=== PATIENT | male | born 1975 | race Two or more races ===

== ENCOUNTER 2023-05-07 11:31 | Emergency (ER) | payer MEDICAID, SELFPAY ==
--- NOTE | 2023-05-07 | ECG_ITS ---
Test Reason : ABN EKG Blood Pressure : / mmHG Vent. Rate : 077 BPM Atrial Rate : 077 BPM P-R Int : 182 ms QRS Dur : 108 ms QT Int : 412 ms P-R-T Axes : 064 -23 182 degrees QTc Int : 466 ms Normal sinus rhythm Minimal voltage criteria for LVH, may be normal variant ( [place] product ) ST & T wave abnormality, consider inferolateral ischemia Prolonged QT Abnormal ECG No previous ECGs available Referred By: Generic ED Physician Electronically Signed By:NOAH FLOWERS MD
--- NOTE | ~2023-05-07 | XR_ITS ---
EXAMINATION: XR CHEST CLINICAL INFORMATION: Increased blood pressure. COMPARISON: None available. TECHNIQUE: 2 views of the chest were obtained. FINDINGS: No significant abnormality is noted involving the heart, lungs, mediastinum, bony thorax or soft tissues. XR/XR chest 2V IMPRESSION: No acute cardiopulmonary process.
[2023-05-07 11:42] VITALS: BP 203/116; PULSE 77; RESP 18; TEMP 36.6; O2SAT 99; BMI 41.1
[2023-05-07 11:58] LABS: Glucose, Whole Blood 406 mg/dL (60-115)
--- NOTE | 2023-05-07 12:00 | PC.NURSE ---
[place], pt unable to establish primary care and obtain home medications. sent from urgent care for abnormal ekg. pt denies any chest pain or discomfort.
[2023-05-07 12:11] VITALS: BP 201/120; PULSE 75; RESP 14; O2SAT 97
--- NOTE | 2023-05-07 12:11 | ED_ITS ---
HPI - General Adult General Chief complaint: General Medical Stated complaint: ABN EKG FROM [facility] PER EMS Time Seen by Provider: 05/07/23 11:45 Source: patient, EMS and other (Urgent care staff) Mode of arrival: EMS Limitations: no limitations History of Present Illness HPI narrative: 47 yo male with history of NIDDM, HTN, seizure disorder, gerd here with complaints of medication refill. Patient was seen at after running out of all his medications 3 weeks ago seeking refill. He was noted to be hypertensive, hy perglycemic and had EKG t wave inversions although asymptomatic and was sent in to the ER for further evaluation. Patient reports he moved here from [facility] and has no PCP. He ran out his medications 3 weeks ago. He has no complaints of chest pain, shortness of breath, vision changes, dizziness, headache, vomiting. Related Data Previous Rx's Medication Instructions Recorded albuterol sulfate 90 mcg/actuation 2 puff inhalation Q4-6H PRN 05/07/23 aerosol inhaler shortness of breath or wheezing #8.5 grams alogliptin 25 mg tablet (Nesina) 25 mg PO DAILY #30 tabs 05/07/23 aspirin 81 mg tablet,delayed 81 mg PO DAILY #30 tabs 05/07/23 release fluticasone furoate 200 1 inh inhalation DAILY #60 ea 05/07/23 mcg-vilanterol 25 mcg/dose inhalation powder (Breo Ellipta) hydroxyzine HCl 25 mg tablet 25 mg PO TID PRN anxiety #30 tabs 05/07/23 isosorbide mononitrate 60 mg 60 mg PO DAILY #30 tabs 05/07/23 tablet,extended release 24 hr lisinopril 40 mg tablet 40 mg PO DAILY #30 tabs 05/07/23 melatonin 5 mg tablet 5 mg PO BEDTIME PRN sleep #30 tabs 05/07/23 metformin 1,000 mg tablet 1,000 mg PO BID #60 tabs 05/07/23 omeprazole 40 mg capsule,delayed 40 mg PO DAILY #30 caps 05/07/23 release phenytoin sodium extended 100 mg 100 mg PO BID #60 caps 05/07/23 capsule quetiapine 50 mg tablet 50 mg PO TID #90 tabs 05/07/23 Allergies Allergy/AdvReac Type Severity Reaction Status Date / Time No Known Allergies Allergy Verified 05/07/23 11:47 Review of Systems Review of Systems: Yes all other systems are reviewed and are negative Constitutional: Constitutional: Reports no additional constitutional complaints, Denies body ache(s), Denies chills, Denies fever(s), Denies headache(s) and Denies weakness Eyes: Eyes: Reports no additional eye complaints and Denies change in vision ENT: Reports system reviewed and no additional complaints, except as documented, Denies dizziness, Denies headache(s), Denies nasal congestion, Denies nasal discharge and Denies neck pain Cardiovascular: Cardiovascular: Reports no additional cardiovascular complaints, Denies chest pain, Denies leg edema and Denies dyspnea Respiratory: Respiratory: Reports no additional respiratory complaints, Denies cough and Denies dyspnea Gastrointestinal: Gastrointestinal: Reports no additional gastrointestinal complaints, Denies abdominal pain, Denies diarrhea, Denies nausea and Denies vomiting Genitourinary: Genitourinary: Denies urinary incontinence Musculoskeletal: Musculoskeletal: Reports no additional musculoskeletal complaints, Denies back pain, Denies arthralgias, Denies joint swelling, Denies neck pain, Denies numbness and Denies tingling Integumentary/Breasts: Skin/Breast: Reports system reviewed and no additional complaints, except as docu and Denies rash Neurologic: Reports system reviewed and no additional complaints, except as documented, Denies dizziness, Denies headache(s), Denies numbness, Denies tingling and Denies weakness PMFSH Past Medical History Attestation statement: The following information was validated with the patient. Source: old records reviewed and nursing notes reviewed Social History Social History Advance Directives: No Physical Exam ED Vital Signs: Vital Signs - 24 hr 05/07/23 11:42 05/07/23 12:11 05/07/23 13:06 Temperature 97.9 F 98.0 F Pulse Rate 77 75 89 Respiratory Rate 18 14 12 Blood Pressure 203/116 H 201/120 H 160/94 H Pulse Oximetry 99 97 98 Oxygen Delivery Method Room Air Room Air Room Air 05/07/23 14:28 05/07/23 16:20 Temperature Pulse Rate 82 75 Respiratory Rate 16 Blood Pressure 143/84 H 167/104 H Pulse Oximetry 100 Oxygen Delivery Method Room Air BMI result Body Mass Index 41.1 Const General: cooperative, healthy appearing, comfortable and no acute distress Orientation/consciousness: patient oriented x3 Limitations: no limitations HENMT Head: Yes normal to inspection Ears: hearing grossly normal bilaterally Eyes General: appearance normal, both eyes and all related structures Pupils: Equal, round and reactive pupils present Neck Neck: Yes normal visual inspection and Yes full ROM Chest Chest palpation & inspection: normal inspection of the chest Resp Effort & Inspection: normal respiratory effort Auscultation: clear to auscultation bilaterally Cardio Rate: regular rate Rhythm: regular rhythm Peripheral pulses: Peripheral pulses 2+ throughout GI Inspection: Yes normal to inspection Palpation (GI): Soft to palpation and nontender Back/Spine/Pelvis Thoracic/Lumbar Spine: thoracic and lumbar spine normal to inspection Skin General skin exam: no rashes or lesions noted Neuro General: patient oriented x3 and moves all extremities Cranial nerves: Yes Equal, round and reactive pupils present Cognition (Neuro): normal cognition Gait exam (Neuro): Normal gait present Extrem General: Yes normal to inspection, Yes no pedal edema and Yes no calf tenderness Course Course Course Narrative: Labs show hyperglycemia with no evidence of DKA. Patient received IV fluids and of insulin IV. Patient's blood pressure improved with his home oral medications. Patient's labs show a mild DENNYS. Mildly elevated troponin which is likely secondary to demand. Patient denies any chest pain or shortness of breath. Will plan for repeat BMP and troponin post fluids. Reevaluation(s) Reevaluation #1: 1630-Sign out to [facility] INDUSTRIAL HYGENIST pending repeat labs and dispo home Medications Administered Discontinued Medications Generic Name Dose Route Start Last Admin Trade Name Freq PRN Reason Stop Dose Admin Sodium Chloride 1,000 mls @ 999 mls/hr 05/07/23 13:34 05/07/23 16:14 Ns IV 05/07/23 14:34 Infused .Q1H1M STA Infusion Insulin Human Regular 10 unit 05/07/23 13:17 05/07/23 13:21 Insulin Regular, Human 100 Unit/Ml 3 Ml Vial IVPUSH 05/07/23 13:18 10 unit ONCE ONE Administration Isosorbide Mononitrate 60 mg 05/07/23 12:05 05/07/23 12:12 Isosorbide Mononitrate 60 Mg Tab.Er.24h PO 05/07/23 12:06 60 mg ONCE ONE Administration Protocol Lisinopril 40 mg 05/07/23 12:05 05/07/23 12:12 Lisinopril 40 Mg Tablet PO 05/07/23 12:06 40 mg ONCE ONE Administration Protocol Medical Decision Making Medical Decision Making MDM Narrative: 47 yo male with history of GERD, NIDDM, HTN, DM, seizure disorder here from urgent care with concern for abnormal EKG. Patient went there seeking medication refill after running out of all his medications 3 weeks ago. This is due to patient moving from a different state and not having a PCP in [place]. On arrival patient asymptomatic. BP elevated Will need labs, EKG, CXR, POC Will give patients home lisinopril, isosorbide Differential Diagnosis Differential Diagnoses: The differential diagnosis associated with the presentation includes asymptomatic HTN low concern for hypertensive crisis consider acs Lab Data MDM Lab Attestation statement: I reviewed the patient's lab results. 05/07/23 12:05 05/07/23 12:05 Labs: Lab Results 05/07/23 05/07/23 05/07/23 Range/Units 11:53 12:05 12:05 WBC 9.8 (4.8-10.8) X10*3/uL RBC 4.14 L (4.60-5.80) X10*6/uL Hgb 12.7 L (14.0-18.0) g/dl Hct 37.6 L (42.0-52.0) % MCV 90.8 (80.0-98.0) fL MCH 30.7 (27.0-33.0) pg MCHC 33.8 (31.0-36.0) g/dl RDW 13.2 (11.0-16.0) % Plt Count 245 (160-400) X10*3/uL MPV 10.1 (9.4-12.4) fL Immature Gran % (Auto) 0.9 H (0.0-0.4) % Neut % (Auto) 70.8 (45-73) % Lymph % (Auto) 18.4 L (20-40) % [place] % (Auto) 7.4 (2-11) % Eos % (Auto) 2.0 (0-4) % Baso % (Auto) 0.5 (0-2) % Lymph # (Auto) 1.8 (1.2-4.9) X10*3/uL [place]cher # (Auto) 0.7 (0.1-1.2) X10*3/uL Eos # (Auto) 0.2 (0.0-0.4) X10*3/uL Baso # (Auto) 0.1 (0.0-0.2) X10*3/uL Abs Immat Gran (auto) 0.09 H (0.00-0.03) X10*3/uL Absolute Neuts (auto) 6.9 (2.0-8.3) x10*3/uL Absolute Nucleated RBC 0.000 (0.0-0.012) X10*3/uL Nucleated RBC % (auto) 0.0 (0.0-0.2) /100WBC VBG pH (7.32-7.43) VBG pCO2 mmHg VBG pO2 mmHg VBG HCO3 (22-26) mmol/L VBG O2 Saturation % VBG Base Excess mmol/L Sodium 135 (135-145) mmol/L Potassium 4.6 (3.3-5.1) mmol/L Chloride 101 (96-108) mmol/L Carbon Dioxide 23 (22-29) mmol/L Anion Gap 16 (12-20) BUN 29 H (9-16) mg/dL Creatinine 1.80 H (0.5-1.4) mg/dL Estim Creat Clear Calc 71.5 Estimated GFR 41 POC Glucose 406 H* (60-115) mg/dL Random Glucose 412 H* (60-115) mg/dL Calcium 9.9 (8.4-10.2) mg/dL Magnesium 2.2 (1.6-2.6) mg/dL Total Bilirubin 0.3 (0.0-1.0) mg/dL Direct Bilirubin 0.1 (0.0-0.5) mg/dL AST 13 (5-37) U/L ALT 15 (0-40) U/L Alkaline Phosphatase 80 (39-117) U/L Troponin I High Sens (<3.5-35.0) ng/L Total Protein 7.8 (6.5-8.0) g/dL Albumin 3.8 (3.5-5.0) g/dL Beta-Hydroxybutyrate 0.09 (0.02-0.27) mmol/L 05/07/23 05/07/23 05/07/23 Range/Units 12:05 12:11 14:18 WBC (4.8-10.8) X10*3/uL RBC (4.60-5.80) X10*6/uL Hgb (14.0-18.0) g/dl Hct (42.0-52.0) % MCV (80.0-98.0) fL MCH (27.0-33.0) pg MCHC (31.0-36.0) g/dl RDW (11.0-16.0) % Plt Count (160-400) X10*3/uL MPV (9.4-12.4) fL Immature Gran % (Auto) (0.0-0.4) % Neut % (Auto) (45-73) % Lymph % (Auto) (20-40) % [place]cher % (Auto) (2-11) % Eos % (Auto) (0-4) % Baso % (Auto) (0-2) % Lymph # (Auto) (1.2-4.9) X10*3/uL [place]cher # (Auto) (0.1-1.2) X10*3/uL Eos # (Auto) (0.0-0.4) X10*3/uL Baso # (Auto) (0.0-0.2) X10*3/uL Abs Immat Gran (auto) (0.00-0.03) X10*3/uL Absolute Neuts (auto) (2.0-8.3) x10*3/uL Absolute Nucleated RBC (0.0-0.012) X10*3/uL Nucleated RBC % (auto) (0.0-0.2) /100WBC VBG pH 7.44 H (7.32-7.43) VBG pCO2 47 mmHg VBG pO2 38 mmHg VBG HCO3 32 H (22-26) mmol/L VBG O2 Saturation 65.0 % VBG Base Excess 7.3 mmol/L Sodium (135-145) mmol/L Potassium (3.3-5.1) mmol/L Chloride (96-108) mmol/L Carbon Dioxide (22-29) mmol/L Anion Gap (12-20) BUN (9-16) mg/dL Creatinine (0.5-1.4) mg/dL Estim Creat Clear Calc Estimated GFR POC Glucose 243 H (60-115) mg/dL Random Glucose (60-115) mg/dL Calcium (8.4-10.2) mg/dL Magnesium (1.6-2.6) mg/dL Total Bilirubin (0.0-1.0) mg/dL Direct Bilirubin (0.0-0.5) mg/dL AST (5-37) U/L ALT (0-40) U/L Alkaline Phosphatase (39-117) U/L Troponin I High Sens 56.1 H (<3.5-35.0) ng/L Total Protein (6.5-8.0) g/dL Albumin (3.5-5.0) g/dL Beta-Hydroxybutyrate (0.02-0.27) mmol/L Independent Interpretation I performed an independent interpretation of an: EKG and Plain X-Ray Interpretation: And pending reviewed the EKG which shows normal sinus rhythm with rate of 77, normal [place], normal QRS, T-wave inversions leads 1, 2, aVL, AVF, V4, V5, V6 Radiology Impression Discussion of test interpretation with radiology: I have reviewed the radiologist's reading. Independent Historian Clinical information obtained from an independent historian. History obtained from or confirmed by: EMS Clinical information was obtained from EMS and confirms the patient Discharge Plan Discharge Clinical Impression: Medication refill, Hypertension, Acute hyperglycemia Patient Disposition: Home, Self-Care Instructions: Medicine Refill (ED), Hypertension and Diabetes (ED) Additional Instructions: We have given you a 30 day supply her medications. You need to establish a primary care to continue your daily medication Prescriptions: New metformin 1,000 mg tablet 1,000 mg PO BID Qty: 60 0RF alogliptin [Nesina] 25 mg tablet 25 mg PO DAILY Qty: 30 0RF fluticasone furoate-vilanterol [Breo Ellipta] 200-25 mcg/dose blister with device 1 inh inhalation DAILY Qty: 60 0RF albuterol sulfate 90 mcg/actuation HFA aerosol inhaler 2 puff inhalation Q4-6H PRN (Reason: shortness of breath or wheezing) Qty: 8.5 0RF hydroxyzine HCl 25 mg tablet 25 mg PO TID PRN (Reason: anxiety) Qty: 30 0RF isosorbide mononitrate 60 mg tablet extended release 24 hr 60 mg PO DAILY Qty: 30 0RF lisinopril 40 mg tablet 40 mg PO DAILY Qty: 30 0RF melatonin 5 mg tablet 5 mg PO BEDTIME PRN (Reason: sleep) Qty: 30 0RF omeprazole 40 mg capsule,delayed release(DR/EC) 40 mg PO DAILY Qty: 30 0RF phenytoin sodium extended 100 mg capsule 100 mg PO BID Qty: 60 0RF aspirin 81 mg tablet,delayed release (DR/EC) 81 mg PO DAILY Qty: 30 0RF quetiapine 50 mg tablet 50 mg PO TID Qty: 90 0RF Interventions: Admission Worksheet (ED) Last Done: 05/07/23 15:00
[2023-05-07] MEDS: Isosorbide Mononitrate 60 MG TAB.ER.24H PO (12:12)
[2023-05-07] MEDS: lisinopriL 40 MG TABLET PO (12:12)
[2023-05-07 12:14] LABS: MANUAL DIFF FLAG NO
[2023-05-07 12:18] LABS: Venous Blood Gas Refer to POC result
[2023-05-07 12:19] LABS: Basophils Absolute Auto 0.1 X10*3/uL (0.0-0.2); Basophils Percent Auto 0.5 % (0-2); Eosinophils Absolute Auto 0.2 X10*3/uL (0.0-0.4); Hematocrit 37.6 % (42.0-52.0); Hemoglobin 12.7 g/dl (14.0-18.0); Imm Gran Abs Auto 0.09 X10*3/uL (0.00-0.03); Imm Gran Pct Auto 0.9 % (0.0-0.4); Lymphocytes Absolute Auto 1.8 X10*3/uL (1.2-4.9); Lymphocytes Percent Auto 18.4 % (20-40); Mean Corpuscular HGB Conc 33.8 g/dl (31.0-36.0); Mean Corpuscular Hemoglobin 30.7 pg (27.0-33.0); Mean Corpuscular Volume 90.8 fL (80.0-98.0); Mean Platelet Volume 10.1 fL (9.4-12.4); Monocytes Absolute Auto 0.7 X10*3/uL (0.1-1.2); Monocytes Percent Auto 7.4 % (2-11); Neutrophils Absolute Auto 6.9 x10*3/uL (2.0-8.3); Neutrophils Percent Auto 70.8 % (45-73); Platelet Count 245 X10*3/uL (160-400); Red Blood Count 4.14 X10*6/uL (4.60-5.80); Red Cell Distribution Width 13.2 % (11.0-16.0); White Blood Count 9.8 X10*3/uL (4.8-10.8)
[2023-05-07 12:19] LABS: VBG Base Excess 7.3 mmol/L; VBG HCO3 32 mmol/L (22-26); VBG pCO2 47 mmHg; VBG pH 7.44 (7.32-7.43); VBG pO2 38 mmHg
[2023-05-07 12:59] LABS: Troponin-I High Sensitivity 56.1 ng/L (<3.5-35.0)
[2023-05-07 13:06] VITALS: BP 160/94; PULSE 89; RESP 12; TEMP 36.7; O2SAT 98
[2023-05-07 13:13] LABS: Beta-Hydroxybutyrate 0.09 mmol/L (0.02-0.27)
--- NOTE | 2023-05-07 13:15 | PC.NURSE ---
continues to deny any pain, offering no complaints. awaiting lab results at this time
[2023-05-07 13:18] LABS: Alanine Aminotransferase 15 U/L (0-40); Albumin Level 3.8 g/dL (3.5-5.0); Alkaline Phosphatase 80 U/L (39-117); Anion Gap 16 (12-20); Aspartate Amino Transferase 13 U/L (5-37); Bilirubin Direct 0.1 mg/dL (0.0-0.5); Bilirubin Total 0.3 mg/dL (0.0-1.0); Blood Urea Nitrogen 29 mg/dL (9-16); Calcium 9.9 mg/dL (8.4-10.2); Carbon Dioxide 23 mmol/L (22-29); Chloride 101 mmol/L (96-108); Creatinine Clr Calc Pharmacy 71.5; Estimated Glomerular Filt Rate 41; Glucose Random 412 mg/dL (60-115); Magnesium 2.2 mg/dL (1.6-2.6); Potassium 4.6 mmol/L (3.3-5.1); Sodium 135 mmol/L (135-145); Total Protein 7.8 g/dL (6.5-8.0)
[2023-05-07] MEDS: Insulin Regular, Human 100 UNIT/ML 3 ML VIAL 10 UNIT IVPUSH (13:21)
[2023-05-07] MEDS: 0.9 % Sodium Chloride 1,000 ML 999 ML IV (13:42)
[2023-05-07 14:22] LABS: Glucose, Whole Blood 243 mg/dL (60-115)
[2023-05-07 14:28] VITALS: BP 143/84; PULSE 82; RESP 16; O2SAT 100
--- NOTE | 2023-05-07 15:29 | PC.NURSE ---
repeat lab work obtained, pt continues to offer no complaints
[2023-05-07 16:20] VITALS: BP 167/104; PULSE 75
[2023-05-07 16:38] LABS: Anion Gap 13 (12-20); Calcium 9.1 mg/dL (8.4-10.2); Carbon Dioxide 22 mmol/L (22-29); Chloride 104 mmol/L (96-108); Creatinine Clr Calc Pharmacy 80.5; Estimated Glomerular Filt Rate 47; Glucose Random 277 mg/dL (60-115); Sodium 135 mmol/L (135-145)
[2023-05-07 16:40] LABS: Troponin-I High Sensitivity 49.2 ng/L (<3.5-35.0)
[2023-05-07 17:16] LABS: Blood Urea Nitrogen 26 mg/dL (9-16)
--- NOTE | 2023-05-07 17:53 | MHC.CM.ED ---
CM met with patient at request of Yany CORRALES in regards to obtaining a PCP. Pt moved back to the area 3 weeks ago. 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 Pt given [facility] physician referral listing. Pt tells CM that he has already met with people at [facility] and is waiting for an appointment. Stated they told him to come to ED today, and then follow up with a telephone call to the Center. Pt needs medication refill. Will use [facility] pharmacy. Lives with friend. No DME/services. Un-vaccinated. Declines HCP. D/C plan: Home without services. Will call friend for transport home.
== END 2023-05-07 17:13 | disposition home or self-care (01) ==
PROVIDERS: Nurse Practitioner Family; Emergency Provider Emergency Medicine Emergency Medical Services
DX: E11.65 Type 2 diabetes mellitus with hyperglycemia (principal); R20.0 Anesthesia of skin; I10 Essential (primary) hypertension; R94.31 Abnormal electrocardiogram [ECG] [EKG]; R11.2 Nausea with vomiting, unspecified; Z76.0 Encounter for issue of repeat prescription; Z79.899 Other long term (current) drug therapy; Z79.84 Long term (current) use of oral hypoglycemic drugs
CPT/HCPCS: 36415; 71046; 80048; 80076; 82010; 82803; 82947; 83735; 84484; 85025; 93005; 96361; 96374; 99284; 99285

== ENCOUNTER → 2023-05-07 11:38 | Outpatient (BNV) | payer MEDICAID, SELFPAY | PROVIDERS: Emergency Provider Emergency Medicine Emergency Medical Services; Visit Provider Internal Medicine Cardiovascular Disease | DX: R94.31 Abnormal electrocardiogram [ECG] [EKG] (principal) | CPT/HCPCS: 93010 ==

== ENCOUNTER 2023-05-26 11:15 | Outpatient (REF) | payer MEDICAID, SELFPAY ==
[2023-05-26 13:35] LABS: MANUAL DIFF FLAG NO
[2023-05-26 13:54] LABS: Basophils Absolute Auto 0.1 X10*3/uL (0.0-0.2); Basophils Percent Auto 0.6 % (0-2); Eosinophils Absolute Auto 0.2 X10*3/uL (0.0-0.4); Eosinophils Percent Auto 2.2 % (0-4); Hematocrit 42.2 % (42.0-52.0); Imm Gran Abs Auto 0.07 X10*3/uL (0.00-0.03); Imm Gran Pct Auto 0.8 % (0.0-0.4); Lymphocytes Absolute Auto 1.6 X10*3/uL (1.2-4.9); Lymphocytes Percent Auto 18.5 % (20-40); Mean Corpuscular HGB Conc 33.2 g/dl (31.0-36.0); Mean Corpuscular Volume 90.4 fL (80.0-98.0); Mean Platelet Volume 10.1 fL (9.4-12.4); Monocytes Absolute Auto 0.6 X10*3/uL (0.1-1.2); Monocytes Percent Auto 6.2 % (2-11); Neutrophils Absolute Auto 6.3 x10*3/uL (2.0-8.3); Neutrophils Percent Auto 71.7 % (45-73); Platelet Count 280 X10*3/uL (160-400); Red Blood Count 4.67 X10*6/uL (4.60-5.80); Red Cell Distribution Width 13.1 % (11.0-16.0); White Blood Count 8.8 X10*3/uL (4.8-10.8)
[2023-05-26 14:34] LABS: Syphilis Screen Nonreactive (Nonreactive)
[2023-05-26 14:39] LABS: Creatinine Urine 102.98 mg/dL; Microalbum/Creatinine Ratio Ur 124.2 ug/mg cr
[2023-05-26 14:41] LABS: Alanine Aminotransferase 15 U/L (0-40); Alkaline Phosphatase 83 U/L (39-117); Anion Gap 13 (12-20); Aspartate Amino Transferase 12 U/L (5-37); Bilirubin Total 0.4 mg/dL (0.0-1.0); Blood Urea Nitrogen 18 mg/dL (9-16); Calcium 9.9 mg/dL (8.4-10.2); Carbon Dioxide 26 mmol/L (22-29); Chloride 100 mmol/L (96-108); Cholesterol 185 mg/dL; Estimated Glomerular Filt Rate 44; HDL Cholesterol 34 mg/dL; LDL Cholesterol Calculated 97 mg/dl; Potassium 3.9 mmol/L (3.3-5.1); Sodium 135 mmol/L (135-145); TSH reflex Free T4 0.96 uIU/mL (0.32-4.0); Total Protein 8.2 g/dL (6.5-8.0); Triglycerides 271 mg/dL
[2023-05-26 14:56] LABS: Glucose Random 404 mg/dL (60-115)
[2023-05-27 04:16] LABS: HBS Num1 0.33 mIU/mL (0-7.99); HBc Num1 0.08 S/CO (0.00-0.79); HBsAGNum1 0.37 S/CO (0.00-0.99); HIV AB/AG Nonreactive (Nonreactive); HIV Num 1 0.06 S/CO (0.00-0.99); Hepatitis B Core Antibody Nonreactive (Nonreactive); Hepatitis B Surface Antigen Negative (Negative); ~HepC Num1 0.11 S/CO (0.00-0.79); ~Hepatitis A Antibody IgM Nonreactive (Nonreactive); ~Hepatitis B Surface Antibody NONREACTIVE (Nonreactive); ~Hepatitis C Antibody Nonreactive (Nonreactive)
== END 2023-05-26 11:16 | disposition home or self-care (01) ==
LOC: HO.HHCL 11:15
PROVIDERS: Visit Provider Registered Nurse
DX: Z00.00 Encounter for general adult medical examination without abnormal findings (principal); Z11.4 Encounter for screening for human immunodeficiency virus [HIV]; E11.65 Type 2 diabetes mellitus with hyperglycemia
CPT/HCPCS: 36415; 80053; 80061; 82043; 84443; 85025; 86704; 86706; 86709; 86780; 86803; 87340; 87389

== ENCOUNTER 2023-10-21 08:54 | Outpatient (AMB) | payer MEDICAID, SELFPAY ==
--- NOTE | 2023-10-21 09:08 | A.OFFVIS_ITS ---
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 Name: Marvin [id number] Accompanied by: Self / Same As Patient Allergies No Known Allergies Allergy (Verified 10/21/23 09:10) Medication List - Last Reconciled 10/21/23 by Steve Chavarria MD albuterol sulfate 90 mcg/actuation 2 puffs inhalation Q4-6H PRN alogliptin (Nesina) 25 mg PO DAILY aspirin 81 mg PO DAILY atorvastatin 80 mg PO QAM carvedilol 25 mg PO fluticasone furoate-vilanterol 200-25 mcg/dose (Breo Ellipta) 1 inh inhalation DAILY hydroxyzine HCl 25 mg PO TID PRN isosorbide mononitrate ER 60 mg PO DAILY lisinopril 40 mg PO DAILY melatonin 5 mg PO BEDTIME PRN metformin 1,000 mg PO BID omeprazole 40 mg PO DAILY phenytoin sodium extended 100 mg PO BID quetiapine 50 mg PO TID HPI HPI Comments History of Present Illness Details Tre is here for consultation regarding assessment of cardiac status. Multiple cardiovascular risk factors including type 2 diabetes, hypertension, dyslipidemia, morbid obesity, COPD among others. There is also mention of stroke in his history. Apparently he has had cardiac catheterization in the [facility] few years ago but unknown findings. Patient thinks he did not get any stents but again we do not have any information. He does not really get any clear-cut chest pains. No anginal equivalents. With activities he may get short of breath but he is clearly overweight. [facility] Medical History (Updated 10/21/23 @ 09:53 by Steve Chavarria MD) Moderate episode of recurrent major depressive disorder Cannabis use disorder Generalized anxiety disorder GERD (gastroesophageal reflux disease) Stroke COPD (chronic obstructive pulmonary disease) Hyperlipidemia, unspecified Essential hypertension Type 2 diabetes mellitus with unspecified complications Morbid obesity Surgical History (Updated 10/21/23 @ 09:24 by Steve Chavarria MD) No pertinent past surgical history Family History (Updated 10/21/23 @ 09:12 by Sonam Matthew) Mother No problems noted. Paternal Grandfather Heart problem Father No problems noted. Social History (Updated 10/21/23 @ 09:13 by Sonam Matthew) Patient Tobacco Use Status: Former Tobacco user Review of Systems Const Denies chills, Denies daytime sleepiness, Denies fatigue, Denies fever(s), Denies frequent falls, Denies night sweats, Denies snoring, Denies weakness, Denies weight gain and Denies weight loss Eyes Denies loss of vision ENT Denies dizziness and Denies hearing loss Card Denies chest pain, Denies chest pain with activity, Denies syncope, Denies rapid heart rate, Denies edema, Denies claudication, Denies lightheadedness, Denies dyspnea on exertion and Denies orthopnea Resp Denies cough, Denies excessive phlegm production, Denies dyspnea on exertion, Denies snoring and Denies wheezing GI Denies abdominal pain, Denies hematochezia, Denies change in bowel habits, Denies change in stool character, Denies heartburn, Denies nausea and Denies vomiting Denies hematuria, Denies dysuria and Denies urinary frequency Musc Denies arthralgias, Denies muscle weakness, Denies numbness and Denies tingling Skin/Breast Denies nail changes and Denies rash Neuro Denies Abnormal speech present, Denies dizziness, Denies syncope, Denies frequent falls, Denies loss of vision, Denies memory loss, Denies numbness, Denies tingling and Denies weakness Psych Denies depression and Denies memory loss Endo Denies fatigue Aller/Immun Denies wheezing Physical Exam Vital Signs: Last Vital Signs Pulse 70 10/21/23 09:09 BP 140/94 H 10/21/23 09:09 BMI result Body Mass Index 39.9 Const General: comfortable and no acute distress Orientation/consciousness: patient oriented x3 HEENT Other: Unremarkable Head: Yes normal to inspection Neck Neck: Yes normal visual inspection Chest Chest palpation & inspection: normal inspection of the chest Resp Auscultation: clear to auscultation bilaterally Cardio Palpation: normal PMI Heart sounds: S1 normal heart sound present, S2 normal heart sound present, no gallops, no murmurs and no rubs GI Palpation (GI): Soft to palpation Back/Spine/Pelvis Other: unremarkable Skin General skin exam: no rashes or lesions noted Neuro General: patient oriented x3 Speech: No Abnormal speech present Extrem General: Yes normal to inspection Psych Mental Status: mental status grossly normal Assessment & Plan Assessment & Plan (1) Abnormal EKG: Code(s): R94.31 - Abnormal electrocardiogram [ECG] [EKG] (2) Status post cardiac catheterization: Code(s): Z98.890 - Other specified postprocedural states (3) SOB (shortness of breath): Code(s): R06.02 - Shortness of breath Plan Numerous cardiovascular risk factors; prior cardiac catheterizations with unknown findings; shortness of breath; abnormal EKG. EKG shows sinus rhythm at 77/Min; left ventricular hypertrophy with strain pattern but can not exclude ischemia. No previous EKGs available. We will request records from reported catheterization is in ER. Echocardiogram/stress perfusion imaging can be completed. Follow-up after the above. Orders: Orders CA stress test Today R06.02 - Shortness of breath, R07.2 - Precordial pain CA echo transthoracic complete Today I25.10 - Atherosclerotic heart disease of [place] coronary artery without angina pectoris, R06.02 - Shortness of breath NM cardiolite stress test Today R06.02 - Shortness of breath, R07.2 - Precordial pain Medications: Changed From alogliptin (Nesina) 25 mg PO DAILY 30 tabs 0RF To alogliptin (Nesina) 25 mg PO DAILY Coding Level of Care Code New Pt Level 4 (86384) Diagnoses Abnormal EKG R94.31 Status post cardiac catheterization Z98.890 SOB (shortness of breath) R06.02
[2023-10-21 09:09] VITALS: BP 140/94; PULSE 70; BMI 39.9
== END 2023-10-21 09:36 | disposition home or self-care (01) ==
PROVIDERS: PCP Nurse Practitioner Primary Care; Referring Provider Nurse Practitioner Primary Care; Visit Provider Internal Medicine
DX: R94.31 Abnormal electrocardiogram [ECG] [EKG] (principal); Z98.890 Other specified postprocedural states; R06.02 Shortness of breath
CPT/HCPCS: 99204

== ENCOUNTER → 2023-10-21 08:54 | Outpatient (BNVA) | payer MEDICAID, SELFPAY | PROVIDERS: Visit Provider Internal Medicine | DX: R94.31 Abnormal electrocardiogram [ECG] [EKG] (principal); R06.02 Shortness of breath; Z98.890 Other specified postprocedural states | CPT/HCPCS: 99202 ==

== ENCOUNTER 2023-11-04 08:53 | Outpatient (REF) | payer MEDICAID, SELFPAY ==
[2023-11-04 11:57] LABS: Alanine Aminotransferase 16 U/L (0-40); Albumin Level 3.9 g/dL (3.5-5.0); Alkaline Phosphatase 81 U/L (39-117); Anion Gap 13 (12-20); Aspartate Amino Transferase 15 U/L (5-37); Bilirubin Direct 0.2 mg/dL (0.0-0.5); Bilirubin Total 0.4 mg/dL (0.0-1.0); Blood Urea Nitrogen 34 mg/dL (9-16); Calcium 8.9 mg/dL (8.4-10.2); Carbon Dioxide 27 mmol/L (22-29); Chloride 102 mmol/L (96-108); Estimated Glomerular Filt Rate 31; Glucose Random 308 mg/dL (60-115); Potassium 4.3 mmol/L (3.3-5.1); Sodium 138 mmol/L (135-145); Total Protein 7.4 g/dL (6.5-8.0)
[2023-11-04 12:16] LABS: Phenytoin Dilantin < 1.8 ug/mL (10.0-20.0)
[2023-11-04 12:20] LABS: Creatinine Urine 86.84 mg/dL; Microalbum/Creatinine Ratio Ur 25.3 ug/mg cr (<30)
[2023-11-04 12:21] LABS: Vitamin B12 394 pg/mL (200-900)
== END 2023-11-04 08:54 | disposition home or self-care (01) ==
LOC: HO.HHCL 08:53
PROVIDERS: Visit Provider Nurse Practitioner Primary Care
DX: E11.65 Type 2 diabetes mellitus with hyperglycemia (principal); E78.5 Hyperlipidemia, unspecified; G40.909 Epilepsy, unspecified, not intractable, without status epilepticus
CPT/HCPCS: 36415; 80048; 80076; 80185; 82043; 82570; 82607

== ENCOUNTER 2023-11-04 15:36 | Emergency (ER) | payer MEDICAID, SELFPAY ==
[2023-11-04 15:48] VITALS: BP 111/78; PULSE 77; RESP 16; TEMP 36.8; O2SAT 97; BMI 40.5
--- NOTE | 2023-11-04 15:48 | ED.RECABL ---
HPI - Recheck/Abnormal Lab/Rx General Chief Complaint: Recheck/Abnormal Lab/Rx Stated Complaint: doctor told patient to come in abn labs Related Data Home Medications Medication Instructions Recorded Confirmed alogliptin 25 mg tablet (Nesina) 25 mg PO DAILY 10/21/23 10/21/23 atorvastatin 80 mg tablet 80 mg PO QAM 10/21/23 10/21/23 carvedilol 25 mg tablet 25 mg PO 10/21/23 10/21/23 Previous Rx's Medication Instructions Recorded albuterol sulfate 90 mcg/actuation 2 puff inhalation Q4-6H PRN 05/07/23 aerosol inhaler shortness of breath or wheezing #8.5 grams aspirin 81 mg tablet,delayed 81 mg PO DAILY #30 tabs 05/07/23 release fluticasone furoate 200 1 inh inhalation DAILY #60 ea 05/07/23 mcg-vilanterol 25 mcg/dose inhalation powder (Breo Ellipta) hydroxyzine HCl 25 mg tablet 25 mg PO TID PRN anxiety #30 tabs 05/07/23 isosorbide mononitrate 60 mg 60 mg PO DAILY #30 tabs 05/07/23 tablet,extended release 24 hr lisinopril 40 mg tablet 40 mg PO DAILY #30 tabs 05/07/23 melatonin 5 mg tablet 5 mg PO BEDTIME PRN sleep #30 tabs 05/07/23 metformin 1,000 mg tablet 1,000 mg PO BID #60 tabs 05/07/23 omeprazole 40 mg capsule,delayed 40 mg PO DAILY #30 caps 05/07/23 release phenytoin sodium extended 100 mg 100 mg PO BID #60 caps 05/07/23 capsule quetiapine 50 mg tablet 50 mg PO TID #90 tabs 05/07/23 Allergies Allergy/AdvReac Type Severity Reaction Status Date / Time No Known Allergies Allergy Verified 11/05/23 11:01 [facility] Past Medical History Medical History (Updated 11/12/23 @ 18:36 by ELSI Han) Moderate episode of recurrent major depressive disorder Cannabis use disorder Generalized anxiety disorder GERD (gastroesophageal reflux disease) Stroke COPD (chronic obstructive pulmonary disease) Hyperlipidemia, unspecified Essential hypertension Type 2 diabetes mellitus with unspecified complications Morbid obesity Surgical History (Updated 10/21/23 @ 09:24 by Steve Chavarria MD) No pertinent past surgical history Family History Family History (Updated 10/21/23 @ 09:12 by Sonam Matthew) Mother No problems noted. Paternal Grandfather Heart problem Father No problems noted. Social History Social History (Updated 10/21/23 @ 09:13 by Sonam Matthew) Patient Tobacco Use Status: Former Tobacco user Advance Directives: No Advance Directives Information Provided: No Physical Exam Vital Signs: Vital Signs: Last Vital Signs Temp 98.3 F 11/04/23 15:48 Pulse 77 11/04/23 15:48 Resp 16 11/04/23 15:48 BP 111/78 11/04/23 15:48 Pulse Ox 97 11/04/23 15:48 O2 Del Method Room Air 11/04/23 15:48 BMI result Body Mass Index 40.5 Course Course Course Narrative: RME: 48 year-old M w/ PMHx CAD s/p cath, DM, presenting to the ED c/o sent in from [facility] due to abnormal renal function on outpatient labs today. Admits had routine labs done at PCP this AM and was told to come to ED. Also reports b/l kidney /back pain Labs, UA Full HPI, ROS and PE to be performed by primary ED provider. Medical Decision Making Lab Data 11/04/23 16:42 11/04/23 16:42 Labs: Lab Results 11/04/23 Range/Units 16:42 WBC 8.7 (4.8-10.8) X10*3/uL RBC 4.19 L (4.60-5.80) X10*6/uL Hgb 12.7 L (14.0-18.0) g/dl Hct 37.8 L (42.0-52.0) % MCV 90.2 (80.0-98.0) fL MCH 30.3 (27.0-33.0) pg MCHC 33.6 (31.0-36.0) g/dl RDW 13.6 (11.0-16.0) % Plt Count 232 (160-400) X10*3/uL MPV 9.8 (9.4-12.4) fL Immature Gran % (Auto) 0.6 H (0.0-0.4) % Neut % (Auto) 66.2 (45-73) % Lymph % (Auto) 23.7 (20-40) % Monroe % (Auto) 6.0 (2-11) % Eos % (Auto) 2.9 (0-4) % Baso % (Auto) 0.6 (0-2) % Lymph # (Auto) 2.1 (1.2-4.9) X10*3/uL Monroe # (Auto) 0.5 (0.1-1.2) X10*3/uL Eos # (Auto) 0.3 (0.0-0.4) X10*3/uL Baso # (Auto) 0.1 (0.0-0.2) X10*3/uL Abs Immat Gran (auto) 0.05 H (0.00-0.03) X10*3/uL Absolute Neuts (auto) 5.8 (2.0-8.3) x10*3/uL Absolute Nucleated RBC 0.000 (0.0-0.012) X10*3/uL Nucleated RBC % (auto) 0.0 (0.0-0.2) /100WBC Sodium 136 (135-145) mmol/L Potassium 4.4 (3.3-5.1) mmol/L Chloride 105 (96-108) mmol/L Carbon Dioxide 25 (22-29) mmol/L Anion Gap 10 L (12-20) BUN 31 H (9-16) mg/dL Creatinine 2.04 H (0.5-1.4) mg/dL Estim Creat Clear Calc 61.9 Estimated GFR 35 Random Glucose 314 H (60-115) mg/dL Calcium 8.9 (8.4-10.2) mg/dL Magnesium 2.0 (1.6-2.6) mg/dL Total Bilirubin 0.3 (0.0-1.0) mg/dL Direct Bilirubin 0.1 (0.0-0.5) mg/dL AST 12 (5-37) U/L ALT 15 (0-40) U/L Alkaline Phosphatase 75 (39-117) U/L Total Protein 7.0 (6.5-8.0) g/dL Albumin 3.7 (3.5-5.0) g/dL Lipase 33 (8-78) U/L Discharge Plan Discharge Clinical Impression: Abnormal laboratory test Patient Disposition: Left W/O Completing Treatment Prescriptions: No Action metformin 1,000 mg tablet 1,000 mg PO BID Qty: 60 0RF fluticasone furoate-vilanterol [Breo Ellipta] 200-25 mcg/dose blister with device 1 inh inhalation DAILY Qty: 60 0RF albuterol sulfate 90 mcg/actuation HFA aerosol inhaler 2 puff inhalation Q4-6H PRN (Reason: shortness of breath or wheezing) Qty: 8.5 0RF hydroxyzine HCl 25 mg tablet 25 mg PO TID PRN (Reason: anxiety) Qty: 30 0RF isosorbide mononitrate 60 mg tablet extended release 24 hr 60 mg PO DAILY Qty: 30 0RF lisinopril 40 mg tablet 40 mg PO DAILY Qty: 30 0RF melatonin 5 mg tablet 5 mg PO BEDTIME PRN (Reason: sleep) Qty: 30 0RF omeprazole 40 mg capsule,delayed release(DR/EC) 40 mg PO DAILY Qty: 30 0RF phenytoin sodium extended 100 mg capsule 100 mg PO BID Qty: 60 0RF aspirin 81 mg tablet,delayed release (DR/EC) 81 mg PO DAILY Qty: 30 0RF quetiapine 50 mg tablet 50 mg PO TID Qty: 90 0RF alogliptin [Nesina] 25 mg tablet 25 mg PO DAILY carvedilol 25 mg tablet 25 mg PO atorvastatin 80 mg tablet 80 mg PO [facility] Discharge Date/Time: 11/04/23 20:52
[2023-11-04 16:47] LABS: MANUAL DIFF FLAG NO
[2023-11-04 16:48] LABS: Basophils Absolute Auto 0.1 X10*3/uL (0.0-0.2); Basophils Percent Auto 0.6 % (0-2); Eosinophils Absolute Auto 0.3 X10*3/uL (0.0-0.4); Eosinophils Percent Auto 2.9 % (0-4); Hematocrit 37.8 % (42.0-52.0); Hemoglobin 12.7 g/dl (14.0-18.0); Imm Gran Abs Auto 0.05 X10*3/uL (0.00-0.03); Imm Gran Pct Auto 0.6 % (0.0-0.4); Lymphocytes Absolute Auto 2.1 X10*3/uL (1.2-4.9); Lymphocytes Percent Auto 23.7 % (20-40); Mean Corpuscular HGB Conc 33.6 g/dl (31.0-36.0); Mean Corpuscular Hemoglobin 30.3 pg (27.0-33.0); Mean Corpuscular Volume 90.2 fL (80.0-98.0); Mean Platelet Volume 9.8 fL (9.4-12.4); Monocytes Absolute Auto 0.5 X10*3/uL (0.1-1.2); Neutrophils Absolute Auto 5.8 x10*3/uL (2.0-8.3); Neutrophils Percent Auto 66.2 % (45-73); Platelet Count 232 X10*3/uL (160-400); Red Blood Count 4.19 X10*6/uL (4.60-5.80); Red Cell Distribution Width 13.6 % (11.0-16.0); White Blood Count 8.7 X10*3/uL (4.8-10.8)
[2023-11-04 17:02] LABS: Alanine Aminotransferase 15 U/L (0-40); Albumin Level 3.7 g/dL (3.5-5.0); Alkaline Phosphatase 75 U/L (39-117); Anion Gap 10 (12-20); Aspartate Amino Transferase 12 U/L (5-37); Bilirubin Direct 0.1 mg/dL (0.0-0.5); Bilirubin Total 0.3 mg/dL (0.0-1.0); Blood Urea Nitrogen 31 mg/dL (9-16); Calcium 8.9 mg/dL (8.4-10.2); Carbon Dioxide 25 mmol/L (22-29); Chloride 105 mmol/L (96-108); Creatinine Clr Calc Pharmacy 61.9; Estimated Glomerular Filt Rate 35; Glucose Random 314 mg/dL (60-115); Lipase 33 U/L (8-78); Potassium 4.4 mmol/L (3.3-5.1); Sodium 136 mmol/L (135-145)
--- OUTSIDE RECORDS SUMMARY | 2023-11-04 20:47 | XMS_ITS | Continuity of Care Document ---
Author Name Unknown Organization [facility] jonathan Address [address] [place] [address] [address] [place] [address]- Care Team Providers Care Statistician Theoretical Name Role Phone Not on Staff, PCP Primary Care Physician Unavail able Encounter [facility] Date(s): 07/31/23 - 09/04/23 [facility] [address] [place] [address]- Attending Physician: Tye Lazcano MD Referring Physician: Not on Staff, Referring MD Allergies, Adverse Reactions, Alerts No Known Medication Allergies Immunizations Given and Recorded Vaccine Date Status Refusal Reason tetanus/diphtheria/pertussis, acel(Tdap) 07/30/23 Given Medications oxyCODONE 5 mg oral tablet See Instructions, PRN, 1/2 tablet By Mouth Every 6 hours, # 5 tablet, Refills 0, Tot. Refills 0, Maintenance, Pain, 07/30/23 18:39:00 EDT, Instructions Replace Required Details, Route to Pharmacy Electronically, [facility]/pharmacy #[id number], Partial fill upon... Start Date: 07/30/23 Status: Ordered Patient Care team information Care Team Personnel Name: Not on Staff, PCP Position: S Physician (General Medicine) Member Role: PCP
--- OUTSIDE RECORDS SUMMARY | 2023-11-04 20:47 | XMS_ITS | Continuity of Care Document ---
Author Name Unknown Organization [facility] Address [address] [place] [address]- Care Team Providers Care Bench Assembler Operator Name Role Phone Not on Staff, PCP Primary Care Physician Unavail able Encounter [facility] Date(s): 07/30/23 - 07/30/[address] [address]- Discharge Disposition: A-D/C Home Attending Physician: Billy Clay MD Admitting Physician: Billy Clay MD Referring Physician: Not on Staff, Referring MD Allergies, Adverse Reactions, Alerts No Known Medication Allergies Immunizations Given and Recorded Vaccine Date Status Refusal Reason tetanus/diphtheria/pertussis, acel(Tdap) 07/30/23 Given Medications Dilaudid Inj 1 mg, Injection, IV Push Slowly, Once, STAT, 07/30/23 15:12:00 EDT, Stop date 07/30/23 15:12:00 EDT Start Date: 07/30/23 Stop Date: 07/30/23 Status: Completed oxyCODONE 5 mg oral tablet See Instructions, PRN, 1/2 tablet By Mouth Every 6 hours, # 5 tablet, Refills 0, Tot. Refills 0, Maintenance, Pain, 07/30/23 18:39:00 EDT, Instructions Replace Required Details, Route to Pharmacy Electronically, [facility]/pharmacy #[id number], Partial fill upon... Start Date: 07/30/23 Status: Ordered Results Radiology Reports * Exam Date Time Procedure Performing Provider Status 07/30/23 2:57 PM Shoulder Min 2 Views Right Johnathon Esteban; Nj (Verified) Notes: (Shoulder Min 2 Views Right) Reason For Exam: with Pain;Trauma RESULT: Shoulder Min 2 Views Right Shoulder Min 2 Views Right, views Hx of Present Illness: Pt reports a large metal object fell on his R hand 1 day prior. obvious swelling severe pain. No other injuries reporting; Reason: Trauma; with Pain; Clinical Question(s): Fracture COMPARISON: None. FINDINGS: No fracture or dislocation. No arthritic change of the glenohumeral joint. Normal AC joint and portions of the clavicle included on the exam. No calcification of the rotator cuff. IMPRESSION: No acute abnormality. WSN: [id number] Ordering Physician: Rufino Mathis Dictated By: Remberto Delacruz MD Dictated Date/Time: 07/30/23 2:59 pm Reviewed By: Remberto Delacruz MD Signed By: Remberto Delacruz MD Signed Date/Time: 07/30/23 2:59 pm Transcribed By: CSB Transcribed Date/Time: 07/30/23 2:58 pm * Exam Date Time Procedure Performing Provider Status 07/30/23 1:26 PM Wrist Comp Min 3 Views Right Tawana Bazzi; Auth (Verified) Notes: (Wrist Comp Min 3 Views Right) Reason For Exam: with Pain;Trauma RESULT: Wrist Comp Min 3 Views Right Forearm 2 Views Right, Hand Min 3 Views Right, Wrist Comp Min 3 Views Right Hx of Present Illness: Pt reports a large metal object fell on his R hand 1 day prior. obvious swelling severe pain. No other injuries reporting; Reason: Trauma; with Pain; Clinical Question(s): Fracture COMPARISON: None. FINDINGS: No fractures or bone lesions. Minimal triceps enthesopathy. The visualized joint spaces are normal. Normal carpal bone configuration. Soft tissue swelling of the dorsum of the right hand. IMPRESSION: Soft tissue swelling at the hand. No bony abnormality. I have personally reviewed the images and I agree with this report. WSN: [id number] Ordering Physician: Rufino Mathis Dictated By: Jules Mcelroy MD Dictated Date/Time: 07/30/23 2:08 pm Reviewed By: Mac Teixeira MD, V Signed By: Mac Teixeira MD, V Signed Date/Time: 07/30/23 2:13 pm Transcribed By: CSB Transcribed Date/Time: 07/30/23 2:04 pm * Exam Date Time Procedure Performing Provider Status 07/30/23 1:26 PM Hand Min 3 Views Right Adriano Bazzi; Auth (Verified) Notes: (Hand Min 3 Views Right) Reason For Exam: with Pain;Trauma RESULT: Hand Min 3 Views Right Forearm 2 Views Right, Hand Min 3 Views Right, Wrist Comp Min 3 Views Right Hx of Present Illness: Pt reports a large metal object fell on his R hand 1 day prior. obvious swelling severe pain. No other injuries reporting; Reason: Trauma; with Pain; Clinical Question(s): Fracture COMPARISON: None. FINDINGS: No fractures or bone lesions. Minimal triceps enthesopathy. The visualized joint spaces are normal. Normal carpal bone configuration. Soft tissue swelling of the dorsum of the right hand. IMPRESSION: Soft tissue swelling at the hand. No bony abnormality. I have personally reviewed the images and I agree with this report. WSN: [id number] Ordering Physician: Rufino Mathis Dictated By: Jules Mcelroy MD Dictated Date/Time: 07/30/23 2:08 pm Reviewed By: Mac Teixeira MD, V Signed By: Mac Teixeira MD, V Signed Date/Time: 07/30/23 2:13 pm Transcribed By: ZO Transcribed Date/Time: 07/30/23 2:04 pm * Exam Date Time Procedure Performing Provider Status 07/30/23 1:26 PM Forearm 2 Views Right Albina Bazzi; Nj (Verified) Notes: (Forearm 2 Views Right) Reason For Exam: with Pain;Trauma RESULT: Forearm 2 Views Right Forearm 2 Views Right, Hand Min 3 Views Right, Wrist Comp Min 3 Views Right Hx of Present Illness: Pt reports a large metal object fell on his R hand 1 day prior. obvious swelling severe pain. No other injuries reporting; Reason: Trauma; with Pain; Clinical Question(s): Fracture COMPARISON: None. FINDINGS: No fractures or bone lesions. Minimal triceps enthesopathy. The visualized joint spaces are normal. Normal carpal bone configuration. Soft tissue swelling of the dorsum of the right hand. IMPRESSION: Soft tissue swelling at the hand. No bony abnormality. I have personally reviewed the images and I agree with this report. WSN: [id number] Ordering Physician: Rufino Mathis Dictated By: Jules Mcelroy MD Dictated Date/Time: 07/30/23 2:08 pm Reviewed By: Mac Teixeira MD, V Signed By: Mac Teixeira MD V Signed Date/Time: 07/30/23 2:13 pm Transcribed By: ZO Transcribed Date/Time: 07/30/23 2:04 pm Vital Signs Most recent to oldest [Reference Range]: 1 2 3 Height 180 cm (07/30/23 2:19 PM) 180 cm (07/30/23 1:14 PM) 180 cm (07/30/23 11:59 AM) Oxygen Saturation [94-100 %] 97 % (07/30/23 6:56 PM) 95 % (07/30/23 2:19 PM) 97 % (07/30/23 1:14 PM) Pulse Rate [55-90 bpm] 71 bpm (07/30/23 6:56 PM) 72 bpm (07/30/23 2:19 PM) 77 bpm (07/30/23 1:14 PM) Blood Pressure [90-138/55-84 mm Hg] 151/86mm Hg *H* (07/30/23 6:56 PM) 158/84mm Hg *H* (07/30/23 2:19 PM) 167/77mm Hg *H* (07/30/23 1:14 PM) Respiratory Rate [16-30 br/min] 18 br/min (07/30/23 6:56 PM) 16 br/min (07/30/23 3:15 PM) 20 br/min (07/30/23 2:19 PM) Temperature [96.8-100.4 DegF] 98.9 DegF (07/30/23 2:19 PM) 97.7 DegF (07/30/23 1:14 PM) 98.4 DegF (07/30/23 11:59 AM) Mode of Delivery (Oxygen) Room air (07/30/23 6:56 PM) Room air (07/30/23 2:19 PM) Room air (07/30/23 1:14 PM) Blood pressure sites Arm, left (07/30/23 6:56 PM) Arm, right (07/30/23 2:19 PM) Arm, left (07/30/23 1:14 PM) Temperature Route Oral (07/30/23 2:19 PM) Oral (07/30/23 1:14 PM) Oral (07/30/23 11:59 AM) Dry Weight 132 kg (07/30/23 2:19 PM) 132 kg (07/30/23 1:14 PM) 132 kg (07/30/23 11:59 AM) Note * Lela Richardson NP: PERFORM Event Display: Patient Education Leaflets Authored Date: [id number] Crush Injury, Hand ?? [id number] Lesi??n por aplastamiento de la mano sin fractura Tiene princess lesi??n por aplastamiento de la mano. [place] provoca dolor local, hinchaz??n y, en ocasiones, moretones. No tiene roxana??n hueso roto. Esta lesi??n puede brody entre unos pocos d??as y algunassemanas en sanar. Si la u??a se lastim?? mucho, puede ca??rsele en 1 o 2??semanas. En alrededor de un mes, probablemente comenzar?? a crecer la u??a nueva. La complicaci??n de princess lesi??n por aplastamiento es princess afecci??n que se denomina s??ndrome compartimental. Se produce cuando se acumula presi??n en princess eliud del cuerpo en la que un m??sculo est?? rodeado de tejido conectivo y la presi??n no puede liberarse. [place] ejerce presi??n sobre los m??sculos, vasos sangu??neos y nervios. Puede causar la muerte del m??sculo, par??lisis y amputaci??n. El s??ndrome compartimental se puede desarrollar r??pidamente. Es princess emergencia m??dica y debe tratarse de inmediato. Cuidados en el hogar Siga estas recomendaciones para cuidarse en mckeon casa: ??? Es posible que le pongan princess f??alejandro para evitar que mueva la mano lastimada. ??? Mantenga la mano en alto para reducir el dolor y la hinchaz??n. Cuando est?? sentado o acostado, mantenga el brazo elevado por encima del nivel del coraz??n, enlo posible. Para eso, puede apoyar el brazo sobre princess almohada apoyada sobre mckeon pecho; o ivon, puede apoyarlo sobre princess almohada a mckeon lado. Es muy importante que molina esto michelle los primeros 2??d??as (48??horas) despu??s del momento de la lesi??n. ??? Coloque princess compresa fr??a sobre la eliud lesionada. H??amanda michelle??20??minutos cada 1??o??2??horas mientras est?? despierto el primer d??a paraaliviar el dolor. Puede preparar princess compresa fr??a poniendo cubos de hielo en princess bolsa de pl??stico o usar un paquete de verduras congeladas y envolver la compresa en princess toalla delgada. Tenga cuidado de que no se moje la f??alejandro a medida que se derrita el hielo. Siga usando la compresa fr??a de 3 a 4??veces al d??a hasta que el dolor y la hinchaz??n hayan desaparecido. Cubra siempre la compresa con princess toalla o un pa??o para que no est?? en contacto directo con la piel. ??? Use medicamentos de venta gagandeep, guerrero paracetamol o ibuprofeno, para controlar el dolor, a menos que le hayan recetado otro medicamento. Si tiene princess enfermedad cr??tabatha del h??gado o de los ri??ones, consulte al proveedor de atenci??n m??dica antes de usar estos medicamentos. Tambi??n hable con mckeon proveedor si montgomery tenido princess ??lcera en el est??george o un sangrado gastrointestinal. ??? Si tiene princess f??alejandro, mant??ngala seca en todo momento. Cuando se duche o se ba??e, proteja la f??alejandro para que no se moje. C??brala con princess bolsa pl??stica raj, cerrada con princess goma el??stica en la parte superior. Si la f??alejandro se humedece, puede secarla con un secador para el sindhu a temperatura fr??a. ??? No pinche la herida con princess aguja para drenarla. ??? La piel amoratada puede ir cambiando de color con el transcurso del tiempo. Puede ir pasando de rojiza a azulada y, luego, a amarillenta antes de volver a mckeon color normal. ?? Atenci??n de seguimiento Programe princess angelica de seguimiento con el proveedor de atenci??n m??dica, o seg??n le hayan indicado,si no comienza a sentirse mejor en los siguientes 3??d??as. Si le tomaron radiograf??as, le informar??n de los nuevos hallazgos que puedan afectar mckeon atenci??nm??dica. ?? Cu??ndo debe buscar atenci??n m??dica Llame al proveedor de atenci??n m??dica de inmediato ante cualquiera de las siguientes situaciones:??? La f??alejandro de yeso se humedece o se ablanda ??? La f??alejandro de yeso permanece h??richardson por m??s de 24??horas ??? Siente m??s dolor debajo de la f??alejandro o siente que la f??alejandro le queda m??s ajustada ??? Tiene enrojecimiento, calor, hinchaz??n o supuraci??n de la herida; o la f??alejandro despide un olor desagradable ??? Tiene fiebre de 100,4?F (38?C) o superior, o seg??n lo que le haya indicado el proveedor de atenci??n m??dica? Cu??ndo llamar al?? 911 Llame al?? 911 de inmediato si ocurre algo de lo siguiente: ??? El dolor es mucho peor de lo que esperaba para mckeon lesi??n ??? No puede flotation tender los dedos ??? Se le hinchan los dedos, los siente fr??os oentumecidos, se hernan azulados o siente cosquilleo en mendoza eliud ?? Last Reviewed Date: 2022 ?? [id number] [employer]. Todos los derechos reservados. Esta informaci??n no pretende sustituir la atenci??n m??dica profesional. S??lo mckeon m??dico puede diagnosticar y tratar un problema de aurelia. ?? Patient Care team information Care Team Personnel Name: Not on Staff, PCP Position: [facility] Physician (General Medicine) Member Role: PCP Name: Billy Clay MD Position: [facility] ED Medicine MD Member Role: Admitting Physician Address: Address: [address] [place] [address] [place] [address]- Name: Mic Nunez RN Position: [facility] ED RN W/OE and Tasks Member Role: Patient Care Provider Name: Lela Richardson NP Position: [facility] Associate Professional Member Role: ED Physician Assistant Teaching Professor Address: Address: [address] [facility] [place] [address]- [place] Name: Alexa Bacon Position: S ED TA [facility] Member Role: Patient Care Provider
--- OUTSIDE RECORDS SUMMARY | 2023-11-04 20:47 | XMS_ITS | Continuity of Care Document ---
Author Name Unknown Organization [facility] jonathan Address [address] [place] [address] [address] [place] [address]- Care Team Providers Care Treasury Analyst Name Role Phone Not on Staff, PCP Primary Care Physician Unavail able Encounter [facility] Date(s): 08/05/23 - 09/04/23 [facility] [address] [place], [place] [address] Attending Physician: Rufino Fonseca Admitting Physician: Admtr, ArBeverly Referring Physician: Admtr, Ar8 Allergies, Adverse Reactions, Alerts No Known Medication Allergies Immunizations Given and Recorded Vaccine Date Status Refusal Reason tetanus/diphtheria/pertussis, acel(Tdap) 07/30/23 Given Medications oxyCODONE 5 mg oral tablet See Instructions, PRN, 1/2 tablet By Mouth Every 6 hours, # 5 tablet, Refills 0, Tot. Refills 0, Maintenance, Pain, 07/30/23 18:39:00 EDT, Instructions Replace Required Details, Route to Pharmacy Electronically, [facility]/pharmacy #[id number], Partial fill upon... Start Date: 07/30/23 Status: Ordered Patient Care team information Care Team Personnel Name: Not on Staff, PCP Position: S Physician (General Medicine) Member Role: PCP
== END 2023-11-04 20:52 | disposition left against medical advice (07) ==
PROVIDERS: Physician Assistant; Emergency Provider Emergency Medicine
DX: R79.89 Other specified abnormal findings of blood chemistry (principal); Z79.899 Other long term (current) drug therapy
CPT/HCPCS: 36415; 80048; 80076; 83690; 83735; 85025; 99281; 99283

== ENCOUNTER 2023-11-05 10:26 | Emergency (ER) | payer MEDICAID, SELFPAY ==
[2023-11-05 10:51] VITALS: BP 169/73; PULSE 64; RESP 20; TEMP 36.6; O2SAT 97; BMI 43.3
--- NOTE | 2023-11-05 15:54 | ED_ITS ---
HPI - General Adult General Chief complaint: General Medical Stated complaint: needs iv for kidney Related Data Home Medications Medication Instructions Recorded Confirmed alogliptin 25 mg tablet (Nesina) 25 mg PO DAILY 10/21/23 10/21/23 atorvastatin 80 mg tablet 80 mg PO QAM 10/21/23 10/21/23 carvedilol 25 mg tablet 25 mg PO 10/21/23 10/21/23 Previous Rx's Medication Instructions Recorded albuterol sulfate 90 mcg/actuation 2 puff inhalation Q4-6H PRN 05/07/23 aerosol inhaler shortness of breath or wheezing #8.5 grams aspirin 81 mg tablet,delayed 81 mg PO DAILY #30 tabs 05/07/23 release fluticasone furoate 200 1 inh inhalation DAILY #60 ea 05/07/23 mcg-vilanterol 25 mcg/dose inhalation powder (Breo Ellipta) hydroxyzine HCl 25 mg tablet 25 mg PO TID PRN anxiety #30 tabs 05/07/23 isosorbide mononitrate 60 mg 60 mg PO DAILY #30 tabs 05/07/23 tablet,extended release 24 hr lisinopril 40 mg tablet 40 mg PO DAILY #30 tabs 05/07/23 melatonin 5 mg tablet 5 mg PO BEDTIME PRN sleep #30 tabs 05/07/23 metformin 1,000 mg tablet 1,000 mg PO BID #60 tabs 05/07/23 omeprazole 40 mg capsule,delayed 40 mg PO DAILY #30 caps 05/07/23 release phenytoin sodium extended 100 mg 100 mg PO BID #60 caps 05/07/23 capsule quetiapine 50 mg tablet 50 mg PO TID #90 tabs 05/07/23 Allergies Allergy/AdvReac Type Severity Reaction Status Date / Time No Known Allergies Allergy Verified 11/05/23 11:01 [facility] Past Medical History Medical History (Updated 11/11/23 @ 11:16 by ELSI Barnes) Moderate episode of recurrent major depressive disorder Cannabis use disorder Generalized anxiety disorder GERD (gastroesophageal reflux disease) Stroke COPD (chronic obstructive pulmonary disease) Hyperlipidemia, unspecified Essential hypertension Type 2 diabetes mellitus with unspecified complications Morbid obesity Surgical History (Updated 10/21/23 @ 09:24 by Steve Chavarria MD) No pertinent past surgical history Family History Family History (Updated 10/21/23 @ 09:12 by Sonam Matthew) Mother No problems noted. Paternal Grandfather Heart problem Father No problems noted. Social History Social History (Updated 10/21/23 @ 09:13 by Sonam Matthew) Patient Tobacco Use Status: Former Tobacco user Advance Directives: No Advance Directives Information Provided: No Physical Exam ED Vital Signs: Vital Signs - 24 hr 11/05/23 10:51 Temperature 97.8 F Pulse Rate 64 Respiratory Rate 20 Blood Pressure 169/73 H Pulse Oximetry 97 Oxygen Delivery Method Room Air BMI result Body Mass Index 43.3 Course Course Course Narrative: This is an RME: Additional HPI, ROS, PE not included below will be deferred to primary provider. This is a 48-year-old male presenting to the emergency department after being sent by his primary care physician given concerns of polyuria, question DENNYS, increased BUN and creatinine. He was seen yesterday by left without treatment given long wait times. He was told by his primary to return back to the emergency room today for treatment. He is upset given the wait time. Plan: repeat labs Patient eloped prior to receiving repeat labs. Discharge Plan Discharge Clinical Impression: Polyuria Patient Disposition: Left W/O Completing Treatment Prescriptions: No Action metformin 1,000 mg tablet 1,000 mg PO BID Qty: 60 0RF fluticasone furoate-vilanterol [Breo Ellipta] 200-25 mcg/dose blister with device 1 inh inhalation DAILY Qty: 60 0RF albuterol sulfate 90 mcg/actuation HFA aerosol inhaler 2 puff inhalation Q4-6H PRN (Reason: shortness of breath or wheezing) Qty: 8.5 0RF hydroxyzine HCl 25 mg tablet 25 mg PO TID PRN (Reason: anxiety) Qty: 30 0RF isosorbide mononitrate 60 mg tablet extended release 24 hr 60 mg PO DAILY Qty: 30 0RF lisinopril 40 mg tablet 40 mg PO DAILY Qty: 30 0RF melatonin 5 mg tablet 5 mg PO BEDTIME PRN (Reason: sleep) Qty: 30 0RF omeprazole 40 mg capsule,delayed release(DR/EC) 40 mg PO DAILY Qty: 30 0RF phenytoin sodium extended 100 mg capsule 100 mg PO BID Qty: 60 0RF aspirin 81 mg tablet,delayed release (DR/EC) 81 mg PO DAILY Qty: 30 0RF quetiapine 50 mg tablet 50 mg PO TID Qty: 90 0RF alogliptin [Nesina] 25 mg tablet 25 mg PO DAILY carvedilol 25 mg tablet 25 mg PO atorvastatin 80 mg tablet 80 mg PO QAM Interventions: SABINE Worksheet Last Done: 11/05/23 16:02 Discharge Date/Time: 11/05/23 16:02
== END 2023-11-05 16:02 | disposition left against medical advice (07) ==
PROVIDERS: Emergency Provider Emergency Medicine
DX: R35.89 Other polyuria (principal)
CPT/HCPCS: 99281

== ENCOUNTER → 2023-11-27 08:29 | Outpatient (REF) | payer MEDICAID, SELFPAY ==
--- NOTE | ~2023-11-27 | XR_ITS ---
EXAMINATION: XR LUMBOSACRAL SPINE WITH OBLIQUES CLINICAL INFORMATION: Intervertebral disc degeneration lumbar region. COMPARISON: Chest of 05/07/2023. TECHNIQUE: AP, both oblique, and lateral views of the lumbar spine. Lateral view of the lumbosacral junction. 5 views total. FINDINGS: Degenerative changes on limited images of the lower thoracic spine. Multilevel lumbar spondylosis with [id number] loss of disc space height and subchondral sclerosis at L4-L5. There are facet arthritis lower lumbar spine. Moderate degenerative changes with hypertrophic change and narrowing in the bilateral sacroiliac joints. XR/XR lumbar spine 4V min IMPRESSION: 1. Multilevel lumbar spondylosis with [id number] loss of disc space height and subchondral sclerosis at L4-L5. 2. Facet arthritis lower lumbar spine. 3. Moderate degenerative changes in the bilateral sacroiliac joints.
--- NOTE | ~2023-11-27 | NM_ITS ---
EXERCISE MYOCARDIAL PERFUSION STUDY INDICATION: Coronary artery disease, assess for ischemia TECHNIQUE: The patient was brought in for an exercise perfusion study on 11/27/2023. Patient performed exercise as per Tutu protocol and was injected 40 mCi of sestamibi once target heart rate was achieved. Images were obtained using the SPECT gamma camera interlaced with the gating device. Images were obtained in supine position. Resting perfusion study was performed on 12/01/2023. Patient was administered 40 mCi of sestamibi intravenously at rest. Images were then obtained in supine position. Images were processed with the software and compared side to side in short axis, horizontal long axis and vertical long axis views. Total DLP 146mGy-cm. FINDINGS: Raw images were reviewed. The stress perfusion study showed diminished tracer uptake along the inferior wall. There is improvement with CT attenuation correction suggestive of diaphragmatic attenuation artifact. The gated study shows diminished LV systolic function with calculated LVEF of 36%. LV cavity is dilated in size. The gated study shows normal wall thickening and contraction of segments. Resting study shows diminished tracer uptake along the inferior wall. There is improvement with CT attenuation correction that could indicate components of diaphragmatic attenuation artifact. Gating at rest reveals normal wall motion with ejection fraction at 40%. The findings are consistent with fixed inferior perfusion defect, probably from diaphragmatic attenuation artifact. NM/NM cardiolite stress test IMPRESSION: 1. Myocardial perfusion imaging study shows no clear evidence of any ischemia or infarction. 2. Gated LVEF is 36% during stress and 40% during rest. Correlate with echocardiogram. 3. Transient ischemic dilatation not present, but LV cavity is dilated. EKG component of the test reported separately.
--- NOTE | 2023-11-27 08:32 | CA_ITS ---
Transthoracic Echocardiogram Patient (Last, First, Middle): Tre Hoover, Gender: Male Date of : 1975 Age: 48 Procedure Date: 11/27/2023 Procedure Type: Transthoracic Echocardiogram Location: OP Height: 180. cm Weight: 127.01 kg BSA: 2.43 m2 Heart Rate: bpm BP: 150 / 90 mmHg Peer Financial Counselor: RYAN Referring MD: Steve Chavarria MD Symptoms: I25.10 - Atherosclerotic heart disease of [place] coronary artery without... Study Quality: Adequate Conclusions: - Normal left ventricular size and systolic function. There is severely increased left ventricular wall thickness. The visually estimated ejection fraction is between 55-60%. - Elevated filling pressures. GLS reduced -13.9%. - Mildly increased right ventricular cavity size. There is normal right ventricular systolic function. - There is mild dilatation of the sinuses of Valsalva measuring 4.00 cm and mild dilatation of the ascending aorta measuring 3.80 cm. Findings Left Ventricle Normal left ventricular size and systolic function. There is severely increased left ventricular wall thickness. The visually estimated ejection fraction is between 55-60%. There is no evidence of regional wall motion abnormalities. Abnormal diastolic function is noted. Spectral Doppler is indicative of a pseudonormal filling pattern. Elevated filling pressures. GLS reduced -13.9%. Right Ventricle Mildly increased right ventricular cavity size. There is normal right ventricular systolic function. Atria The left atrium is mildly dilated. The right atrium is likely dilated. Aortic Valve There is a normal trileaflet aortic valve. There is mild calcification of the aortic valve. There is no aortic valve stenosis. There is no aortic valve regurgitation. Mitral Valve There is mild mitral annular calcification. There is no mitral valve regurgitation. There is no mitral valve stenosis. Pulmonic Valve Normal pulmonic valve structure and function. There is no pulmonic valve regurgitation. Tricuspid Valve Normal tricuspid valve structure. There is no tricuspid valve regurgitation. Normal right atrial pressure. There is no evidence of pulmonary hypertension. Great Vessels There is mild dilatation of the sinuses of Valsalva measuring 4.00 cm and mild dilatation of the ascending aorta measuring 3.80 cm. The visualized portions of the pulmonary artery and branches are normal. Venous The inferior vena cava is normal in size and collapses greater than 50% with inspiration. Pericardium/Pleural There is no evidence of pericardial effusion. Prior Study Comparison No prior study available for comparison. Measurements 2D Linear Measurements IVSd: 1.80 0.6-0.9/0.6-1.0 cm LVIDd: 5.28 3.9-5.3/4.2-5.9 cm LVIDd Index: 2.17 2.4-3.2/2.2-3.1 cm/m2 LVIDs: 3.77 2.0-3.6 cm LVPWd: 1.78 0.7-1.1 cm LA Diam: 4.60 2.7-3.8/3.0-4.0 cm LAIDs Index: 1.89 1.5-2.3 cm/m2 LV Mass: 570.24 67-162/88-224 g LV Mass Index: 234.67 43-95/49-115 g/m2 LVOT Diam: 2.40 3.0+(-)1.3 cm 2D Systolic Function EF 4C: 51.80 >55% EF 2C: 57.00 >55% EF BiP: 54.50 >55% Mitral Valve MV Pk E: 0.97 MV PK A: 0.93 MV Decel Time: 281.00 E/A: 1.10 E'Lateral: 7.72 E'Medial: 5.33 E/E' Med: 18.30 E/E' Lat: 12.60 PHT: 82.00 MVA PHT: 2.68 Decel Cottle: 3.46 Aortic Valve AoV Pk Vinod: 1.58 AoV Mn Vinod: 1.11 AoV VTI: 0.33 AoV Pk Grad: 10.00 Aov Mn Grad: 6.00 LISA Cont.VTI: 3.85 LVOT LVOT Pk Vinod: 1.38 LVOT Mn Vinod: 0.95 LVOT VTI: 0.28 LVOT Pk Grad: 8.00 LVOT Mn Grad: 4.00 LVOT Diam: 2.40 LVOT Area: 4.52 Diastolic Function MV Pk E: 0.97 MV Pk A: 0.93 E/A: 1.10 E'Medial: 5.33 E/E' Med: 18.30 E' Laterial: 7.72 E/E' Lat: 12.60 Right Ventricle TAPSE (mm): 23.90 TVS' Vinod: 16.90 Tricuspid Valve TR Pk Vinod: 1.98 TR Pk Grad: 16.00 RA Press: 8.00 RVSP: 24.00 Great Vessels Aorta Sinus of Valsalva: 4.00 2.0-3.5 cm Ao Asc: 3.80 2.1-3.4 cm Pulmonary Valve PV Pk Vinod: 1.10 Peak PV Grad: 5.00 Updated in Other Vendor System with Status of Final Los Siegel MD electronically signed on 11/29/2023 12:44:40 PM with status of Final
--- NOTE | 2023-11-27 08:32 | CA_ITS ---
Acquisition Time: 2023-11-27 10:15:44 Total Exercise Time: 00:06:45 Test Indications: Dyspnea Medications: SEE H Protocol: MARJAN Max HR: 136 BPM 78% of Pred: 173 BPM Max BP: 214/092 mmHG Max Work Load: 8.0 METS Exercise stress test with exercise 6 min 45 sec of Marjan protocol, achieving 77% MPHR, 8 METs, without anginal symptoms, with leg fatigue and request to stop, without arrythmia, with hypertensive response to exercise with max BP 214/92, with baseline EKG showing ST/T was abnormality inferiolateral leads, with peak exercise EKG showing same EKG changes - overall nondiagnostic for ischemia. In recovery BP improved to 138/88. He had not taken his am medications today. Nuclear images pending. Test reviewed with Dr Vines Referred By: Steve Chavarria Overread By: PRESTON SALES
[2023-11-27 16:33] LABS: Estimated Average Glucose 223 mg/dL; Hemoglobin A1c % 9.4 % (<6.0)
[2023-11-27 17:03] LABS: Anion Gap 10 (12-20); Blood Urea Nitrogen 27 mg/dL (9-16); Calcium 9.5 mg/dL (8.4-10.2); Carbon Dioxide 30 mmol/L (22-29); Chloride 103 mmol/L (96-108); Estimated Glomerular Filt Rate 41; Glucose Random 188 mg/dL (60-115); Potassium 4.3 mmol/L (3.3-5.1); Sodium 139 mmol/L (135-145)
[2023-11-27 21:14] LABS: Phenytoin Dilantin < 1.8 ug/mL (10.0-20.0)
== END ==
LOC: HO.CARD 08:29
PROVIDERS: Nurse Practitioner Primary Care; Visit Provider Internal Medicine
DX: R07.2 Precordial pain (principal); R06.02 Shortness of breath; E11.69 Type 2 diabetes mellitus with other specified complication; E78.5 Hyperlipidemia, unspecified; N17.9 Acute kidney failure, unspecified; G40.909 Epilepsy, unspecified, not intractable, without status epilepticus; M51.36 Other intervertebral disc degeneration, lumbar region; M47.816 Spondylosis without myelopathy or radiculopathy, lumbar region; M54.16 Radiculopathy, lumbar region; I25.10 Atherosclerotic heart disease of native coronary artery without angina pectoris
CPT/HCPCS: 36415; 72110; 78452; 80048; 80185; 83036; 93017; 93306; 93356; 99212; A9500

== ENCOUNTER → 2023-11-27 08:32 | Outpatient (BNV) | payer MEDICAID, SELFPAY | PROVIDERS: Visit Provider Nurse Practitioner Family | DX: I25.10 Atherosclerotic heart disease of native coronary artery without angina pectoris (principal) | CPT/HCPCS: 78452; 93016; 93018; 93306 ==

== ENCOUNTER 2023-11-27 13:03 | Outpatient (AMB) | payer MEDICAID, SELFPAY ==
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
[2023-11-27 14:01] VITALS: BP 140/80; PULSE 72; O2SAT 96; BMI 38.6
== END 2023-11-27 14:39 | disposition home or self-care (01) ==
PROVIDERS: PCP Nurse Practitioner Primary Care; Referring Provider Nurse Practitioner Primary Care; Visit Provider Nurse Practitioner Family
DX: M54.16 Radiculopathy, lumbar region (principal); M47.816 Spondylosis without myelopathy or radiculopathy, lumbar region; M51.36 Other intervertebral disc degeneration, lumbar region; E11.40 Type 2 diabetes mellitus with diabetic neuropathy, unspecified; M54.50 Low back pain, unspecified
CPT/HCPCS: 99204

== ENCOUNTER 2024-01-19 09:04 | Outpatient (AMB) | payer MEDICAID, SELFPAY ==
[2024-01-19 09:18] VITALS: BP 100/72; PULSE 72; BMI 39.0
--- NOTE | 2024-01-19 09:18 | A.OFFVIS_ITS ---
Intake Vital Signs 01/19/24 09:18 Height 5 ft 11 in Weight 279 lb 8.738 oz BMI 39.0 BP 100/72 Blood Pressure Location Lt brachial Position Sitting Pulse 72 Pulse Source Pulse Oximeter Intake Visit Reasons: f/up mibi/ echo/ HS Digital Research Analyst Required: Yes Digital Research Analyst Language: Cotton Opener Name: [email or web address] [id number] Allergies No Known Allergies Allergy (Verified 01/19/24 09:21) Medication List - Last Reconciled 01/19/24 by Yris Walters COMPUTER SYSTEM TECHNICIAN-C albuterol sulfate 90 mcg/actuation 2 puffs inhalation Q4-6H PRN alogliptin (Nesina) 25 mg PO DAILY aspirin 81 mg PO DAILY atorvastatin 80 mg PO QAM carvedilol 25 mg PO chlorthalidone 25 mg PO QAM dulaglutide (Trulicity) mg subcut QWEEK fluticasone furoate-vilanterol 200-25 mcg/dose (Breo Ellipta) 1 inh inhalation DAILY gabapentin 300 mg PO BID 30 days hydroxyzine HCl 25 mg PO TID PRN insulin lispro subcut isosorbide mononitrate ER 60 mg PO DAILY lisinopril 40 mg PO DAILY melatonin 5 mg PO BEDTIME PRN metformin 1,000 mg PO BID omeprazole 40 mg PO DAILY phenytoin sodium extended 100 mg PO BID quetiapine 50 mg PO TID HPI f/up mibi/ echo/ HS HPI Details Tre is a 48-year-old male past medical history of hypertension, hyperlipidemia, diabetes, obesity, COPD, abnormal EKG who underwent cardiac evaluation with echocardiogram and stress test. He now presents for follow-up. Today he reports that he has not had any chest discomfort at rest or with activity. He denies shortness of breath, lightheadedness, syncope, falls, PND, orthopnea or edema. He does report feeling his heartbeat fast and hard at times. This does cause him some concern. Once he felt like he was going to pass out. Taking meds as directed. [facility] Medical History (Updated 01/19/24 @ 10:43 by Yris Walters COMPUTER SYSTEM TECHNICIAN-C) Seizure disorder Moderate episode of recurrent major depressive disorder Cannabis use disorder Generalized anxiety disorder GERD (gastroesophageal reflux disease) Stroke COPD (chronic obstructive pulmonary disease) Hyperlipidemia, unspecified Essential hypertension Type 2 diabetes mellitus with unspecified complications Morbid obesity Surgical History (Updated 01/19/24 @ 11:17 by FORREST Mesa) No pertinent past surgical history Family History Mother No problems noted. Paternal Grandfather Heart problem Father No problems noted. Social History Alcohol intake: former Patient Tobacco Use Status: Former Tobacco user Quit Date: 09/2023 Substance Use Type: Marijuana Review of Systems Const All systems reviewed & are unremarkable except as noted in HPI and below ENT Denies dizziness Card Denies chest pain, Denies chest pain at rest, Denies chest pain with activity, Reports rapid heart rate, Denies pedal edema, Denies edema, Denies leg edema, Denies lightheadedness, Denies palpitations, Denies dyspnea, Denies dyspnea on exertion and Denies orthopnea Resp Denies cough, Denies dyspnea and Denies dyspnea on exertion GI Denies hematochezia and Denies change in stool character Musc Denies abnormal gait, Denies limited range of motion, Denies muscle cramps, Denies muscle weakness, Denies numbness, Denies radiating pain into limb, Denies stiffness and Denies tingling Neuro Denies abnormal gait, Denies dizziness, Denies numbness and Denies tingling Endo Denies palpitations Physical Exam Vital Signs: Last Vital Signs Pulse 72 01/19/24 09:18 BP 100/72 01/19/24 09:18 BMI result Body Mass Index 39.0 Const General: cooperative, healthy appearing, comfortable and no acute distress Orientation/consciousness: patient oriented x3 Neck Neck: Yes normal visual inspection and Yes no JVD Resp Effort & Inspection: normal respiratory effort Auscultation: clear to auscultation bilaterally, no crackles, no rales, no rhonchi and no wheezes Cardio Jugular venous distension: no JVD Rate: regular rate Rhythm: regular rhythm Heart sounds: S1 normal heart sound present, S2 normal heart sound present, no murmurs and no rubs Neuro General: patient oriented x3 Extrem General: Yes normal to inspection, No no pedal edema and No calf tenderness Psych Appearance: grossly normal Mental Status: mental status grossly normal Speech and movement: Normal speech and movement present Assessment & Plan Assessment & Plan (1) Abnormal EKG: Code(s): R94.31 - Abnormal electrocardiogram [ECG] [EKG] Plan: Last visit he came for cardiac evaluation. EKG shows sinus rhythm with ST abnormalities in the inferior and lateral leads. He had a reported history of cardiac catheterization with unknown findings. Records were requested from [facility]. A discharge summary from 11/29/2019 for a syncopal event and hypertensive urgency was reviewed. That note indicates that patient had undergone a cardiac catheterization in 2019 which was unremarkable. Echocardiogram at that time showed EF 50-55%. Carotid ultrasound showed no hemodynamically significant ICA stenosis. He was treated for blood pressure control. On his last visit here echocardiogram was ordered and done on 11/27/2023 showing EF 55-60%, severe LVH, mild increase in the RV size, sinus of Valsalva 4 cm, ascending aorta 3.8 cm. A nuclear stress test was done on 12/01/2023 showing no clear ischemia, EF 40%. Today he reports no anginal sounding symptoms. His abnormal EKG findings are most likely consistent with LVH. Presently his blood pressure is well controlled. He will continue on carvedilol, chlorthalidone, isosorbide, lisinopril. Labs done on 11/27/2023 had shown potassium 4.3, creatinine 1.78. Will continue to follow for good bloo d pressure control. (2) Status post cardiac catheterization: Comment: 2019 - reported as unremarkable Code(s): Z98.890 - Other specified postprocedural states Plan: Presume normal catheterization based on notation on discharge summary as stated above. No report of anginal sounding symptoms. He has diabetes which is uncontrolled. Most recent hemoglobin A1c 9.4 on 11/27/2023. Bessie hemoglobin A1c goal less than 7, followed by his PCP. LDL goal less than 70. Continue high-dose atorvastatin. Lipids done on 05/26/2023 showed LDL 97. Recommend recheck of fasting lipids.. Continue carvedilol. Presume that isosorbide is being used for blood pressure control. (3) SOB (shortness of breath): Code(s): R06.02 - Shortness of breath Plan: Mild shortness of breath with exertional activities. Recent cardiac testing as above. Patient is obese with BMI 39. This likely contributes. Benefits of weight loss reviewed. (4) Palpitations: Code(s): R00.2 - Palpitations Plan: Reported heart palpitations where he feels his heart beating strong and fast. He was admitted to the [facility] as above in 2020 with syncope and hypertensive urgency. He tells me he did have palpitations recently where he felt like he was going to pass out. He has had no recurrent syncope since his 2019 admission. Will check a Holter monitor to evaluate for any arrhythmia. Plan to call him with results. (5) Essential hypertension: Code(s): I10 - Essential (primary) hypertension Plan: History of hypertension. Bessie blood pressure goal less than 130/85. Blood pressure currently well controlled. No med changes made. He has hypertensive heart disease and good blood pressure control is essential. Cardiology follow- up in office 6 months sooner if needed Plan Time spent on chart review, documentation, interview and assessment Orders: Orders ECG 3 day holter monitor Today R00.2 - Palpitations Coding Level of Care Code Est Pt Level 4 (26861) Diagnoses Abnormal EKG R94.31 Status post cardiac catheterization Z98.890 SOB (shortness of breath) R06.02 Palpitations R00.2 Essential hypertension I10 Time Spent (min) 28
== END 2024-01-19 09:51 | disposition home or self-care (01) ==
PROVIDERS: Visit Provider Nurse Practitioner Family
DX: R94.31 Abnormal electrocardiogram [ECG] [EKG] (principal); Z98.890 Other specified postprocedural states; R06.02 Shortness of breath; R00.2 Palpitations; I10 Essential (primary) hypertension
CPT/HCPCS: 99214

== ENCOUNTER → 2024-01-19 09:04 | Outpatient (BNVA) | payer MEDICAID, SELFPAY | PROVIDERS: Visit Provider Nurse Practitioner Family | DX: R94.31 Abnormal electrocardiogram [ECG] [EKG] (principal); R06.02 Shortness of breath; R00.2 Palpitations; I10 Essential (primary) hypertension; Z98.890 Other specified postprocedural states | CPT/HCPCS: 99212 ==

== ENCOUNTER → 2024-03-11 09:44 | Outpatient (REF) | payer MEDICAID, SELFPAY ==
--- NOTE | 2024-03-11 09:46 | HM_ITS ---
Conclusion: 1. Patient was monitored for total period of 2 days and 5 hours 2. Baseline was normal sinus rhythm with average heart of 79 beats per minute 3. No significant pauses noted 4. Frequent PACs noted with total burden of about 1 point 1% with no significant tachyarrhythmias 5. No patient reported events MTDD
== END ==
LOC: HO.CARD 09:44
PROVIDERS: Visit Provider Nurse Practitioner Family
DX: R00.2 Palpitations (principal)
CPT/HCPCS: 93242

== ENCOUNTER → 2024-03-11 09:46 | Outpatient (BNV) | payer MEDICAID, SELFPAY | PROVIDERS: Visit Provider Internal Medicine Cardiovascular Disease | DX: I49.1 Atrial premature depolarization (principal) | CPT/HCPCS: 93244 ==

== ENCOUNTER 2024-03-18 10:41 | Outpatient (REF) | payer MEDICAID, SELFPAY ==
[2024-03-18 11:25] LABS: MANUAL DIFF FLAG NO
[2024-03-18 11:31] LABS: Basophils Absolute Auto 0.1 X10*3/uL (0.0-0.2); Basophils Percent Auto 0.6 % (0-2); Eosinophils Absolute Auto 0.2 X10*3/uL (0.0-0.4); Hematocrit 41.4 % (42.0-52.0); Hemoglobin 14.2 g/dl (14.0-18.0); Imm Gran Abs Auto 0.04 X10*3/uL (0.00-0.03); Imm Gran Pct Auto 0.5 % (0.0-0.4); Lymphocytes Absolute Auto 1.4 X10*3/uL (1.2-4.9); Lymphocytes Percent Auto 16.1 % (20-40); Mean Corpuscular HGB Conc 34.3 g/dl (31.0-36.0); Mean Corpuscular Volume 87.5 fL (80.0-98.0); Mean Platelet Volume 10.3 fL (9.4-12.4); Monocytes Absolute Auto 0.5 X10*3/uL (0.1-1.2); Monocytes Percent Auto 6.3 % (2-11); Neutrophils Absolute Auto 6.5 x10*3/uL (2.0-8.3); Neutrophils Percent Auto 74.5 % (45-73); Platelet Count 232 X10*3/uL (160-400); Red Blood Count 4.73 X10*6/uL (4.60-5.80); White Blood Count 8.6 X10*3/uL (4.8-10.8)
[2024-03-18 12:04] LABS: Estimated Average Glucose 214 mg/dL; Hemoglobin A1c % 9.1 % (<6.0)
[2024-03-18 12:12] LABS: Cholesterol 96 mg/dL (<200); HDL Cholesterol 31 mg/dL (>40); Iron 61 mcg/dL (45-160); LDL Cholesterol Calculated 49 mg/dL (<100); Percent Iron Saturation 24 % (15-50); Total Iron Binding Capacity 252 mcg/dL (228-428); Triglycerides 81 mg/dL (<150); Unsaturated Iron Binding 191 ug/dL
[2024-03-18 12:29] LABS: Ferritin 295 ng/mL (20-250); HIV AB/AG Nonreactive (Nonreactive); HIV Num 1 0.04 S/CO (0.00-0.99); Vitamin B12 491 pg/mL (200-900); ~Hepatitis C Antibody Nonreactive (Nonreactive)
[2024-03-18 13:59] LABS: Phenytoin Dilantin < 1.8 ug/mL (10.0-20.0)
[2024-03-18 14:09] LABS: CT PCR NOT DETECTED (Not Detect.); NG PCR NOT DETECTED (Not Detect.)
[2024-03-21 10:08] LABS: Transferrin 228 mg/dL (188-341)
[2024-03-21 10:34] LABS: RPR Rapid Plasma Reagin NON-REACTIVE (NON-REACTIVE)
== END 2024-03-18 10:42 | disposition home or self-care (01) ==
LOC: HO.HHCL 10:41
PROVIDERS: Visit Provider Nurse Practitioner Primary Care
DX: E11.69 Type 2 diabetes mellitus with other specified complication (principal); E78.5 Hyperlipidemia, unspecified; D64.9 Anemia, unspecified; Z11.3 Encounter for screening for infections with a predominantly sexual mode of transmission; R35.1 Nocturia; G40.909 Epilepsy, unspecified, not intractable, without status epilepticus
CPT/HCPCS: 0353U; 36415; 80061; 80185; 82607; 82728; 83036; 83540; 84153; 84466; 85025; 86592; 86803; 87389

== ENCOUNTER 2024-04-20 07:33 | Outpatient (AMB) | payer MEDICAID, SELFPAY ==
--- NOTE | 2024-04-20 07:53 | A.OFFVIS_ITS ---
Vital Signs 04/20/24 08:00 Height 5 ft 11 in Weight 279 lb BMI 38.9 Handedness Right Intake Visit Reasons: N/P B/L hand CTS no EMG Intake Note: Tre is 48 year old right hand dominant male who presents today as a new patient for a evaluation of his bilateral hand numbness. Patient has been having off and on numbness for about 3 - 4 years. Numbness is worse in his right hand than the left as per patient. Hx of injury to the index finger about 5 years ago. He states his numbness is worse during the day. Allergies No Known Allergies Allergy (Verified 04/20/24 07:58) HPI HPI N/P B/L hand CTS no EMG : Details: Patient is a 48-year-old male who presents for evaluation of bilateral numbness and tingling in hands. Patient reports that symptoms have been occurring on and off for approximately 4 years. Patient reports that numbness and tingling is intermittent, but daily, and worse at night. Patient reports that numbness and tingling is present throughout his hand, including his small finger, but reports that he is never tested the sensation of the small finger when he feels his hands are going numb. The patient also reports pain in his left index finger, but he has a history of an old injury in that area and states that pain has been ongoing since that time. [facility] Medical History (Updated 04/20/24 @ 08:18 by ELSI Etienne) Seizure disorder Moderate episode of recurrent major depressive disorder Cannabis use disorder Generalized anxiety disorder GERD (gastroesophageal reflux disease) Stroke COPD (chronic obstructive pulmonary disease) Hyperlipidemia, unspecified Essential hypertension Type 2 diabetes mellitus with unspecified complications Morbid obesity Surgical History (Updated 01/19/24 @ 11:17 by FORREST Mesa) No pertinent past surgical history Family History Mother No problems noted. Paternal Grandfather Heart problem Father No problems noted. Social History (Updated 04/20/24 @ 07:59 by Harsh Sylvester) Alcohol intake: former Patient Tobacco Use Status: Former Tobacco user Substance Use Type: Marijuana Current occupational status: unemployed Current occupation: right hand dominant Review of Systems Const All systems reviewed & are unremarkable except as noted in HPI and below Physical Exam Vital Signs: BMI result Body Mass Index 38.9 Const Other: Patient is alert, oriented, cooperative, and in no acute distress HEENT Head: Yes normocephalic and Yes atraumatic Resp Effort & Inspection: normal respiratory effort and able to speak in complete sentences Cardio Jugular venous distension: no JVD Neuro General: gait normal Cognition (Neuro): normal cognition Extrem Other: Patient is alert, oriented, and in no acute distress. Neuro: Median, ulnar, radial nerves motor and sensory intact and sensation is normal to the tips of all digits of bilateral hands Vascular: Cap refill brisk Pain: Patient reports pain in the left index finger, but states that this is secondary to an old injury ROM: Patient demonstrates inability to oppose his left thumb his left index finger due to limited range of motion of the left index finger, but states secondary to an old injury Patient able to make a closed fist, good finger cross Skin: No lacerations or abrasions. General: No ecchymosis, erythema, or evidence of infection. Positive bilateral Tinel's at the wrist Psych: Appears grossly normal Affect normal Attitude cooperative Psych Appearance: grossly normal Mental Status: mental status grossly normal Assessment & Plan Assessment & Plan (1) Numbness and tingling in both hands: Code(s): R20.0 - Anesthesia of skin; R20.2 - Paresthesia of skin Category: Medical Plan 1. Bilateral hand numbness and tingling Symptoms intermittent, but daily, worse at night No previous nerve conduction study on file Carpal tunnel syndrome course discussed with patient Nerve conduction study ordered today Patient is instructed to test his small finger during his next episodes of numbness and tingling to see if this digit is actually going numb Patient is amenable to this plan Patient will follow-up in office after nerve conduction study to discuss treatment options Coding Level of Care Code New Pt Level 3 (46248) Diagnoses Numbness and tingling in both hands R20.0; R20.2
[2024-04-20 08:00] VITALS: BMI 38.9
== END 2024-04-20 08:14 | disposition home or self-care (01) ==
DX: R20.0 Anesthesia of skin (principal); R20.2 Paresthesia of skin
CPT/HCPCS: 99203

== ENCOUNTER → 2024-04-20 07:33 | Outpatient (BNVA) | payer MEDICAID, SELFPAY | DX: R20.0 Anesthesia of skin (principal); R20.2 Paresthesia of skin | CPT/HCPCS: 99212 ==

== ENCOUNTER 2024-05-04 18:18 | Emergency (ER) | payer MEDICAID, SELFPAY ==
--- NOTE | ~2024-05-04 | XR_ITS ---
EXAMINATION: XR HUMERUS, RIGHT CLINICAL INFORMATION: Lyman a crack while lifting a heavy item COMPARISON: None available. TECHNIQUE: AP and lateral views of the right humerus. FINDINGS: The bones and soft tissues are normal. No fracture. Imaged portions of the shoulder and elbow are unremarkable. XR/XR humerus RT IMPRESSION: Normal right humerus.
[2024-05-04 18:42] VITALS: BP 164/87; PULSE 84; RESP 18; TEMP 37; O2SAT 96; BMI 39.4
--- NOTE | 2024-05-04 18:44 | ED.GENADULT ---
HPI - General Adult General Chief complaint: Extremity Injury, Upper Stated complaint: Right arm pain/swelling/bruising Time Seen by Provider: 05/04/24 22:07 Source: patient Mode of arrival: ambulatory Limitations: no limitations History of Present Illness ED Provider: Dr. Vashti Patino HPI narrative: Patient comes to the emergency room complaining of bicipital pain on the right arm, and ecchymosis. Over 24 hours ago, the patient states that he was leaning forward, trying to lift something waiting approximately 50 lbs. As he was lifting up, pt had a sudden onset of sharp pain in the R biceps, initially patient thought that this was a muscle cramp because of the pain, and also noticed a ball of muscle cramping up the biceps. Patient did not think much of it. Today in the morning, patient woke up with ecchymosis over the right biceps area. Patient states his injury is not work related Related Data Home Medications ?Medication ?Instructions ?Recorded ?Confirmed alogliptin 25 mg tablet (Nesina) 25 mg PO DAILY 10/21/23 01/19/24 atorvastatin 80 mg tablet 80 mg PO QAM 10/21/23 01/19/24 carvedilol 25 mg tablet 25 mg PO 10/21/23 01/19/24 chlorthalidone 25 mg tablet 25 mg PO QAM 11/27/23 01/19/24 dulaglutide 0.75 mg/0.5 mL mg subcut QWEEK 11/27/23 01/19/24 subcutaneous pen injector (Trulicity) insulin lispro 100 unit/mL subcut 11/27/23 01/19/24 subcutaneous pen Previous Rx's ?Medication ?Instructions ?Recorded albuterol sulfate 90 mcg/actuation 2 puff inhalation Q4-6H PRN 05/07/23 aerosol inhaler shortness of breath or wheezing #8.5 grams aspirin 81 mg tablet,delayed 81 mg PO DAILY #30 tabs 05/07/23 release fluticasone furoate 200 1 inh inhalation DAILY #60 ea 05/07/23 mcg-vilanterol 25 mcg/dose inhalation powder (Breo Ellipta) hydroxyzine HCl 25 mg tablet 25 mg PO TID PRN anxiety #30 tabs 05/07/23 isosorbide mononitrate 60 mg 60 mg PO DAILY #30 tabs 05/07/23 tablet,extended release 24 hr lisinopril 40 mg tablet 40 mg PO DAILY #30 tabs 05/07/23 melatonin 5 mg tablet 5 mg PO BEDTIME PRN sleep #30 tabs 05/07/23 metformin 1,000 mg tablet 1,000 mg PO BID #60 tabs 05/07/23 omeprazole 40 mg capsule,delayed 40 mg PO DAILY #30 caps 05/07/23 release phenytoin sodium extended 100 mg 100 mg PO BID #60 caps 05/07/23 capsule quetiapine 50 mg tablet 50 mg PO TID #90 tabs 05/07/23 gabapentin 300 mg capsule 300 mg PO BID for pain 30 days #60 03/15/24 caps acetaminophen 500 mg tablet 500 mg PO QID PRN fever or pain 05/04/24 #20 tabs ketorolac 10 mg tablet 10 mg PO Q8H PRN pain #10 tabs 05/04/24 Allergies Allergy/AdvReac Type Severity Reaction Status Date / Time No Known Allergies Allergy Verified 05/04/24 18:45 Review of Systems Review of Systems: Constitutional : No Weight loss, No Fever, No Chills, No Night Sweats, No Fatigue, No Malaise ENT/Mouth : No Hearing loss, No Ear Pain, No Nasal Congestion, No Sinus Pain, No Hoarseness, No sore throat, No Rhinorrhea, No Swallowing Difficulty Eyes: No Eye Pain, No Swelling, No Redness, No Foreign Body, No Discharge, No Vision Changes Cardiovascular : No Chest Pain, No SOB, No Dyspnea on Exertion, No Orthopnea, No Edema, No Palpitations Respiratory : No Cough, No Sputum, No Wheezing, No Smoke Exposure, No Dyspnea Gastrointestinal : No Nausea, No Vomiting, No Diarrhea, No Constipation, No abdominal Pain, No Hematochezia, No Melena Genitourinary : no irregular bleeding, No Dysuria, No Urinary Frequency, No Hematuria, No Urinary Incontinence, No Urgency, No Flank Pain, No Urinary Flow Changes, No Hesitancy Musculoskeletal : Complaining of muscle pain over the right biceps and ecchymosis,, No Myalgias, No Joint Swelling Skin : No Skin Lesions, No rash Neuro : No Weakness, No Numbness, No Paresthesias, No Loss of Consciousness, No Dizziness, No Headache Psych : No Anxiety/Panic, No Depression, No SI/HI/AH/VH, No Social Issues, Heme/Lymph: No Bruising, No Bleeding,No Lymphadenopathy Endocrine : No Polyuria, No Polydipsia, No Temperature Intolerance [facility] Past Medical History Medical History Seizure disorder Moderate episode of recurrent major depressive disorder Cannabis use disorder Generalized anxiety disorder GERD (gastroesophageal reflux disease) Stroke COPD (chronic obstructive pulmonary disease) Hyperlipidemia, unspecified Essential hypertension Type 2 diabetes mellitus with unspecified complications Morbid obesity Surgical History No pertinent past surgical history Family History Family History Mother No problems noted. Paternal Grandfather Heart problem Father No problems noted. Social History Social History (Updated 04/20/24 @ 07:59 by Harsh Sylvester) Alcohol intake: former Patient Tobacco Use Status: Former Tobacco user Smoked in Last 30 Days: No Use of substances other than those prescribed or required for medical reasons: Yes Substance Use Type: Marijuana Advance Directives: No Advance Directives Information Provided: No Do you have a plan to hurt others: No Plan Current occupational status: unemployed Current occupation: right hand dominant Physical Exam ED Vital Signs: Vital Signs - 24 hr 05/04/24 18:42 05/04/24 21:39 Temperature 98.6 F 98.1 F Pulse Rate 84 71 Respiratory Rate 18 18 Blood Pressure 164/87 H 176/85 H Pulse Oximetry 96 99 Oxygen Delivery Method Room Air Room Air BMI result Body Mass Index 39.4 Const Other: Appearance: Alert. Oriented X3. No acute distress. Eyes: Pupils equal, round and reactive to light. ENT: Pharynx normal. Neck: Normal inspection. Neck supple. No lymph nodes noted. No crepitus CVS: Normal heart rate and rhythm. Pulses normal. Normal S1 and S2 Respiratory: No respiratory distress. Breath sounds normal. No Wheezing. No rales Abdomen: Soft and nontender. No rigidity. No distention. Skin: Skin warm and dry. Normal skin color. Normal skin turgor. Extremities: No lower extremity edema. Patient is unable to lift his right arm against force, unable to fully contract the right biceps. Also, patient has extensive ecchymosis on the anterior aspect of the upper arm on the right covering the biceps muscles. Neuro: Oriented X 3. No motor deficit. No sensory deficit. Moving all extremities. No slurred speech. CN 2 through 12 grossly intact Psych: calm, cooperative, normal affect Course Course Course Narrative: This is a rapid medical exam performed by Eddie Rosas NP: Additional HPI, ROS, PE not included below will be deferred to primary provider. Patient is a 48-year-old male presenting to the ED with complaint of right upper arm pain and bruising. States he was lifting a bed yesterday when he felt a cracking sensation. Ecchymosis to right upper arm. Plan: xray Medical Decision Making Medical Decision Making [facility] Narrative: -my interpretation of x-rays: Within normal limits. -I discussed with the patient his physical exam, patient likely has a biceps tendon rupture on the right. -patient was given IM Toradol and a sling. Patient instructed to follow-up with orthopedics. Patient agrees with plan Differential Diagnosis Differential Diagnoses: The differential diagnosis associated with the presentation includes (Muscle contusion, tendon rupture) Radiology Impression Discussion of test interpretation with radiology: I have reviewed the radiologist's reading. Radiologist Impression: The bones and soft tissues are normal. No fracture. Imaged portions of the shoulder and elbow are unremarkable. XR/XR humerus RT IMPRESSION: Normal right humerus. Discharge Plan Discharge Clinical Impression: Rupture of right biceps tendon Patient Disposition: Home, Self-Care Instructions: Tendon Rupture (ED) Additional Instructions: Please follow-up with your primary care physician tomorrow. If you have any worsening or new symptoms, please return to the emergency room or call 911 Prescriptions: New ketorolac 10 mg tablet 10 mg PO Q8H PRN (Reason: pain) Qty: 10 0RF Rx Instructions: maximum total duration of 5 days from all oral, intranasal, or parenteral formulations acetaminophen 500 mg tablet 500 mg PO QID PRN (Reason: fever or pain) Qty: 20 0RF No Action gabapentin 300 mg capsule 300 mg PO BID 30 Days Qty: 60 1RF metformin 1,000 mg tablet 1,000 mg PO BID Qty: 60 0RF fluticasone furoate-vilanterol [Breo Ellipta] 200-25 mcg/dose blister with device 1 inh inhalation DAILY Qty: 60 0RF albuterol sulfate 90 mcg/actuation HFA aerosol inhaler 2 puff inhalation Q4-6H PRN (Reason: shortness of breath or wheezing) Qty: 8.5 0RF hydroxyzine HCl 25 mg tablet 25 mg PO TID PRN (Reason: anxiety) Qty: 30 0RF isosorbide mononitrate 60 mg tablet extended release 24 hr 60 mg PO DAILY Qty: 30 0RF lisinopril 40 mg tablet 40 mg PO DAILY Qty: 30 0RF melatonin 5 mg tablet 5 mg PO BEDTIME PRN (Reason: sleep) Qty: 30 0RF omeprazole 40 mg capsule,delayed release(DR/EC) 40 mg PO DAILY Qty: 30 0RF phenytoin sodium extended 100 mg capsule 100 mg PO BID Qty: 60 0RF aspirin 81 mg tablet,delayed release (DR/EC) 81 mg PO DAILY Qty: 30 0RF quetiapine 50 mg tablet 50 mg PO TID Qty: 90 0RF Trulicity 0.75 mg/0.5 mL pen injector subcut QWEEK insulin lispro 100 unit/mL insulin pen subcut chlorthalidone 25 mg tablet 25 mg PO QAM alogliptin [Nesina] 25 mg tablet 25 mg PO DAILY carvedilol 25 mg tablet 25 mg PO atorvastatin 80 mg tablet 80 mg PO QAM Referrals: Sacha Hester PA [Physician Landscaping Supervisor] - 05/05/24 Print Language: Mongolian
[2024-05-04 21:39] VITALS: BP 176/85; PULSE 71; RESP 18; TEMP 36.7; O2SAT 99
--- NOTE | 2024-05-04 22:15 | PC.NURSE ---
Provider to bedside for primary eval.
[2024-05-04] MEDS: Ketorolac Tromethamine 60 MG/2 ML VIAL IM (22:37)
[2024-05-04 22:51] VITALS: BP 176/85; PULSE 71; RESP 18; TEMP 36.7; O2SAT 99
== END 2024-05-04 22:53 | disposition home or self-care (01) ==
PROVIDERS: Emergency Provider Emergency Medicine
DX: S46.211A Strain of muscle, fascia and tendon of other parts of biceps, right arm, initial encounter (principal); X50.0XXA Overexertion from strenuous movement or load, initial encounter; Y93.89 Activity, other specified; Y92.9 Unspecified place or not applicable; Y99.9 Unspecified external cause status
CPT/HCPCS: 73060; 96372; 99284; J1885

== ENCOUNTER 2024-05-10 21:50 | Emergency (ER) | payer MEDICAID, SELFPAY ==
--- NOTE | ~2024-05-10 | XR_ITS ---
EXAMINATION: XR CHEST CLINICAL INFORMATION: Chest pain. COMPARISON: Chest radiograph dated 05/07/2023. TECHNIQUE: 2 views of the chest were obtained. FINDINGS: The cardiac silhouette is normal in size. The lungs are clear. The pleural spaces are clear. No pneumothorax. No acute osseous abnormality. XR/XR chest 2V IMPRESSION: No acute cardiopulmonary disease.
[2024-05-10 21:57] VITALS: BP 174/84; PULSE 84; RESP 18; TEMP 36.7; O2SAT 98; BMI 39.7
--- NOTE | 2024-05-10 22:00 | ECG_ITS ---
Test Reason : CP Blood Pressure : / mmHG Vent. Rate : 076 BPM Atrial Rate : 076 BPM P-R Int : 190 ms QRS Dur : 112 ms QT Int : 392 ms P-R-T Axes : 044 -40 171 degrees QTc Int : 441 ms Normal sinus rhythm Left axis deviation Left ventricular hypertrophy with repolarization abnormality ( R in aVL , Jayson product ) Cannot rule out Septal infarct , age undetermined Abnormal ECG When compared with ECG of 07-MAY-2023 11:38, No significant change was found Referred By: Generic ED Physician Electronically Signed By:Los Siegel
--- NOTE | 2024-05-10 22:07 | MHC.EDTECH ---
Patient brought into triage area,EKG taken per order and signed by ,patient brought to X-ray at this time.
[2024-05-10 22:40] VITALS: BP 155/90; PULSE 77; RESP 17; TEMP 36.9; O2SAT 97
--- NOTE | 2024-05-11 00:13 | ED_ITS ---
HPI - General Adult General Chief complaint: Headache Stated complaint: Headache Time Seen by Provider: 05/10/24 22:12 History of Present Illness HPI narrative: Patient is a 48-year-old male presented today with multitude of complaints. Including chest pain on the left side going to the shoulder going to the arm leg cramping headache nausea vomited x2 symptoms started at around noon. Patient denies any abdominal pain. There is no fever no chills. No travel history no history of blood clots. Positive history of diabetes, hypertension, high cholesterol. Patient claims he might have had a mini stroke in the past. He got a cardiac catheterization in [place] in the past. Unknown results. He does not think he got a stent in place. Patient denies any travel history. No leg swelling. Both legs are cramping. Although he had some vomiting earlier now patient is extremely hungry. Patient is unsure about the medication he is on. He has a history of COPD Related Data Home Medications ?Medication ?Instructions ?Recorded ?Confirmed alogliptin 25 mg tablet (Nesina) 25 mg PO DAILY 10/21/23 01/19/24 atorvastatin 80 mg tablet 80 mg PO QAM 10/21/23 01/19/24 carvedilol 25 mg tablet 25 mg PO 10/21/23 01/19/24 chlorthalidone 25 mg tablet 25 mg PO QAM 11/27/23 01/19/24 dulaglutide 0.75 mg/0.5 mL mg subcut QWEEK 11/27/23 01/19/24 subcutaneous pen injector (Trulicity) insulin lispro 100 unit/mL subcut 11/27/23 01/19/24 subcutaneous pen Previous Rx's ?Medication ?Instructions ?Recorded albuterol sulfate 90 mcg/actuation 2 puff inhalation Q4-6H PRN 05/07/23 aerosol inhaler shortness of breath or wheezing #8.5 grams aspirin 81 mg tablet,delayed 81 mg PO DAILY #30 tabs 05/07/23 release fluticasone furoate 200 1 inh inhalation DAILY #60 ea 05/07/23 mcg-vilanterol 25 mcg/dose inhalation powder (Breo Ellipta) hydroxyzine HCl 25 mg tablet 25 mg PO TID PRN anxiety #30 tabs 05/07/23 isosorbide mononitrate 60 mg 60 mg PO DAILY #30 tabs 05/07/23 tablet,extended release 24 hr lisinopril 40 mg tablet 40 mg PO DAILY #30 tabs 05/07/23 melatonin 5 mg tablet 5 mg PO BEDTIME PRN sleep #30 tabs 05/07/23 metformin 1,000 mg tablet 1,000 mg PO BID #60 tabs 05/07/23 omeprazole 40 mg capsule,delayed 40 mg PO DAILY #30 caps 05/07/23 release phenytoin sodium extended 100 mg 100 mg PO BID #60 caps 05/07/23 capsule quetiapine 50 mg tablet 50 mg PO TID #90 tabs 05/07/23 gabapentin 300 mg capsule 300 mg PO BID for pain 30 days #60 03/15/24 caps acetaminophen 500 mg tablet 500 mg PO QID PRN fever or pain 05/04/24 #20 tabs ketorolac 10 mg tablet 10 mg PO Q8H PRN pain #10 tabs 05/04/24 Allergies Allergy/AdvReac Type Severity Reaction Status Date / Time No Known Allergies Allergy Verified 05/10/24 21:59 Review of Systems 2 Review of Systems: Positive headache positive chest pain positive nausea/vomiting, leg cramping PMFSH Past Medical History Attestation statement: The following information was validated with the patient. Medical History Seizure disorder Moderate episode of recurrent major depressive disorder Cannabis use disorder Generalized anxiety disorder GERD (gastroesophageal reflux disease) Stroke COPD (chronic obstructive pulmonary disease) Hyperlipidemia, unspecified Essential hypertension Type 2 diabetes mellitus with unspecified complications Morbid obesity Surgical History No pertinent past surgical history Family History Family History Mother No problems noted. Paternal Grandfather Heart problem Father No problems noted. Social History Social History Alcohol intake: former Patient Tobacco Use Status: Former Tobacco user Smoked in Last 30 Days: No Substance Use Type: Marijuana Advance Directives: No Advance Directives Information Provided: No Current occupational status: unemployed Current occupation: right hand dominant Physical Exam ED Vital Signs: Vital Signs - 24 hr 05/10/24 21:57 05/10/24 22:40 05/11/24 00:40 Temperature 98.0 F 98.5 F 98.5 F Pulse Rate 84 77 66 Respiratory Rate 18 17 13 Blood Pressure 174/84 H 155/90 H 164/92 H Pulse Oximetry 98 97 99 Oxygen Delivery Method Room Air Room Air Room Air 05/11/24 01:57 Temperature 97.0 F Pulse Rate 68 Respiratory Rate 14 Blood Pressure 161/79 H Pulse Oximetry 97 Oxygen Delivery Method Room Air BMI result Body Mass Index 39.7 Appearance: Alert. Oriented X3. No acute distress. Eyes: Pupils equal, round and reactive to light. ENT: Pharynx normal. Neck: Normal inspection. Neck supple. No lymph nodes noted. No crepitus CVS: Normal heart rate and rhythm. Pulses normal. Normal S1 and S2 Respiratory: No respiratory distress. Breath sounds normal. No Wheezing. No rales Abdomen: Soft and nontender. No rigidity. No distention. good BS x4 Skin: Skin warm and dry. Normal skin color. Normal skin turgor. Extremities: No lower extremity edema. Neurovascular intact to all extremities. No Lacerations. No Rash Neuro: Oriented X 3. No motor deficit. No sensory deficit. Moving all extermities. No slurred speech Medical Decision Making Medical Decision Making [facility] Narrative: Patient has nonspecific headache, chest pain, axillary pain, leg pain. Also has nausea that has gone away now is hungry. Has multitude of risk factor including history of diabetes history of hypercholesterolemia history of hypertension. Patient's chest pain is atypical. His EKG is not changed. Patient's troponin x2 sets were negative. His creatinine is 1.6 this is chronic. Patient is LFTs are normal. Lipase is normal no evidence for pancreatitis. My interpretation patient's chest x-ray showed no evidence of pneumonia no pneumothorax. Patient's D-dimer is negative. Making risk of PE low. Risk of DVT low. Patient's history not consistent. Differential Diagnosis Differential Diagnoses: The differential diagnosis associated with the presentation includes Pulmonary emboli, DVT, headache, ACS, pneumonia, pneumothorax Admission/Observation Consideration of admission/observation: Escalation of care including admission/observation considered Lab Data [facility] Lab Attestation statement: I reviewed the patient's lab results. 05/11/24 00:50 05/11/24 00:50 Labs: Lab Results 05/11/24 05/11/24 05/11/24 Range/Units 00:44 00:50 01:33 WBC 9.4 (4.8-10.8) X10*3/uL RBC 3.83 L (4.60-5.80) X10*6/uL Hgb 11.7 L (14.0-18.0) g/dl Hct 34.4 L (42.0-52.0) % MCV 89.8 (80.0-98.0) fL MCH 30.5 (27.0-33.0) pg MCHC 34.0 (31.0-36.0) g/dl RDW 13.2 (11.0-16.0) % Plt Count 205 (160-400) X10*3/uL MPV 9.2 L (9.4-12.4) fL Immature Gran % (Auto) 0.3 (0.0-0.4) % Neut % (Auto) 66.4 (45-73) % Lymph % (Auto) 24.0 (20-40) % [place] % (Auto) 5.7 (2-11) % Eos % (Auto) 3.2 (0-4) % Baso % (Auto) 0.4 (0-2) % Lymph # (Auto) 2.3 (1.2-4.9) X10*3/uL [place] # (Auto) 0.5 (0.1-1.2) X10*3/uL Eos # (Auto) 0.3 (0.0-0.4) X10*3/uL Baso # (Auto) 0.0 (0.0-0.2) X10*3/uL Abs Immat Gran (auto) 0.03 (0.00-0.03) X10*3/uL Absolute Neuts (auto) 6.2 (2.0-8.3) x10*3/uL Absolute Nucleated RBC 0.000 (0.0-0.012) X10*3/uL Nucleated RBC % (auto) 0.0 (0.0-0.2) /100WBC PT 12.5 (11.1-13.3) SEC INR 1.0 (0.9-1.1) D-Dimer High Sensitivty < 150 NG/ML Sodium 141 (135-145) mmol/L Potassium 4.3 (3.3-5.1) mmol/L Chloride 106 (96-108) mmol/L Carbon Dioxide 27 (22-29) mmol/L Anion Gap 12 (12-20) BUN 25 H (9-16) mg/dL Creatinine 1.61 H (0.5-1.4) mg/dL Estim Creat Clear Calc 77.6 Estimated GFR 46 POC Glucose 115 (60-115) mg/dL Random Glucose 120 H (60-115) mg/dL Calcium 9.5 (8.4-10.2) mg/dL Total Bilirubin 0.2 (0.0-1.0) mg/dL Direct Bilirubin < 0.2 (0.0-0.5) mg/dL AST 13 (5-37) U/L ALT 14 (0-40) U/L Alkaline Phosphatase 61 (39-117) U/L Troponin I High Sens 26.9 26.1 (<3.5-35.0) ng/L Total Protein 7.1 (6.5-8.0) g/dL Albumin 3.9 (3.5-5.0) g/dL Lipase 32 (8-78) U/L Independent Interpretation I performed an independent interpretation of an: EKG (Sinus heart rate is 80 SC QRS QTC within normal limits there is no change to patient's EKG when compared to previous.) and Plain X-Ray (Chest x-ray was negative for any acute infiltrate) Radiology Impression Discussion of test interpretation with radiology: I have reviewed the radiologist's reading. External Record Review External record reviewed: Inpatient record and Office record Cardiology records reviewed Discharge Plan Discharge Clinical Impression: Chest pain Patient Disposition: Home, Self-Care Instructions: Chest Pain (DC) Prescriptions: No Action gabapentin 300 mg capsule 300 mg PO BID 30 Days Qty: 60 1RF metformin 1,000 mg tablet 1,000 mg PO BID Qty: 60 0RF fluticasone furoate-vilanterol [Breo Ellipta] 200-25 mcg/dose blister with device 1 inh inhalation DAILY Qty: 60 0RF albuterol sulfate 90 mcg/actuation HFA aerosol inhaler 2 puff inhalation Q4-6H PRN (Reason: shortness of breath or wheezing) Qty: 8.5 0RF hydroxyzine HCl 25 mg tablet 25 mg PO TID PRN (Reason: anxiety) Qty: 30 0RF isosorbide mononitrate 60 mg tablet extended release 24 hr 60 mg PO DAILY Qty: 30 0RF lisinopril 40 mg tablet 40 mg PO DAILY Qty: 30 0RF melatonin 5 mg tablet 5 mg PO BEDTIME PRN (Reason: sleep) Qty: 30 0RF omeprazole 40 mg capsule,delayed release(DR/EC) 40 mg PO DAILY Qty: 30 0RF phenytoin sodium extended 100 mg capsule 100 mg PO BID Qty: 60 0RF aspirin 81 mg tablet,delayed release (DR/EC) 81 mg PO DAILY Qty: 30 0RF quetiapine 50 mg tablet 50 mg PO TID Qty: 90 0RF ketorolac 10 mg tablet 10 mg PO Q8H PRN (Reason: pain) Qty: 10 0RF Rx Instructions: maximum total duration of 5 days from all oral, intranasal, or parenteral formulations acetaminophen 500 mg tablet 500 mg PO QID PRN (Reason: fever or pain) Qty: 20 0RF Trulicity 0.75 mg/0.5 mL pen injector subcut QWEEK insulin lispro 100 unit/mL insulin pen subcut chlorthalidone 25 mg tablet 25 mg PO QAM alogliptin [Nesina] 25 mg tablet 25 mg PO DAILY carvedilol 25 mg tablet 25 mg PO atorvastatin 80 mg tablet 80 mg PO QAM Referrals: Steve Chavarria MD [Physician] - 05/13/24 Print Language: Cymro
[2024-05-11 00:40] VITALS: BP 164/92; PULSE 66; RESP 13; TEMP 36.9; O2SAT 99
[2024-05-11 00:55] LABS: Glucose, Whole Blood 115 mg/dL (60-115)
[2024-05-11 00:57] LABS: Basophils Percent Auto 0.4 % (0-2); Eosinophils Absolute Auto 0.3 X10*3/uL (0.0-0.4); Eosinophils Percent Auto 3.2 % (0-4); Hematocrit 34.4 % (42.0-52.0); Hemoglobin 11.7 g/dl (14.0-18.0); Imm Gran Abs Auto 0.03 X10*3/uL (0.00-0.03); Imm Gran Pct Auto 0.3 % (0.0-0.4); Lymphocytes Absolute Auto 2.3 X10*3/uL (1.2-4.9); MANUAL DIFF FLAG NO; Mean Corpuscular Hemoglobin 30.5 pg (27.0-33.0); Mean Corpuscular Volume 89.8 fL (80.0-98.0); Mean Platelet Volume 9.2 fL (9.4-12.4); Monocytes Absolute Auto 0.5 X10*3/uL (0.1-1.2); Monocytes Percent Auto 5.7 % (2-11); Neutrophils Absolute Auto 6.2 x10*3/uL (2.0-8.3); Neutrophils Percent Auto 66.4 % (45-73); Platelet Count 205 X10*3/uL (160-400); Red Blood Count 3.83 X10*6/uL (4.60-5.80); Red Cell Distribution Width 13.2 % (11.0-16.0); White Blood Count 9.4 X10*3/uL (4.8-10.8)
[2024-05-11 01:03] LABS: Prothrombin Time 12.5 SEC (11.1-13.3)
[2024-05-11 01:05] LABS: D Dimer High Sensitivity < 150 NG/ML
[2024-05-11 01:16] LABS: Alanine Aminotransferase 14 U/L (0-40); Albumin Level 3.9 g/dL (3.5-5.0); Alkaline Phosphatase 61 U/L (39-117); Anion Gap 12 (12-20); Aspartate Amino Transferase 13 U/L (5-37); Bilirubin Direct < 0.2 mg/dL (0.0-0.5); Bilirubin Total 0.2 mg/dL (0.0-1.0); Blood Urea Nitrogen 25 mg/dL (9-16); Calcium 9.5 mg/dL (8.4-10.2); Carbon Dioxide 27 mmol/L (22-29); Chloride 106 mmol/L (96-108); Creatinine Clr Calc Pharmacy 77.6; Estimated Glomerular Filt Rate 46; Glucose Random 120 mg/dL (60-115); Lipase 32 U/L (8-78); Potassium 4.3 mmol/L (3.3-5.1); Sodium 141 mmol/L (135-145); Total Protein 7.1 g/dL (6.5-8.0)
[2024-05-11 01:20] LABS: Troponin-I High Sensitivity 26.9 ng/L (<3.5-35.0)
[2024-05-11 01:57] VITALS: BP 161/79; PULSE 68; RESP 14; TEMP 36.1; O2SAT 97
[2024-05-11 02:01] LABS: Troponin-I High Sensitivity 26.1 ng/L (<3.5-35.0)
[2024-05-11 03:37] VITALS: BP 0/0; PULSE 0; RESP 0; TEMP -17.7; TEMP 0; O2SAT 0
== END 2024-05-11 03:38 | disposition home or self-care (01) ==
PROVIDERS: Emergency Provider Emergency Medicine Emergency Medical Services
DX: R07.89 Other chest pain (principal); R51.9 Headache, unspecified; M25.512 Pain in left shoulder; R11.2 Nausea with vomiting, unspecified; Z79.899 Other long term (current) drug therapy; Z87.891 Personal history of nicotine dependence
CPT/HCPCS: 36415; 71046; 80048; 80076; 82947; 83690; 84484; 85025; 85379; 85610; 93005; 99283; 99285

== ENCOUNTER → 2024-05-10 22:00 | Outpatient (BNV) | payer MEDICAID, SELFPAY | PROVIDERS: Emergency Provider Emergency Medicine Emergency Medical Services; Visit Provider Internal Medicine Cardiovascular Disease | DX: R07.9 Chest pain, unspecified (principal); R94.31 Abnormal electrocardiogram [ECG] [EKG] | CPT/HCPCS: 93010 ==

== ENCOUNTER 2024-05-16 12:38 | Outpatient (REF) | payer MEDICAID, SELFPAY ==
--- NOTE | ~2024-05-16 | US_ITS ---
ULTRASOUND RIGHT BICEPS MUSCLE CLINICAL: Right biceps muscle strain with clinical suspicion of likely rupture. COMPARISON: None. TECHNIQUE: Using a linear transducer with grayscale and color evaluation, ultrasound examination is performed of the right biceps muscle, with attention directed towards the area of pain in the mid upper arm. FINDINGS: In the mid biceps region, there is discontinuity and retraction of the biceps muscle bundle, with an intervening 6.1 x 3.4 x 3.3 cm cystic collection. This may represent a liquefied hematoma or seroma. No mass or lymphadenopathy is seen. No foreign body is noted. FINDINGS: There is discontinuity of the mid biceps muscle bundle, with intervening/adjacent anechoic fluid collection, possibly representing a liquefied hematoma or seroma. The findings are consistent with a biceps muscle tear injury. This could be more fully evaluated with MRI, if clinically indicated. Electronically signed by: Deo Barba MD 06/06/2024 07:29 PM EDT
== END 2024-05-16 12:39 | disposition home or self-care (01) ==
LOC: HO.US 12:38
PROVIDERS: Visit Provider Student in an Organized Health Care Education/Training Program
DX: S46.211A Strain of muscle, fascia and tendon of other parts of biceps, right arm, initial encounter (principal)
CPT/HCPCS: 76882

== ENCOUNTER 2024-05-20 07:39 | Outpatient (AMB) | payer MEDICAID, SELFPAY ==
--- NOTE | 2024-05-20 08:00 | A.OFFVIS_ITS ---
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 Patient reports he was trying to lifting his bed and he felt a sharp pain is his bicep and forearm. He states that his ROM is limited due to stiffness. 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 The patient presented to the ED on 05/04/24 status post attempting to lift a 50 lbs. bed on 05/03/24. Object while leaning forward. He reported a sudden onset of sharp pain in the right biceps. X-rays were obtained. The patient was prescribed ketorolac 10 mg PO Q8H PRN and acetaminophen 500 mg PO QID PRN.? ? While in the office today, the patient confirmed he injured his right shoulder two weeks ago while trying to lift a bed. He confirms feeling a sharp pain in his right bicep and forearm. He also reports limited ROM due to stiffness. ? [facility] Medical History Seizure disorder Moderate episode of recurrent major depressive disorder Cannabis use disorder Generalized anxiety disorder GERD (gastroesophageal reflux disease) Stroke COPD (chronic obstructive pulmonary disease) Hyperlipidemia, unspecified Essential hypertension Type 2 diabetes mellitus with unspecified complications Morbid obesity Surgical History No pertinent past surgical history Family History Mother No problems noted. Paternal Grandfather Heart problem Father No problems noted. Social History Alcohol intake: former Patient Tobacco Use Status: Former Tobacco user Substance Use Type: Marijuana Current occupational status: unemployed Current occupation: right hand dominant Review of Systems Const All systems reviewed & are unremarkable except as noted in HPI and below Physical Exam Const General: cooperative and no acute distress Orientation/consciousness: patient oriented x3 Resp Effort & Inspection: normal respiratory effort and able to speak in complete sentences Cardio Peripheral pulses: Peripheral pulses 2+ throughout Skin General skin exam: no rashes or lesions noted Neuro General: patient oriented x3 Extrem Other: Right biceps: Latrell deformity noted on inspection. Pain over the proximal bicep tendon attachment site without palpable tendon present. Palpable tendon present distally. Negative Hook test distally. Forward flexion and abduction to 20 degrees. External rotation to end range. Able to reach T-12. NVI.? Assessment & Plan Assessment & Plan (1) Rupture of right proximal biceps tendon: Code(s): S46.211A - Strain of muscle, fascia and tendon of other parts of biceps, right arm, initial encounter Category: Medical Plan Mr. Alejandro York is a 48-year-old right hand dominant male, who is Amharic speaking, presents in the office today, as a new patient, for an evaluation of right bicep pain. The patient presented to the ED on 05/04/24 status post attempting to lift a 50 lbs. bed on 05/03/24. Object while leaning forward. He reported a sudden onset of sharp pain in the right biceps. X-rays were obtained. The patient was prescribed ketorolac 10 mg PO Q8H PRN and acetaminophen 500 mg PO QID PRN.? ? While in the office today, the patient confirmed he injured his right shoulder two weeks ago while trying to lift a bed. He confirms feeling a sharp pain in his right bicep and forearm. He also reports limited ROM due to stiffness.? ? I recommend non-surgical intervention at this time. He may work on gentle ROM. Follow-up will be PRN, or sooner if needed. ? ? X-rays of the right humerus, obtained on 05/04/24, revealed: no acute fracture or dislocation.? Patient Instructions: Scribed by Bernice Alexandre emergency medical tech, for Marjan Tran PA-C on 05/20/2024 at 7:44 am, EST.? Coding Level of Care Code New Pt Level 3 (84413) Diagnoses Rupture of right proximal biceps tendon S46.211A
== END 2024-05-20 08:21 | disposition home or self-care (01) ==
PROVIDERS: Visit Provider Physician Assistant
DX: S46.211A Strain of muscle, fascia and tendon of other parts of biceps, right arm, initial encounter (principal)
CPT/HCPCS: 99203

== ENCOUNTER → 2024-05-20 07:39 | Outpatient (BNVA) | payer MEDICAID, SELFPAY | PROVIDERS: Visit Provider Physician Assistant | DX: S46.211A Strain of muscle, fascia and tendon of other parts of biceps, right arm, initial encounter (principal); X50.0XXA Overexertion from strenuous movement or load, initial encounter; Y93.89 Activity, other specified; Y92.003 Bedroom of unspecified non-institutional (private) residence as the place of occurrence of the external cause; Y99.9 Unspecified external cause status | CPT/HCPCS: 99212 ==

== ENCOUNTER 2024-06-14 08:25 | Outpatient (AMB) | payer MEDICAID, SELFPAY ==
--- NOTE | 2024-06-14 09:03 | MHC.OFFVIS ---
Intake Visit Reasons: [facility] PCP referral for VV w/ pain Intake Note: New patient presents for VV with pain. Patient states he has varicose veins in both legs that hurt all the time. He has occasional swelling, itching and cramping. States his legs lock up when he tries to get out of bed to use the restroom at night. Patient is diabetic . He is a non smoker. Accompanied by: Self / Same As Patient Allergies No Known Allergies Allergy (Verified 06/14/24 09:08) HPI [facility] PCP referral for VV w/ pain: Details: 48-year-old gentleman patient presents for painful varicose veins. Complaints include pain over varicosities, swelling of lower extremities, cramping, fatigue, and heaviness of the lower extremities. It has been affecting there daily activities including walking. It is noted more so in right leg. Of note patient has significant back pain issues as well. In addition he is a diabetic Patient denies any previous venous surgery or injections. Patient denies any history of DVT/ PE. Patient denies any history of phlebitis. Trial of compression includes - [id number] They now present for vascular evaluation regarding their varicose veins. [facility] Medical History Seizure disorder Moderate episode of recurrent major depressive disorder Cannabis use disorder Generalized anxiety disorder GERD (gastroesophageal reflux disease) Stroke COPD (chronic obstructive pulmonary disease) Hyperlipidemia, unspecified Essential hypertension Type 2 diabetes mellitus with unspecified complications Morbid obesity Surgical History No pertinent past surgical history Family History Mother No problems noted. Paternal Grandfather Heart problem Father No problems noted. Social History Alcohol intake: former Patient Tobacco Use Status: Former Tobacco user Substance Use Type: Marijuana Current occupational status: unemployed Current occupation: right hand dominant Review of Systems Const Reports as per HPI ENT Reports no additional complaints Card Denies chest pain, Denies chest pain at rest and Denies chest pain with activity Resp Denies chest congestion and Denies cough GI Reports no additional complaints Musc Details: pain over varicosities, aching of lower extremities, swelling, cramping, heaviness and tiredness, itching Denies abnormal gait Skin/Breast Reports pruritus and Denies wounds Neuro Reports no additional complaints and Denies abnormal gait Psych Denies no additional complaints Physical Exam Const General: cooperative, healthy appearing and comfortable Orientation/consciousness: oriented to person, oriented to place and oriented to time Neck Carotids: no bruits Chest Chest palpation & inspection: normal inspection of the chest and normal palpation of entire chest wall Resp Effort & Inspection: normal respiratory effort and able to speak in complete sentences Cardio Rate: regular rate Heart sounds: S1 normal heart sound present and S2 normal heart sound present Peripheral pulses: Peripheral pulses 2+ throughout GI Inspection: Yes normal to inspection Skin Other: +2 edema, large rope-like varicosities greater than 4 mm CEAP Classification C4 - skin color changes Ep - Etiology Primary As - superficial veins P - reflux General skin exam: dry skin Neuro General: oriented to person, oriented to place and oriented to time Extrem Right lower extremity: full ROM, normal capillary refill and edema Left lower extremity: full ROM, normal capillary refill and edema Psych Mental Status: mental status grossly normal Assessment & Plan Assessment & Plan (1) Varicose veins of right lower extremity with inflammation: Code(s): I83.11 - Varicose veins of right lower extremity with inflammation Category: Medical Plan: In short, the patient has evidence of venous insufficiency. I have discussed the pathophysiology with the patient. In addition I have provided informational material regarding venous disease to the patient. We have discussed conservative measures including compression, elevation, and exercise. I have also provided a handout regarding appropriate use of compression stockings and where to purchase good compression stockings as well. I have taken the liberty of ordering venous insufficiency testing with the patient. They will follow up with me after testing. The patient had an opportunity to ask questions regarding the treatment plan. All questions were answered. Imaging studies, laboratory studies and physical exam results were discussed and reviewed in detail. No major barriers to understanding were identified. The patient expressed understanding and agreement with the above treatment plan. The patient is aware they should contact our office by phone for worsening of the current condition or the appearance of new symptoms. Thank you for allowing me to participate in the vascular care of this patient. If you have any questions or concerns regarding the treatment for the above condition please do not hesitate to contact me. The office telephone contact is [phone]. This note is constructed using voice recognition software. While every effort has been made to ensure accuracy, senior manager creative services errors may have been included. Thank you for allowing me to participate in the care of your patient. Yours sincerely, Steffen Liz MD, FACS, R.P.V.I. Orders: Orders US venous duplex LE BI 1 Week I83.11 - Varicose veins of right lower extremity with inflammation Coding Level of Care Code New Pt Level 4 (77314) Diagnoses Varicose veins of right lower extremity with inflammation I83.11
== END 2024-06-14 09:50 | disposition home or self-care (01) ==
PROVIDERS: Visit Provider Surgery Vascular Surgery
DX: I83.11 Varicose veins of right lower extremity with inflammation (principal)
CPT/HCPCS: 99203

== ENCOUNTER → 2024-06-14 08:25 | Outpatient (BNVA) | payer MEDICAID, SELFPAY | PROVIDERS: Visit Provider Surgery Vascular Surgery | DX: I83.11 Varicose veins of right lower extremity with inflammation (principal) | CPT/HCPCS: 99202 ==

== ENCOUNTER 2024-06-21 09:44 | Outpatient (AMB) | payer MEDICAID, SELFPAY ==
--- NOTE | 2024-06-21 09:49 | MHC.OFFVIS ---
Vital Signs 06/21/24 09:50 Height 5 ft 11 in Weight 280 lb BMI 39.0 Handedness Right Intake Visit Reasons: right bicep tendon rupture Intake Note: Tre is a 48 year old right hand dominant male who presents today for a follow up of his right bicep tendon rupture, DOI 2 weeks ago. Patient reports he still having continuos pain and his ROM is still limited. . Quick Print Operator Services: Quick Print Operator Present ([employer]age ([id number])) Allergies No Known Allergies Allergy (Verified 06/21/24 09:50) HPI HPI right bicep tendon rupture: Details: 48-year-old right hand dominant male, who is Armenian speaking, presents in the office today for a follow-up of a right proximal biceps tendon rupture. I last saw the patient in the office on 05/20/24 when he was encouraged to work on gentle ROM.? ? While in the office today, the patient reports he continues to have pain and his ROM is limited. ? PFSH Medical History Seizure disorder Moderate episode of recurrent major depressive disorder Cannabis use disorder Generalized anxiety disorder GERD (gastroesophageal reflux disease) Stroke COPD (chronic obstructive pulmonary disease) Hyperlipidemia, unspecified Essential hypertension Type 2 diabetes mellitus with unspecified complications Morbid obesity Surgical History No pertinent past surgical history Family History Mother No problems noted. Paternal Grandfather Heart problem Father No problems noted. Social History Alcohol intake: former Patient Tobacco Use Status: Former Tobacco user Substance Use Type: Marijuana Current occupational status: unemployed Current occupation: right hand dominant Review of Systems Const All systems reviewed & are unremarkable except as noted in HPI and below Physical Exam Vital Signs: BMI result Body Mass Index 39.0 Const General: cooperative, healthy appearing and no acute distress Resp Effort & Inspection: normal respiratory effort and able to speak in complete sentences Cardio Rate: regular rate Peripheral pulses: Peripheral pulses 2+ throughout GI Palpation (GI): Soft to palpation Skin Lesions: no lesions Rashes: no rashes Extrem Other: Right biceps: Latrell deformity noted on inspection. Pain over the proximal bicep tendon attachment site without palpable tendon present. Palpable tendon present distally. Negative Hook test distally. Forward flexion and abduction to 80 degrees. External rotation to end range. Able to reach T-12. NVI.? Assessment & Plan Assessment & Plan (1) Rupture of right proximal biceps tendon: Code(s): S46.211A - Strain of muscle, fascia and tendon of other parts of biceps, right arm, initial encounter Category: Medical Plan Mr. Alejandro York is a 48-year-old right hand dominant male, who is Armenian speaking, presents in the office today for a follow-up of a right proximal biceps tendon rupture. I last saw the patient in the office on 05/20/24 when he was encouraged to work on gentle ROM.? ? While in the office today, the patient reports he continues to have pain and his ROM is limited.? ? An order for formal physical therapy was made in the office today. I would like the patient to attend physical therapy for at least six weeks. If all sessions are complete and he has not noticed any improvement, we will move forward with ordering an MRI to further evaluate the integrity of the right shoulder. He has been provided my business card to contact me for telephone encounter to discuss any changes in his symptoms. Follow-up will be in six weeks via telephone encounter, or sooner if needed. ? Orders: Orders PT Evaluation and Treatment Today S46.211A - Strain of muscle, fascia and tendon of other parts of biceps, right arm, initial encounter Patient Instructions: Scribed by Bernice Alexandre medical laboratory technologist, for Marjan Tran PA-C on 06/21/2024 at 9:58 am, EST.? Coding Level of Care Code Est Pt Level 3 (52121) Diagnoses Rupture of right proximal biceps tendon S46.211A
[2024-06-21 09:50] VITALS: BMI 39.0
== END 2024-06-21 10:04 | disposition home or self-care (01) ==
PROVIDERS: Visit Provider Physician Assistant
DX: S46.211A Strain of muscle, fascia and tendon of other parts of biceps, right arm, initial encounter (principal)
CPT/HCPCS: 99213

== ENCOUNTER → 2024-06-21 09:44 | Outpatient (BNVA) | payer MEDICAID, SELFPAY | PROVIDERS: Visit Provider Physician Assistant | DX: S46.211D Strain of muscle, fascia and tendon of other parts of biceps, right arm, subsequent encounter (principal) | CPT/HCPCS: 99212 ==

== ENCOUNTER 2024-06-23 07:30 | Outpatient (REF) | payer MEDICAID, SELFPAY ==
--- NOTE | ~2024-06-23 | XR_ITS ---
EXAMINATION: XR LUMBOSACRAL SPINE CLINICAL INFORMATION: Lumbar disc prolapse with radiculopathy. COMPARISON: 11/27/2023 TECHNIQUE: Three views of the lumbosacral spine. FINDINGS: Nnvlwzkt-kw-[id number] degenerative disc disease at L4-L5 with marked loss of intervertebral disc height, endplate osteophytes, endplate sclerosis, and vacuum phenomenon. More mild degenerative disc disease in the lower thoracic spine and at L1-L2. Facet arthropathy is present at L4-L5. There is slight retrolisthesis of L2 on L3 by 2 mm. No additional spondylolisthesis. Mild anterior wedging is noted at the T12 and L1 vertebral bodies which is unchanged as compared to prior and potentially physiologic. No acute fractures. Vertebral body heights are normal. Mild osteoarthritis in the SI joints. XR/XR lumbar spine 2-3V IMPRESSION: 1. Gnvmjvzq-yu-exgjkv degenerative disc disease at L4-L5. More mild degenerative disc disease at the upper thoracic and lower lumbar spine. 2. Mild retrolisthesis of L2 on L3. Electronically signed by: Maykel Napoles MD 07/05/2024 11:54 PM EDT
== END 2024-06-23 07:31 | disposition home or self-care (01) ==
LOC: HO.XRAY 07:30
PROVIDERS: PCP Nurse Practitioner Primary Care; Visit Provider Anesthesiology Pain Medicine
DX: M51.16 Intervertebral disc disorders with radiculopathy, lumbar region (principal)
CPT/HCPCS: 72100

== ENCOUNTER 2024-06-23 07:36 | Outpatient (RCR) | payer MEDICAID, SELFPAY | END 2024-11-14 10:54 | disposition home or self-care (01) | LOC: HO.PT 07:36 | PROVIDERS: PCP Nurse Practitioner Primary Care; Visit Provider Physician Assistant | DX: S46.211D Strain of muscle, fascia and tendon of other parts of biceps, right arm, subsequent encounter (principal) ==

== ENCOUNTER 2024-07-01 08:19 | Outpatient (REF) | payer MEDICAID, SELFPAY ==
--- NOTE | ~2024-07-01 | US_ITS ---
EXAMINATION: US LOWER EXTREMITY VENOUS (REFLUX EXAM), BILATERAL CLINICAL INDICATION: Chronic venous insufficiency with lower extremity varicose veins with inflammation. COMPARISON: None. TECHNIQUE: Color flow triplex imaging and compression Doppler was performed to evaluate both the deep and the superficial systems bilaterally. To evaluate the superficial system, the examination was performed in the upright position. Color-flow Doppler ultrasound and compression ultrasound were utilized. In addition, maneuvers were utilized to demonstrate reflux. FINDINGS: 1. DEEP VENOUS ULTRASOUND OF THE RIGHT LOWER EXTREMITY: Common Femoral Vein: Compressible, normal respiratory variation and augmented flow. Femoral Vein: Compressible, normal color flow and augmentation. Popliteal Vein: Compressible, normal augmentation. Deep Reflux: There is no evidence of reflux in the deep system in either the common femoral vein, superficial femoral or the popliteal vein. There is no evidence of a Garza's cyst. 2. SUPERFICIAL ULTRASOUND WITH DOPPLER OF RIGHT LOWER EXTREMITY: GREAT SAPHENOUS VEIN: Saphenofemoral Junction: 0.7 cm; Reflux: 0 ms Proximal Thigh: 0.4 cm; Reflux: 0 ms Mid Thigh: 0.4 cm; Reflux: 0 ms Above Knee: 0.3 cm; Reflux: 0 ms At Knee: 0.3 cm; Reflux: 3124 ms Below Knee: 0.3 cm; Reflux: 2780 ms Mid Calf: 0.3 cm; Reflux: 0 ms Ankle: 0.2 cm; Reflux: 0 ms DUPLICATED MEDIAL GREAT SAPHENOUS VEIN: Diameter: None imaged Reflux: NA DUPLICATED LATERAL GREAT SAPHENOUS VEIN: Diameter: None imaged Reflux: NA SMALL SAPHENOUS VEIN: Saphenopopliteal Junction: 0.3 cm; Reflux: 0 ms Proximal: 0.2 cm; Reflux: 0 ms Distal: 0.3 cm; Reflux: 0 ms VEIN OF GIACOMINI: Size: NA Reflux: NA PERFORATORS: Location: None significant Size: NA Reflux: NA VARICOSITIES: Location: Posterior calf of the small saphenous vein, proximal thigh off the great saphenous vein, proximal calf and mid calf off the great saphenous vein Size: 0.3 cm Reflux: 2916 ms in the proximal calf 3. DEEP VENOUS ULTRASOUND OF THE LEFT LOWER EXTREMITY: Common Femoral Vein: Compressible, normal respiratory variation and augmented flow. Femoral Vein: Compressible, normal color flow and augmentation. Popliteal Vein: Compressible, normal augmentation. Deep Reflux: There is no evidence of significant reflux in the deep system in either the common femoral vein, superficial femoral or the popliteal vein. There is no evidence of a Garza's cyst. 4. SUPERFICIAL ULTRASOUND WITH DOPPLER OF LEFT LOWER EXTREMITY: GREAT SAPHENOUS VEIN: Saphenofemoral Junction: 1.0 cm; Reflux: 0 ms Proximal Thigh: 0.7 cm; Reflux: 0 ms Mid Thigh: 0.3 cm; Reflux: 0 ms Above Knee: 0.4 cm; Reflux: 0 ms At Knee: 0.3 cm; Reflux: 0 ms Below Knee: 0.3 cm; Reflux: 0 ms Mid Calf: 0.3 cm; Reflux: 0 ms Ankle: 0.3 cm; Reflux: 0 ms DUPLICATED MEDIAL GREAT SAPHENOUS VEIN: Diameter: None imaged Reflux: NA DUPLICATED LATERAL GREAT SAPHENOUS VEIN: Diameter: 0.2 cm Reflux: None SMALL SAPHENOUS VEIN: Saphenopopliteal Junction: 0.3 cm; Reflux: 0 ms Proximal: 0.2 cm; Reflux: 0 ms Distal: 0.2 cm; Reflux: 392 ms VEIN OF GIACOMINI: Size: 0.2 cm Reflux: None PERFORATORS: Location: None significant Size: NA Reflux: NA VARICOSITIES: Location: Proximal thigh Size: 0.5 cm Reflux: None US/US venous duplex LE BI IMPRESSION: 1. Right: Focal reflux in the great saphenous vein at the knee and below the knee. Multiple varicosities in the calf with significant reflux. 2. Left: Mild focal reflux in the distal small saphenous vein. No significant reflux in the great saphenous vein. Varicosities in the proximal thigh. Electronically signed by: Wallace Ramos MD 07/08/2024 09:40 AM EDT
== END 2024-07-01 08:20 | disposition home or self-care (01) ==
LOC: HO.US 08:19
PROVIDERS: PCP Nurse Practitioner Primary Care; Visit Provider Surgery Vascular Surgery
DX: I83.11 Varicose veins of right lower extremity with inflammation (principal)
CPT/HCPCS: 93970; 99212

== ENCOUNTER 2024-07-01 09:41 | Outpatient (AMB) | payer MEDICAID, SELFPAY ==
--- NOTE | 2024-07-01 09:49 | A.OFFVIS_ITS ---
Vital Signs 07/01/24 09:50 Height 5 ft 11 in Weight 279 lb BMI 38.9 BP 140/68 H Blood Pressure Location Lt brachial Position Sitting Pulse 70 Pulse Source Pulse Oximeter Intake Visit Reasons: PCP request HIgh bp Subgrade Roller Operator Required: Yes Subgrade Roller Operator Name: ALLEN [id number] Allergies No Known Allergies Allergy (Verified 06/21/24 09:50) Medication List - Last Reconciled 07/01/24 by Yris Walters PHOTOGRAPHER NEWS-C acetaminophen 500 mg PO QID PRN albuterol sulfate 90 mcg/actuation 2 puffs inhalation Q4-6H PRN alogliptin (Nesina) 25 mg PO DAILY aspirin 81 mg PO DAILY atorvastatin 80 mg PO QAM carvedilol 25 mg PO chlorthalidone 25 mg PO QAM dulaglutide (Trulicity) mg subcut QWEEK fluticasone furoate-vilanterol 200-25 mcg/dose (Breo Ellipta) 1 inh inhalation DAILY gabapentin 300 mg PO BID 30 days hydroxyzine HCl 25 mg PO TID PRN insulin lispro subcut isosorbide mononitrate ER 60 mg PO DAILY ketorolac 10 mg PO Q8H PRN lisinopril 40 mg PO DAILY melatonin 5 mg PO BEDTIME PRN metformin 1,000 mg PO BID omeprazole 40 mg PO DAILY phenytoin sodium extended 100 mg PO BID quetiapine 50 mg PO TID HPI HPI PCP request HIgh bp: Details: Tre is a 48-year-old male past medical history of hypertension, hyperlipidemia, diabetes, obesity, COPD, chronic kidney disease, abnormal EKG, hypertensive heart disease who presents for follow-up. Today he reports that his blood pressure has been up and down. He says it is mostly elevated when he checks it. He reports compliance with all his medications and tries to stay away from salt. He denies any chest discomfort at rest or with activity. He denies shortness of breath, lightheadedness, syncope, falls, PND, orthopnea or edema. He does not follow with the kidney doctor. [facility] Medical History Seizure disorder Moderate episode of recurrent major depressive disorder Cannabis use disorder Generalized anxiety disorder GERD (gastroesophageal reflux disease) Stroke COPD (chronic obstructive pulmonary disease) Hyperlipidemia, unspecified Essential hypertension Type 2 diabetes mellitus with unspecified complications Morbid obesity Surgical History No pertinent past surgical history Family History Mother No problems noted. Paternal Grandfather Heart problem Father No problems noted. Social History Alcohol intake: former Patient Tobacco Use Status: Former Tobacco user Substance Use Type: Marijuana Current occupational status: unemployed Current occupation: right hand dominant Review of Systems Const All systems reviewed & are unremarkable except as noted in HPI and below Denies weakness ENT Denies dizziness Card Denies chest pain, Denies chest pain with activity, Denies syncope, Denies rapid heart rate, Denies pedal edema, Denies edema, Denies leg edema, Denies lightheadedness, Denies palpitations, Denies dyspnea, Denies dyspnea on exertion and Denies orthopnea Resp Denies cough, Denies dyspnea and Denies dyspnea on exertion GI Denies hematochezia and Denies change in stool character Musc Denies abnormal gait, Denies muscle cramps, Denies muscle weakness, Denies numbness, Denies radiating pain into limb and Denies tingling Neuro Denies abnormal gait, Denies dizziness, Denies syncope, Denies numbness, Denies tingling and Denies weakness Endo Denies palpitations Physical Exam Vital Signs: Last Vital Signs Pulse 70 07/01/24 09:50 BP 140/68 H 07/01/24 09:50 BMI result Body Mass Index 38.9 Const General: cooperative, healthy appearing, comfortable and no acute distress Orientation/consciousness: patient oriented x3 Neck Neck: Yes normal visual inspection and Yes no JVD Resp Effort & Inspection: normal respiratory effort Auscultation: clear to auscultation bilaterally, no crackles, no rales, no rhonchi and no wheezes Cardio Jugular venous distension: no JVD Rate: regular rate Rhythm: regular rhythm Heart sounds: S1 normal heart sound present, S2 normal heart sound present, no murmurs and no rubs Neuro General: patient oriented x3 Extrem General: Yes normal to inspection, No no pedal edema and No calf tenderness Psych Appearance: grossly normal Mental Status: mental status grossly normal Speech and movement: Normal speech and movement present Assessment & Plan Assessment & Plan (1) Abnormal EKG: Code(s): R94.31 - Abnormal electrocardiogram [ECG] [EKG] Category: Medical Plan: Newer patient to our office with findings of abnormal EKG. ( We have records from [facility]. A discharge summary from 11/29/2019 for a syncopal event and hypertensive urgency was reviewed. That note indicates that patient had undergone a cardiac catheterization in 2019 which was unremarkable. Echocardiogram at that time showed EF 50-55%. Carotid ultrasound showed no hemodynamically significant ICA stenosis. He was treated for blood pressure control. ) His EKG shows sinus rhythm with ST and T-wave abnormalities suggesting inferior lateral ischemia. Echocardiogram was done on 11/27/2023 showing EF 55-60%, severe LVH, mild increase in the RV size, sinus of Valsalva 4 cm, ascending aorta 3.8 cm. A nuclear stress test was done on 12/01/2023 showing no clear ischemia, EF 40%. He has not reported any concerning symptoms. It was determined that his abnormal EKG findings are most likely consistent with LVH. His goal of treatment will be good blood pressure control. He has been on carvedilol, chlorthalidone, isosorbide, lisinopril. - which were continued. (2) Essential hypertension: Code(s): I10 - Essential (primary) hypertension Category: Medical Plan: History of hypertension, Dupo blood pressure goal less than 130/85. Blood pressure was good on prior visit and his meds were continued. Today he reports that his blood pressures have been mostly running elevated. He reports compliance with his meds and low-salt diet. He did not take his morning meds yet today. Blood pressure 140/68. Labs done 05/11/2024 shows creatinine 1.61. He says he does not follow with Nephrology. With his young age, elevated creatinine and hypertension will refer him to Nephrology for evaluation and med adjustment as needed. We will check a renal artery ultrasound to assess for renal artery stenosis. He is currently on 4 antihypertensives and his blood pressure remains elevated. No med changes made at this time. Reviewed with him that he has hypertensive heart disease and good blood pressure control is essential. Cardiology follow-up in office 3 months sooner if needed (3) Status post cardiac catheterization: Comment: 2019 - reported as unremarkable Code(s): Z98.890 - Other specified postprocedural states Category: Surgical Plan: Presume normal catheterization based on notation on discharge summary as stated above. No report of anginal sounding symptoms. He has diabetes which is uncontrolled. Most recent hemoglobin A1c 9.4 on 11/27/2023. Dupo hemoglobin A1c goal less than 7, followed by his PCP. LDL goal less than 70. Continue high-dose atorvastatin. Lipids done on 03/18/2024 showed LDL 49. Continue carv edilol. Presume that isosorbide is being used for blood pressure control. (4) Palpitations: Code(s): R00.2 - Palpitations Category: Medical Plan: On last visit he Reported heart palpitations where he feels his heart beating strong and fast. He was admitted to the [facility] as above in 2019 with syncope and hypertensive urgency. He has had no recurrent syncope since his 2019 admission. Holter monitor done 03/11/2024 for 2 days shows sinus rhythm with average heart rate 79, frequent PACs, 1%. Test results reviewed with him. Continue carvedilol. (5) Chronic kidney disease: Code(s): N18.9 - Chronic kidney disease, unspecified Category: Medical Plan: Referring him to Nephrology to evaluate and treat his chronic kidney disease and assist with blood pressure management. Plan Time spent on chart review, documentation, interview and assessment Orders: Orders US renal doppler Today I10 - Essential (primary) hypertension, N18.9 - Chronic kidney disease, unspecified Referrals Nephrology Referral E11.22 - Type 2 diabetes mellitus with diabetic chronic kidney disease, I10 - Essential (primary) hypertension, N18.9 - Chronic kidney disease, unspecified Coding Level of Care Code Est Pt Level 4 (17235) Diagnoses Abnormal EKG R94.31 Essential hypertension I10 Status post cardiac catheterization Z98.890 Palpitations R00.2 Chronic kidney disease N18.9 Time Spent (min) 30
[2024-07-01 09:50] VITALS: BP 140/68; PULSE 70; BMI 38.9
== END 2024-07-01 10:19 | disposition home or self-care (01) ==
PROVIDERS: PCP Nurse Practitioner Primary Care; Visit Provider Nurse Practitioner Family
DX: R94.31 Abnormal electrocardiogram [ECG] [EKG] (principal); I12.9 Hypertensive chronic kidney disease with stage 1 through stage 4 chronic kidney disease, or unspecified chronic kidney disease; Z98.890 Other specified postprocedural states; R00.2 Palpitations; N18.9 Chronic kidney disease, unspecified
CPT/HCPCS: 99214

== ENCOUNTER 2024-07-13 13:11 | Outpatient (AMB) | payer MEDICAID, SELFPAY ==
--- NOTE | 2024-07-13 13:24 | HO.NEPHOV_ITS ---
Vital Signs 07/13/24 13:25 Height 5 ft 11 in Weight 275 lb BMI 38.4 BP 162/98 H Blood Pressure Location Lt brachial Position Sitting Pulse 63 Pulse Source Pulse Oximeter Pulse Oximetry (%) 97 Oxygen Delivery Method Room Air Intake Visit Reasons: CKD/ Conf Mri Assistant Required: Yes Mri Assistant Name: jose [id number] Accompanied by: Self / Same As Patient Allergies No Known Allergies Allergy (Verified 07/13/24 13:27) Medication List - Last Reconciled 07/13/24 by Jose Araya MD acetaminophen 500 mg PO QID PRN albuterol sulfate 90 mcg/actuation 2 puffs inhalation Q4-6H PRN alogliptin (Nesina) 25 mg PO DAILY aspirin 81 mg PO DAILY atorvastatin 80 mg PO QAM carvedilol 25 mg PO chlorthalidone 25 mg PO QAM dulaglutide (Trulicity) mg subcut QWEEK fluticasone furoate-vilanterol 200-25 mcg/dose (Breo Ellipta) 1 inh inhalation DAILY gabapentin 300 mg PO BID 30 days hydroxyzine HCl 25 mg PO TID PRN insulin lispro subcut isosorbide mononitrate ER 60 mg PO DAILY ketorolac 10 mg PO Q8H PRN lisinopril 40 mg PO DAILY melatonin 5 mg PO BEDTIME PRN metformin 1,000 mg PO BID omeprazole 40 mg PO DAILY phenytoin sodium extended 100 mg PO BID quetiapine 50 mg PO TID HPI Comments Details: 49-year-old man with a history of longstanding hypertension diabetes mellitus referred for CKD. . Has a history of hypertension, diabetes mellitus and sleep apnea in the setting of obesity. Serum creatinine was 1.8 in 04/30/2023. Peak serum creatinine was 2.29 in 10/31/2023. Since then the creatinine has improved and as of 04/30/2024 serum creatinine was 1.61 mg/dL. Today he has no specific complaints He has no history of smoking at present used to smoke in the past. He has quit smoking nose is alcohol abuse. He uses marijuana on a regular basis. [facility] Medical History Seizure disorder Moderate episode of recurrent major depressive disorder Cannabis use disorder Generalized anxiety disorder GERD (gastroesophageal reflux disease) Stroke COPD (chronic obstructive pulmonary disease) Hyperlipidemia, unspecified Essential hypertension Type 2 diabetes mellitus with unspecified complications Morbid obesity Surgical History No pertinent past surgical history Family History Mother No problems noted. Paternal Grandfather Heart problem Father No problems noted. Social History Alcohol intake: former Patient Tobacco Use Status: Former Tobacco user Substance Use Type: Marijuana Current occupational status: unemployed Current occupation: right hand dominant Review of Systems Const Denies fever(s) and Denies weight loss Card Denies chest pain Resp Denies cough and Denies hemoptysis GI Denies abdominal pain, Denies diarrhea and Denies nausea Musc Denies back pain Neuro Denies focal weakness Physical Exam Vital Signs: Last Vital Signs Pulse 63 07/13/24 13:25 BP 162/98 H 07/13/24 13:25 Pulse Ox 97 07/13/24 13:25 Oxygen Delivery Method Room Air 07/13/24 13:25 BMI result Body Mass Index 38.4 Awake. Comfortable. Neck is supple. Mucosa moist. Lungs air entry equal Heart S1-S2 heard no gallop. Abdomen soft. Extremities no edema. No involuntary movements. No myoclonus. Results Reviewed Nephrology Results: Hgb 11.7 g/dl (14.0-18.0) L 05/11/24 WBC 9.4 X10*3/uL (4.8-10.8) 05/11/24 Plt Count 205 X10*3/uL (160-400) 05/11/24 Sodium 141 mmol/L (135-145) 05/11/24 Potassium 4.3 mmol/L (3.3-5.1) 05/11/24 Chloride 106 mmol/L (96-108) 05/11/24 Carbon Dioxide 27 mmol/L (22-29) 05/11/24 BUN 25 mg/dL (9-16) H 05/11/24 Creatinine 1.61 mg/dL (0.5-1.4) H 05/11/24 Calcium 9.5 mg/dL (8.4-10.2) 05/11/24 Assessment & Plan Assessment & Plan (1) Chronic kidney disease: Code(s): N18.9 - Chronic kidney disease, unspecified Category: Medical Plan 49-year-old man with CKD setting of longstanding hypertension diabetes mellitus in the setting of obesity. Baseline serum creatinine is 1.6 mg/dL. He had no significant proteinuria in the past. He will be probably has underlying hypertensive diabetic kidney disease. Obstructive uropathy should be ruled out. Recent urine sediments were benign and therefore glomerular nephritis or interstitial disease seem unlikely at this point. Goal is to slow the portion disease Maintain blood pressure less than 130/80 Stay on low-sodium diet Maintain A1c less than 7%. He will benefit from SGLT2 inhibitors. I have encouraged him to increase physical activity and he will benefit from weight loss as well. However a workup as outlined below and he returned to office once the workup is completed. I will keep you updated with his progress, thank you Orders: Orders Complete Blood Count Auto Diff Today N18.9 - Chronic kidney disease, unspecified Comprehensive Met. Panel Today N18.9 - Chronic kidney disease, unspecified UA and rflx microscopic Today N18.9 - Chronic kidney disease, unspecified Total Protein Urine Random Today N18.9 - Chronic kidney disease, unspecified Parathyroid Hormone Intact Today N18.9 - Chronic kidney disease, unspecified Creatinine Urine Today N18.9 - Chronic kidney disease, unspecified US renal BI Today N18.9 - Chronic kidney disease, unspecified Medications: Discontinued ketorolac maximum total duration of 5 days from all oral, intranasal, or parenteral formulations Discontinued Reason: Doctor's Order 10 mg PO Q8H PRN 10 tabs 0RF pain Coding Level of Care Code New Pt Level 4 (81624) Diagnoses Chronic kidney disease N18.9
[2024-07-13 13:25] VITALS: BP 162/98; PULSE 63; O2SAT 97; BMI 38.4
== END 2024-07-13 13:47 | disposition home or self-care (01) ==
LOC: HO.HKAM 13:11
PROVIDERS: PCP Nurse Practitioner Primary Care; Referring Provider Nurse Practitioner Family; Visit Provider Internal Medicine Hypertension Specialist
DX: I12.9 Hypertensive chronic kidney disease with stage 1 through stage 4 chronic kidney disease, or unspecified chronic kidney disease (principal); E11.22 Type 2 diabetes mellitus with diabetic chronic kidney disease; N18.9 Chronic kidney disease, unspecified
CPT/HCPCS: 99204

== ENCOUNTER → 2024-07-13 13:11 | Outpatient (BNVA) | payer MEDICAID, SELFPAY | PROVIDERS: PCP Nurse Practitioner Primary Care; Referring Provider Nurse Practitioner Family; Visit Provider Internal Medicine Hypertension Specialist ==

== ENCOUNTER 2024-07-13 13:52 | Outpatient (REF) | payer MEDICAID, SELFPAY ==
[2024-07-13 16:02] LABS: MANUAL DIFF FLAG NO
[2024-07-13 16:16] LABS: Appearance Urine Clear; Color Urine Yellow; Glucose Urine UA >=1000 mg/dL (Negative); Leukocyte Esterase Urine Negative (Negative); Nitrite Urine Negative (Negative); PH 5.5 (5.0-9.0); UMIC TRIGGER UA YES; Urine Blood Negative (Negative); Urine Ketones Negative (Negative); Urine Protein Negative (Neg-Trace)
[2024-07-13 16:29] LABS: Alanine Aminotransferase 13 U/L (0-40); Albumin Level 4.1 g/dL (3.5-5.0); Alkaline Phosphatase 73 U/L (39-117); Anion Gap 12 (12-20); Aspartate Amino Transferase 13 U/L (5-37); Bilirubin Total 0.3 mg/dL (0.0-1.0); Blood Urea Nitrogen 31 mg/dL (9-16); Calcium 9.1 mg/dL (8.4-10.2); Carbon Dioxide 24 mmol/L (22-29); Chloride 107 mmol/L (96-108); Estimated Glomerular Filt Rate 44; Glucose Random 265 mg/dL (60-115); Potassium 4.3 mmol/L (3.3-5.1); Sodium 139 mmol/L (135-145); Total Protein 7.5 g/dL (6.5-8.0)
[2024-07-13 16:30] LABS: Basophils Percent Auto 0.4 % (0-2); Eosinophils Absolute Auto 0.2 X10*3/uL (0.0-0.4); Eosinophils Percent Auto 2.4 % (0-4); Hematocrit 39.7 % (42.0-52.0); Imm Gran Abs Auto 0.05 X10*3/uL (0.00-0.03); Imm Gran Pct Auto 0.5 % (0.0-0.4); Lymphocytes Absolute Auto 1.6 X10*3/uL (1.2-4.9); Lymphocytes Percent Auto 16.5 % (20-40); Mean Corpuscular HGB Conc 32.7 g/dl (31.0-36.0); Mean Corpuscular Hemoglobin 30.6 pg (27.0-33.0); Mean Corpuscular Volume 93.4 fL (80.0-98.0); Mean Platelet Volume 10.3 fL (9.4-12.4); Monocytes Absolute Auto 0.5 X10*3/uL (0.1-1.2); Monocytes Percent Auto 4.7 % (2-11); Neutrophils Absolute Auto 7.2 x10*3/uL (2.0-8.3); Neutrophils Percent Auto 75.5 % (45-73); Platelet Count 239 X10*3/uL (160-400); Red Blood Count 4.25 X10*6/uL (4.60-5.80); Red Cell Distribution Width 12.8 % (11.0-16.0); White Blood Count 9.6 X10*3/uL (4.8-10.8)
[2024-07-13 16:51] LABS: Bacteria Urine None Seen (None Seen); Hyaline Casts Urine 0-2 /LPF (0-2); RBC Urine 0-2 /HPF (0-2); Squamous Epithelial Cell Urine 0-2 /HPF (0-2); WBC Urine 0-5 /HPF (0-5)
[2024-07-13 17:30] LABS: Creatinine Urine 123.64 mg/dL; Total Protein Urine Random 12 mg/dL (<12)
== END 2024-07-13 13:53 | disposition home or self-care (01) ==
LOC: HO.HHCL 13:52
PROVIDERS: Visit Provider Internal Medicine Hypertension Specialist
DX: I12.9 Hypertensive chronic kidney disease with stage 1 through stage 4 chronic kidney disease, or unspecified chronic kidney disease (principal); E11.22 Type 2 diabetes mellitus with diabetic chronic kidney disease; N18.9 Chronic kidney disease, unspecified; G47.00 Insomnia, unspecified; E66.9 Obesity, unspecified; Z79.84 Long term (current) use of oral hypoglycemic drugs; Z79.899 Other long term (current) drug therapy
CPT/HCPCS: 36415; 80053; 81001; 82570; 83970; 84156; 85025; 99202

== ENCOUNTER 2024-08-04 12:15 | Emergency (ER) | payer MEDICAID, SELFPAY ==
--- NOTE | ~2024-08-04 | CT_ITS ---
EXAMINATION: CT HEAD WITHOUT CONTRAST CLINICAL INFORMATION: headache COMPARISON: None available. TECHNIQUE: Contiguous axial imaging was performed from the skull base to vertex without intravenous administration of contrast. This CT examination was performed using dose optimization techniques as appropriate, variously including the following: *Automated exposure control *Adjustment of mA and/or kV according to patient size (this includes techniques or standardized protocols for targeted exams where dose is matched to indication/reason for exam; i.e. extremities or head) *Use of iterative reconstruction technique DLP: 726 mGy-cm FINDINGS: No acute intracranial hemorrhage, mass effect, midline shift, hydrocephalus or herniation. Delcid-white matter differentiation is normal. Posterior cranial fossa contents demonstrate no acute intracranial hemorrhage or mass effect. Bony calvarium is intact. Skull base is intact. Probable old traumatic deformities, nasal bones. Pneumatized right petrous apex. No air-fluid levels in the included paranasal sinuses. Tympanic cavities and mastoid air cells are aerated. CT/CT head/brain wo IV con IMPRESSION: No acute intracranial hemorrhage or acute brain abnormality by CT. Electronically signed by: Marvin Macias MD 08/04/2024 01:52 PM EDT
[2024-08-04 12:21] VITALS: BP 182/94; BP 200/120; PULSE 67; PULSE 94; RESP 18; TEMP 36.8; O2SAT 100; O2SAT 99; BMI 38.2
--- NOTE | 2024-08-04 12:37 | ECG_ITS ---
Test Reason : HTN Blood Pressure : / mmHG Vent. Rate : 064 BPM Atrial Rate : 064 BPM P-R Int : 192 ms QRS Dur : 112 ms QT Int : 436 ms P-R-T Axes : 058 -33 200 degrees QTc Int : 449 ms Normal sinus rhythm with sinus arrhythmia Left axis deviation Left ventricular hypertrophy with repolarization abnormality ( R in aVL , Jayson product ) Abnormal ECG When compared with ECG of 10-MAY-2024 21:59, Questionable change in initial forces of Septal leads Referred By: Kezia Ryan Electronically Signed By:Los Siegel
[2024-08-04 12:45] LABS: Glucose, Whole Blood 335 mg/dL (60-115)
[2024-08-04 13:07] LABS: MANUAL DIFF FLAG NO
[2024-08-04] MEDS: Morphine Sulfate 4 MG/ML CARTRIDGE IVPUSH (13:08)
[2024-08-04 13:09] LABS: Venous Blood Gas Refer to POC result
[2024-08-04 13:11] LABS: VBG Base Excess -1.3 mmol/L; VBG HCO3 24 mmol/L (22-26); VBG pCO2 46 mmHg; VBG pH 7.33 (7.32-7.43); VBG pO2 45 mmHg
--- NOTE | 2024-08-04 13:11 | PC.NURSE ---
pt medicated for pain per order
[2024-08-04 13:15] LABS: Basophils Percent Auto 0.3 % (0-2); Eosinophils Absolute Auto 0.1 X10*3/uL (0.0-0.4); Eosinophils Percent Auto 0.8 % (0-4); Hematocrit 37.5 % (42.0-52.0); Hemoglobin 13.1 g/dl (14.0-18.0); Imm Gran Abs Auto 0.03 X10*3/uL (0.00-0.03); Imm Gran Pct Auto 0.3 % (0.0-0.4); Lymphocytes Absolute Auto 1.5 X10*3/uL (1.2-4.9); Lymphocytes Percent Auto 15.1 % (20-40); Mean Corpuscular HGB Conc 34.9 g/dl (31.0-36.0); Mean Corpuscular Hemoglobin 30.8 pg (27.0-33.0); Mean Corpuscular Volume 88.2 fL (80.0-98.0); Mean Platelet Volume 9.8 fL (9.4-12.4); Monocytes Absolute Auto 0.4 X10*3/uL (0.1-1.2); Monocytes Percent Auto 4.3 % (2-11); Neutrophils Absolute Auto 7.9 x10*3/uL (2.0-8.3); Neutrophils Percent Auto 79.2 % (45-73); Platelet Count 223 X10*3/uL (160-400); Red Blood Count 4.25 X10*6/uL (4.60-5.80); Red Cell Distribution Width 12.4 % (11.0-16.0)
--- NOTE | 2024-08-04 13:15 | PC.NURSE ---
pt a&ox3, iv inserted, labs drawn, ekg performed, clinical research monitor applied, pt c/o headache 05/21, neuro currently intact.
--- NOTE | 2024-08-04 13:17 | ED_ITS ---
HPI - Headache General Chief Complaint: General Medical Stated Complaint: HIGH BS 360, VOMITING Time Seen by Provider: 08/04/24 12:38 Source: patient, EMS, old records reviewed and rn nursery Mode of arrival: EMS Limitations: no limitations History of Present Illness ED Provider: JILLIAN HOFFMAN Narrative: 49 yo male with CKD, HTN, DM, HLD, GERD, seizures, abnormal EKG last cath 2018 which was unremarkable at that time who presents today with headache starting last night after anger episode and his BP has been elevated since he took all of his medications. He still has a headache. He also noted some central chest pressure early this AM about 5 hours ago that is gone but he still has a headache. He is worried he states when he was 32 his BP was so high he had a stroke. He was sent by [facility] for headache and HTN. He has no neuro deficits. MD elicited complaint: headache Pertinent past history: hypertension Onset (ago): day(s) (last night) Onset description: gradually Location: frontal and band-like Severity: severe Quality & Timing: throbbing Exacerbating factors: none Relieving factors: nothing Context: occurred at rest Associated symptoms: other (chest pain earlier today) Treatments prior to arrival: none Related Data Home Medications ?Medication ?Instructions ?Recorded ?Confirmed alogliptin 25 mg tablet (Nesina) 25 mg PO DAILY 10/21/23 07/13/24 atorvastatin 80 mg tablet 80 mg PO QAM 10/21/23 07/13/24 carvedilol 25 mg tablet 25 mg PO 10/21/23 07/13/24 chlorthalidone 25 mg tablet 25 mg PO QAM 11/27/23 07/13/24 dulaglutide 0.75 mg/0.5 mL mg subcut QWEEK 11/27/23 07/13/24 subcutaneous pen injector (Trulicity) insulin lispro 100 unit/mL subcut 11/27/23 07/13/24 subcutaneous pen Previous Rx's ?Medication ?Instructions ?Recorded albuterol sulfate 90 mcg/actuation 2 puff inhalation Q4-6H PRN 05/07/23 aerosol inhaler shortness of breath or wheezing #8.5 grams aspirin 81 mg tablet,delayed 81 mg PO DAILY #30 tabs 05/07/23 release fluticasone furoate 200 1 inh inhalation DAILY #60 ea 05/07/23 mcg-vilanterol 25 mcg/dose inhalation powder (Breo Ellipta) hydroxyzine HCl 25 mg tablet 25 mg PO TID PRN anxiety #30 tabs 05/07/23 isosorbide mononitrate 60 mg 60 mg PO DAILY #30 tabs 05/07/23 tablet,extended release 24 hr lisinopril 40 mg tablet 40 mg PO DAILY #30 tabs 05/07/23 melatonin 5 mg tablet 5 mg PO BEDTIME PRN sleep #30 tabs 05/07/23 metformin 1,000 mg tablet 1,000 mg PO BID #60 tabs 05/07/23 omeprazole 40 mg capsule,delayed 40 mg PO DAILY #30 caps 05/07/23 release phenytoin sodium extended 100 mg 100 mg PO BID #60 caps 05/07/23 capsule quetiapine 50 mg tablet 50 mg PO TID #90 tabs 05/07/23 acetaminophen 500 mg tablet 500 mg PO QID PRN fever or pain 05/04/24 #20 tabs gabapentin 300 mg capsule 300 mg PO BID 30 days #60 caps 07/05/24 Allergies Allergy/AdvReac Type Severity Reaction Status Date / Time No Known Allergies Allergy Verified 08/04/24 12:24 Review of Systems 2 Review of Systems: Constitutional : No Fever, No Chills, No Fatigue ENT/Mouth : No sore throat, No Rhinorrhea Eyes: No Eye Pain, No Swelling, No Redness Cardiovascular : pos Chest Pain, No SOB, No Dyspnea on Exertion Respiratory : No Cough, No Sputum Gastrointestinal : No Nausea, No Vomiting, No Diarrhea, No abdominal Pain Genitourinary : No Dysuria, No Urinary Frequency, No Hematuria, Musculoskeletal : No joint pain, No Myalgias, No Joint Swelling Skin : No Skin Lesions, No rash Neuro : No Weakness, No Numbness, No Dizziness, positive Headache Psych : No Anxiety/Panic, No Depression All other systems reviewed and are negative [facility] Past Medical History Attestation statement: The following information was validated with the patient. Source: old records reviewed Medical History Seizure disorder Moderate episode of recurrent major depressive disorder Cannabis use disorder Generalized anxiety disorder GERD (gastroesophageal reflux disease) Stroke COPD (chronic obstructive pulmonary disease) Hyperlipidemia, unspecified Essential hypertension Type 2 diabetes mellitus with unspecified complications Morbid obesity Surgical History No pertinent past surgical history Family History Family History Mother No problems noted. Paternal Grandfather Heart problem Father No problems noted. Social History Social History Alcohol intake: former Patient Tobacco Use Status: Former Tobacco user Smoked in Last 30 Days: No Use of substances other than those prescribed or required for medical reasons: Yes Substance Use Type: Marijuana Advance Directives: No Advance Directives Information Provided: Yes Do you have a plan to hurt others: No Plan Current occupational status: unemployed Current occupation: right hand dominant Physical Exam 2 Vital Signs: Vital Signs: Last Vital Signs Temp 98.2 F 08/04/24 15:38 Pulse 70 08/04/24 16:19 Resp 18 08/04/24 16:19 BP 149/61 H 08/04/24 16:19 Pulse Ox 96 08/04/24 16:19 O2 Del Method Room Air 08/04/24 16:19 BMI result Body Mass Index 38.2 Appearance: Alert. Oriented X3. No acute distress. Eyes: Pupils equal, round and reactive to light. ENT: Pharynx normal. Neck: Normal inspection. Neck supple. CVS: Normal heart rate and rhythm. Pulses normal. Respiratory: No respiratory distress. Breath sounds normal. Abdomen: Soft and nontender. Skin: Skin warm and dry. Normal skin color. Normal skin turgor. Extremities: No lower extremity edema. No calf ttp Neuro: Oriented X 3. No motor deficit. No sensory deficit. Medications Administered Discontinued Medications Generic Name Dose Route Start Last Admin Trade Name Jonnyq PRN Reason Stop Dose Admin Carvedilol 25 mg 08/04/24 14:54 08/04/24 15:35 Carvedilol 25 Mg Tablet PO 08/04/24 14:55 25 mg ONCE ONE Administration Protocol Insulin Human Regular 5 unit 08/04/24 13:28 08/04/24 14:06 Insulin Regular, Human 100 Unit/Ml 10 Ml Vial IVPUSH 08/04/24 13:29 5 unit ONCE ONE Administration Morphine Sulfate 4 mg 08/04/24 12:56 08/04/24 13:08 Morphine Sulfate 4 Mg/Ml Cartridge IVPUSH 08/04/24 12:57 4 mg ONCE ONE Administration Protocol Medical Decision Making Medical Decision Making [facility] Narrative: 49 yo male with CKD, HTN, DM, HLD, GERD, seizures, abnormal EKG last cath 2018 which was unremarkable here with headache that started during anger episode at this time he reports headache brief resolved CP that was about 5 hours ago and HTN will not go away at this time will obtain EKG, troponin x 1, CT head to rule out ICH. IV morphine for pain ordered Differential Diagnosis Differential Diagnoses: The differential diagnosis associated with the presentation includes tension headache, uncontrolled HTN, ICH Admission/Observation Consideration of admission/observation: Escalation of care including admission/observation considered repeat trop flat no sig ischemia on EKG CT head negative BP down to 140/60s has no pain now feels much better stable for DC Lab Data [facility] Lab Attestation statement: I reviewed the patient's lab results. trop flat x 2 08/04/24 13:03 08/04/24 13:03 Labs: Lab Results 08/04/24 08/04/24 08/04/24 Range/Units 12:39 13:03 13:07 WBC 10.0 (4.8-10.8) X10*3/uL RBC 4.25 L (4.60-5.80) X10*6/uL Hgb 13.1 L (14.0-18.0) g/dl Hct 37.5 L (42.0-52.0) % MCV 88.2 (80.0-98.0) fL MCH 30.8 (27.0-33.0) pg MCHC 34.9 (31.0-36.0) g/dl RDW 12.4 (11.0-16.0) % Plt Count 223 (160-400) X10*3/uL MPV 9.8 (9.4-12.4) fL Immature Gran % (Auto) 0.3 (0.0-0.4) % Neut % (Auto) 79.2 H (45-73) % Lymph % (Auto) 15.1 L (20-40) % [place] % (Auto) 4.3 (2-11) % Eos % (Auto) 0.8 (0-4) % Baso % (Auto) 0.3 (0-2) % Lymph # (Auto) 1.5 (1.2-4.9) X10*3/uL [place] # (Auto) 0.4 (0.1-1.2) X10*3/uL Eos # (Auto) 0.1 (0.0-0.4) X10*3/uL Baso # (Auto) 0.0 (0.0-0.2) X10*3/uL Abs Immat Gran (auto) 0.03 (0.00-0.03) X10*3/uL Absolute Neuts (auto) 7.9 (2.0-8.3) x10*3/uL Absolute Nucleated RBC 0.000 (0.0-0.012) X10*3/uL Nucleated RBC % (auto) 0.0 (0.0-0.2) /100WBC VBG pH 7.33 (7.32-7.43) VBG pCO2 46 mmHg VBG pO2 45 mmHg VBG HCO3 24 (22-26) mmol/L VBG O2 Saturation 68.0 % VBG Base Excess -1.3 mmol/L Sodium 137 (135-145) mmol/L Potassium 4.4 (3.3-5.1) mmol/L Chloride 105 (96-108) mmol/L Carbon Dioxide 25 (22-29) mmol/L Anion Gap 11 L (12-20) BUN 35 H (9-16) mg/dL Creatinine 1.90 H (0.5-1.4) mg/dL Estim Creat Clear Calc 63.7 Estimated GFR 38 POC Glucose 335 H (60-115) mg/dL Random Glucose 336 H (60-115) mg/dL Calcium 9.4 (8.4-10.2) mg/dL Magnesium 2.2 (1.6-2.6) mg/dL Total Bilirubin 0.4 (0.0-1.0) mg/dL Direct Bilirubin 0.1 (0.0-0.5) mg/dL AST 21 (5-37) U/L ALT 21 (0-40) U/L Alkaline Phosphatase 78 (39-117) U/L Troponin I High Sens 44.4 H D (<3.5-35.0) ng/L B-Natriuretic Peptide 34 (<100) pg/mL Total Protein 7.6 (6.5-8.0) g/dL Albumin 4.3 (3.5-5.0) g/dL Lipase 49 (8-78) U/L 08/04/ Range/Units 15:37 WBC (4.8-10.8) X10*3/uL RBC (4.60-5.80) X10*6/uL Hgb (14.0-18.0) g/dl Hct (42.0-52.0) % MCV (80.0-98.0) fL MCH (27.0-33.0) pg MCHC (31.0-36.0) g/dl RDW (11.0-16.0) % Plt Count (160-400) X10*3/uL MPV (9.4-12.4) fL Immature Gran % (Auto) (0.0-0.4) % Neut % (Auto) (45-73) % Lymph % (Auto) (20-40) % [place] % (Auto) (2-11) % Eos % (Auto) (0-4) % Baso % (Auto) (0-2) % Lymph # (Auto) (1.2-4.9) X10*3/uL [place] # (Auto) (0.1-1.2) X10*3/uL Eos # (Auto) (0.0-0.4) X10*3/uL Baso # (Auto) (0.0-0.2) X10*3/uL Abs Immat Gran (auto) (0.00-0.03) X10*3/uL Absolute Neuts (auto) (2.0-8.3) x10*3/uL Absolute Nucleated RBC (0.0-0.012) X10*3/uL Nucleated RBC % (auto) (0.0-0.2) /100WBC VBG pH (7.32-7.43) VBG pCO2 mmHg VBG pO2 mmHg VBG HCO3 (22-26) mmol/L VBG O2 Saturation % VBG Base Excess mmol/L Sodium (135-145) mmol/L Potassium (3.3-5.1) mmol/L Chloride (96-108) mmol/L Carbon Dioxide (22-29) mmol/L Anion Gap (12-20) BUN (9-16) mg/dL Creatinine (0.5-1.4) mg/dL Estim Creat Clear Calc Estimated GFR POC Glucose (60-115) mg/dL Random Glucose (60-115) mg/dL Calcium (8.4-10.2) mg/dL Magnesium (1.6-2.6) mg/dL Total Bilirubin (0.0-1.0) mg/dL Direct Bilirubin (0.0-0.5) mg/dL AST (5-37) U/L ALT (0-40) U/L Alkaline Phosphatase (39-117) U/L Troponin I High Sens 43.8 H (<3.5-35.0) ng/L B-Natriuretic Peptide (<100) pg/mL Total Protein (6.5-8.0) g/dL Albumin (3.5-5.0) g/dL Lipase (8-78) U/L Independent Interpretation I performed an independent interpretation of an: EKG and CT Scan (no ICH) Interpretation: Rate: 64 Rhythm: NSR [place]: left, LVH Normal P waves. Normal PACO. Normal QRS complex. ST T wave : inverted t waves I and aVL, II, aVF, V3-V6, no LEE qTC:449 prior studies: T wave inversions more pronounced in V3 The study has been interpreted contemporaneously by me. . Radiology Impression Discussion of test interpretation with radiology: I have reviewed the radiologist's reading. External Record Review External record reviewed: Office record and Outpatient record Discharge Plan Discharge Clinical Impression: Essential hypertension Acute headache Qualifiers: Headache type: unspecified Intractability: not intractable Qualified Code(s): R 51.9 - Headache, unspecified Patient Disposition: Home, Self-Care Instructions: Acute Headache (ED), Chronic Hypertension (ED) Additional Instructions: CT scan negative for acute bleed kidney function at baseline repeat heart tests at baseline BP on discharge 140/60 given afternoon dose of carvedilol return for any worsening symptoms such as headaches, dizziness, pain, difficulty breathing or any other concerns. follow up with your doctor Prescriptions: No Action gabapentin 300 mg capsule 300 mg PO BID 30 Days Qty: 60 1RF metformin 1,000 mg tablet 1,000 mg PO BID Qty: 60 0RF fluticasone furoate-vilanterol [Breo Ellipta] 200-25 mcg/dose blister with device 1 inh inhalation DAILY Qty: 60 0RF albuterol sulfate 90 mcg/actuation HFA aerosol inhaler 2 puff inhalation Q4-6H PRN (Reason: shortness of breath or wheezing) Qty: 8.5 0RF hydroxyzine HCl 25 mg tablet 25 mg PO TID PRN (Reason: anxiety) Qty: 30 0RF isosorbide mononitrate 60 mg tablet extended release 24 hr 60 mg PO DAILY Qty: 30 0RF lisinopril 40 mg tablet 40 mg PO DAILY Qty: 30 0RF melatonin 5 mg tablet 5 mg PO BEDTIME PRN (Reason: sleep) Qty: 30 0RF omeprazole 40 mg capsule,delayed release(DR/EC) 40 mg PO DAILY Qty: 30 0RF phenytoin sodium extended 100 mg capsule 100 mg PO BID Qty: 60 0RF aspirin 81 mg tablet,delayed release (DR/EC) 81 mg PO DAILY Qty: 30 0RF quetiapine 50 mg tablet 50 mg PO TID Qty: 90 0RF acetaminophen 500 mg tablet 500 mg PO QID PRN (Reason: fever or pain) Qty: 20 0RF Trulicity 0.75 mg/0.5 mL pen injector subcut QWEEK insulin lispro 100 unit/mL insulin pen subcut chlorthalidone 25 mg tablet 25 mg PO QAM alogliptin [Nesina] 25 mg tablet 25 mg PO DAILY carvedilol 25 mg tablet 25 mg PO atorvastatin 80 mg tablet 80 mg PO QAM Print Language: Burmese
[2024-08-04 13:27] LABS: Alanine Aminotransferase 21 U/L (0-40); Albumin Level 4.3 g/dL (3.5-5.0); Alkaline Phosphatase 78 U/L (39-117); Anion Gap 11 (12-20); Aspartate Amino Transferase 21 U/L (5-37); Bilirubin Direct 0.1 mg/dL (0.0-0.5); Bilirubin Total 0.4 mg/dL (0.0-1.0); Blood Urea Nitrogen 35 mg/dL (9-16); Calcium 9.4 mg/dL (8.4-10.2); Carbon Dioxide 25 mmol/L (22-29); Chloride 105 mmol/L (96-108); Creatinine Clr Calc Pharmacy 63.7; Estimated Glomerular Filt Rate 38; Glucose Random 336 mg/dL (60-115); Lipase 49 U/L (8-78); Magnesium 2.2 mg/dL (1.6-2.6); Potassium 4.4 mmol/L (3.3-5.1); Sodium 137 mmol/L (135-145); Total Protein 7.6 g/dL (6.5-8.0)
[2024-08-04 13:33] LABS: B Type Natriuretic Peptide 34 pg/mL (<100)
[2024-08-04 13:34] LABS: Troponin-I High Sensitivity 44.4 ng/L (<3.5-35.0)
[2024-08-04] MEDS: Insulin Regular, Human 100 UNIT/ML 10 ML VIAL IVPUSH (14:06)
--- NOTE | 2024-08-04 14:10 | PC.NURSE ---
pt medicated with insulin per order
[2024-08-04 14:49] VITALS: BP 175/106; PULSE 71; O2SAT 97
[2024-08-04 15:35] VITALS: BP 175/106; PULSE 71
[2024-08-04] MEDS: carvediloL 25 MG TABLET PO (15:35)
[2024-08-04 15:38] VITALS: BP 181/100; PULSE 64; RESP 20; TEMP 36.8; O2SAT 99
[2024-08-04 16:09] LABS: Troponin-I High Sensitivity 43.8 ng/L (<3.5-35.0)
[2024-08-04 16:19] VITALS: BP 149/61; PULSE 70; RESP 18; O2SAT 96
[2024-08-04 17:03] VITALS: BP 153/96; PULSE 81; RESP 18; TEMP -17.7; TEMP 0; O2SAT 98
== END 2024-08-04 17:04 | disposition home or self-care (01) ==
PROVIDERS: Emergency Provider Emergency Medicine; PCP Nurse Practitioner Primary Care
DX: R51.9 Headache, unspecified (principal); I10 Essential (primary) hypertension; R07.89 Other chest pain; R06.02 Shortness of breath; E11.9 Type 2 diabetes mellitus without complications; Z79.899 Other long term (current) drug therapy; Z87.891 Personal history of nicotine dependence; Z79.4 Long term (current) use of insulin
CPT/HCPCS: 36415; 70450; 80048; 80076; 82803; 82947; 83690; 83735; 83880; 84484; 85025; 93005; 96374; 96375; 99284; J2270

== ENCOUNTER → 2024-08-04 12:56 | Outpatient (BNV) | payer MEDICAID, SELFPAY | PROVIDERS: Emergency Provider Emergency Medicine; PCP Nurse Practitioner Primary Care; Visit Provider Radiology Diagnostic Radiology | DX: R51.9 Headache, unspecified (principal) | CPT/HCPCS: 70450 ==

== ENCOUNTER 2024-09-12 07:48 | Outpatient (REF) | payer MEDICAID, SELFPAY ==
--- NOTE | ~2024-09-12 | US_ITS ---
EXAMINATION: ULTRASOUND OF KIDNEYS WITH RENAL ARTERY DOPPLER CLINICAL INFORMATION: Hypertension. COMPARISON: None. TECHNIQUE: Ultrasound of the kidneys was performed along with color flow Doppler imaging and velocity measurements in the proximal mid and distal renal arteries. Aortic velocities were measured and renal/aortic ratios were calculated. Segmental resistive indices were measured FINDINGS: Both kidneys demonstrated slightly increased echogenicity but otherwise appeared unremarkable with the right kidney measuring 10.2 x 6.0 x 6.0 cm and the left kidney measuring 11.8 x 7.2 x 6.9 cm. No renal masses, renal stones or hydronephrosis is seen. Renal cortical thickness appears normal. Velocity measurements in the proximal mid and distal renal arteries are normal although the proximal right renal artery could not be seen. Velocity in the aorta is 143 cm/s and, therefore, the renal aortic ratios not valid as velocities over 100 cm/s. Segmental resistive indices were normal. Both renal veins were patent. US/US renal doppler IMPRESSION: 1. No evidence to suggest renal artery stenosis. 2. Slightly echogenic kidneys. Electronically signed by: Krystian Lopes MD 10/07/2024 12:30 AM [facility]
--- NOTE | ~2024-09-12 | US_ITS ---
EXAMINATION: ULTRASOUND OF KIDNEYS WITH RENAL ARTERY DOPPLER CLINICAL INFORMATION: Hypertension. COMPARISON: None. TECHNIQUE: Ultrasound of the kidneys was performed along with color flow Doppler imaging and velocity measurements in the proximal mid and distal renal arteries. Aortic velocities were measured and renal/aortic ratios were calculated. Segmental resistive indices were measured FINDINGS: Both kidneys demonstrated slightly increased echogenicity but otherwise appeared unremarkable with the right kidney measuring 10.2 x 6.0 x 6.0 cm and the left kidney measuring 11.8 x 7.2 x 6.9 cm. No renal masses, renal stones or hydronephrosis is seen. Renal cortical thickness appears normal. Velocity measurements in the proximal mid and distal renal arteries are normal although the proximal right renal artery could not be seen. Velocity in the aorta is 143 cm/s and, therefore, the renal aortic ratios not valid as velocities over 100 cm/s. Segmental resistive indices were normal. Both renal veins were patent. US/US renal BI IMPRESSION: 1. No evidence to suggest renal artery stenosis. 2. Slightly echogenic kidneys. Electronically signed by: Krystian Lopes MD 10/07/2024 12:30 AM [facility]
== END 2024-09-12 07:49 | disposition home or self-care (01) ==
LOC: HO.US 07:48
PROVIDERS: PCP Nurse Practitioner Primary Care; Visit Provider Nurse Practitioner Family
DX: I12.9 Hypertensive chronic kidney disease with stage 1 through stage 4 chronic kidney disease, or unspecified chronic kidney disease (principal); N18.9 Chronic kidney disease, unspecified
CPT/HCPCS: 76775; 93975

== ENCOUNTER 2024-09-28 13:51 | Outpatient (AMB) | payer MEDICAID, SELFPAY ==
[2024-09-28 13:53] VITALS: BP 124/78; PULSE 75; O2SAT 95
--- NOTE | 2024-09-28 13:53 | HO.NEPHOV ---
Vital Signs 09/28/24 13:53 Height 5 ft 11 in BP 124/78 Blood Pressure Location Lt brachial Position Sitting Pulse 75 Pulse Source Pulse Oximeter Pulse Oximetry (%) 95 Oxygen Delivery Method Room Air Intake Visit Reasons: CKD/ Pt missed 08/31/24 appt/ Conf Baggage Porter Head Required: Yes Baggage Porter Head Name: Aga [id number] Accompanied by: Self / Same As Patient Allergies No Known Allergies Allergy (Verified 09/28/24 13:56) HPI Comments Details: 49-year-old man with a history of longstanding hypertension diabetes mellitus referred for CKD. . Has a history of hypertension, diabetes mellitus and sleep apnea in the setting of obesity. Serum creatinine was 1.8 in 04/30/2023. Peak serum creatinine was 2.29 in 10/31/2023. Since then the creatinine has improved and as of 04/30/2024 serum creatinine was 1.61 mg/dL. Today he has no specific complaints He has no history of smoking at present used to smoke in the past. He has quit smoking nose is alcohol abuse. He uses marijuana on a regular basis. [facility] Medical History Seizure disorder Moderate episode of recurrent major depressive disorder Cannabis use disorder Generalized anxiety disorder GERD (gastroesophageal reflux disease) Stroke COPD (chronic obstructive pulmonary disease) Hyperlipidemia, unspecified Essential hypertension Type 2 diabetes mellitus with unspecified complications Morbid obesity Surgical History No pertinent past surgical history Family History Mother No problems noted. Paternal Grandfather Heart problem Father No problems noted. Social History Alcohol intake: former Patient Tobacco Use Status: Former Tobacco user Substance Use Type: Marijuana Current occupational status: unemployed Current occupation: right hand dominant Physical Exam Vital Signs: Last Vital Signs Pulse 75 09/28/24 13:53 Pulse Ox 95 09/28/24 13:53 Oxygen Delivery Method Room Air 09/28/24 13:53 Comfortable Neck supple no JVD. Lungs entry equal no rales. Heart S1-S2 heard no gallop or rub. Abdomen soft nontender. Neuro alert awake oriented. No asterixis. Extremities no edema. Results Reviewed Nephrology Results: Hgb 13.1 g/dl (14.0-18.0) L 08/04/24 WBC 10.0 X10*3/uL (4.8-10.8) 08/04/24 Plt Count 223 X10*3/uL (160-400) 08/04/24 Sodium 137 mmol/L (135-145) 08/04/24 Potassium 4.4 mmol/L (3.3-5.1) 08/04/24 Chloride 105 mmol/L (96-108) 08/04/24 Carbon Dioxide 25 mmol/L (22-29) 08/04/24 BUN 35 mg/dL (9-16) H 08/04/24 Creatinine 1.90 mg/dL (0.5-1.4) H 08/04/24 Calcium 9.4 mg/dL (8.4-10.2) 08/04/24 PTH Intact 132.0 pg/mL (8.7-77.1) H 07/13/24 Urine Protein Negative mg/dL (Neg-Trace) 07/13/24 Urine Creatinine 123.64 mg/dL 07/13/24 Renal US 09/12/24 Assessment & Plan Assessment & Plan (1) Chronic kidney disease: Code(s): N18.9 - Chronic kidney disease, unspecified Category: Medical Plan 49-year-old man with CKD setting of longstanding hypertension diabetes mellitus in the setting of obesity. Baseline serum creatinine 1.6 to 1.9 mg/dL. He had no significant proteinuria in the past. He will be probably has underlying hypertensive diabetic kidney disease. Obstructive uropathy ruled out based on USG Recent urine sediments were benign and therefore glomerular nephritis or interstitial disease seem unlikely at this point. Goal is to slow the progression of kidney disease Maintain blood pressure less than 130/80 Stay on low-sodium diet Maintain A1c less than 7%. He will benefit from SGLT2 inhibitors. I have encouraged him to increase physical activity and he will benefit from weight loss as well. Orders: Orders Basic Metabolic Panel 3 Months N18.9 - Chronic kidney disease, unspecified Coding Level of Care Code Est Pt Level 4 (62462) Diagnoses Chronic kidney disease N18.9
== END 2024-09-28 14:09 | disposition home or self-care (01) ==
LOC: HO.HKAM 13:51
PROVIDERS: PCP Nurse Practitioner Primary Care; Visit Provider Internal Medicine Hypertension Specialist
DX: I12.9 Hypertensive chronic kidney disease with stage 1 through stage 4 chronic kidney disease, or unspecified chronic kidney disease (principal); E11.22 Type 2 diabetes mellitus with diabetic chronic kidney disease; N18.9 Chronic kidney disease, unspecified
CPT/HCPCS: 99214

== ENCOUNTER → 2024-09-28 13:51 | Outpatient (BNVA) | payer MEDICAID, SELFPAY | PROVIDERS: PCP Nurse Practitioner Primary Care; Visit Provider Internal Medicine Hypertension Specialist | DX: N18.9 Chronic kidney disease, unspecified (principal) | CPT/HCPCS: 99212 ==

== ENCOUNTER 2024-10-03 14:10 | Outpatient (AMB) | payer MEDICAID, SELFPAY ==
[2024-10-03 14:45] VITALS: BP 164/90; PULSE 75; BMI 40.0
--- NOTE | 2024-10-03 14:45 | A.OFFVIS_ITS ---
Vital Signs 10/03/24 14:45 Height 5 ft 11 in Weight 286 lb 9.615 oz BMI 40.0 BP 164/90 H Blood Pressure Location Lt brachial Position Sitting Pulse 75 Pulse Source Pulse Oximeter Intake Visit Reasons: 3m follow up Chlorine Cells Operator Required: No Allergies No Known Allergies Allergy (Verified 10/03/24 14:47) Medication List - Last Reconciled 10/03/24 by Yris Walters NP-C acetaminophen 500 mg PO QID PRN albuterol sulfate 90 mcg/actuation 2 puffs inhalation Q4-6H PRN alogliptin (Nesina) 25 mg PO DAILY aspirin 81 mg PO DAILY atorvastatin 80 mg PO QAM carvedilol 25 mg PO chlorthalidone 25 mg PO QAM dulaglutide (Trulicity) mg subcut QWEEK fluticasone furoate-vilanterol 200-25 mcg/dose (Breo Ellipta) 1 inh inhalation DAILY gabapentin 300 mg PO TID 30 days hydroxyzine HCl 25 mg PO TID PRN insulin lispro subcut isosorbide mononitrate ER 60 mg PO DAILY lisinopril 40 mg PO DAILY melatonin 5 mg PO BEDTIME PRN metformin 1,000 mg PO BID omeprazole 40 mg PO DAILY phenytoin sodium extended 100 mg PO BID quetiapine 50 mg PO TID semaglutide (Ozempic) 1 mg subcut QWEEK tramadol 50 mg PO DAILY PRN HPI HPI 3m follow up: Details: Tre is a 49-year-old male past medical history of hypertension, hyperlipidemia, diabetes, obesity, COPD, chronic kidney disease, abnormal EKG, hypertensive heart disease who presents for follow-up. Today he reports that his blood pressure has been better controlled. He is mostly getting in the 120s systolic at home. He reports compliance with all his medications and tries to stay away from salt. He now follows with Nephrology as well. He denies any chest discomfort at rest or with activity. He denies shortness of breath, PND, orthopnea or edema. No lightheadedness, palpitations, presyncope, syncope, falls. He admits to being mostly sedentary. [facility]LY [facility] Medical History Seizure disorder Moderate episode of recurrent major depressive disorder Cannabis use disorder Generalized anxiety disorder GERD (gastroesophageal reflux disease) Stroke COPD (chronic obstructive pulmonary disease) Hyperlipidemia, unspecified Essential hypertension Type 2 diabetes mellitus with unspecified complications Morbid obesity Surgical History No pertinent past surgical history Family History Mother No problems noted. Paternal Grandfather Heart problem Father No problems noted. Social History Alcohol intake: former Patient Tobacco Use Status: Former Tobacco user Substance Use Type: Marijuana Current occupational status: unemployed Current occupation: right hand dominant Review of Systems Const All systems reviewed & are unremarkable except as noted in HPI and below ENT Denies dizziness Card Denies chest pain, Denies chest pain at rest, Denies chest pain with activity, Denies rapid heart rate, Denies pedal edema, Denies edema, Denies leg edema, Denies lightheadedness, Denies palpitations, Denies dyspnea, Denies dyspnea on exertion and Denies orthopnea Resp Denies cough, Denies dyspnea and Denies dyspnea on exertion GI Denies hematochezia and Denies change in stool character Musc Denies abnormal gait, Denies limited range of motion, Denies muscle cramps, Denies muscle weakness, Denies numbness, Denies radiating pain into limb, Denies stiffness and Denies tingling Neuro Denies abnormal gait, Denies dizziness, Denies numbness and Denies tingling Endo Denies palpitations Physical Exam Vital Signs: Last Vital Signs Pulse 75 10/03/24 14:45 BP 164/90 H 10/03/24 14:45 BMI result Body Mass Index 40.0 Const General: cooperative, healthy appearing, comfortable and no acute distress Orientation/consciousness: patient oriented x3 Neck Neck: Yes normal visual inspection and Yes no JVD Resp Effort & Inspection: normal respiratory effort Auscultation: clear to auscultation bilaterally, no crackles, no rales, no rhonchi and no wheezes Cardio Jugular venous distension: no JVD Rate: regular rate Rhythm: regular rhythm Heart sounds: S1 normal heart sound present, S2 normal heart sound present, no murmurs and no rubs Neuro General: patient oriented x3 Extrem General: Yes normal to inspection, No no pedal edema and No calf tenderness Psych Appearance: grossly normal Mental Status: mental status grossly normal Speech and movement: Normal speech and movement present Assessment & Plan Assessment & Plan (1) Essential hypertension: Code(s): I10 - Essential (primary) hypertension Category: Medical Plan: History of hypertension, [place] blood pressure goal less than 130/85. He is currently on carvedilol, isosorbide, lisinopril and chlorthalidone. His blood pressure recently has been well controlled. It is elevated today but he tells me he got up late and did not take his medications today. The importance of strict med compliance was reviewed with him in detail. Since last visit he is now established with Nephrology to help monitor his blood pressure and kidney function. Labs from 08/04/2024 showed creatinine 1.9. A renal artery ultrasound has been done however the result is not available as of yet. No med changes made at this time. Reviewed with him that he has hypertensive heart disease and good blood pressure control is essential. Reviewed low-salt diet, increasing physical activity and weight loss. Cardiology follow-up in office 6 months sooner if needed (2) Abnormal EKG: Code(s): R94.31 - Abnormal electrocardiogram [ECG] [EKG] Category: Medical Plan: Newer patient to our office with findings of abnormal EKG. ( We have records from [facility]. A discharge summary from 11/29/2019 for a syncopal event and hypertensive urgency was reviewed. That note indicates that patient had undergone a cardiac catheterization in 2019 which was unremarkable. Echocardiogram at that time showed EF 50-55%. Carotid ultrasound showed no hemodynamically significant ICA stenosis. He was treated for blood pressure control. ) His EKG shows sinus rhythm with ST and T-wave abnormalities suggesting inferior lateral ischemia. Echocardiogram was done on 11/27/2023 showing EF 55-60%, severe LVH, mild increase in the RV size, sinus of Valsalva 4 cm, ascending aorta 3.8 cm. A nuclear stress test was done on 12/01/2023 showing no clear ischemia, EF 40%. He has not reported any concerning symptoms. It was determined that his abnormal EKG findings are most likely consistent with LVH. His goal of treatment will be good blood pressure control. (3) Status post cardiac catheterization: Comment: 2019 - reported as unremarkable Code(s): Z98.890 - Other specified postprocedural states Category: Surgical Plan: Presume normal catheterization based on notation on discharge summary as stated above. No report of anginal sounding symptoms. He has diabetes which is uncontrolled. Most recent hemoglobin A1c 9.4 on 11/27/2023. [place] hemoglobin A1c goal less than 7, followed by his PCP. LDL goal less than 70. Continue high-dose atorvastatin. Lipids done on 03/18/2024 showed LDL 49. Continue carvedilol. Presume that isosorbide is being used for blood pressure control. (4) Palpitations: Code(s): R00.2 - Palpitations Category: Medical Plan: On last visit he Reported heart palpitations where he feels his heart beating strong and fast. He was admitted to the [facility] as above in 2019 with syncope and hypertensive urgency. He has had no recurrent syncope since his 2019 admission. Holter monitor done 03/11/2024 for 2 days shows sinus rhythm with average heart rate 79, frequent PACs, 1%. Test results previously reviewed with him. Continue carvedilol. (5) Chronic kidney disease: Code(s): N18.9 - Chronic kidney disease, unspecified Category: Medical Plan: Last visit Referred him to Nephrology to evaluate and treat his chronic kidney disease and assist with blood pressure management. Plan Time spent on chart review, documentation, interview and assessment Coding Level of Care Code Est Pt Level 4 (86888) Complex EM visit Add On G2211 Diagnoses Essential hypertension I10 Abnormal EKG R94.31 Status post cardiac catheterization Z98.890 Palpitations R00.2 Chronic kidney disease N18.9 Time Spent (min) 30
== END 2024-10-03 15:33 | disposition home or self-care (01) ==
PROVIDERS: PCP Nurse Practitioner Primary Care; Visit Provider Nurse Practitioner Family
DX: I12.9 Hypertensive chronic kidney disease with stage 1 through stage 4 chronic kidney disease, or unspecified chronic kidney disease (principal); R94.31 Abnormal electrocardiogram [ECG] [EKG]; Z98.890 Other specified postprocedural states; R00.2 Palpitations; N18.9 Chronic kidney disease, unspecified
CPT/HCPCS: 99214

== ENCOUNTER → 2024-10-03 14:10 | Outpatient (BNVA) | payer MEDICAID, SELFPAY | PROVIDERS: PCP Nurse Practitioner Primary Care; Visit Provider Nurse Practitioner Family | DX: I12.9 Hypertensive chronic kidney disease with stage 1 through stage 4 chronic kidney disease, or unspecified chronic kidney disease (principal); N18.9 Chronic kidney disease, unspecified; R94.31 Abnormal electrocardiogram [ECG] [EKG]; R00.2 Palpitations; Z98.890 Other specified postprocedural states | CPT/HCPCS: 99212 ==

== ENCOUNTER 2024-12-09 10:40 | Outpatient (REF) | payer MEDICAID, SELFPAY ==
--- OUTSIDE RECORDS SUMMARY | 2024-12-09 12:11 | XMS_ITS | Clinical Summary ---
Author Organization [employer] Address [address] [facility] [address] [facility] [place] [address] Care Team Providers Care Botany Professor Name Role Phone Immanuel Napier Primary Care Provider [phone] Regan Morin PharmD Unavailable [phone] Allergies No known active allergies Medications * This document contains information received from the source organization and may not represent a complete record from that organization. albuterol 108 (90 Base) MCG/ACT inhaler Inhale 2 puffs every 6 (six) hours if needed for wheezing. 18 g 11 023 Active Blood Glucose Monitoring Suppl (FreeStyle Lite) device Inject 1 each under the skin 3 times daily. Test daily before all meals/snacks and once before bedtime. 1 each 023 Active glucose 4 g chewable tablet Chew 4 tablets (16 g) if needed for low blood sugar. 50 tablet 12 023 Active Blood Pressure kitIndications:H ypertension associated with diabetes (CMS/HCC) ([facility]) 1 kit in the morning. 1 kit 023 Active insulin pen needle (UltiCare Short Pen Crestone) 31G X 8 mm misc USE FOUR TIMES DAILY WITH INSULIN 100 each 11 024 Active TRUEplus Lancets 33G misc TEST BLOOD SUGAR THREE TIMES DAILY 100 each 024 Active insulin lispro (HumaLOG) 100 UNIT/ML injection INJECT SUBCUTANEOUSLY PER SLIDING SCALE THREE TIMES DAILY BEFORE MEALS: BLOOD SUGAR 150-199 = 4 UNITS, 200-249 = 6U, 250-299 = 8U, 300-349 = 10U, 350-399 = 12U, > 400 = 14 UNITS 15 mL 3 Active gabapentin (Neurontin) 300 MG capsule TAKE 1 CAPSULE BY MOUTH TWICE DAILY IN THE MORNING AND IN THE EVENING Active isosorbide mononitrate ER (Imdur) 60 MG 24 hr tablet Take 1 tablet (60 mg) by mouth Once per day. Do not crush or chew. 90 tablet 3 024 2024 Active omeprazole (PriLOSEC) [address] capsule TAKE 1 CAPSULE BY MOUTH EVERY MORNING 90 capsule 3 Active lisinopril 40 MG tablet TAKE 1 TABLET BY MOUTH EVERY MORNING 90 tablet 3 Active chlorthalidone (Hygroton) 25 MG tabletIndication s:Hypertensive urgency TAKE 1 TABLET BY MOUTH EVERY MORNING 90 tablet 3 Active phenytoin ER (Dilantin) 100 MG capsule TAKE 1 CAPSULE BY MOUTH TWICE DAILY IN THE MORNING AND IN THE EVENING 180 capsule 3 Active atorvastatin (Lipitor) 80 MG tablet TAKE 1 TABLET BY MOUTH EVERY MORNING 90 tablet Active Aspirin Low Dose 81 MG EC tablet TAKE 1 TABLET BY MOUTH EVERY MORNING 90 tablet Active carvedilol (Coreg) 25 MG tablet TAKE 1 TABLET BY MOUTH TWICE DAILY IN THE MORNING AND IN THE EVENING 180 tablet Active ammonium lactate (Lac-Hydrin) 12 % lotion Apply 1 Application. topically Once per day. To soles of feet Active tiZANidine (Zanaflex) 2 MG tablet TAKE 1 TO 2 TABLETS BY MOUTH EVERY EVENING NEEDED Active traMADol (Ultram) 50 MG tablet Take 1 tablet by mouth if needed in the morning, at noon, in the evening, and at bedtime. Active terbinafine (LamISIL) 250 MG tablet Take 250 mg by mouth Once per day. Active glucose blood (FreeStyle Precision Marbin Test) test stripIndications :Type 2 diabetes mellitus with hyperlipidemia ([facility]/HCC) ([facility]) Use to test blood sugar 3 times daily as needed 100 each 11 2024 Active tiotropium (Spiriva Respimat) 2.5 MCG/ACT inhalerIndicatio ns:Chronic obstructive pulmonary disease, unspecified COPD type ([facility]) Inhale 2 puffs Once per day. 1 each 025 2025 Active Lantus SoloStar 100 UNIT/ML penIndications:T ype 2 diabetes mellitus with hyperlipidemia (CMS/HCC) ([facility]) INJECT 55 UNITS SUBCUTANEOUSLY AT BEDTIME 15 mL 3 025 Active Alcohol Swabs (Alcohol Prep) 70 % pads USE DIRECTED TO TEST BLOOD SUGAR BEFORE MEALS AND AT BEDTIME 100 each 11 025 Active famotidine (Pepcid) 20 MG tabletIndication s:Nausea TAKE 1 TABLET BY MOUTH TWICE DAILY NEEDED GASTRIC ACIDITY 180 tablet 025 Active empagliflozin (Jardiance) 10 MGIndications:Ty pe 2 diabetes mellitus with hyperlipidemia (CMS/HCC) ([facility]) Take 1 tablet (10 mg) by mouth Once per day. 30 tablet 2 025 Active Continuous Glucose Stretching Machine Tender Frame (FreeStyle Karen 3 [place]) deviceIndication s:Type 2 diabetes mellitus with hyperlipidemia (CMS/HCC) ([facility]) 1 Device Use as directed. Scan sensor in the morning and before each meal. 1 each 025 Active Continuous Glucose Sensor (FreeStyle Karen 3 Plus Sensor) miscIndications: Type 2 diabetes mellitus with hyperlipidemia (CMS/HCC) ([facility]) Apply 1 Device topically every 15 days. 2 each 5 Active metFORMIN XR (Glucophage-XR) 500 MG 24 hr tabletIndication s:Type 2 diabetes mellitus with hyperlipidemia (CMS/HCC) ([facility]) Take 1 tablet (500 mg) by mouth 2 times daily. Do not crush, chew, or split. 180 tablet 3 025 Active Mometasone Furoate (Asmanex HFA) 100 MCG/ACT aerosolIndicatio ns:Moderate persistent asthma without complication INHALE 2 PUFFS TWICE DAILY. RINSE MOUTH AFTER USING. 13 g 2 025 Active QUEtiapine (SEROquel) 50 MG tablet TAKE 1 TABLET BY MOUTH THREE TIMES DAILY 90 tablet 1 025 Active Continuous Blood Gluc Stretching Machine Tender Frame (FreeStyle Karen 2 [place]) deviceIndication s:Type 2 diabetes mellitus with hyperlipidemia (CMS/HCC) ([facility]) 1 each 5 (five) times a day. 1 each 023 2024 Discontinued(A lternate therapy) metFORMIN (Glucophage) 1000 MG tablet TAKE 1 TABLET BY MOUTH TWICE DAILY IN THE MORNING AND IN THE EVENING 180 tablet 3 024 2024 Discontinued(D ose adjustment) Mometasone Furoate (Asmanex HFA) 100 MCG/ACT aerosolIndicatio ns:Moderate persistent asthma without complication Take 2 puffs twice daily, rinse mouth after use 13 g 2 024 2024 Discontinued Ozempic, 1 MG/DOSE, 4 MG/3ML solution pen-injector Inject 1 mg under the skin 1 (one) time per week. 024 2024 Discontinued(P atient refused) QUEtiapine (SEROquel) 50 MG tablet TAKE 1 TABLET BY MOUTH THREE TIMES DAILY 90 tablet 1 024 2024 Discontinued Continuous Glucose Sensor (FreeStyle Karen 2 Sensor) miscIndications: Type 2 diabetes mellitus with hyperlipidemia (CMS/HCC) ([facility]) USE DIRECTED CHANGE EVERY 14 DAYS 2 each 11 025 2024 Discontinued(A lternate therapy) Active Problems Problem Noted Date Diagnosed Date Screen for colon cancer 06/06/2024 Overview (06/06/2024): Negative cologuard 11/10/2023 Right arm pain 05/05/2024 Assessment & Plan (05/05/2024 8:54 PM EDT): Likely rupture of biceps tendon from history and exam -referred today for US soft tissue of right arm -referred today to ortho STAT -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 4 units in BG 150-199; 6 units if BG 200-249; 8 units if BG 250-299; 10 units if BG 300-349; 12 units if BG 350-399; 14 units if BG > 400, call clinic See above Hypertension associated with diabetes ([facility]/HCC) 06/25/2023 Overview (08/11/2024): Lantus 55 units daily (switch to AM admin 08/11/24) Lispro sliding scale Ozempic 1mg wkly (dose increase 08/11/24) Metformin 1G BID Lispro sliding scale as above Isosorbide 60mg ER Lisinopril 40mg Carvedilol 25mg BID Chlorthalidone 25mg Atorvastatin 80mg daily ASA 81mg Foot exam: follows w/ podiatry, dry skin, calluses, sensation intact 10/2023 Eye exam: clarify at follow-up Assessment & Plan (05/05/2024 8:54 PM EDT): Home BP per pt <140/90,Sometimes 150s Pt did not take yet any of his BP meds today Denies having any CP,SOB,palpitations nor dizziness nor neurologic complaints -explained in length to pt the importance to tale his BP meds consistently and at same time of day-pt will take his BP meds as soon as he gets home -advised to check home bring BP readings at next apt w PCP scheduled apt 06/06/2024 -Alarm signs and symptoms discussed Moderate episode of recurrent major depressive d isorder 06/25/2023 Assessment & Plan (06/25/2023 1:49 PM EDT): Assessment: Patient with anhedonia, depressed, insomnia, fatigue, decreased appetite, low self-esteem, diminished ability to concentrate, anxiousness, persistent worry, loneliness, diminished ability to relax, restlessness, and fearfulness. Factors contributing to his sxs are, Hx of trauma, homelessness, jobless, relationship stress with his children mother. Patient will benefit from Ind. Therapy and Medication Management. Further evaluation to rule out PTSD. At this time Tre oYrk meets criteria for Visit Diagnoses: Problem List Items Addressed This Visit Other Moderate episode of recurrent major depressive disorder (CMS/HCC) ROBERTO (generalized anxiety disorder) Cannabis use disorder Patient ready to address current needs Yes Strengths include willing to seek treatment PLAN: 1. Follow up with [facility]: Not recommended for follow-up 2. Patient goal is to improve mental health and functionality 3. Behavioral Recommendations a. Ind. Therapy, referral will be submitted. b. Medication Management, referral will be submitted c. Use of coping skills provided as recommended. ROBERTO (generalized anxiety disorder) 06/25/2023 Cannabis use disorder 06/25/2023 Encounters Date Type Department Care Team Description 12/09/2024 Refill [facility] [address] [place] [address] Immanuel Napier ANP 12/09/2024 Refill [facility] [address] [place] [phone] Immanuel Napier ANP 12/05/2024 11:00 AM EST Telemedicine [facility] [address] [place] [phone] Immanuel Napier ANP Type 2 diabetes mellitus with hyperlipidemia (CMS/HCC) (CMS/HCC) (Primary Dx); Vasculogenic erectile dysfunction, unspecified vasculogenic erectile dysfunction type; Dietary counseling; Exercise counseling 12/05/2024 Travel 12/01/2024 Patient Outreach [facility] [address] [place] [address] Immanuel Napier ANP Care Coordination (Outreach) 11/30/2024 Refill [facility] [address] [place] [address] Immanuel Napier ANP Moderate persistent asthma without complication 11/29/2024 Telephone [facility] [address] [place] [address] Margret Ramsey MA chart prep 11/21/2024 Travel 11/16/2024 Patient Outreach [facility] [address] [place] [address] Immanuel Napier ANP Care Coordination (Outreach) 11/07/2024 Refill [facility] [address] [place] [address] Immanuel Napier ANP Type 2 diabetes mellitus with hyperlipidemia (CMS/HCC) ([facility]); Nausea 11/04/2024 Refill [facility] [address] [place] [address] Immanuel Napier ANP Type 2 diabetes mellitus with hyperlipidemia (CMS/HCC) ([facility]/HCC) 11/02/2024 Telephone [facility] [address] [place] [address] Digna Haney RN Care Coordination ([facility] initial assessment/ enrollment) 10/28/2024 Patient Outreach [facility] [address] [place] [address] Immanuel Napier ANP Care Coordination (Outreach) 10/24/2024 Patient Outreach [facility] [address] [place] [address] Immanuel Napier ANP Care Coordination (Outreach) 10/17/2024 Patient Outreach [facility] [address] [place] [address] Immanuel Napier ANP 10/17/2024 Patient Outreach [facility] [address] [place] [address] Immanuel Napier ANP Care Coordination (Outreach) 10/13/2024 9:00 AM EST Office Visit [facility] [address] [place] [address] Immanuel Napier ANP Moderate persistent asthma without complication (Primary Dx); Type 2 diabetes mellitus with hyperlipidemia ([facility]CC) ([facility]); Chronic obstructive pulmonary disease, unspecified COPD type ([facility]); Nausea 10/13/2024 Travel 10/10/2024 Telephone [facility] [address] [place] [address] Margret Ramsey MA chart prep 10/06/2024 Refill [facility] [address] [place] [address] Immanuel Napier ANP 09/29/2024 9:30 AM EST Office Visit [facility] [address] [place] [address] Estella Tobin, OD 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 associated with type 2 diabetes mellitus ([facility]/HCC) (Primary Dx); Dry eyes 09/29/2024 Travel from Last 3 Months Immunizations Name Administration Dates Next Due HepB-CpG 11/21/2024 Influenza Injectable Quadriv alant Preservative Free IIV4 MDCK 07/06/2023 Influenza, seasonal, injectable, preservative fr ee 08/11/2024 Pneumococcal Conjugate PCV 20 08/11/2024 Tdap 07/30/2023 Family History Medical History Relation Name Comments Diabetes Father Prostate cancer Maternal Grandfather gastro bleed Maternal Grandmother ?colon ca Diabetes Mother Diabetes Other many family mem bers Prostate cancer Paternal Grandfather bladder cancer Sister Relation Name Status Comments Father Maternal Grandfather Maternal Grandmother Mother Other Paternal Grandfather Sister Social History Tobacco Use Types Packs/Day Years Used Date Smoking Tobacco: Former Cigarettes 0 03/1990 - 03/2023 Passive Smoke Exposure: Never Smokeless Tobacco: Never Tobacco Cessation:Counseling Given: Not Answered Alcohol Use Standard Drinks/Week Comments Not Currently 0 (1 standard drink = 0.6 oz pur e alcohol) Depression Answer Date Recorded Patient Health Questionnaire-9 Score 4 03/11/2024 Patient Health Questionnaire-9 Score 4 03/11/2024 Last PHQ-9: Questionnaire Data Not on file 0 03/11/2024 Housing Stability Answer Date Recorded What is your housing situation today? I do not have housing (Staying with others, in a hotel, in a nursing home, living outside on the street, on a beach, in a car, or in a park 08/01/[address] you li ve. Do you have problems with any of the following? None of the above 08/01/2024 Food Insecurity Answer Date Recorded Within the past 12 months, y ou worried that your food would run out before you got money to buy more: Often true 08/01/2024 Within the past 12 months,th e food you bought just didn't last and you didn't have enough money to get more: Often true Transportation Answer Date Recorded In the past 12 months, has l ack of transportation kept you from medical appts, meetings, work or from getting things needed for daily living? No 08/01/2024 Utilities Answer Date Recorded In the past 12 months, has t he electric, gas, oil or water company threatened to shut off services in your home? No 08/01/2024 Depression Answer Date Recorded Patient Health Questionnaire-2 Score 2 03/11/2024 Internet Access Answer Date Recorded Internet Access Q1 Yes 08/01/2024 Internet Access Q2 Not on file 08/01/2024 Sex and Gender Information Value Date Recorded Sex Assigned at Male 05/07/2023 10:01 AM EDT Legal Sex Male 4:05 PM EDT Gender Identity Male 05/07/2023 10:01 AM EDT Sexual Orientation Don't know 05/07/2023 10 :01 AM EDT Last Filed Vital Signs Vital Sign Reading Time Taken Comments Blood Pressure 132/88 11/21/2024 10:12 AM EST Pulse 73 11/21/2024 9:54 AM EST Temperature 36.1 ??C (96.9 ??F) 10/13/2024 8:56 AM ES T Respiratory Rate 17 10/13/2024 8:56 AM EST Oxygen Saturation 99% 08/11/2024 9:30 AM EDT Inhaled Oxygen Concentration - - Weight 128 kg (282 lb) 10/13/2024 8:56 AM EST Height 180.3 cm (5' 11 ) 10/13/2024 8:56 AM EST Body Mass Index 39.33 10/13/2024 8:56 AM EST Plan of Treatment Upcoming Encounters Date Type Department Care Team (Late st Contact Info) Description 01/04/2025 10:30 AM EDT Medication Management [facility] [address] [place] [phone] Regan Morin, PharmD [address] [place] [address] 03/01/2025 2:00 PM EDT Office Visit [facility] [address] [place] [address] Alexa Petersen, OD [address] [place] [address] 03/07/2025 9:30 AM EDT Office Visit [facility] [address] [place] [address] Immanuel Napier, ANP [address] [place] [address] Health Maintenance Due Date Last Done Comments CT Colonography 1975 Colonoscopy 1975 FIT 1975 FOBT 1975 Sigmoidoscopy 1975 Alcohol/Substance Use Screening 1988 Family Planning (PISQ) 1991 Hepatitis A Vaccines (1 of 2 - Risk 2-dose series) 1995 COVID-19 Vaccine () 06/12/2024 Diabetes: Urine Protein Screening 11/04/2024 11/04/2023, 05/26/2023 Hepatitis B Vaccines (2 of 2 - CpG 2-dose series) 12/19/2024 11/21/2024 Diabetes: Hemoglobin A1C 02/18/2025 025, 08/04/2024, 06/06/2024, Additional history exists Depression Screening 03/11/2025 03/11/2024, 03/11/20 Lipid Panel 03/18/2025 03/18/2024, 05/26/2023 SDOH Screening 08/01/2025 08/01/2024 Diabetes: Foot Exam 08/11/2025 08/11/2024, 08/11/2024, 08/11/2024, Additional history exists Eye Exam 09/29/2025 09/29/2024, 09/11, 09/29/2024, Additional history exists Tobacco Screening 12/05/2025 12/05/2024 Zoster Vaccines (1 of 2) 2026 Colorectal Cancer Screening 11/10/2026 FIT DNA/Cologuard 11/10/2026 11/10/2023 DTaP/Tdap/Td Vaccines (2 - Td or Tdap) 07/30/2033 07/30/2023 RSV Patients and Patients Aged 60 years or older (1 - 1-dose 75+ series) 2051 HIV Screening Completed 03/18/2024, 05/26/2023 Hepatitis C Screening Completed 03/18/2024, 023 Influenza Vaccine Completed 08/11/2024, 07/06/2023 Pneumococcal Vaccine: Pediatrics (0 to 5 Years) and At-Risk Patients (6 to 49) Years) Completed 08/11/2024 HIB Vaccines Aged Out No longer eligi ble based on patient's age to complete this topic HPV Vaccines Aged Out No longer eligi ble based on patient's age to complete this topic IPV Vaccines Aged Out No longer eligi ble based on patient's age to complete this topic Meningococcal Vaccine Aged Out No viv pamela eligible based on patient's age to complete this topic RSV under 20 months Aged Out No longe r eligible based on patient's age to complete this topic Rotavirus Vaccines Aged Out No longer eligible based on patient's age to complete this topic Goals Goal Patient Goal Type Associated Problems Recent Progress Patient-Stated? 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 COLON CANCER SCREEN Routine 11/10/2023 3:25 PM EST Screening for malignant neoplasm of colon ALBUMIN, RANDOM URINE W/CREATININE Routine 11/04/2023 8:56 AM EST Uncontrolled type 2 diabetes mellitus with hyperglycemia (CMS/HCC) from Last 3 Months or Most Recently Relevant to Health Maintenance Results * (ABNORMAL) POCT HGB A1C (11/21/2024 10:09 AM EST) Hemoglobin A1C 9.0(A) 4.0 - 6.0 % QC Media Lot # [id number] Lot# Expiration Date ,749 Blood 11/21/2024 10:0 9 AM EST us Immanuel Napier ANP POINT OF CARE TEST ENTER/EDIT OR DERABLES Final Result * OCT, Retina - OU - Both Eyes (09/29/2024 10:52 AM EST) Narrative Estella Tobin, OD - 09/29/2024 10:52 AM EST OCT MACULA INTERPRETATION Optical Coherence Tomography Interpretation Report Measurements: OD ??OS Macula Thickness ??197 microns ??213 microns Test findings: OD: ??Moderate non-proliferative diabetic retinopathy (NPDR) without diabetic macular edema OS: ??Moderate non-proliferative diabetic retinopathy (NPDR) without diabetic macular edema Impression and Plan: ??Stable moderate non-proliferative diabetic retinopathy (NPDR) both eyes (OU) in a patient with Type 2 diabetes which is not well controlled. ??Recommend re-evaluate at comprehensive exam in 6 months. ??Continue follow up with PCP as indicated. ??Patient states his understanding of the findings and management plan. us Estella Tobin OD OPHTH TOMOGRAPHY Final Result * US RENAL DOPPLER (09/12/2024 8:15 AM EST) Anatomical Region Laterality Modality Abdomen Ultrasound 09/12/2024 8:15 AM EST Narrative 10/07/2024 12:33 AM EST ? [facility] ?[address] ?[place] [address] ? Ultrasound Report ? Signed ? Patient: Allen Jaylen,Tre ? MR#: [id number] ? : 1975 ?Acct:[id number] ? Age/Sex: 49 / M ?ADM Date: 09/12/24 ? Loc: HO.US ? Attending Dr: Yris CLAYTON ? Ordering Physician: Yris Walters ?? Date of Service: 09/12/24 ?? Procedure(s): US renal doppler ?? Accession Number(s): [id number] ? cc: Yris Walters; IMMANUEL NAPIER NP ? EXAMINATION: ?? ULTRASOUND OF KIDNEYS WITH RENAL ARTERY DOPPLER ? CLINICAL INFORMATION: ?? Hypertension. ? COMPARISON: ?? None. ? TECHNIQUE: ?? Ultrasound of the kidneys was performed along with color flow Doppler ?? imaging and velocity measurements in the proximal mid and distal renal ?? arteries. Aortic velocities were measured and renal/aortic ratios were ?? calculated. Segmental resistive indices were measured ? FINDINGS: ?? Both kidneys demonstrated slightly increased echogenicity but otherwise ?? appeared unremarkable with the right kidney measuring 10.2 x 6.0 x 6.0 ?? cm and the left kidney measuring 11.8 x 7.2 x 6.9 cm. No renal masses, ?? renal stones or hydronephrosis is seen. Renal cortical thickness ?? appears normal. Velocity measurements in the proximal mid and distal ?? renal arteries are normal although the proximal right renal artery ?? could not be seen. Velocity in the aorta is 143 cm/s and, therefore, ?? the renal aortic ratios not valid as velocities over 100 cm/s. ?? Segmental resistive indices were normal. Both renal veins were patent. ? US/US renal doppler ?? IMPRESSION: ?? 1. ??No evidence to suggest renal artery stenosis. ?? 2. ??Slightly echogenic kidneys. ? Electronically signed by: ??Krystian Lopes MD ??10/07/2024 12:30 AM EST ?? RP ? Dictated By: ?Krystian Lopes MD ? Signed By: ?<Electronically signed by Krystian Lopes MD in OV> ? 10/07/24 0030 ? DD/ 0815 ? TD/TT: 09/12/24 0849 ? Commercial Representative: SS ? Procedure Note Trace, Image - 10/07/[address] [address] Ultrasound Report Signed Patient: Tre Hoover MR#: [id number] : 1975Acct:[id number] Age/Sex: 49 / MADM Date: 09/12/24 Loc: HO.US Attending Dr: Yris CLAYTON Ordering Physician: Yris Walters Date of Service: 09/12/24 Procedure(s): US renal doppler Accession Number(s): [id number] cc: Yris Walters; IMMANUEL NAPIER NP EXAMINATION: ULTRASOUND OF KIDNEYS WITH RENAL ARTERY DOPPLER CLINICAL INFORMATION: Hypertension. COMPARISON: None. TECHNIQUE: Ultrasound of the kidneys was performed along with color flow Doppler imaging and velocity measurements in the proximal mid and distal renal arteries. Aortic velocities were measured and renal/aortic ratios were calculated. Segmental resistive indices were measured FINDINGS: Both kidneys demonstrated slightly increased echogenicity but otherwise appeared unremarkable with the right kidney measuring 10.2 x 6.0 x 6.0 cm and the left kidney measuring 11.8 x 7.2 x 6.9 cm. No renal masses, renal stones or hydronephrosis is seen. Renal cortical thickness appears normal. Velocity measurements in the proximal mid and distal renal arteries are normal although the proximal right renal artery could not be seen. Velocity in the aorta is 143 cm/s and, therefore, the renal aortic ratios not valid as velocities over 100 cm/s. Segmental resistive indices were normal. Both renal veins were patent. US/US renal doppler IMPRESSION: 1. No evidence to suggest renal artery stenosis. 2. Slightly echogenic kidneys. Electronically signed by: Krystian Lopes MD 10/07/2024 12:30 AM [facility] Dictated By: Krystian Lopes MD Signed By: <Electronically signed by Krystian Lopes MD in OV> 10/07/24 0030 DD/ 0815 TD/TT: 09/12/24 0849 Commercial Representative: CARINA us [facility] External Provider IMG US PROCEDURES Edited Result - Final * US RENAL BI (09/12/2024 8:15 AM EST) Anatomical Region Laterality Modality Abdomen Ultrasound 09/12/2024 8:15 AM EST Narrative 10/07/2024 12:33 AM EST ? [facility] ?[address] ?[place] [address] ? Ultrasound Report ? Signed ? Patient: Allen Jaylen,Tre ? MR#: [id number] ? : 1975 ?Acct:[id number] ? Age/Sex: 49 / M ?ADM Date: 09/12/24 ? Loc: HO.US ? Attending Dr: Yris CLAYTON ? Ordering Physician: Yris Walters ?? Date of Service: 09/12/24 ?? Procedure(s): US renal BI ?? Accession Number(s): [id number] ? cc: Yris Walters; IMMANUEL NAPIER NP ? EXAMINATION: ?? ULTRASOUND OF KIDNEYS WITH RENAL ARTERY DOPPLER ? CLINICAL INFORMATION: ?? Hypertension. ? COMPARISON: ?? None. ? TECHNIQUE: ?? Ultrasound of the kidneys was performed along with color flow Doppler ?? imaging and velocity measurements in the proximal mid and distal renal ?? arteries. Aortic velocities were measured and renal/aortic ratios were ?? calculated. Segmental resistive indices were measured ? FINDINGS: ?? Both kidneys demonstrated slightly increased echogenicity but otherwise ?? appeared unremarkable with the right kidney measuring 10.2 x 6.0 x 6.0 ?? cm and the left kidney measuring 11.8 x 7.2 x 6.9 cm. No renal masses, ?? renal stones or hydronephrosis is seen. Renal cortical thickness ?? appears normal. Velocity measurements in the proximal mid and distal ?? renal arteries are normal although the proximal right renal artery ?? could not be seen. Velocity in the aorta is 143 cm/s and, therefore, ?? the renal aortic ratios not valid as velocities over 100 cm/s. ?? Segmental resistive indices were normal. Both renal veins were patent. ? US/US renal BI ?? IMPRESSION: ?? 1. ??No evidence to suggest renal artery stenosis. ?? 2. ??Slightly echogenic kidneys. ? Electronically signed by: ??Krystian Lopes MD ??10/07/2024 12:30 AM EST ?? RP ? Dictated By: ?Krystian Lopes MD ? Signed By: ?<Electronically signed by Krystian Lopes MD in OV> ? 10/07/2429 ? DD/ 0815 ? TD/TT: 09/12/24 0849 ? Commercial Representative: CARINA ? Procedure Note Donotuseinterpreter, Image - 10/07/[address] [address] Ultrasound Report Signed Patient: Tre Hoover MR#: [id number] : 1975Acct:[id number] Age/Sex: 49 / MADM Date: 09/12/24 Loc: .US Attending Dr: Yris CLAYTON Ordering Physician: Yris Walters Date of Service: 09/12/24 Procedure(s): US renal BI Accession Number(s): [id number] cc: Yris Walters; IMMANUEL NAPIER NP EXAMINATION: ULTRASOUND OF KIDNEYS WITH RENAL ARTERY DOPPLER CLINICAL INFORMATION: Hypertension. COMPARISON: None. TECHNIQUE: Ultrasound of the kidneys was performed along with color flow Doppler imaging and velocity measurements in the proximal mid and distal renal arteries. Aortic velocities were measured and renal/aortic ratios were calculated. Segmental resistive indices were measured FINDINGS: Both kidneys demonstrated slightly increased echogenicity but otherwise appeared unremarkable with the right kidney measuring 10.2 x 6.0 x 6.0 cm and the left kidney measuring 11.8 x 7.2 x 6.9 cm. No renal masses, renal stones or hydronephrosis is seen. Renal cortical thickness appears normal. Velocity measurements in the proximal mid and distal renal arteries are normal although the proximal right renal artery could not be seen. Velocity in the aorta is 143 cm/s and, therefore, the renal aortic ratios not valid as velocities over 100 cm/s. Segmental resistive indices were normal. Both renal veins were patent. US/US renal BI IMPRESSION: 1. No evidence to suggest renal artery stenosis. 2. Slightly echogenic kidneys. Electronically signed by: Krystian Lopes MD 10/07/2024 12:30 AM EST RP Dictated By: Krystian Lopes MD Signed By: <Electronically signed by Krystian Lopes MD in OV> 10/07/24 0030 DD/ 0815 TD/TT: 09/12/24 0849 Commercial Representative: [facility] External Provider IMG US PROCEDURES Edited Result - Final * Hepatitis C Antibody with Reflex to HCV, RNA, Quantitative, Real-Time PCR (03/18/2024 10:44 AM EDT) Hepatitis C Antibody Nonreactive Nonreactive [facility] Comment:Antibodies to HCV no t detected; does not exclude early acuteHCV infection. Blood Venous blood specimen / Unknown 03/18/2024 10:44 AM EDT 03/18/2024 11:18 AM EDT [facility] LAB BLOOD ORDERABLES Final Resul t [facility] [address] [place] [address] [phone] * HIV-1/2 Antigen and Antibodies, Fourth Generation, with Reflexes (03/18/2024 10:44 AM EDT) HIV AB/AG Nonreactive Nonreactive [facility] Comment:HIV-1 p24 Ag and/or HIV-1/HIV-2 Ab not detected.A test result that is nonreactive does not exclude thepossibility of exposure to or infection with HIV-1 and/orHIV-2. Nonreactive results in this assay for individualswith prior exposure to HIV-1 and/or HIV-2 may be due toantigen and antibody levels that are below the limit ofdetection of this assay.The [employer] HIV Ag/Ab Combo assay result andsupplemental assay results should be interpreted inconjunction with the patient's clinical presentation,history and other laboratory results. If the results areinconsistent with clinical evidence, additional testing issuggested to confirm the result. Blood Venous blood specimen / Unknown 03/18/2024 10:44 AM EDT 03/18/2024 11:18 AM EDT Immanuel Napier [facility] LAB BLOOD ORDERABLES Final Resul t Performing Organization Address [facility] Co de Phone Number [facility] [address] [place] [address] [phone] * (ABNORMAL) Lipid Panel, Standard (03/18/2024 10:44 AM EDT) Triglycerides 81 <150 mg/dL [facility] Comment:Desirable Triglyceri de: less than 150 mg/dLBorderline High Triglyceride 150-199 mg/dLHigh Triglyceride: 200-499 mg/dLVery High Triglyceride: greater than or equal to 5OO mg/dL Cholesterol 96 <200 mg/dL [facility] Comment:Desirable Cholestero l: less than 200 mg/dLBorderline High Cholesterol: 200-239 mg/dLHigh Cholesterol: greater than 239 mg/dL LDL Cholesterol Calculated 49 <100 mg/dL [facility] Comment:Desirable LDL: less than 100 mg/dLNear Optimal/Above Optimal LDL: 110- 129 mg/dLBorderline High LDL: 130-159 mg/dLHigh LDL: 160-189 mg/dLVery High LDL: greater than or equal to 190 mg/dL HDL Cholesterol 31(L) >40 mg/dL [facility] Comment:Desirable HDL: great er than 40 mg/dL Note: This HDL assay may give artificially low results in patients with liver disease. Blood Venous blood specimen / Unknown 03/18/2024 10:44 AM EDT 03/18/2024 11:23 AM EDT us Immanuel Napier ANP LAB BLOOD ORDERABLES Final Resul t Performing Organization Address [facility] Co de Phone Number [facility] [address] [place] [phone] * Cologuard?? colon cancer screening (11/10/2023 3:25 PM EST) Cologuard Result Negative Negative 11/20/19 10:09 AM [facility] [employer] (CLIA #:[id number]) Comment: NEGATIVE TEST RESULT. A negative Cologuard result indicates a low likelihood that a colorectal cancer (CRC) or advanced adenoma (adenomatous polyps with more advanced pre-malignant features) ??is present. The chance that a person with a negative Cologuard test has a colorectal cancer is less than 1 in 1500 (negative predictive value >99.9%) or has an ??advanced adenoma is less than ??5.3% (negative predictive value 94.7%). These data are based on a prospective cross-sectional study of 10,000 individuals at average risk for colorectal cancer who were screened with both Cologuard and colonoscopy. (Ngozi Urena al, N Engl J Med 2014;370(14):1286- 1297) The normal value (reference range) for this assay is negative. COLOGUARD RE-SCREENING RECOMMENDATION: Periodic colorectal cancer screening is an important part of preventive healthcare for asymptomatic individuals at average risk for colorectal cancer. ??Following a negative Cologuard result, the [place] Cancer Society and U.S. Multi-Society Task Force screening guidelines recommend a Cologuard re-screening interval of 3 years. References: [place] Cancer Society Guideline for Colorectal Cancer Screening: https://www.cancer.org/cancer/cqphi-qdtemy-mtgbtz/tbzapacqb-xmeooqqap-cjnpmte/ac s-rec ommendations.html.; Jc DK, Ravin CR, Donna CampbellK, Colorectal Cancer Screening: Recommendations for Physicians and Patients from the U.S. Multi-Society Task Force on Colorectal Cancer Screening , Am J Gastroenterology 2017; 112:9253-9241. TEST DESCRIPTION: Composite algorithmic analysis of stool DNA-biomarkers with hemoglobin immunoassay. ?? Quantitative values of individual biomarkers are not reportable and are not associated with individual biomarker result reference ranges. Cologuard is intended for colorectal cancer screening of adults of either sex, 45 years or older, who are at average-risk for colorectal cancer (CRC). Cologuard has been approved for use by the U.S. FDA. The performance of Cologuard was established in a cross sectional study of average-risk adults aged 50-84. Cologuard performance in patients ages 45 to 49 years was estimated by sub-group analysis of near-age groups. Colonoscopies performed for a positive result may find as the most clinically significant lesion: colorectal cancer [4.0%], advanced adenoma (including sessile serrated polyps greater than or equal to 1cm diameter) [20%] or non- advanced adenoma [31%]; or no colorectal neoplasia [45%]. These estimates are derived from a prospective cross-sectional screening study of 10,000 individuals at average risk for colorectal cancer who were screened with both Cologuard and colonoscopy. (Ngozi Urena al, N Engl J Med 2014;370(14):7662-7201.) Cologuard may produce a false negative or false positive result (no colorectal cancer or precancerous polyp present at colonoscopy follow up). A negative Cologuard test result does not guarantee the absence of CRC or advanced adenoma (pre-cancer). The current Cologuard screening interval is every 3 years. ([place] Cancer Society and U.S. Multi-Society Task Force). Cologuard performance data in a 10,000 patient pivotal study using colonoscopy as the reference method can be accessed at the following location: www.Unii/results. Additional description of the Cologuard test process, warnings and precautions can be found at www.NeuroDermrd.Rumble. Stool specimen (specimen) 11/10/2023 3:25 PM EST 11/12/2023 10:50 AM EST [facility] MOLECULAR DIAGNOSTICS ORDERA BLES Final Result [employer] (CLIA #:[id number]) [place] [address], * Albumin, Random Urine W/Creatinine (11/04/2023 8:56 AM EST) Creatinine, Urine 86.84 mg/dL [facility] Microalbumin Urine 22.0 mg/L [facility] Microalbum Creatinine Ratio Ur 25.3 <30 ug/mg cr [facility] Comment:Albumin/Creatinine R atio Reference Ranges: Normal: < 30 ug/mg creatinine Microalbuminuria: 30 - 300 ug/mg creatinineClinical Albuminuria: > 300 ug/mg creatinine Urine 11/04/2023 8:56 AM EST 11/04/2023 11:07 AM EST us Immanuel FLOYD LAB URINE ORDERABLES Final Resul t [facility] [address] [place] [phone] [phone] from Last 3 Months or Most Recently Relevant to Health Maintenance Insurance [facility] C3 HSN FULL Care Teams Botany Professor Relationship Specialty Start Date End Date Immanuel Napier ANP [address] [place] [phone] PCP - General Family Medicine 05/27/23 Regan Morin, KayleenD [address] [place] [phone] Pharmacist Internal Medicine 09/14/24 [employer] 12/05/24
--- OUTSIDE RECORDS SUMMARY | 2024-12-09 12:11 | XMS_ITS | Encounter Summary ---
Author Organization [employer] Address [address] [place] [address] Care Team Providers Care Cook Supervisor Name Role Phone Jocelyn Galdamez Primary Care Provider [phone] Regan Morin PharmD Unavailable [phone] Reason for Visit * Reason Comments Med Refill Encounter Details Date Type Department Care Team (Late st Contact Info) Description 12/21/2023 Refill [facility] [address] [place], [place] [phone] Jocelyn Galdamez ANP [address] [place] [address] Type 2 diabetes mellitus with hyperlipidemia ([facility]/HCC) Social History Tobacco Use Types Packs/Day Years Used Date Smoking Tobacco: Former Cigarettes 0 03/1990 - 03/2023 Passive Smoke Exposure: Never Smokeless Tobacco: Never Alcohol Use Standard Drinks/Week Comments Not Currently 0 (1 standard drink = 0.6 oz pur e alcohol) Depression Answer Date Recorded Patient Health Questionnaire-9 Score 17 06/25/2023 Housing Stability Answer Date Recorded What is your housing situation today? I have miguel mane 07/27/[address] you li ve. Do you have problems with any of the following? None of the above 07/27/2023 Food Insecurity Answer Date Recorded Within the past 12 months, y ou worried that your food would run out before you got money to buy more: Never True 07/27/2023 Within the past 12 months,th e food you bought just didn't last and you didn't have enough money to get more: Never True Transportation Answer Date Recorded In the past 12 months, has l ack of transportation kept you from medical appts, meetings, work or from getting things needed for daily living? No 07/27/2023 Utilities Answer Date Recorded In the past 12 months, has t he electric, gas, oil or water company threatened to shut off services in your home? No 07/27/2023 Depression Answer Date Recorded Patient Health Questionnaire-2 Score 6 06/25/2023 Sex and Gender Information Value Date Recorded Sex Assigned at Male 05/07/2023 10:01 AM EDT Legal Sex Male 4:05 PM EDT Gender Identity Male 05/07/2023 10:01 AM EDT Sexual Orientation Don't know 05/07/2023 10 :01 AM EDT documented as of this encounter Plan of Treatment Upcoming Encounters Date Type Department Care Team (Late st Contact Info) Description 01/04/2025 10:30 AM EDT Medication Management [facility] [address] [place] [phone] Regan Morin, PharmD [address] [place] [address] 03/01/2025 2:00 PM EDT Office Visit [facility] [address] [place] [address] Alexa Petersen, OD [address] [place] [address] 03/07/2025 9:30 AM EDT Office Visit [facility] [address] [place] [address] Jocelyn Galdamez, ANP [address] [place] [address] documented as of this encounter Goals Goal Patient Goal Type Associated Problems Recent Progress Patient-Stated? Author Blood Pressure < 140/90 Blood Pressure 132/88(2024 10:12 AM EST) Ken Clancy Hemoglobin A1c < 7 Result Component 9(11/21/2024 10:09 AM EST) No Ken Khanna documented as of this encounter Visit Diagnoses Diagnosis Type 2 diabetes mellitus with hyperlipidemia (CMS/HCC) (CMS/HCC) documented in this encounter Additional Health Concerns Assessment Noted Time PHQ-9 Depression Total Score: 17 023 11:03 AM EDT documented as of this encounter Care Teams Cook Supervisor Relationship Specialty Start Date End Date Jocelyn Galdamez ANP [address] [place] [address] PCP - General Family Medicine 05/27/23 Regan Morin PharmD [address] [place] [address] Pharmacist Internal Medicine 09/14/24 [facility] 12/05/24 documented as of this encounter
--- OUTSIDE RECORDS SUMMARY | 2024-12-09 12:12 | XMS_ITS | Encounter Summary ---
Author Organization [employer] Address [address] [place] [address] Care Team Providers Care Recycling Operations Manager Name Role Phone Jocelyn Galdamez Primary Care Provider [phone] Regan Morin PharmD Unavailable [phone] Reason for Visit * Reason Comments Care Coordination Outreach Encounter Details Date Type Department Care Team (Latest Contact Info) Description 12/01/2024 Patient Outreach [facility] [address] [place], [place] [phone] Jocelyn Galdamez ANP [address] [place] [address] Care Coordination (Outreach) Social History Tobacco Use Types Packs/Day Years [...] with others, in a hotel, in a detention, living outside on the street, on a [...] AM EDT documented as of this encounter Progress Notes * Alisia Matthew - 12/01/2024 9:52 AM EST CHW Alisia Matthew placed outbound call to patient for follow up call on SDOH needs. No answer at this time. LVM introducing herself from [facility] CM Department. Requested call back. CHW reinforced direct contact information or CM for any additional questions or concerns and extended clinic hours on Mondays and Wednesdays, and Walk-In Urgent Care Located in [facility] of [facility]. Patient provided with after-hours line for [facility], , which offer night timetriage service and option to transfer to continuous mining operator provider if needed. CHW will attempt another follow up call within 10 days. documented in this encounter Plan of Treatment Upcoming Encounters Date Type Department Care Team ([facility] st Contact Info) Description 01/04/2025 10:30 AM EDT Medication Management [facility] [address] [place] [address] Regan Morin, PharmD [address] [place] [address] 03/01/2025 2:00 PM EDT Office Visit [facility] OPTOMETRY [address] [place] [address] Alexa Petersen, OD [address] [place] [address] 03/07/2025 9:30 AM EDT Office Visit [facility] [address] [place] [address] Jocelyn Galdamez ANP [address] [place] [address] documented as of this encounter Goals Goal Patient Goal Type Associated Problems Recent Progress Patient-Stated? Author Blood Pressure < 140/90 Blood Pressure 132/88(2024 10:12 AM EST) No Ken Khanna Hemoglobin A1c < 7 Result Component 9(11/21/2024 10:09 AM EST) No Ken Khanna documented as of this encounter Visit Diagnoses Not on filedocumented in this encounter Additional Health Concerns Assessment Noted Time PHQ-9 Depression Total Score: 4 03/11/20 24 1:09 PM EDT documented as of this encounter Care Teams Recycling Operations Manager Relationship Specialty Start Date End Date Jocelyn Galdamez, MARIEL [address] [place] [address] PCP - General Family Medicine 05/27/23 Regan Morin, PharmD [address] [place] [phone] Pharmacist Internal Medicine 09/14/24 documented as of this encounter
--- OUTSIDE RECORDS SUMMARY | 2024-12-09 12:12 | XMS_ITS | Encounter Summary ---
Author Organization [employer] Address [address] [place] [address] Care Team Providers Care Gate Technician Name Role Phone Jocelyn Galdamez Primary Care Provider [phone] Regan Morin PharmD Unavailable [phone] Encounter Details Date Type Department Care Team (Latest Contact Info) Description 11/21/2024 Travel Social History Tobacco Use Types Packs/Day Years [...] with others, in a hotel, in a mcc, living outside on the street, on a [...] Description 01/04/2025 10:30 AM EDT Medication Management [facility] [address] [place] [phone] Regan Morin, PharmD [address] [place] [address] 03/01/2025 2:00 PM EDT Office Visit [facility] OPTOMETRY [address] [place] [address] Alexa Petersen, OD [address] [place] [address] 03/07/2025 9:30 AM EDT Office Visit [facility] [address] [place] [address] Jocelyn Galdamez ANP [address] [place] [address] documented as of this encounter Goals Goal [...] documented as of this encounter Care Teams Gate Technician Relationship Specialty Start Date End Date Jocelyn Galdamez ANP [address] [place] [address] PCP - General Family Medicine 05/27/23 Regan Morin PharmD [address] [place] [address] Pharmacist Internal Medicine 09/14/24 documented as of this encounter
--- OUTSIDE RECORDS SUMMARY | 2024-12-09 12:12 | XMS_ITS | Encounter Summary ---
Author Organization [employer] Address [address] [place] [address] Care Team Providers Care Boiler Testing Technician Name Role Phone Jocelyn Galdamez Primary Care Provider [phone] Regan Morin PharmD Unavailable [phone] Reason for Visit * Reason Comments Care Coordination Outreach Encounter Details Date Type Department Care Team (Latest Contact Info) Description 11/16/2024 Patient Outreach [facility] MED & PEDS [address] [place], [place] [phone] Jocelyn Galdamez ANP [address] [place] [address] Care Coordination (Outreach) Social History Tobacco Use [...] with others, in a hotel, in a fci, living outside on the street, on a [...] encounter Progress Notes * Alisia Matthew - 11/16/2024 11:01 AM EST CHW Alisia Matthew placed outbound call to patient to follow up on SDOH needs. Patient's name, and address confirmed. Patient states is doing well. CHW will meet with patient tomorrow to fill application for housing and take him to [facility]. No further questions or concerns. CHW reinforced direct contact information or CM for any additional questions or concerns and extended clinic hours on Mondays and Wednesdays, and Walk-In Urgent Care Located in [facility] of [facility]. Patient provided with after-hours line for [facility], , which offer night time triage service and option to transfer to physical education aide provider if needed. Patient verbalizes understanding, and able to repeat back to science writer. A follow up call willbe placed within 10 days, patient agrees with plan. documented in this encounter Plan of Treatment Upcoming Encounters Date Type Department Care Team (Late st Contact Info) Description 01/04/2025 10:30 AM EDT Medication Management [facility] MED[facility] [address] [place] [address] Regan Morin, Liz [address] [place] [address] 03/01/2025 2:00 PM EDT Office Visit [facility] OPTOMETRY [address] [place] [address] TarkaAlexa, OD [address] [place] [address] 03/07/2025 9:30 AM EDT Office Visit [facility] MEDIC[facility] [address] [place] [address] Jocelyn Galdamez ANP [address] [place] [address] documented as of this encounter Goals Goal [...] documented as of this encounter Care Teams Boiler Testing Technician Relationship Specialty Start Date End Date Jocelyn Galdamez ANP [address] [place] [address] PCP - General Family Medicine 05/27/23 Regan Morin, KayleenD [address] [place] [address] Pharmacist Internal Medicine 09/14/24 documented as of this encounter
--- OUTSIDE RECORDS SUMMARY | 2024-12-09 12:12 | XMS_ITS | Encounter Summary ---
Author Organization [employer] Address [address] 7t [place] [address] Care Team Providers Care Crusher Machine Operator Name Role Phone Jocelyn Galdamez Primary Care Provider [phone] Regan Morin PharmD Unavailable [phone] Encounter Details Date Type Department Care Team ([facility] st Contact Info) Description 12/09/2024 Refill [facility] MEDICINE [address] [place], [place] [phone] Jocelyn Galdamez ANP 230 [place], [place] [phone] Social History Tobacco Use Types Packs/Day Years [...] with others, in a hotel, in a mcfp, living outside on the street, on a [...] Description 01/04/2025 10:30 AM EDT Medication Management [facility] MEDICINE [address] [place] [address] Regan Morin, PharmD 230 [place] [address] 03/01/2025 2:00 PM EDT Office Visit [facility] OPTOMETRY [address] [place] [address] Alexa Petersen, OD [address] [place] [address] 03/07/2025 9:30 AM EDT Office Visit [facility] MEDICINE [address] [place] [address] Jocelyn Galdamez, ANP 230 [place] [address] documented as of this encounter Goals Goal [...] documented as of this encounter Care Teams Crusher Machine Operator Relationship Specialty Start Date End Date Jocelyn Galdamez ANP 230 [place] [address] PCP - General Family Medicine 05/27/23 Regan Morin, Liz 230 [place] [address] Pharmacist Internal Medicine 09/14/24 [facility] 12/05/24 documented as of this encounter
--- OUTSIDE RECORDS SUMMARY | 2024-12-09 12:12 | XMS_ITS | Encounter Summary ---
Author Organization [employer] Address [address] 7t [place] [address] Care Team Providers Care Supervisor Drawing Name Role Phone Jocleyn Galdamez Primary Care Provider [phone] Regan Morin PharmD Unavailable [phone] Encounter Details Date Type Department Care Team ([facility] st Contact Info) Description 11/26/2023 Orders Only [facility] MEDICINE [address] [place], [place] [phone] Jocelyn Galdamez ANP 230 [place] [address] Social History Tobacco Use Types Packs/Day Years [...] Description 01/04/2025 10:30 AM EDT Medication Management [facility] MEDICINE [address] [place] [address] Regan Morin, PharmD 230 [place] [address] 03/01/2025 2:00 PM EDT Office Visit [facility] OPTOMETRY [address] [place] [address] Alexa Petersen, OD [address] [place] [address] 03/07/2025 9:30 AM EDT Office Visit [facility] MEDICINE [address] [place] [address] Jocelyn Galdamez, MARIEL 230 [place] [address] documented as of this encounter Goals Goal Patient Goal Type Associated Problems Recent Progress Patient-Stated? Author Blood Pressure < 140/90 Blood Pressure 132/88(2024 10:12 AM EST) Ken Clancy Hemoglobin A1c < 7 Result Component 9(11/21/2024 10:09 AM EST) Ken Clancy documented as of this encounter Visit Diagnoses Not on filedocumented in this encounter Additional Health Concerns Assessment Noted Time PHQ-9 Depression Total Score: 17 023 11:03 AM EDT documented as of this encounter Care Teams Supervisor Drawing Relationship Specialty Start Date End Date Jocelyn Galdamez ANP 230 [place] [address] PCP - General Family Medicine 05/27/23 Regan Morin, Liz [address] [place] [address] Pharmacist Internal Medicine 09/14/24 [facility] 12/05/24 documented as of this encounter
--- OUTSIDE RECORDS SUMMARY | 2024-12-09 12:12 | XMS_ITS | Encounter Summary ---
Author Organization [employer] Address [address] 7t [place] [address] Care Team Providers Care Milk Route Supervisor Name Role Phone Jocelyn Galdamez Primary Care Provider [phone] Regan Morin PharmD Unavailable [phone] Reason for Visit * Reason Onset Date Comments chart prep 11/29/2024 Encounter Details Date Type Department Care Team (Late st Contact Info) Description 11/29/2024 Telephone [facility] MEDICINE 230 [place], [place] [phone] Margret Ramsey MA chart prep Social History Tobacco Use Types Packs/Day Years [...] with others, in a hotel, in a halfway, living outside on the street, on a [...] AM EDT documented as of this encounter Miscellaneous Notes * Telephone Encounter - Margret Ramsey MA - 11/29/2024 12:48 PM EST Chart Prep Labs: done Images: done Vaccines due: yes Referrals: no show Screenings: none Overdue care gaps: none documented in this encounter Plan of Treatment Upcoming Encounters Date Type Department Care Team (Late st Contact Info) Description 01/04/2025 10:30 AM EDT Medication Management [facility] MEDICINE [address] [place] [address] Regan Morin, PharmD 230 [place] [address] 03/01/2025 2:00 PM EDT Office Visit [facility] OPTOMETRY [address] [place] [address] Alexa Petersen, OD 267 [place] [address] 03/07/2025 9:30 AM EDT Office Visit [facility] MEDICINE [address] [place] [address] Jocelyn Galdamez ANP [address] [place] [address] documented as of this encounter Goals Goal [...] documented as of this encounter Care Teams Milk Route Supervisor Relationship Specialty Start Date End Date Jocelyn Galdamez ANP [address] [place] [address] PCP - General Family Medicine 05/27/23 Regan Morin, KayleenD [address] [place] [address] Pharmacist Internal Medicine 09/14/24 documented as of this encounter
--- OUTSIDE RECORDS SUMMARY | 2024-12-09 12:12 | XMS_ITS | Encounter Summary ---
Author Organization [employer] Address [address] 7[address] [place] [address] Care Team Providers Care Embedded Software Development Engineer Name Role Phone Jocelyn Galdamez Primary Care Provider [phone] Regan Morin PharmD Unavailable [phone] Reason for Visit * Reason Onset Date Comments Care Coordination 11/02/2024 C3 initial a ssessment/ enrollment Encounter Details Date Type Department Care Team ([facility] Contact Info) Description 11/02/2024 Telephone [facility] MED & PEDS [address] [place], [place] [phone] Digna Haney RN [address] [place], [place] [phone] Care Coordination ([facility] initial assessment/ enrollment) Social History Tobacco Use Types Packs/Day Years [...] with others, in a hotel, in a fdc, living outside on the street, on a [...] encounter Miscellaneous Notes * Telephone Encounter - Digna Haney RN - 11/02/2024 12:09 PM EST MAX Haney RN placed outbound call to patient for agreed upon time for initial assessment for enrollment into Adult Care Management Program. Patient's name, , and address were verified. Pt is a 49 year old male with medical history significant for Type 2 DM, Seizure disorder, HTN, generalized anxiety disorder, H/O CVA. CM spoke with pt who states he has seen the medical information specialist within 12months. Pt states he has a crack in his teeth and that anytime that he goes to the dentist, his BP is high due to anxiety and is unable to get procedure done. Pt states he stays in the basement of a friend and will need assistance with housing. Pt states he feels safe at where he lives. According to pt, he has enough food to cover him for the month and has a form of transportation to his appointments. Also, he has a form of transportation to his medical appointments. Pt c/o chronic back pain and states he takes tramadol twice a day for the pain with good effect. Pt states he also uses a cane for severe back pain. Per pt, he eats regular diet and is nonadherence to diabetic diet. CM educatedpt on low carbohydrate, low sugar diet. Pt states he walks as a form of exercise and has lost over 20LBS. Pt states his HTN is well managed and that BP readings are always within normal. Pt states hechecks his BG three times a day and readings fluctuate from low to high. Pt states he sees his psych iatrist through [facility] and hasn't been seen for over 3 months. Pt states the psychiatrist office usually calls him with appt date and time. Pt advised to f/u with the office for appt date and time. Pt states he is on the waiting list for a therapist. Pt requested for CM to assisthim in finding a therapist. CM has sent a message to [facility] to f/u with pt and assist accordingly. Pt c/o depression and anxiety and that he takes medication for anxiety with somewhat effect. Pt states he has the number for crisis and contracted to safety. Pt denies SI/HI. Pt agreed to call the crisisline when needed. Pt denies drinking and smoking cigarette but reports smoking marijuana. Per pt, his sister is his HCP and is aware of his medical wish. Pt states he is compliant with his medicationand denies any side effect. Pt reports personal goal to obtain stable housing and also to find a therapist to assist with his mental health. CM plan is to educate pt on disease and management and assist pt with all the needed resources to improve his medical and mental health. CM plan is to remind pt of his medical appointments and also to review office visit with pt to ensure compliance. CM plan is to advocate for pt's medical needs. Care management program explained and contact information given. Patient verbalizes understanding, and able to repeat back to typewriter tester. A follow up call will be placed within 10 days, patient agrees with plan. MAX Haney RN, provided notification to PCP Jocelyn FLOYD of patient's enrollment into C3 Complex Care Program. MAX Haney RN, completed care plan and sent to HIM to be scanned into the medical record. PCP notified and awaiting review from provider. * Telephone Encounter - Digna Haney RN - 11/02/2024 10:47 AM EST CM spoke with pt who states he goes to the [facility] counseling center and has not see his psych provider in over 3 months. Pt states the office usually gives him a call with the next appt date but has not reach out to him. Pt agreed to give the office a call. Pt also states he is on waiting list for therapist and will like to know if [facility] can assist with getting a therapy/ can temporarily provide him with the therapy services for depression while on waiting list. Please f/u with pt. Thanks. documented in this encounter Plan of Treatment Upcoming Encounters Date Type Department Care Team (Late st Contact Info) Description 01/04/2025 10:30 AM EDT Medication Management [facility] MEDICINE 230 [place] [address] Regan Morin, PharmD 230 [place] [address] 03/01/2025 2:00 PM EDT Office Visit [facility] OPTOMETRY [address] [place] [address] Alexa Petersen, OD [address] [place] [address] 03/07/2025 9:30 AM EDT Office Visit [facility] MEDICINE [address] [place] [address] Jocelyn Galdamez, ANP [address] [place] [address] documented as of this encounter Goals Goal [...] documented as of this encounter Care Teams Embedded Software Development Engineer Relationship Specialty Start Date End Date Jocelyn Galdamez ANP [address] [place] [address] PCP - General Family Medicine 05/27/23 Regan Morin, Liz [address] [place] [address] Pharmacist Internal Medicine 09/14/24 documented as of this encounter
--- OUTSIDE RECORDS SUMMARY | 2024-12-09 12:12 | XMS_ITS | Encounter Summary ---
Author Organization [employer] Address [address] 7t [place] [address] Care Team Providers Care Bicycle Repairman Name Role Phone Jocelyn Galdamez Primary Care Provider [phone] Regan Morin PharmD Unavailable [phone] Encounter Details Date Type Department Care Team (Latest Contact Info) Description 12/05/2024 Travel Social History Tobacco Use Types Packs/Day [...] Description 01/04/2025 10:30 AM EDT Medication Management [facility] MEDICINE [address] [place] [address] Regan Morin, PharmD 230 [place] [address] 03/01/2025 2:00 PM EDT Office Visit [facility] OPTOMETRY [address] [place] [address] Alexa Petersen, OD [address] [place] [address] 03/07/2025 9:30 AM EDT Office Visit [facility] MEDICINE [address] [place] [address] Jocelyn Gladamez ANP [address] [place] [address] documented as of this encounter Goals Goal [...] documented as of this encounter Care Teams Bicycle Repairman Relationship Specialty Start Date End Date Jocelyn Galdamez ANP [address] [place] [address] PCP - General Family Medicine 05/27/23 Regan Morin PharmD [address] [place] [address] Pharmacist Internal Medicine 09/14/24 [facility] 12/05/24 documented as of this encounter
--- OUTSIDE RECORDS SUMMARY | 2024-12-09 12:12 | XMS_ITS | Encounter Summary ---
Author Organization [employer] Address [address] 7t [place] [address] Care Team Providers Care Oyster Picker Name Role Phone Jocelyn Galdamez Primary Care Provider [phone] Regan Morin PharmD Unavailable Reason for Referral * Consultation (Routine) - Authorized Specialty Diagnoses / Procedures Referred By Cali cuellar Referred To Contact Urology Diagnoses Vasculogenic erectile dysfunction, unspecified vasculogenic erectile dysfunction type Jocelyn Galdamez ANP 230 [place] [address] Phone: tel: fax: [facility] Referral ID Status Reason Start Date Expiration Date Visits Requested Visits Authorized [id number] Authorized Specialty Services Required 12/06/2024 12/06/2025 6 6 Reason for Visit * Reason Comments Nausea Encounter Details Date Type Department Care Team (Latest Contact Info) Description 12/05/2024 11:00 AM EST Telemedicine [facility] MEDICINE 230 [place] [address] Jocelyn Galdamez ANP [address] [place] [address] Type 2 diabetes mellitus with hyperlipidemia (CMS/HCC) (CMS/HCC) (Primary Dx); Vasculogenic erectile dysfunction, unspecified vasculogenic erectile dysfunction type; Dietary counseling; Exercise counseling Social History Tobacco Use Types Packs/Day Years [...] with others, in a hotel, in a [place] [facility], living outside on the street, on a [...] as of this encounter Progress Notes * MARIEL Arauz - 12/05/2024 11:00 AM EST Subjective Patient ID: Tre York is a 49 y.o. male who presents for Nausea. HPI Fasting BG 140 today. Has not yet picked up jardiance. Had ED visit last mo for nausea/vomiting/abdominal pain. Has not yet had repeat BMP to eval possible DENNYS. Feels better in this regard. Thinks was r/t ozempic use and declines to re-try GLP1. Last CDTM visit 11/21/24. A1c increased from previous. Metformin renally dose adj. Requests med for ED. Explained again strict contraindication w/ PDE5 and isosorbide. Pt declines rxfor vacuum erectile device. Will send to urology for consult on alternatives. Declines machine bobbin winder. Review of Systems Constitutional: Negative for chills and fever. HENT: Negative for sore throat. Respiratory: Negative for cough and shortness of breath. Cardiovascular: Negative for chest pain. Gastrointestinal: Negative for abdominal pain, constipation and diarrhea. Endocrine: Negative for polydipsia, polyphagia and polyuria. Genitourinary: Negative for dysuria. Objective Physical Exam Exam limited by telehealth format. Pt speaking clearly in complete sentences. Assessment/Plan Diagnoses and all orders for this visit: Type 2 diabetes mellitus with hyperlipidemia ([facility]) ([facility]) Lab Results Component Value Date HGBA1C 9.0 (A) 11/21/2024 HGBA1C 8.5 (A) 08/04/2024 HGBA1C 8.4 (A) 06/06/2024 From CDTM visit 11/21/24 A1c during today's visit was not at goal. CGM data limited, but AGP report shows the recent discontinuation of Ozempic has made a clear impact on hyperglycemia. Ozempic discontinued, discussed the benefits of GLP-1 agonist with patient. May consider trialing Mounjaro after symptoms resolve if patient agreeable. Patient would benefit from SGLT2 inhibitor, especially with prior history of CVA. Patient agrees tostart Jardiance 10 mg po daily. Metformin changed to ER 500 mg PO BID due to declining renal function. Pharmacist discussed patient's concerns with CGM sensors. Recommend patient consider continuation as the AGP report will be valuable for insulin titration. Patient agrees to try upgraded version of system, [email or web address] Karen 3 Plus. Prescriptions sent to [facility] pharmacy, if [place] required pharmacy will request from [facility] [place] specialists. Patient agrees to keep PCP visit in 2 weeks and CDTM visit in 6 weeks. Will consider insulin dose titration and dose increase of Jardiance to 25 mg po daily. Tre has not yet picked up jardiance from pharmacy - I asked him to please do so and I confirmed w/ pharmacy rx is ready. - Basic Metabolic Panel; Future Vasculogenic erectile dysfunction, unspecified vasculogenic erectile dysfunction type Explained again strict contraindication w/ PDE5 and isosorbide. Pt declines rx for vacuum erectile device. Will send to urology for consult on alternatives. Dietary counseling Exercise counseling documented in this encounter Plan of Treatment Upcoming Encounters Date Type Department Care Team (Late st Contact Info) Description 01/04/2025 10:30 AM EDT Medication Management [facility] MEDICINE [address] [place] [address] Regan Morin, PharmD [address] [place] [address] 03/01/2025 2:00 PM EDT Office Visit [facility] OPTOMETRY [address] [place] [address] Alexa Petersen, OD [address] [place] [address] 03/07/2025 9:30 AM EDT Office Visit [facility] MEDICINE [address] [place] [address] Jocelyn Galdamez ANP [address] [place] [address] Scheduled Orders Name Type Priority Associated Diagnoses Orde r Schedule Basic Metabolic Panel Lab Routine Type 2 diabetes mellitus with hyperlipidemia (CMS/HCC) ([facility]/HCC) Expected: 12/05/2024 (Approximate), Expires: 12/05/2025 Scheduled Referrals Name Type Priority Associated Diagnoses Orde r Schedule Referral to Urology Outpatient Referral Routine Vasculogenic erectile dysfunction, unspecified vasculogenic erectile dysfunction type Expected: 12/05/2024 (Approximate), Expires: 12/05/2025 documented as of this encounter Goals Goal Patient Goal Type Associated Problems Recent Progress Patient-Stated? Author Blood Pressure < 140/90 Blood Pressure 132/88(2024 10:12 AM EST) No Ken Khanna Hemoglobin A1c < 7 Result Component 9(11/21/2024 10:09 AM EST) No Ken Khanna documented as of this encounter Visit Diagnoses Diagnosis Type 2 diabetes mellitus with hyperlipidemia ([facility]/HCC) ([facility])- Primary Vasculogenic erectile dysfunction, unspecified vasculogenic erectile dysfunction type Dietary counseling Dietary surveillance and counseling Exercise counseling documented in this encounter Additional Health Concerns Assessment Noted Time PHQ-9 Depression Total Score: 4 03/11/20 24 1:09 PM EDT documented as of this encounter Care Teams Oyster Picker Relationship Specialty Start Date End Date Jocelyn Galdamez ANP [address] [place] [address] PCP - General Family Medicine 05/27/23 Regan Morin, KayleenD [address] [place] [address] Pharmacist Internal Medicine 09/14/24 [facility] 12/05/24 documented as of this encounter
--- OUTSIDE RECORDS SUMMARY | 2024-12-09 12:12 | XMS_ITS | Encounter Summary ---
Author Organization [employer] Address [address] [facility] 7t [place] [address] Care Team Providers Care Licensed Vocational Nurse Name Role Phone Jocelyn Galdamez Primary Care Provider [phone] Regan Morin PharmD Unavailable [phone] Reason for Visit * Reason Comments Med Refill Encounter Details Date Type Department Care Team (Late st Contact Info) Description 12/09/2024 Refill [facility] MED & PEDS [address] [place], [place] [phone] Jocelyn Galdamez ANP [address] [place] [address] Social History Tobacco Use Types Packs/Day Years [...] with others, in a hotel, in a usp, living outside on the street, on a [...] Description 01/04/2025 10:30 AM EDT Medication Management [facility] MEDICINE [address] [place] [address] Regan Morin, PharmD 230 [place] [address] 03/01/2025 2:00 PM EDT Office Visit [facility] OPTOMETRY [address] [place] [address] Alexa Petersen, OD [address] [place] [address] 03/07/2025 9:30 AM EDT Office Visit [facility] MEDICINE [address] [place] [address] Jocelyn Galdamez, ANP [address] [place] [address] documented as of this encounter Goals Goal [...] documented as of this encounter Care Teams Licensed Vocational Nurse Relationship Specialty Start Date End Date Jocelyn Galdamez ANP [address] [place] [address] PCP - General Family Medicine 05/27/23 Regan Morin, KayleenD [address] [place] [address] Pharmacist Internal Medicine 09/14/24 [facility] 12/05/24 documented as of this encounter
--- OUTSIDE RECORDS SUMMARY | 2024-12-09 12:12 | XMS_ITS | Encounter Summary ---
Author Organization [employer] Address [address] 7t [place] [address] Care Team Providers Care Care Attendant Name Role Phone Jocelyn Galdamez Primary Care Provider [phone] Regan Morin PharmD Unavailable [phone] Reason for Visit * Reason Comments Med Refill Encounter Details Date Type Department Care Team (Late st Contact Info) Description 11/30/2024 Refill [facility] MEDICINE 230 [place], [place] [phone] Jocelyn Galdamez ANP [address] [place] [address] Moderate persistent asthma without complication Social History Tobacco Use Types Packs/Day Years [...] with others, in a hotel, in a skilled nursing, living outside on the street, on a [...] Description 01/04/2025 10:30 AM EDT Medication Management [facility] MEDICINE [address] [place] [address] Regan Morin, PharmD [address] [place] [address] 03/01/2025 2:00 PM EDT Office Visit [facility] OPTOMETRY [address] [place] [address] Alexa Petersen, OD [address] [place] [address] 03/07/2025 9:30 AM EDT Office Visit [facility] MEDICINE [address] [place] [address] Jocelyn Galdamez, ANP [address] [place] [address] documented as of this encounter Goals Goal Patient Goal Type Associated Problems Recent Progress Patient-Stated? Author Blood Pressure < 140/90 Blood Pressure 132/88(2024 10:12 AM EST) No Ken Khanna Hemoglobin A1c < 7 Result Component 9(11/21/2024 10:09 AM EST) No Ken Khanna documented as of this encounter Visit Diagnoses Diagnosis Moderate persistent asthma without complication documented in this encounter Additional Health Concerns Assessment Noted Time PHQ-9 Depression Total Score: 4 03/11/20 24 1:09 PM EDT documented as of this encounter Care Teams Care Attendant Relationship Specialty Start Date End Date Jocelyn Galdamez, ANP [address] [place] [address] PCP - General Family Medicine 05/27/23 Regan Morin, Liz [address] [place] [address] Pharmacist Internal Medicine 09/14/24 documented as of this encounter
[2024-12-09 13:32] LABS: Appearance Urine Turbid; Color Urine Yellow; Glucose Urine UA 100 mg/dL (Negative); Leukocyte Esterase Urine Negative (Negative); Nitrite Urine Negative (Negative); PH 5.5 (5.0-9.0); UMIC TRIGGER UA YES; Urine Blood Negative (Negative); Urine Ketones Negative (Negative); Urine Protein 30 (1+) mg/dL (Neg-Trace)
[2024-12-09 13:35] LABS: Bacteria Urine None Seen (None Seen); Hyaline Casts Urine 0-2 /LPF (0-2); RBC Urine 0-2 /HPF (0-2); Squamous Epithelial Cell Urine 0-2 /HPF (0-2); WBC Urine 0-5 /HPF (0-5)
[2024-12-09 14:36] LABS: Anion Gap 12 (12-20); Blood Urea Nitrogen 26 mg/dL (9-16); Calcium 9.9 mg/dL (8.4-10.2); Carbon Dioxide 27 mmol/L (22-29); Chloride 105 mmol/L (96-108); Estimated Glomerular Filt Rate 49; Glucose Random 236 mg/dL (60-115); Potassium 4.5 mmol/L (3.3-5.1); Sodium 139 mmol/L (135-145)
== END 2024-12-09 10:41 | disposition home or self-care (01) ==
LOC: HO.HHCL 10:40
PROVIDERS: Visit Provider Internal Medicine Hypertension Specialist
DX: N18.9 Chronic kidney disease, unspecified (principal)
CPT/HCPCS: 36415; 80048; 81001

== ENCOUNTER 2025-01-06 17:50 | Emergency (ER) | payer MEDICAID, SELFPAY ==
[2025-01-06 18:03] VITALS: BP 150/51; PULSE 86; RESP 18; TEMP 36.1; O2SAT 95; BMI 40.0
--- NOTE | 2025-01-06 18:05 | ED_ITS ---
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 Patient reports he was cutting a sandwich late last night He reports that he sliced part of his finger off. He states he went to a different hospital in [place] and ?they did not do anything for me, I sat in the waiting room for hours and left at 4:00 a.m.. The patient reports the area has continued to bleed. He does not know in his last tetanus shot was He takes aspirin daily but is not on any anticoagulation Related Data Home Medications ?Medication ?Instructions ?Recorded ?Confirmed alogliptin 25 mg tablet (Nesina) 25 mg PO DAILY 10/21/23 10/03/24 atorvastatin 80 mg tablet 80 mg PO QAM 10/21/23 10/03/24 carvedilol 25 mg tablet 25 mg PO 10/21/23 10/03/24 chlorthalidone 25 mg tablet 25 mg PO QAM 11/27/23 10/03/24 dulaglutide 0.75 mg/0.5 mL mg subcut QWEEK 11/27/23 10/03/24 subcutaneous pen injector (Trulicity) insulin lispro 100 unit/mL subcut 11/27/23 10/03/24 subcutaneous pen tramadol 50 mg tablet 50 mg PO DAILY PRN 09/28/24 10/03/24 semaglutide 1 mg/dose (4 mg/3 mL) 1 mg subcut QWEEK 10/03/24 10/03/24 subcutaneous pen injector (Ozempic) Previous Rx's ?Medication ?Instructions ?Recorded albuterol sulfate 90 mcg/actuation 2 puff inhalation Q4-6H PRN 05/07/23 aerosol inhaler shortness of breath or wheezing #8.5 grams aspirin 81 mg tablet,delayed 81 mg PO DAILY #30 tabs 05/07/23 release fluticasone furoate 200 1 inh inhalation DAILY #60 ea 05/07/23 mcg-vilanterol 25 mcg/dose inhalation powder (Breo Ellipta) hydroxyzine HCl 25 mg tablet 25 mg PO TID PRN anxiety #30 tabs 05/07/23 isosorbide mononitrate 60 mg 60 mg PO DAILY #30 tabs 05/07/23 tablet,extended release 24 hr lisinopril 40 mg tablet 40 mg PO DAILY #30 tabs 05/07/23 melatonin 5 mg tablet 5 mg PO BEDTIME PRN sleep #30 tabs 05/07/23 metformin 1,000 mg tablet 1,000 mg PO BID #60 tabs 05/07/23 omeprazole 40 mg capsule,delayed 40 mg PO DAILY #30 caps 05/07/23 release phenytoin sodium extended 100 mg 100 mg PO BID #60 caps 05/07/23 capsule quetiapine 50 mg tablet 50 mg PO TID #90 tabs 05/07/23 acetaminophen 500 mg tablet 500 mg PO QID PRN fever or pain 05/04/24 #20 tabs gabapentin 300 mg capsule 300 mg PO TID 30 days #90 caps 08/25/24 cephalexin 500 mg tablet 500 mg PO Q8H #15 tabs 01/06/25 Allergies Allergy/AdvReac Type Severity Reaction Status Date / Time No Known Allergies Allergy Verified 01/06/25 18:08 Review of Systems 2 Constitutional: Constitutional: Denies body ache(s), Denies chills, Denies fever(s) and Denies headache(s) ENT: Denies headache(s) Cardiovascular: Cardiovascular: Denies chest pain and Denies dyspnea Respiratory: Respiratory: Denies cough and Denies dyspnea Gastrointestinal: Gastrointestinal: Denies abdominal pain Integumentary/Breasts: Skin/Breast: Reports wounds Neurologic: Denies headache(s) [facility] Past Medical History Medical History Seizure disorder Moderate episode of recurrent major depressive disorder Cannabis use disorder Generalized anxiety disorder GERD (gastroesophageal reflux disease) Stroke COPD (chronic obstructive pulmonary disease) Hyperlipidemia, unspecified Essential hypertension Type 2 diabetes mellitus with unspecified complications Morbid obesity Surgical History No pertinent past surgical history Family History Family History Mother No problems noted. Paternal Grandfather Heart problem Father No problems noted. Social History Social History Alcohol intake: former Patient Tobacco Use Status: Former Tobacco user Substance Use Type: Marijuana Advance Directives: No Advance Directives Information Provided: No Current occupational status: unemployed Current occupation: right hand dominant Physical Exam ED Vital Signs: Vital Signs - 24 hr 01/06/25 18:03 01/06/25 19:27 Temperature 97.0 F 97.0 F Pulse Rate 86 86 Respiratory Rate 18 18 Blood Pressure 150/51 H 150/51 H Pulse Oximetry 95 95 Oxygen Delivery Method Room Air Room Air BMI result Body Mass Index 40.0 Skin Other: Patient has a 1 x 2 cm avulsion like laceration to the radial side of the left index finger at the D IP joint. It is still oozing bright red blood at the distal part of the wound Medications Administered Discontinued Medications Generic Name Dose Route Start Last Admin Trade Name Freq PRN Reason Stop Dose Admin Diphtheria/Tetanus/Acell Pertussis 0.5 ml 01/06/25 18:52 01/06/25 19:19 Diphth,Pertus(Acell),Tet Adult 0.5 Ml Syringe IM 01/06/25 18:53 0.5 ml .ONCE ONE Administration Lidocaine/Epinephrine 10 ml 01/06/25 18:35 01/06/25 18:52 Lidocaine Hcl 1%/Epi 1:100,000 10 Ml Vial INFILTRATI 01/06/25 18:36 10 ml ONCE ONE Administration Medical Decision Making Medical Decision Making MDM Narrative: 49-year-old male presents for evaluation of an avulsion laceration. This happened although longer 24 hours ago. He cleaned it himself. We cleaned the area again with saline and providine. I was able to achieve hemostasis by having him hold pressure with Surgicel for about 10 minutes and then applying lidocaine with epinephrine over the top of the wound. I did not actually inject any of the lidocaine with epinephrine, but it appeared to work well as the bleeding subsided. By then used Exofin skin glue to seal the wound and there was no bleeding underneath the glue. Patient's tetanus was updated Differential Diagnosis Differential Diagnoses: The differential diagnosis associated with the presentation includes Laceration Skin avulsion Puncture wound Discharge Plan Discharge Clinical Impression: Avulsion of skin of index finger Patient Disposition: Home, Self-Care Instructions: Finger Laceration (ED) Additional Instructions: Your laceration was cleaned and then closed with skin glue. The glue will dissolve on its own in about 1 week Keep the area clean and dry until tomorrow Your tetanus was updated today. I recommend that you take cephalexin 3 times daily for the next 5 days to prevent infection Follow-up with your primary doctor, return for new or worsening symptoms Prescriptions: New cephalexin 500 mg tablet 500 mg PO Q8H Qty: 15 0RF No Action gabapentin 300 mg capsule 300 mg PO TID 30 Days Qty: 90 1RF metformin 1,000 mg tablet 1,000 mg PO BID Qty: 60 0RF fluticasone furoate-vilanterol [Breo Ellipta] 200-25 mcg/dose blister with device 1 inh inhalation DAILY Qty: 60 0RF albuterol sulfate 90 mcg/actuation HFA aerosol inhaler 2 puff inhalation Q4-6H PRN (Reason: shortness of breath or wheezing) Qty: 8.5 0RF hydroxyzine HCl 25 mg tablet 25 mg PO TID PRN (Reason: anxiety) Qty: 30 0RF isosorbide mononitrate 60 mg tablet extended release 24 hr 60 mg PO DAILY Qty: 30 0RF lisinopril 40 mg tablet 40 mg PO DAILY Qty: 30 0RF melatonin 5 mg tablet 5 mg PO BEDTIME PRN (Reason: sleep) Qty: 30 0RF omeprazole 40 mg capsule,delayed release(DR/EC) 40 mg PO DAILY Qty: 30 0RF phenytoin sodium extended 100 mg capsule 100 mg PO BID Qty: 60 0RF aspirin 81 mg tablet,delayed release (DR/EC) 81 mg PO DAILY Qty: 30 0RF quetiapine 50 mg tablet 50 mg PO TID Qty: 90 0RF acetaminophen 500 mg tablet 500 mg PO QID PRN (Reason: fever or pain) Qty: 20 0RF Trulicity 0.75 mg/0.5 mL pen injector subcut QWEEK insulin lispro 100 unit/mL insulin pen subcut chlorthalidone 25 mg tablet 25 mg PO QAM tramadol 50 mg tablet 50 mg PO DAILY PRN alogliptin [Nesina] 25 mg tablet 25 mg PO DAILY carvedilol 25 mg tablet 25 mg PO atorvastatin 80 mg tablet 80 mg PO QAM Ozempic 1 mg/dose (4 mg/3 mL) pen injector 1 mg subcut QWEEK Stand Alone Forms: Work/School Release Interventions: ED Discharge Assessment Last Done: 01/06/25 19:27 Discharge Date/Time: 01/06/25 19:28 Print Language: Chinese
[2025-01-06] MEDS: Lidocaine HCl 1%/Epi 1:100,000 10 ML VIAL INFILTRATI (18:52)
[2025-01-06] MEDS: Diphth,Pertus(ACell),Tet Adult 0.5 ML SYRINGE IM (19:19)
[2025-01-06 19:27] VITALS: BP 150/51; PULSE 86; RESP 18; TEMP 36.1; O2SAT 95
== END 2025-01-06 19:28 | disposition home or self-care (01) ==
PROVIDERS: Emergency Provider Emergency Medicine; PCP Nurse Practitioner Primary Care
DX: S61.211A Laceration without foreign body of left index finger without damage to nail, initial encounter (principal); W26.0XXA Contact with knife, initial encounter; Y93.G1 Activity, food preparation and clean up; Y92.030 Kitchen in apartment as the place of occurrence of the external cause; Y99.9 Unspecified external cause status; Z23 Encounter for immunization
CPT/HCPCS: 12001; 90471; 90715; 99282; 99284; J2004

== ENCOUNTER 2025-01-08 11:47 | Emergency (ER) | payer MEDICAID, SELFPAY ==
--- NOTE | 2025-01-08 11:52 | ED_ITS ---
HPI - Extremity Injury (Upper) General Stated Complaint: Left index finger inj Time Seen by Provider: 01/08/25 11:51 Source: patient Mode of arrival: ambulatory Limitations: language barrier ( [place]an-speaking ui developer designer utilized) History of Present Illness ED Provider: Sonam Soto NP HPI narrative: patient is a 49-year-old male who presents emergency department for evaluation. He states he was seen here 2 days ago after accidentally cutting the side of his finger. The area was repaired with skin glue. He states that yesterday he noticed redness to the finger but this has resolved today. He has been taking his antibiotics as prescribed. This morning he noticed a small drop of clear drainage around the border of the skin glue which prompted his concern for re-evaluation Related Data Home Medications ?Medication ?Instructions ?Recorded ?Confirmed alogliptin 25 mg tablet (Nesina) 25 mg PO DAILY 10/21/23 10/03/24 atorvastatin 80 mg tablet 80 mg PO QAM 10/21/23 10/03/24 carvedilol 25 mg tablet 25 mg PO 10/21/23 10/03/24 chlorthalidone 25 mg tablet 25 mg PO QAM 11/27/23 10/03/24 dulaglutide 0.75 mg/0.5 mL mg subcut QWEEK 11/27/23 10/03/24 subcutaneous pen injector (Trulicity) insulin lispro 100 unit/mL subcut 11/27/23 10/03/24 subcutaneous pen tramadol 50 mg tablet 50 mg PO DAILY PRN 09/28/24 10/03/24 semaglutide 1 mg/dose (4 mg/3 mL) 1 mg subcut QWEEK 10/03/24 10/03/24 subcutaneous pen injector (Ozempic) Previous Rx's ?Medication ?Instructions ?Recorded albuterol sulfate 90 mcg/actuation 2 puff inhalation Q4-6H PRN 05/07/23 aerosol inhaler shortness of breath or wheezing #8.5 grams aspirin 81 mg tablet,delayed 81 mg PO DAILY #30 tabs 05/07/23 release fluticasone furoate 200 1 inh inhalation DAILY #60 ea 05/07/23 mcg-vilanterol 25 mcg/dose inhalation powder (Breo Ellipta) hydroxyzine HCl 25 mg tablet 25 mg PO TID PRN anxiety #30 tabs 05/07/23 isosorbide mononitrate 60 mg 60 mg PO DAILY #30 tabs 05/07/23 tablet,extended release 24 hr lisinopril 40 mg tablet 40 mg PO DAILY #30 tabs 05/07/23 melatonin 5 mg tablet 5 mg PO BEDTIME PRN sleep #30 tabs 05/07/23 metformin 1,000 mg tablet 1,000 mg PO BID #60 tabs 05/07/23 omeprazole 40 mg capsule,delayed 40 mg PO DAILY #30 caps 05/07/23 release phenytoin sodium extended 100 mg 100 mg PO BID #60 caps 05/07/23 capsule quetiapine 50 mg tablet 50 mg PO TID #90 tabs 05/07/23 acetaminophen 500 mg tablet 500 mg PO QID PRN fever or pain 05/04/24 #20 tabs gabapentin 300 mg capsule 300 mg PO TID 30 days #90 caps 08/25/24 cephalexin 500 mg tablet 500 mg PO Q8H #15 tabs 01/06/25 Allergies Allergy/AdvReac Type Severity Reaction Status Date / Time No Known Allergies Allergy Verified 01/08/25 11:57 Review of Systems Review of Systems: Yes all other systems are reviewed and are negative [facility] Past Medical History Attestation statement: The following information was validated with the patient. Source: old records reviewed Medical History Seizure disorder Moderate episode of recurrent major depressive disorder Cannabis use disorder Generalized anxiety disorder GERD (gastroesophageal reflux disease) Stroke COPD (chronic obstructive pulmonary disease) Hyperlipidemia, unspecified Essential hypertension Type 2 diabetes mellitus with unspecified complications Morbid obesity Surgical History No pertinent past surgical history Family History Family History Mother No problems noted. Paternal Grandfather Heart problem Father No problems noted. Social History Social History Alcohol intake: former Patient Tobacco Use Status: Former Tobacco user Substance Use Type: Marijuana Current occupational status: unemployed Current occupation: right hand dominant Physical Exam Vital Signs: Appearance: Alert.?Oriented to person, place and time. No acute distress.?Normal affect. CVS: Heart sounds normal. Normal heart rate and rhythm.? Pulses normal.?? Respiratory: No respiratory distress.? Lung sounds clear to auscultation bilaterally?? Skin: Skin warm and dry.? Normal skin color.? left 2nd digit along the radial aspect with skin adhesive present, there is no active drainage, no surrounding erythema, warmth, or decreased AROM to the PIP or MCP Neuro: Moves all extremities spontaneously. Sensation intact bilaterally. Ambulates with normal steady gait. Medical Decision Making Medical Decision Making MDM Narrative: patient is a 41-year-old male who presents emergency department for re- evaluation of avulsion to the left index finger along the radial aspect. The skin adhesive is intact and dry. There is no active drainage. There is no surrounding erythema or warmth. no surrounding fluctuance to the wound. There is full range of motion to the PIP and MCP, decreased AROM to DIP by patient's account has been present since the initial injury. He has been taking his antibiotics as prescribed. No signs of systemic illness. At this time feel it is awoke with that he continue taking antibiotics as previously prescribed, advised of signs and symptoms that would warrant re-evaluation and outpatient follow-up with PCP. All questions answered Differential Diagnosis Differential Diagnoses: The differential diagnosis associated with the presentation includes ( avulsion, cellulitis, abscess) Admission/Observation Consideration of admission/observation: Escalation of care including admission/observation considered External Record Review External record reviewed: Outpatient record Prescription Management I considered prescription management with: Antibiotic Chronic Conditions Patient?s care impacted by: Other (see [facility]) Discharge Plan Discharge Clinical Impression: Avulsion of skin of index finger Patient Disposition: Home, Self-Care Additional Instructions: as discussed, it is important to continue taking the antibiotics as you have been prescribed. There is no need to pick at or attempt to remove the glue as this will dissolve on its own as previously advised. You may keep a bandage over the area. Seek re-evaluation for increased pain, swelling, redness, pus- like drainage, fevers, chills Prescriptions: No Action gabapentin 300 mg capsule 300 mg PO TID 30 Days Qty: 90 1RF metformin 1,000 mg tablet 1,000 mg PO BID Qty: 60 0RF fluticasone furoate-vilanterol [Breo Ellipta] 200-25 mcg/dose blister with device 1 inh inhalation DAILY Qty: 60 0RF albuterol sulfate 90 mcg/actuation HFA aerosol inhaler 2 puff inhalation Q4-6H PRN (Reason: shortness of breath or wheezing) Qty: 8.5 0RF hydroxyzine HCl 25 mg tablet 25 mg PO TID PRN (Reason: anxiety) Qty: 30 0RF isosorbide mononitrate 60 mg tablet extended release 24 hr 60 mg PO DAILY Qty: 30 0RF lisinopril 40 mg tablet 40 mg PO DAILY Qty: 30 0RF melatonin 5 mg tablet 5 mg PO BEDTIME PRN (Reason: sleep) Qty: 30 0RF omeprazole 40 mg capsule,delayed release(DR/EC) 40 mg PO DAILY Qty: 30 0RF phenytoin sodium extended 100 mg capsule 100 mg PO BID Qty: 60 0RF aspirin 81 mg tablet,delayed release (DR/EC) 81 mg PO DAILY Qty: 30 0RF quetiapine 50 mg tablet 50 mg PO TID Qty: 90 0RF acetaminophen 500 mg tablet 500 mg PO QID PRN (Reason: fever or pain) Qty: 20 0RF cephalexin 500 mg tablet 500 mg PO Q8H Qty: 15 0RF Trulicity 0.75 mg/0.5 mL pen injector subcut QWEEK insulin lispro 100 unit/mL insulin pen subcut chlorthalidone 25 mg tablet 25 mg PO QAM tramadol 50 mg tablet 50 mg PO DAILY PRN alogliptin [Nesina] 25 mg tablet 25 mg PO DAILY carvedilol 25 mg tablet 25 mg PO atorvastatin 80 mg tablet 80 mg PO QAM Ozempic 1 mg/dose (4 mg/3 mL) pen injector 1 mg subcut QWEEK Referrals: Jocelyn Galdamez, CONSTRUCTION PLANT OPERATOR [Primary Care Provider] - Print Language: [place]
[2025-01-08 11:56] VITALS: BP 170/94; PULSE 75; RESP 18; TEMP 36.4; O2SAT 98; BMI 35.9
[2025-01-08 12:29] VITALS: BP 170/94; PULSE 75; RESP 18; TEMP 36.4; O2SAT 98
== END 2025-01-08 12:33 | disposition home or self-care (01) ==
PROVIDERS: Emergency Provider Internal Medicine; PCP Nurse Practitioner Primary Care
DX: S61.211A Laceration without foreign body of left index finger without damage to nail, initial encounter (principal); W26.9XXA Contact with unspecified sharp object(s), initial encounter; Y93.9 Activity, unspecified; Y92.9 Unspecified place or not applicable; Y99.9 Unspecified external cause status
CPT/HCPCS: 99282; 99283

== ENCOUNTER 2025-01-31 13:31 | Outpatient (AMB) | payer MEDICAID, SELFPAY ==
--- NOTE | 2025-01-31 14:04 | A.OFFVIS_ITS ---
Intake Visit Reasons: erectile dysfunction Intake Note: New Patient presents for initial visit for erectile dysfunction Urology Medications: none Blood Thinner: aspirin Regasification Plant Operator Required: Yes Regasification Plant Operator Services: Regasification Plant Operator Present Regasification Plant Operator Name: Quan [id number] Accompanied by: Self / Same As Patient Allergies No Known Allergies Allergy (Verified 01/31/25 14:35) Medication List - Last Reconciled 01/31/25 by ALEJO Chávez acetaminophen 500 mg PO QID PRN albuterol sulfate 90 mcg/actuation 2 puffs inhalation Q4-6H PRN alogliptin (Nesina) 25 mg PO DAILY aspirin 81 mg PO DAILY atorvastatin 80 mg PO QAM carvedilol 25 mg PO cephalexin 500 mg PO Q8H chlorthalidone 25 mg PO QAM dulaglutide (Trulicity) mg subcut QWEEK fluticasone furoate-vilanterol 200-25 mcg/dose (Breo Ellipta) 1 inh inhalation DAILY gabapentin 300 mg PO TID 30 days hydroxyzine HCl 25 mg PO TID PRN insulin lispro subcut isosorbide mononitrate ER 60 mg PO DAILY lisinopril 40 mg PO DAILY melatonin 5 mg PO BEDTIME PRN metformin 1,000 mg PO BID omeprazole 40 mg PO DAILY phenytoin sodium extended 100 mg PO BID quetiapine 50 mg PO TID semaglutide (Ozempic) 1 mg subcut QWEEK tramadol 50 mg PO DAILY PRN HPI Comments Details: Tre is a 49-year-old Jordanian-speaking male patient of Dr. Galdamez. He has a past medical history of seizure disorder, depression, cannabis use, anxiety, GERD, stroke, COPD, hyperlipidemia, hypertension, type 2 diabetes, and obesity. He presents to the office today as a new patient for erectile dysfunction. In discussion with the patient today he reports symptoms have been present for a few years. When asked he does report to being able to obtain erections however feels maintaining erections can be difficult. He otherwise denies any bothersome urinary issues. He denies urinary urgency, urinary frequency, incontinence, nocturia, hematuria, dysuria, foul smelling urine, changes to urinary stream, flank pain, fever, and or chills. He is happy with his current voiding parameters. When asked he denies any previous trauma. We discussed at length potential causes of erectile dysfunction as well as further treatment options and risks and benefits of these treatment options. We also discussed importance of lifestyle modifications to assist with erectile dysfunction as well as overall health and well-being. In office urinalysis results reviewed with the patient today. In review of patient's chart it appears last A1c 04/04 9.1. We discussed at length affects of diabetes in relation to erectile dysfunction as well as overall health and well-being. We also discussed recreational drug use in relation to erectile dysfunction as well as overall health and well-being. He otherwise offers no other issues or concerns at this time. [facility] Medical History Seizure disorder Moderate episode of recurrent major depressive disorder Cannabis use disorder Generalized anxiety disorder GERD (gastroesophageal reflux disease) Stroke COPD (chronic obstructive pulmonary disease) Hyperlipidemia, unspecified Essential hypertension Type 2 diabetes mellitus with unspecified complications Morbid obesity Surgical History No pertinent past surgical history Family History Mother No problems noted. Paternal Grandfather Heart problem Father No problems noted. Social History Alcohol intake: former Patient Tobacco Use Status: Former Tobacco user Substance Use Type: Marijuana Current occupational status: unemployed Current occupation: right hand dominant Review of Systems Const Reports no additional complaints Eyes Reports no additional complaints ENT Reports no additional complaints Card Reports as per HPI Resp Reports no additional complaints GI Reports no additional complaints Reports as per HPI Musc Reports no additional complaints Neuro Reports as per HPI Psych Reports as per HPI Endo Reports as per HPI Vahid/Lymph Reports no additional complaints Aller/Immun Reports no additional complaints Physical Exam Const General: cooperative, healthy appearing, comfortable, no acute distress, well developed, alert and awake Nutritional Appearance: overweight Orientation/consciousness: patient oriented x3 Limitations: language barrier HEENT Head: Yes normal to inspection, Yes normocephalic and Yes atraumatic Ears: hearing grossly normal bilaterally Eyes General: appearance normal, both eyes and all related structures Neck Neck: Yes normal visual inspection and Yes trachea midline Chest Chest palpation & inspection: normal inspection of the chest Resp Effort & Inspection: normal respiratory effort and able to speak in complete sentences Cardio Rate: regular rate GI Inspection: Yes normal to inspection General: Yes no CVA tenderness Back/Spine/Pelvis Back: no CVA tenderness Skin General skin exam: no rashes or lesions noted Neuro General: patient oriented x3 Extrem General: Yes normal to inspection Psych Appearance: grossly normal and well kempt Mental Status: mental status grossly normal Speech and movement: Normal speech and movement present and Clear speech present Affect: normal affect Attitude: cooperative Thought process: Normal thought process present Thought content: Normal thought content present Insight: Fair insight present (Psych) Judgement: Fair judgement present (Psych) Results AMB Urinalysis, Automated UA Leukoctes 0 Tracey/uL Last Edit by [employer] on 01/31/25 15:48 UA Nitrite Negative Last Edit by [employer] on 01/31/25 15:48 UA Urobilinogen 0.2 mg/dL Last Edit by [employer] on 01/31/25 15:48 UA Protein 0 mg/dL Last Edit by [employer] on 01/31/25 15:48 UA pH 5.5 Last Edit by [employer] on 01/31/25 15:48 UA Blood 0 Sincere/uL Last Edit by [employer] on 01/31/25 15:48 UA Specific [place] 1.015 Last Edit by [employer] on 01/31/25 15:48 UA Ketone Negative Last Edit by [employer] on 01/31/25 15:48 UA Bilirubin 0 mg/dL Last Edit by [employer] on 01/31/25 15:48 UA Glucose 1000 mg/dL Last Edit by [employer] on 01/31/25 15:48 Results Reviewed Results Reviewed: Laboratory Last Values Urine pH (Auto) 5.5 01/31/25 15:47 Specific Woodland (Auto) 1.015 01/31/25 15:47 Urine Protein (Auto) 0 mg/dL 01/31/25 15:47 Glucose (UA)(Auto) 1000 mg/dL 01/31/25 15:47 Urine Ketones (Auto) Negative 01/31/25 15:47 Urine Blood (Auto) 0 Sincere/uL 01/31/25 15:47 Urine Nitrite (Auto) Negative 01/31/25 15:47 Urine Bilirubin (Auto) 0 mg/dL 01/31/25 15:47 Urine Urobilinogen (Auto) 0.2 mg/dL 01/31/25 15:47 Leukocyte Esterase (Auto) 0 Tracey/uL 01/31/25 15:47 Assessment & Plan Assessment & Plan (1) Erectile dysfunction associated with type 2 diabetes mellitus: Code(s): E11.69 - Type 2 diabetes mellitus with other specified complication; N52.1 - Erectile dysfunction due to diseases classified elsewhere Category: Medical Plan In office urinalysis results reviewed with the patient today; as noted above. He currently denies any bothersome urinary issues or concerns. He reports be happy with current voiding parameters. We discussed at length potential causes of erectile dysfunction as well as further treatment options and risks and benefits of these treatment options. We discussed lifestyle modifications to assist with erectile dysfunction and i mportance in doing so. Will obtain PSA, hemoglobin A1c, and testosterone free and total. Start low-dose Cialis as discussed and prescribed. Follow-up in 3 months with labs to be completed prior; or sooner with any issues, concerns, and or questions. Orders: Orders PSA,Total (Free>4and<10) 3 Months E11.69 - Type 2 diabetes mellitus with other specified complication, N52.1 - Erectile dysfunction due to diseases classified elsewhere Hemoglobin A1c Today E11.69 - Type 2 diabetes mellitus with other specified complication, N52.1 - Erectile dysfunction due to diseases classified elsewhere Testosterone, Free/Total 3 Months E11.69 - Type 2 diabetes mellitus with other specified complication, N52.1 - Erectile dysfunction due to diseases classified elsewhere AMB Urinalysis Automated Today Z13.9 - Encounter for screening, unspecified Medications: New tadalafil (Cialis) [id number] [facility] [id number] Member [id number] 5 mg PO DAILY 90 tabs 0RF 90 days Discontinued cephalexin Discontinued Reason: Patient Completed Course 500 mg PO Q8H 15 tabs 0RF Patient Instructions: The patient had an opportunity to ask questions regarding the treatment plan. All questions were answered. Physical exam, labs, and imaging were discussed and reviewed in detail. As well as risks, benefits, and discussion of treatment choices. No major barriers to understanding were identified. The patient expressed understanding and agreement with the above treatment plan. The patient was made aware they should contact our office by phone for worsening of their current condition, the appearance of new symptoms, or with any questions or concerns. Compliance is encouraged with any medications and follow up testing that is ordered. It is a privilege to be allowed the opportunity to participate in? your urological care.? Again, if you have any questions or concerns If you have any questions or concerns please do not hesitate to contact me. The office is [phone]. This note is constructed using voice recognition software. While every effort has been made to ensure accuracy costing analyst errors may have been included. Yours sincerely, ALEJO Chávez Coding Level of Care Code New Pt Level 4 (24192) Diagnoses Erectile dysfunction associated with type 2 diabetes mellitus E11.69; N52.1
--- OUTSIDE RECORDS SUMMARY | 2025-01-31 16:00 | XMS_ITS | Encounter Summary ---
Author Organization [employer] Address [address] [facility] [place] [address] Care Team Providers Care House Admin Name Role Phone Jocelyn Galdamez Primary Care Provider [phone] Regan Morin PharmD Unavailable [phone] Reason for Visit * Reason Comments Care Coordination C3CM initial assessm ent Encounter Details Date Type Department Care Team (Latest Contact Info) Description 01/25/2025 Patient Outreach [facility] [address] [place], [place] [phone] Jocelyn Galdamez ANP [address] [place] [address] Care Coordination (C3CM initial assessment) Social History Tobacco Use Types Packs/Day Years Used Date Smoking Tobacco: Former Cigarettes 0 03/1990 - 03/2023 Passive Smoke Exposure: Never Smokeless Tobacco: Never Alcohol Use Standard Drinks/Week Comments Not Currently 0 (1 standard drink = 0.6 oz pur e alcohol) Depression Answer Date Recorded Patient Health Questionnaire-9 Score 7 01/25/2025 Patient Health Questionnaire-9 Score 7 01/25/2025 Last PHQ-9: Questionnaire Data Not on file 0 01/25/2025 Housing Stability Answer Date Recorded What is your housing situation today? I do not have housing (Staying with others, in a hotel, in a senior care, living outside on the street, on a [...] got money to buy more: Never True 01/25/2025 Within the past 12 months,th e food [...] Date Recorded Patient Health Questionnaire-2 Score 2 01/25/2025 Internet Access Answer Date Recorded Internet Access Q1 Yes 08/01/2024 Internet Access Q2 Not on file 08/01/2024 Sex and Gender Information Value Date Recorded Sex Assigned at Male 05/07/2023 10:01 AM EDT Legal Sex Male 4:05 PM EDT Gender Identity Male 05/07/2023 10:01 AM EDT Sexual Orientation Don't know 05/07/2023 10 :01 AM EDT documented as of this encounter Progress Notes * Digna Haney RN - 01/25/2025 1:23 PM EDT MAX Haney RN placed outbound call to patient for agreed upon time for initial assessment for enrollment into Adult Care Management Program. Patient's name, , and address were verified. Pt is a 49 year old male with medical history significant for Type 2 DM, Seizure disorder, HTN, generalized anxiety disorder, H/O CVA. CM spoke with pt who states he has seen the audio visual specialist within 12months. Pt states he has [...] a form of transportation to his appointments. Pt c/o chronic back pain and states he takes tramadol twice a day for the pain with good effect. Pt states he also uses a cane for severe back pain. Per pt, he eats regular diet and is nonadherence to diabetic diet. CM educated pt on low carbohydrate, low sugar diet. Pt states he walks as a form of exercise and has lost over 20LBS. Pt states his HTN is well managed and that BP readings are always within normal. Pt states he checks his BG three times a day and readings fluctuate from low tohigh. Pt states he sees his psychiatrist through [facility] and hasn't been seen forover 3 months. Pt states the psychiatrist office usually calls him with appt date and time. Pt advised to f/u with the office for appt date and time. Pt states he is on the waiting list for a therapist. Pt requested for CM to assist him in finding a therapist. CM has sent a message to [facility] to f/u with pt and assist accordingly. Pt c/o depression and anxiety and that he takes medication for anxietywith somewhat effect. Pt states he has the number for crisis and contracted to safety. Pt denies SI/HI. Pt agreed to call the crisis line when needed. Pt denies drinking and smoking cigarette but reports smoking marijuana. Per pt, his sister is his HCP and is aware of his medical wish. Pt states heis compliant with his medication and denies any side effect. Pt reports personal [...] understanding, and able to repeat back to scenario writer. A follow up call will be placed within 10 days, patient agrees with plan. documented in this encounter Plan of Treatment Upcoming Encounters Date Type Department Care Team (Late st Contact Info) Description 03/01/2025 2:00 PM EDT Office Visit [facility] OPTOMETRY [address] [place], [place] [phone] Alexa Petersen, OD [address] [place], [place] [phone] 03/07/2025 9:30 AM EDT Office Visit [facility] MEDICINE [address] [place] [address] Jocelyn Galdamez ANP [address] [place] [address] documented as of this encounter Goals Goal Patient Goal Type Associated Problems Recent Progress Patient-Stated? Author Blood Pressure < 140/90 Blood Pressure 132/74(2024 3:26 PM EDT) No Ken Khanna Hemoglobin A1c < 7 Result Component 9(11/21/2024 10:09 AM EST) No Ken Khanan documented as of this encounter Visit Diagnoses Not on filedocumented in this encounter Additional Health Concerns Assessment Noted Time PHQ-9 Depression Total Score: 7 01/26/20 25 1:37 PM EDT documented as of this encounter Care Teams House Admin Relationship Specialty Start Date End Date Jocelyn Galdamez ANP [address] [place] [id number] PCP - General Family Medicine 05/27/23 Regan Morin, KayleenD [address] [place] [phone] Pharmacist Internal Medicine 09/14/24 [facility] 12/05/24 documented as of this encounter
--- OUTSIDE RECORDS SUMMARY | 2025-01-31 16:00 | XMS_ITS | Encounter Summary ---
Author Organization [employer] Address [address] [place] [address] Care Team Providers Care Blasting Miner Name Role Phone Jocelyn Galdamez Primary Care Provider [phone] Regan Morin PharmD Unavailable [phone] Reason for Visit * Reason Onset Date Comments Care Coordination 01/25/2025 C3CM requestin g [facility] referral for pt Encounter Details Date Type Department Care Team (Late st Contact Info) Description 01/25/2025 Telephone [facility] [address] [place], [place] [phone] Jocelyn Galdamez ANP [address] [place] [address] Care Coordination ([facility] requesting [facility] referral for pt) Social History Tobacco Use Types Packs/Day Years [...] t he electric, gas, oil or water [employer] threatened to shut off services in your [...] Telephone Encounter - Digna Haney RN - 01/25/2025 2:06 PM EDT Please assist pt to be connected to a therapist for depression. Thank You documented in this encounter Plan of Treatment Upcoming Encounters Date Type Department Care Team (Late st Contact Info) Description 03/01/2025 2:00 PM EDT Office Visit [facility] OPTOMETRY [address] [place], [place] [phone] Alexa Petersen OD [address] [place] [address] 03/07/2025 9:30 AM EDT Office Visit [facility] MEDIC[facility] [address] [place], [place] [phone] Jocelyn Galdamez ANP [address] [place], [place] [phone] documented as of this encounter Goals Goal [...] documented as of this encounter Care Teams Blasting Miner Relationship Specialty Start Date End Date Jocelyn Galdamez ANP [address] [place] [address] PCP - General Family Medicine 05/27/23 Regan Morin, Liz [address] [place] [phone] Pharmacist Internal Medicine 09/14/24 [facility] 12/05/24 documented as of this encounter
--- OUTSIDE RECORDS SUMMARY | 2025-01-31 16:00 | XMS_ITS | Clinical Summary ---
Author Organization [employer] Address [address] [facility] [place] [address] Care Team Providers Care Insurance Verification Representative Name Role Phone Jocelyn Galdamez Primary Care Provider [phone] Regan Morin PharmD Unavailable [phone] Allergies No known active allergies Medications * This document contains information received from the source organization and may not represent a complete record from that organization. Blood Glucose Monitoring Suppl (FreeStyle Lite) device Inject 1 each under the skin 3 times daily. Test daily before all meals/snacks and once before bedtime. 1 each 023 Active glucose 4 g chewable tablet Chew 4 tablets (16 g) if needed for low blood sugar. 50 tablet 12 023 Active Blood Pressure kitIndications:H ypertension associated with diabetes (CMS/[facility]) 1 kit in the morning. 1 kit 023 Active TRUEplus Lancets 33G [facility] TEST BLOOD SUGAR THREE TIMES DAILY 100 each 11 024 Active isosorbide mononitrate ER (Imdur) 60 MG 24 hr tablet Take 1 tablet (60 mg) by mouth Once per day. Do not crush or chew. 90 tablet 3 024 2024 Active omeprazole (PriLOSEC) [address] capsule TAKE 1 CAPSULE BY MOUTH EVERY MORNING 90 capsule 3 024 Active lisinopril 40 MG tablet TAKE 1 TABLET BY MOUTH EVERY MORNING 90 tablet 3 024 Active chlorthalidone (Hygroton) 25 MG tabletIndication s:Hypertensive urgency TAKE 1 TABLET BY MOUTH EVERY MORNING 90 tablet 3 09/23/2 024 Active phenytoin ER (Dilantin) 100 MG capsule TAKE 1 CAPSULE BY MOUTH TWICE DAILY IN THE MORNING AND IN THE EVENING 180 capsule 3 Active ammonium lactate (Lac-Hydrin) 12 % lotion Apply 1 Application. topically Once per day. To soles of feet Active traMADol (Ultram) 50 MG tablet Take 1 tablet by mouth if needed in the morning, at noon, in the evening, and at bedtime. Active glucose blood (FreeStyle Precision Marbin Test) test stripIndications :Type 2 diabetes mellitus with hyperlipidemia (CMS/HCC) ([facility]) Use to test blood sugar 3 times daily as needed 100 each 024 2024 Active Additional Information Patient not taking.Reported on 01/25/2025 tiotropium (Spiriva Respimat) 2.5 MCG/ACT inhalerIndicatio ns:Chronic obstructive pulmonary disease, unspecified COPD type ([facility]) Inhale 2 puffs Once per day. 1 each 025 2025 Active Lantus SoloStar 100 UNIT/ML penIndications:T ype 2 diabetes mellitus with hyperlipidemia (CMS/HCC) ([facility]) INJECT 55 UNITS SUBCUTANEOUSLY AT BEDTIME 15 mL 3 Active Alcohol Swabs (Alcohol Prep) 70 % pads USE DIRECTED TO TEST BLOOD SUGAR BEFORE MEALS AND AT BEDTIME 100 each 11 Active famotidine (Pepcid) 20 MG tabletIndication s:Nausea TAKE 1 TABLET BY MOUTH TWICE DAILY NEEDED GASTRIC ACIDITY 180 tablet Active empagliflozin (Jardiance) 10 MGIndications:Ty pe 2 diabetes mellitus with hyperlipidemia (CMS/HCC) ([facility]) Take 1 tablet (10 mg) by mouth Once per day. 30 tablet 2 Active Continuous Glucose Rn Occupational (FreeStyle Karen 3 [place]) deviceIndication s:Type 2 diabetes mellitus with hyperlipidemia (CMS/HCC) ([facility]) 1 Device Use as directed. Scan sensor in the morning and before each meal. 1 each 025 Active Continuous Glucose Sensor (FreeStyle Karen 3 Plus Sensor) miscIndications: Type 2 diabetes mellitus with hyperlipidemia (CMS/HCC) ([facility]) Apply 1 Device topically every 15 days. 2 each 5 Active metFORMIN XR (Glucophage-XR) 500 MG 24 hr tabletIndication s:Type 2 diabetes mellitus with hyperlipidemia (CMS/HCC) ([facility]) Take 1 tablet (500 mg) by mouth 2 times daily. Do not crush, chew, or split. 180 tablet 3 Active Mometasone Furoate (Asmanex HFA) 100 MCG/ACT aerosolIndicatio ns:Moderate persistent asthma without complication INHALE 2 PUFFS TWICE DAILY. RINSE MOUTH AFTER USING. 13 g 2 Active QUEtiapine (SEROquel) 50 MG tablet TAKE 1 TABLET BY MOUTH THREE TIMES DAILY 90 tablet 1 Active atorvastatin (Lipitor) 80 MG tablet Take 1 tablet (80 mg) by mouth in the morning. 90 tablet Active carvedilol (Coreg) 25 MG tablet Take 1 tablet (25 mg) by mouth with breakfast and with evening meal. 180 tablet Active aspirin (Aspirin Low Dose) 81 MG EC tablet Take 1 tablet (81 mg) by mouth in the morning. 90 tablet Active insulin pen needle (B-D ULTRAFINE III SHORT PEN) 31G X 8 mm misc USE FOUR TIMES DAILY WITH INSULIN 100 each 11 Active insulin lispro (HumaLOG) 100 UNIT/ML injection INJECT SUBCUTANEOUSLY THREE TIMES DAILY BEFORE MEALS. BLOOD SUGAR 150-199 = 4 UNITS, BLOOD SUGAR 200-249 = 6 UNITS, 250-299 = 8 UNITS, 300-349 = 10 UNITS, 350-399 = 12 UNITS, > 400 = 14 UNITS 15 mL 3 Active albuterol 108 (90 Base) MCG/ACT inhaler Inhale 2 puffs every 6 (six) hours if needed for wheezing. 18 g 1 025 2025 Active pregabalin (Lyrica) 50 MG capsule TAKE 1 CAPSULE BY MOUTH AT BEDTIME FOR 5 NIGHT THEN INCREASE TO 1 CAPSULE TWICE DAILY IN THE MORNING AND AT BEDTIME Active Semaglutide,0.25 or 0.5MG/DOS, (Ozempic, 0.25 or 0.5 MG/DOSE,) 2 MG/3ML solution pen-injectorIndi cations:Type 2 diabetes mellitus with hyperlipidemia (CMS/HCC) (CMS/[facility]) Inject 0.5 mg under the skin 1 (one) time per week. 2 mL 5 025 Active albuterol 108 (90 Base) MCG/ACT inhaler Inhale 2 puffs every 6 (six) hours if needed for wheezing. 18 g 11 023 2024 Discontinued(R eorder (will not trigger notification to Pharmacy)) insulin lispro (HumaLOG) 100 UNIT/ML injection INJECT SUBCUTANEOUSLY PER SLIDING SCALE THREE TIMES DAILY BEFORE MEALS: BLOOD SUGAR 150-199 = 4 UNITS, 200-249 = 6U, 250-299 = 8U, 300-349 = 10U, 350-399 = 12U, > 400 = 14 UNITS 15 mL 3 024 2024 Discontinued gabapentin (Neurontin) 300 MG capsule TAKE 1 CAPSULE BY MOUTH TWICE DAILY IN THE MORNING AND IN THE EVENING 2024 Discontinued(A lternate therapy) tiZANidine (Zanaflex) 2 MG tablet TAKE 1 TO 2 TABLETS BY MOUTH EVERY EVENING NEEDED 2024 Discontinued(M ed list cleanup (will not trigger notification to Pharmacy)) terbinafine (LamISIL) 250 MG tablet Take 250 mg by mouth Once per day. 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 At this time Tre York meets criteria for Visit Diagnoses: Problem List Items Addressed This Visit Other Moderate episode of recurrent major depressive disorder (CMS/HCC) ROBERTO (generalized anxiety disorder) Cannabis use disorder Patient ready to address current needs Yes Strengths include willing to seek treatment PLAN: 1. Follow up with [facility]: Not recommended for follow-up 2. Patient goal is to improve mental health and functionality 3. Behavioral Recommendations a. Ind. Therapy, referral will be submitted. b. Medication Management, referral will be submitted c. Use of coping skills provided as recommended. ROBERTO (generalized anxiety disorder) 06/25/2023 Cannabis use disorder 06/25/2023 Encounters Date Type Department Care Team Description 01/26/2025 Plan of Care Documentation [address] [address] 01/25/2025 Telephone [facility] [address] [place] [address] Jocelyn Galdamez ANP Care Coordination (C3 requesting [facility] referral for pt) 01/25/2025 Patient Outreach [facility] [address] [place] [address] Jocelyn Galdamez ANP Care Coordination (C3CM initial assessment) 01/25/2025 Patient Outreach [address] [address] Jocelyn Galdamez ANP Care Coordination ([facility], [facility] assessment completed ) 01/24/2025 Patient Outreach [address] [address] Jocelyn Galdamez ANP Care Coordination ([facility], initial assessment appt reminder ) 01/18/2025 Patient Outreach [facility] [address] [place] [address] Jocelyn Galdamez ANP 01/17/2025 Travel 01/09/2025 Refill [facility] [address] [place] [address] Jocelyn Galdamez ANP 01/09/2025 Patient Outreach [address] [address] Jocelyn Galdamez ANP Transition Of Care (Tcm) 01/05/2025 Patient Outreach [facility] [address] [place] [phone] Jocelyn Galdamez ANP Care Coordination ([facility], TC initial outreach_Assessment scheduled) 01/05/2025 Patient Outreach [address] [address] Jocelyn Galdamez ANP Care Coordination ([facility], Chart Review) 01/05/2025 Patient Outreach [facility] [address] [place] [address] Jocelyn Galdamez ANP Care Coordination ([facility] chart review) 01/05/2025 Patient Outreach [facility] [address] [place] [address] Jocelyn Galdamez ANP 01/03/2025 Refill [facility] [address] [place] [address] Jocelyn Galdamez ANP 12/29/2024 Patient Outreach [address] [address] Alisia Matthew Care Coordination (Outreach) 12/28/2024 Travel 12/27/2024 Refill [facility] [address] [place] [address] Jocelyn Galdamez ANP 12/23/2024 Population Health Risk Score [facility] () Department [address] [place] [phone] Provider, Population Health Generic 12/23/2024 Telephone [facility] [address] [place] [address] Jocelyn Galdamez ANP Care Coordination ([facility] call #3- LVM. Case closure due to unable to reach) 12/15/2024 Patient Outreach [facility] [address] [place] [address] Jocelyn Galdamez ANP Care Coordination (Outreach) 12/09/2024 Refill [facility] [address] [place] [address] Jocelyn Galdamez ANP 12/09/2024 Refill [facility] [address] [place] [address] Jocelyn Galdamez ANP 12/05/2024 11:00 AM EST Telemedicine [facility] [address] [place] [address] Jocelyn Galdamez ANP Type 2 diabetes mellitus with hyperlipidemia (CMS/HCC) ([facility]) (Primary Dx); Vasculogenic erectile dysfunction, unspecified vasculogenic erectile dysfunction type; Dietary counseling; Exercise counseling 12/05/2024 Travel 12/01/2024 Patient Outreach [facility] [address] [place] [address] Jocelyn Galdamez ANP Care Coordination (Outreach) 11/30/2024 Refill [facility] [address] [place] [address] Jocelyn Galdamez ANP Moderate persistent asthma without complication 11/29/2024 Telephone [facility] [address] [place] [address] Margret Ramsey MA chart prep 11/21/2024 Travel 11/16/2024 Patient Outreach [facility] [address] [place] [address] Jocelyn Galdamez ANP Care Coordination (Outreach) 11/07/2024 Refill [facility] [address] [place] [address] Jocelyn Galdamez ANP Type 2 diabetes mellitus with hyperlipidemia ([facility]/HCC) ([facility]); Nausea 11/04/2024 Refill [facility] [address] [place] [address] Jocelyn Galdamez ANP Type 2 diabetes mellitus with hyperlipidemia (CMS/HCC) ([facility]/HCC) 11/02/2024 Telephone [facility] [address] [place] [address] Digna Haney, J LUIS Care Coordination ([facility] initial assessment/ enrollment) from Last 3 Months Immunizations Name Administration Dates Next Due HepB-CpG 01/17/2025,11/21/2024 Influenza Injectable Quadriv alant Preservative Free IIV4 MDCK 07/06/2023 Influenza, seasonal, injectable, preservative fr ee 08/11/2024 Pneumococcal Conjugate PCV 20 08/11/2024 Tdap 01/06/2025,07/30/2023 Family History Medical History Relation Name Comments [...] Sign Reading Time Taken Comments Blood Pressure 132/74 01/17/2025 3:26 PM EDT Pulse 55 01/17/2025 3:26 PM EDT Temperature 36.1 ??C (96.9 ??F) 10/13/2024 8:56 [...] Description 03/01/2025 2:00 PM EDT Office Visit [facility] OPTOMETRY [address] [place] [address] Tarka, Alexa, OD [address] [place] [address] 03/07/2025 9:30 AM EDT Office Visit [facility] [address] [place] [address] Jocelyn Galdamez, ANP [address] [place] [address] Health Maintenance Due Date Last Done Comments CT Colonography 1976 Colonoscopy 1976 FIT 1976 FOBT 1976 Sigmoidoscopy 1976 Family Planning (PISQ) 1991 COVID-19 Vaccine ( season) 2024 Diabetes: Urine Protein Screening 11/04/2024 11/04/2023, 05/26/2023 Diabetes: Hemoglobin A1C 02/18/2025 025, 08/04/2024, 06/06/2024, Additional history exists Lipid Panel 03/18/2025 03/18/2024, 05/26/2023 Diabetes: Foot Exam 08/11/2025 08/11/2024, 08/11/2024, 08/11/2024, Additional history exists Eye Exam 09/29/2025 09/29/2024, 09/11, 09/29/2024, Additional history exists Tobacco Screening 12/05/2025 12/05/2024 Alcohol/Substance Use Screening 01/25/2026 01/25/2025 Depression Screening 01/25/2026 01/25/2025, 01/26/20 SDOH Screening 01/25/2026 01/25/2025 Zoster Vaccines (1 of 2) 2026 Colorectal Cancer Screening 11/10/2026 FIT DNA/Cologuard 11/10/2026 11/10/2023 DTaP/Tdap/Td Vaccines (3 - Td or Tdap) 01/06/2035 01/06/2025, 07/30/2023 RSV Patients and Patients Aged 60 years or older (1 - 1-dose 75+ series) 2051 HIV Screening Completed 03/18/2024, 05/26/2023 Hepatitis C Screening Completed 03/18/2024, 023 Influenza Vaccine Completed 08/11/2024, 07/06/2023 Pneumococcal Vaccine: Pediatrics (0 to 5 Years) and At-Risk Patients (6 to 49) Years) Completed 08/11/2024 Hepatitis B Vaccines Completed 01/17/2025, 11/21/19 25 HIB Vaccines Aged Out No longer eligi ble based on patient's age to complete this topic HPV Vaccines Aged Out No longer eligi ble based on patient's age to complete this topic Hepatitis A Vaccines Aged Out No long er eligible based on patient's age to complete [...] 2 diabetes mellitus with hyperlipidemia (CMS/HCC) (CMS/HCC) HEPATITIS C AB W/REFL TO HCV RNA, [...] - 6.0 % QC Media Lot # [id number] Lot# Expiration Date Blood 11/21/2024 10:0 9 AM EST [facility] POINT OF CARE TEST ENTER/EDIT OR DERABLES Final Result * Hepatitis C Antibody with Reflex to HCV, RNA, Quantitative, Real-Time PCR (03/18/2024 10:44 AM EDT) [facility] Hepatitis C Antibody Nonreactive Nonreactive [facility] Comment:Antibodies to HCV no t detected; does not exclude early acuteHCV infection. Blood Venous blood specimen / Unknown 03/18/2024 10:44 AM EDT 03/18/2024 11:18 AM EDT Jocelyn Galdamez [facility] BLOOD ORDERABLES Final Resul t Performing Organization Address City/[facility]/ZIP Co de Phone Number [facility] [address] [place] [phone] [phone] * HIV-1/2 Antigen and Antibodies, Fourth Generation, with Reflexes (03/18/2024 10:44 AM EDT) [facility] HIV AB/AG Nonreactive Nonreactive [facility] Comment:HIV-1 p24 Ag and/or HIV-1/HIV-2 Ab not detected.A test result that is nonreactive does not exclude thepossibility of exposure to or infection with HIV-1 and/orHIV-2. Nonreactive results in this assay for individualswith prior exposure to HIV-1 and/or HIV-2 may be due toantigen and antibody levels that are below the limit ofdetection of this assay.The [employer] HIV Ag/Ab Combo assay result andsupplemental assay results should be interpreted inconjunction with the patient's clinical presentation,history and other laboratory results. If the results areinconsistent with clinical evidence, additional testing issuggested to confirm the result. Blood Venous blood specimen / Unknown 03/18/2024 10:44 AM EDT 03/18/2024 11:18 AM EDT us Jocelyn Galdamez [facility] BLOOD ORDERABLES Final Resul t Performing Organization Address [facility]/ZIP Co de Phone Number [facility] [address] [place] [phone] * (ABNORMAL) Lipid Panel, Standard (03/18/2024 10:44 AM EDT) Triglycerides 81 <150 mg/dL [facility] Comment:Desirable Triglyceri de: less than 150 mg/dLBorderline High Triglyceride 150-199 mg/dLHigh Triglyceride: 200-499 mg/dLVery High Triglyceride: greater than or equal to 5OO mg/dL Cholesterol 96 <200 mg/dL [facility] Comment:Desirable Cholestero l: less than 200 mg/dLBorderline High Cholesterol: 200-239 mg/dLHigh Cholesterol: greater than 239 mg/dL LDL Cholesterol Calculated 49 <100 mg/dL [facility] Comment:Desirable LDL: less than 100 mg/dLNear Optimal/Above Optimal LDL: 110- 129 mg/dLBorderline High LDL: 130-159 mg/dLHigh LDL: 160-189 mg/dLVery High LDL: greater than or equal to 190 mg/dL HDL Cholesterol 31(L) >40 mg/dL [facility] Comment:Desirable HDL: great er than 40 mg/dL Note: This HDL assay may give artificially low results in patients with liver disease. Blood Venous blood specimen / Unknown 03/18/2024 10:44 AM EDT 03/18/2024 11:23 AM EDT [facility] BLOOD ORDERABLES Final Resul t [facility] [address] [place] [phone] * Cologuard?? colon cancer screening (11/10/2023 3:25 PM EST) Cologuard Result Negative Negative 11/20/19 10:09 AM EST [employer] (CLIA #:[id number]) Comment: NEGATIVE TEST RESULT. A negative Cologuard [...] screened with both Cologuard and colonoscopy. (Ngozi Barnett. jagdeep al, N Engl J Med 2014;370(14):1286- 1297) The normal value (reference range) for this assay is negative. COLOGUARD RE-SCREENING RECOMMENDATION: Periodic colorectal cancer screening is an important part of preventive healthcare for asymptomatic individuals at average risk for colorectal cancer. ??Following a negative Cologuard result, the [place] [employer] and U.S. Multi-Society Task Force screening guidelines recommend a Cologuard re-screening interval of 3 years. References: [place] [employer] Guideline for Colorectal Cancer Screening: https://www.cancer.org/cancer/ckhog-wpsihf-cufyth/saaflcrun-pkppbczfj-amdsqij/ac s-rec ommendations.html.; Jc DK, Ravin LUU, Donna CampbellK, Colorectal Cancer Screening: Recommendations for Physicians and Patients from the U.S. Multi-Society Task Force on Colorectal Cancer Screening , Am J Gastroenterology 2017; 112:6864-3786. TEST DESCRIPTION: Composite algorithmic analysis of stool [...] screened with both Cologuard and colonoscopy. (Ngozi Barnett. jagdeep al, N Engl J Med 2014;370(14):2631-0787.) Cologuard may produce a false negative or false positive result (no colorectal cancer or precancerous polyp present at colonoscopy follow up). A negative Cologuard test result does not guarantee the absence of CRC or advanced adenoma (pre-cancer). The current Cologuard screening interval is every 3 years. ([place] [employer] and U.S. Multi-Society Task Force). Cologuard performance data in a 10,000 patient pivotal study using colonoscopy as the reference method can be accessed at the following location: www.emids/results. Additional description of the Cologuard test process, warnings and precautions can be found at www.cologPsynova Neurotechrd.[employer]. Stool specimen (specimen) 11/10/2023 3:25 PM EST 11/12/2023 10:50 AM EST us Jocelyn [facility] MOLECULAR DIAGNOSTICS ORDERA BLES Final Result Performing Organization Address City/[facility]/ZIP Co de Phone Number [employer] (CLIA #:[id number]) [place] [address], * Albumin, Random Urine W/Creatinine (11/04/2023 8:56 AM EST) Creatinine, Urine 86.84 mg/dL [facility] Microalbumin Urine 22.0 mg/L [facility] Microalbum Creatinine Ratio Ur 25.3 <30 ug/mg cr [facility] Comment:Albumin/Creatinine R atio Reference Ranges: Normal: < 30 ug/mg creatinine Microalbuminuria: 30 - 300 ug/mg creatinineClinical Albuminuria: > 300 ug/mg creatinine Urine 11/04/2023 8:56 AM EST 11/04/2023 11:07 AM EST us Jocelyn Galdamez ANP LAB URINE ORDERABLES Final Resul t Performing Organization Address City/[facility]/ZIP Co de Phone Number [facility] [address] [place] [phone] from Last 3 Months or Most Recently Relevant to Health Maintenance Insurance [facility] C3 HSN FULL Care Teams Insurance Verification Representative Relationship Specialty Start Date End Date Jocelyn Galdamez ANP [address] [place] [address] PCP - General Family Medicine 05/27/23 Regan Morin PharmD [address] [place] [address] Pharmacist Internal Medicine 09/14/24 [employer] 12/05/24
--- OUTSIDE RECORDS SUMMARY | 2025-01-31 16:00 | XMS_ITS | Encounter Summary ---
Author Organization [employer] Address [address] [place] [address] Care Team Providers Care Straw Baler Name Role Phone Jocelyn Galdamez Primary Care Provider [phone] Regan Morin PharmD Unavailable [phone] Encounter Details Date Type Department Care Team ([facility] st Contact Info) Description 01/26/2025 Plan of Care Documentation [facility] [address], [place] [phone] Social History Tobacco Use Types Packs/Day Years [...] with others, in a hotel, in a fpc, living outside on the street, on a [...] Description 03/01/2025 2:00 PM EDT Office Visit [facility] OPTOMETRY [address] [place] [address] TarkaAlexa, OD [address] [place] [address] 03/07/2025 9:30 AM EDT Office Visit [facility] MEDIC[facility] [address] [place] [address] Jocelyn Galdamez ANP [address] [place] [address] documented as of this encounter Goals Goal [...] documented as of this encounter Care Teams Straw Baler Relationship Specialty Start Date End Date Jocelyn Galdamez ANP [address] [place] [address] PCP - General Family Medicine 05/27/23 Regan Morin, Liz [address] [place] [address] Pharmacist Internal Medicine 09/14/24 [employer] 12/05/24 documented as of this encounter
--- OUTSIDE RECORDS SUMMARY | 2025-01-31 16:00 | XMS_ITS | Encounter Summary ---
Author Organization [employer] Address [address] [place] [address] Care Team Providers Care Size Changer Name Role Phone Jocelyn Galdamez Primary Care Provider [phone] Regan Morin PharmD Unavailable [phone] Reason for Visit * Reason Comments Med Refill Encounter Details Date Type Department Care Team (Late st Contact Info) Description 12/21/2023 Refill [facility] [address] [place], [place] [phone] Jocelyn Galdamez ANP [address] [place] [address] Type 2 diabetes mellitus with hyperlipidemia ([facility]/HCC) Social History Tobacco Use Types Packs/Day Years [...] Description 03/01/2025 2:00 PM EDT Office Visit [facility] OPTOM[facility] [address] [place] [address] Alexa Petersen, OD [address] [place] [address] 03/07/2025 9:30 AM EDT Office Visit [facility] [address] [place] [address] Jocelyn Galdamez ANP [address] [place] [address] documented as of this encounter Goals Goal [...] documented as of this encounter Care Teams Size Changer Relationship Specialty Start Date End Date Jocelyn Galdamez ANP [address] [place] [address] PCP - General Family Medicine 05/27/23 Regan Morin, KayleenD [address] [place] [phone] Pharmacist Internal Medicine 09/14/24 [facility] 12/05/24 documented as of this encounter
--- OUTSIDE RECORDS SUMMARY | 2025-01-31 16:00 | XMS_ITS | Encounter Summary ---
Author Organization [employer] Address [address] [place] [address] Care Team Providers Care Retaining Room Cutter Name Role Phone Jocelyn Galdamez Primary Care Provider [phone] Regan Morin PharmD Unavailable [phone] Encounter Details Date Type Department Care Team ([facility] st Contact Info) Description 11/26/2023 Orders Only [facility] MED[facility] [address] [place], [place] [phone] Jocelyn Galdamez ANP [address] [place] [address] Social History Tobacco Use Types Packs/Day Years [...] Description 03/01/2025 2:00 PM EDT Office Visit [facility] OPTOMETRY [address] [place], [place] [phone] TarkaAlexa, OD [address] [place] [address] 03/07/2025 9:30 AM EDT Office Visit [facility] [address] [place] [address] Jocelyn Galdamez ANP [address] [place] [address] documented as of this encounter Goals Goal [...] documented as of this encounter Care Teams Retaining Room Cutter Relationship Specialty Start Date End Date Jocelyn Galdamez ANP [address] [place] [address] PCP - General Family Medicine 05/27/23 Regan Morin, PharmD [address] [place] [address] Pharmacist Internal Medicine 09/14/24 [facility] 12/05/24 documented as of this encounter
--- OUTSIDE RECORDS SUMMARY | 2025-01-31 16:00 | XMS_ITS | Clinical Summary ---
Author Organization [address] [facility] Address [address] [place] [address] Phone Care Team Providers Care Management Psychologist Name Role Phone Jocelyn Galdamez NP Primary Care Provider [phone] Allergies No known active allergies Medications ammonium lactate (LAC-HYDRIN) 12 % lotion Apply to soles of feet daily. At night wear socks to bed Apply to thick skin and toenails 4 Active albuterol-budes onide (Airsupra) 90-80 mcg/actuation HFA aerosol inhaler Inhale into the lungs. Active aspirin (Vazalore) 81 mg capsule Take by mouth. Acti ve atorvastatin (LIPITOR) 80 mg tablet Take 1 Tablet by mouth daily. Active carvediloL (COREG) 25 mg tablet Take 1 Tablet by mouth 2 times daily (with meals). Active chlorthalidone (HYGROTON) 25 mg tablet Take 1 Tablet by mouth daily. Active hydrOXYzine HCL (ATARAX) 10 mg tablet Take 1 Tablet by mouth 3 times daily as needed. Active lisinopriL (PRINIVIL,ZESTR IL) 10 mg tablet Take 1 Tablet by mouth daily. Active metFORMIN XR (GLUCOPHAGE-XR) 500 mg 24 hr tablet Take 1 Tablet by mouth daily (with breakfast). Active QUEtiapine (SEROquel) 100 mg tablet Take 1 Tablet by mouth 2 times daily. Active clotrimazole (LOTRIMIN) 1 % cream Apply to skin and toenails daily for 12 weeks 4 Active terbinafine (LamISIL) 250 mg tablet Take 1 Tablet by mouth daily for 90 days. - Oral Active SALICYLIC ACID-LIDOCAINE TOP Salicylic Acid 40 % STICK: Apply 1 Applicator topically daily. - Apply externally Active Social History Tobacco Use Types Packs/Day Years Used Date Smoking Tobacco: Never Assessed Sex and Gender Information Value Date Recorded Sex Assigned at Not on file Legal Sex Male 11:01 AM EDT Gender Identity Not on file Sexual Orientation Not on file Last Filed Vital Signs Vital Sign Reading Time Taken Comments Blood Pressure - - Pulse - - Temperature - - Respiratory Rate - - Oxygen Saturation - - Inhaled Oxygen Concentration - - Weight 125 kg (275 lb) 05/25/2024 2:44 PM EDT Height 180.3 cm (5' 11 ) 05/25/2024 2:44 PM EDT Body Mass Index 38.35 05/25/2024 2:44 PM EDT Plan of Treatment Upcoming Encounters Date Type Department Care Team ([facility] st Contact Info) Description 02/08/2025 9:15 AM EDT Office Visit Orthopedic Surgery - [place] [address] [phone] Billy Barroso, DPM [address] [address] Health Maintenance Due Date Last Done Comments DTaP,Tdap,and Td Vaccines (1 - Tdap) 1995 Hepatitis B Vaccines (1 of 3 - 19+ 3-dose series) 1995 Pneumococcal Vaccine: Pediat rics (0 to 5 Years) and At-Risk Patients (6 to 64 Years) (1 of 2 - PCV) 1995 Cholesterol Screening (Lipid Panel) 05/02/2024 Colorectal Cancer Screening: Colonoscopy 05/02/2024 Depression Screening 05/02/2024 HIV Screening 05/02/2024 Hepatitis C Screening 05/02/2024 Social Influencers of Health Screening 05/02/2024 COVID-19 Vaccine (1 - 2023-2 5 season) 2024 Influenza Vaccine (Season Ended) 2025 HIB Vaccines Aged Out No longer eligi [...] on patient's age to complete this topic MMR Vaccines Aged Out No longer eligi ble based on patient's age to complete this topic Meningococcal ACWY Vaccine Aged Out N o longer eligible based on patient's age to complete this topic Meningococcal B Vaccine Aged Out No l onger eligible based on patient's age to complete this topic RSV Immunization Patients Un lou 20 months Aged Out No longer eligible b ased on patient's age to complete this topic Varicella Vaccines Aged Out No longer eligible based on patient's age to complete this topic Insurance MEDICAID - [place] Care Teams Management Psychologist Relationship Specialty Start Date End Date Jocelyn Galdamez NP [address] [place] [phone] PCP - General 11/19/23
--- OUTSIDE RECORDS SUMMARY | 2025-01-31 16:00 | XMS_ITS ---
Author Organization [employer] Address [address] [facility] [address] [place] [address] Care Team Providers Care Mind Reader Name Role Phone Jocelyn Galdamez Primary Care Provider [phone] Regan Morin PharmD Unavailable [phone] Complex Status:Enrolled (Active) Start date:01/05/2025 Enrollment date:01/25/2025 Overview ED- Pt went to [facility] ED on 01/04/25 and . Case Team Name Relationship Phone Ligia Burns (Responsible Staff) Continued Care and Services Coordination
--- OUTSIDE RECORDS SUMMARY | 2025-01-31 16:00 | XMS_ITS ---
Author Organization [employer] Address [address] [facility] [address] [place] [address] Care Team Providers Care Chicken Boner Name Role Phone Jocelyn Galdamez Primary Care Provider [phone] Regan Morin PharmD Unavailable [phone] CM Complex Status:Enrolled (Active) Start date:01/05/2025 Enrollment date:01/25/2025 Enrollment reason:ADT Feed Overview ED- Pt went to [facility] ED on 01/04/25 and [facility]. Case Team Name Relationship Phone Digna Haney RN Registered Nurse(Responsible S taff) Continued Care and Services Coordination
== END 2025-01-31 15:03 | disposition home or self-care (01) ==
LOC: HO.HUSH 13:32
PROVIDERS: PCP Nurse Practitioner Primary Care; Visit Provider Nurse Practitioner Family
DX: E11.69 Type 2 diabetes mellitus with other specified complication (principal); N52.1 Erectile dysfunction due to diseases classified elsewhere; Z13.9 Encounter for screening, unspecified
CPT/HCPCS: 99204

== ENCOUNTER → 2025-01-31 13:31 | Outpatient (BNVA) | payer MEDICAID, SELFPAY | PROVIDERS: PCP Nurse Practitioner Primary Care; Visit Provider Nurse Practitioner Family | DX: E11.69 Type 2 diabetes mellitus with other specified complication (principal); N52.1 Erectile dysfunction due to diseases classified elsewhere | CPT/HCPCS: 81003; 99212 ==

== ENCOUNTER 2025-05-17 07:31 | Outpatient (REF) | payer MEDICAID, SELFPAY ==
--- OUTSIDE RECORDS SUMMARY | 2025-05-17 07:34 | XMS_ITS | Clinical Summary ---
Author Organization [employer] Address [address] [place] [address] Care Team Providers Care Core Shaper Name Role Phone Jocelyn Galdamez Primary Care Provider [phone] Regan Morin PharmD Unavailable [phone] Allergies No known active allergies Medications * [...] 50 tablet 12 023 Active Blood Pressure kitIndications:Hy pertension associated with diabetes (CMS/HCC) 1 kit in the morning. 1 kit 023 Active isosorbide mononitrate ER (Imdur) 60 MG [...] 3 024 Active chlorthalidone (Hygroton) 25 MG tabletIndications :Hypertensive urgency TAKE 1 TABLET BY MOUTH EVERY MORNING 90 tablet 3 024 Active phenytoin ER (Dilantin) 100 MG capsule TAKE 1 CAPSULE BY MOUTH TWICE DAILY IN THE MORNING AND IN THE EVENING 180 capsule 3 024 Active ammonium lactate (Lac-Hydrin) 12 % lotion Apply 1 Application. topically Once per day. To soles of feet Active traMADol (Ultram) 50 MG tablet Take 1 tablet by mouth if needed in the morning, at noon, in the evening, and at bedtime. Active glucose blood (FreeStyle Precision Marbin Test) test stripIndications: Type 2 diabetes mellitus with hyperlipidemia (CMS/HCC) ([facility]) Use to test blood sugar 3 times daily as needed 100 each 024 2024 Active tiotropium (Spiriva Respimat) 2.5 MCG/ACT inhalerIndication s:Chronic obstructive pulmonary disease, unspecified COPD type ([facility]) Inhale 2 puffs Once per day. 1 each 025 2025 Active Alcohol Swabs (Alcohol Prep) 70 % pads USE DIRECTED TO TEST BLOOD SUGAR BEFORE MEALS AND AT BEDTIME 100 each 025 Active Continuous Glucose Radiographer Mammographer (FreeStyle Karen 3 [place]) deviceIndications :Type 2 diabetes mellitus with hyperlipidemia (CMS/HCC) ([facility]) 1 Device Use as directed. Scan sensor in the morning and before each meal. 1 each Active Continuous Glucose Sensor (FreeStyle Karen 3 Plus Sensor) miscIndications:T ype 2 diabetes mellitus with hyperlipidemia (CMS/HCC) ([facility]) Apply 1 Device topically every 15 days. 2 each 5 Active metFORMIN XR (Glucophage-XR) 500 MG 24 hr tabletIndications :Type 2 diabetes mellitus with hyperlipidemia (CMS/HCC) ([facility]) Take 1 tablet (500 mg) by mouth 2 times daily. Do not crush, chew, or split. 180 tablet 3 025 Active insulin lispro (HumaLOG) 100 UNIT/ML injection INJECT SUBCUTANEOUSLY THREE TIMES DAILY BEFORE MEALS. BLOOD SUGAR 150-199 = 4 UNITS, BLOOD SUGAR 200-249 = 6 UNITS, 250-299 = 8 UNITS, 300-349 = 10 UNITS, 350-399 = 12 UNITS, > 400 = 14 UNITS 15 mL 3 Active pregabalin (Lyrica) 50 MG capsule Active Semaglutide,0.25 or 0.5MG/DOS, (Ozempic, 0.25 or 0.5 MG/DOSE,) 2 MG/3ML solution pen-injectorIndic ations:Type 2 diabetes mellitus with hyperlipidemia (CMS/HCC) (CMS/HCC) Inject 0.5 mg under the skin 1 (one) time per week. 2 mL 5 Active Lantus SoloStar 100 UNIT/ML penIndications:Ty pe 2 diabetes mellitus with hyperlipidemia (CMS/HCC) (CMS/HCC) INJECT 55 UNITS SUBCUTANEOUSLY AT BEDTIME 15 mL 3 Active TRUEplus Lancets 33G miscIndications:T ype 2 diabetes mellitus with hyperlipidemia (CMS/HCC) (CMS/HCC) TEST BLOOD SUGAR THREE TIMES DAILY 100 each Active empagliflozin (Jardiance) 25 MGIndications:Typ e 2 diabetes mellitus with hyperlipidemia (CMS/HCC) ([facility]) Take 1 tablet (25 mg) by mouth Once per day. 30 tablet 2025 Active aspirin (Aspirin Low Dose) 81 MG EC tabletIndications :Type 2 diabetes mellitus with hyperlipidemia (CMS/HCC) (CMS/HCC),History of CVA (cerebrovascular accident) Take 1 tablet (81 mg) by mouth in the morning. 90 tablet 3 Active atorvastatin (Lipitor) 80 MG tabletIndications :Type 2 diabetes mellitus with hyperlipidemia (CMS/HCC) ([facility]),History of CVA (cerebrovascular accident) Take 1 tablet (80 mg) by mouth in the morning. 90 tablet 3 Active carvedilol (Coreg) 25 MG tabletIndications :Type 2 diabetes mellitus with hyperlipidemia (CMS/HCC) (CMS/HCC) Take 1 tablet (25 mg) by mouth with breakfast and with evening meal. 180 tablet 1 Active pen needle 31G x 6 mm miscIndications:T ype 2 diabetes mellitus with hyperlipidemia (CMS/HCC) (CMS/HCC) Use as instructed with insulin 120 each 12 2025 Active Ventolin HFA 108 (90 Base) MCG/ACT inhaler INHALE 2 PUFFS EVERY 6 HOURS NEEDED FOR WHEEZING 18 g 1 025 Active QUEtiapine (SEROquel) 50 MG tablet TAKE 1 TABLET BY MOUTH THREE TIMES DAILY 90 tablet 1 025 Active famotidine (Pepcid) 20 MG tabletIndications :Nausea TAKE 1 TABLET BY MOUTH TWICE DAILY NEEDED FOR ACID REFLUX 180 tablet 025 Active Mometasone Furoate (Asmanex HFA) 100 MCG/ACT aerosolIndication s:Moderate persistent asthma without complication INHALE 2 PUFFS BY MOUTH TWICE DAILY RINSE MOUTH AFTER USING. 13 g 2 025 Active Mometasone Furoate (Asmanex HFA) 100 MCG/ACT aerosolIndication s:Moderate persistent asthma without complication INHALE 2 PUFFS TWICE DAILY. RINSE MOUTH AFTER USING. 13 g 2 025 2024 Discontinued Active Problems Problem Noted Date Diagnosed Date Screen for colon cancer 06/06/2024 Overview (06/06/2024): Negative cologuard 11/10/2023 Right arm pain 05/05/2024 Assessment & Plan (05/05/2024 8:54 PM EDT): Likely rupture of biceps tendon from history and exam -referred today for US soft tissue of right arm -referred today to ortho STAT -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 10 mg Q 8 from ED to cone picker today confirm w px -tylenol prn [...] apt 06/06/2024 -Alarm signs and symptoms discussed ROBERTO (generalized anxiety disorder) 06/25/2023 Cannabis use disorder 06/25/2023 Mild depression 06/25/2023 Assessment & Plan (02/22/2025 2:44 PM EDT): >>ASSESSMENT AND PLAN FOR MODERATE EPISODE OF RECURRENT MAJOR DEPRESSIVE DISORDER (CMS/HCC) WRITTEN ON 06/25/2023 1:49 PM BY ANURADHA HENNESSY Assessment: Patient with anhedonia, depressed, insomnia, fatigue, [...] Strengths include willing to seek treatment PLAN: Follow up with [facility]: Not recommended for follow-up Patient goal is to improve mental health and functionality Behavioral Recommendations Ind. Therapy, referral will be submitted. Medication Management, referral will be submitted Use of coping skills provided as recommended. Encounters * This document contains information received from the source organization and may not represent a complete record from that organization. Date Type Department Care Team Description 05/12/2025 Patient Outreach [address] [address] Jocelyn Galdamez ANP Care Management (C3CM- F/U Call (coverage for [employer])) 04/26/2025 Patient Outreach [address] [address] Jocelyn Galdamez ANP Care Coordination (C3CM/Eduardo Allred f/u call ) 04/26/2025 Patient Outreach [facility] [address] [place] [address] Jocelyn Galdamez ANP Care Coordination (C3CM f/u call) 04/19/[address] [address] [place], [place], [facility] Moderate persistent asthma without complication 04/12/2025 Patient Outreach [facility] [address] [place] [address] Jocelyn Galdamez ANP Care Coordination (C3CM f/u call- [facility]) 04/03/[address] [address] Jocelyn Galdamez ANP 03/28/2025 Patient Outreach [facility] [address] [place] [address] Jocelyn Galdamez ANP Care Coordination (C3CM f/u call) 03/28/2025 Patient Outreach [address] [address] Jocelyn Galdamez ANP Care Coordination (C3CM/CARLIE Allred SDOH f/u ) 03/28/2025 Patient Outreach [facility] [address] [place] [address] Jocelyn Galdamez ANP 03/27/2025 5:00 PM EDT Office Visit [facility] [address] [place] [phone] Emma Acevedo NP 03/27/2025 Travel 03/27/[address] [facility] [address] [place] [address] Jocelyn Galdamez ANP Nausea 03/22/[address] [facility] [address] [place] [address] Jocelyn Galdamez ANP 03/17/[address] [facility] [address] [place] [address] Jocelyn Galdamez ANP 03/16/[address] [facility] [address] [place] [address] Jocelyn Galdamez ANP Care Coordination ([facility]/CARLIE Allred [facility] f/u ) 03/15/2025 Patient Outreach [facility] [address] [place], [place] [phone] Jocelyn Galdamez ANP Care Coordination (C3 f/u call) 03/07/2025 9:30 AM EDT Office Visit [facility] [address] [place] [address] Jocelyn Galdamez ANP Type 2 diabetes mellitus with hyperlipidemia (CMS/HCC) (CMS/HCC) (Primary Dx); Hypertension associated with diabetes (CMS/HCC) 03/07/2025 Travel 03/03/[address] [facility] [address] [place] [phone] Jocelyn Galdamez ANP Chart Prep 03/02/[address] [facility] [address] [place] [address] Jocelyn Galdamez ANP Type 2 diabetes mellitus with hyperlipidemia (CMS/HCC) (CMS/HCC) (Primary Dx); History of CVA (cerebrovascular accident) 03/02/[address] [facility] [address] [place] [address] Jocelyn Galdamez ANP Care Coordination ([facility]/CARLIE Allred appt reminder_lvm) 03/02/[address] [facility] [address] [place], [place] [phone] Jocleyn Galdamez ANP Type 2 diabetes mellitus with hyperlipidemia (CMS/HCC) (CMS/HCC) 03/01/[address] [facility] [address] [place] [address] Alexa Petersen OD 02/28/[address] [facility] [address] [place] [address] Jocelyn Galdamez ANP Care Coordination (C3CM/CARLIE Allred SDOH f/u call ) 02/28/2025 Patient Outreach [facility] [address] [place] [address] Jocelyn Galdamez ANP 02/28/2025 Plan of Care Documentation [facility] [address] [place] [address] 02/28/2025 Patient Outreach [facility] [address] [place] [address] Jocelyn Galdamez ANP 02/27/[address] [facility] [address] [place] [address] Regan Morin, PharmD Type 2 diabetes mellitus with hyperlipidemia (CMS/HCC) (CMS/HCC) 02/24/[address] [facility] [address] [place] [address] Jocelyn Galdamez ANP 02/24/[address] [facility] [address] [place] [address] Jocelyn Galdamez ANP 02/24/[address] [facility] [address] [place] [address] Jocelyn Galdamez ANP Care Coordination ([facility]/CARLIE Allred SDOH f/u_lvm ) 02/23/[address] [facility] [address] [place] [address] Regan Morin, PharmD 02/20/2025 Refill [facility] [address] [place] [address] Jocelyn Galdamez ANP Type 2 diabetes mellitus with hyperlipidemia (CMS/HCC) (CMS/HCC) from Last 3 Months Immunizations Immunization Administration Dates Next Due HepB-CpG 01/17/2025,11/21/2024 Influenza [...] Sign Reading Time Taken Comments Blood Pressure 164/99 03/27/2025 5:14 PM EDT Pulse 71 03/27/2025 5:14 PM EDT Temperature 36.7 C (98 F) 03/27/2025 5:14 PM EDT Respiratory Rate 16 03/27/2025 5:14 PM EDT Oxygen Saturation 98% 03/27/2025 5:14 PM EDT Inhaled Oxygen Concentration - - Weight 126 kg (277 lb 6.4 oz) 03/27/2025 5:14 PM EDT Height 180.3 cm (5' 11 ) 03/27/2025 5:14 PM EDT Body Mass Index 38.69 03/27/2025 5:14 PM EDT Plan of Treatment Upcoming Encounters Date Type Department Care Team (Late st Contact Info) Description 05/22/2025 9:00 AM EDT Medication Management [facility] [address] [place] [phone] Regan Morin, PharmD [address] [place] [address] 06/05/2025 3:00 PM EDT Office Visit [facility] [address] [place] [phone] Jocelyn Galdamez, ANP [address] [place] [address] Health Maintenance Due Date Last Done Comments CT Colonography 1976 Colonoscopy 1976 FIT 1976 FOBT 1976 Sigmoidoscopy 1976 Family Planning (PISQ) 1991 COVID-19 Vaccine ( season) 2024 Diabetes: Urine Protein Screening 11/04/2024 11/04/2023, 05/26/2023 Lipid Panel 03/18/2025 03/18/2024, 05/26/2023 Diabetes: Hemoglobin A1C 06/07/2025 025, 11/21/2024, 08/04/2024, Additional history exists Influenza Vaccine (#1) 2025 08/11/2024, 2022 Diabetes: Foot Exam 08/11/2025 08/11/2024, 08/11/2024, 08/11/2024, Additional history exists Eye Exam 09/29/2025 09/29/2024, 09/11, 09/29/2024, Additional history exists Disability Screening 12/28/2025 12/28/2024 Alcohol/Substance Use Screening 01/25/2026 01/25/2025 Depression Screening 01/25/2026 01/25/2025, 01/26/20 SDOH Screening 02/07/2026 02/07/2025 Tobacco Screening 03/07/2026 03/07/2025 Zoster Vaccines (1 of 2) 2026 Colorectal Cancer Screening 11/10/2026 FIT DNA/Cologuard 11/10/2026 11/10/2023 DTaP/Tdap/Td Vaccines (3 - Td or Tdap) 01/06/2035 01/06/2025, 07/30/2023 RSV Patients and Patients Aged 60 years or older (1 - 1-dose 75+ series) 2051 HIV Screening Completed 03/18/2024, 05/26/2023 Hepatitis C Screening Completed 03/18/2024, 023 Pneumococcal Vaccine: Pediatrics (0 to 5 Years) and At-Risk Patients (6 to 49) Years Completed 08/11/2024 Hepatitis B Vaccines Completed 01/17/2025, [...] Author Blood Pressure < 140/90 Blood Pressure 164/99(2024 5:14 PM EDT) Ken Clancy Hemoglobin A1c < 7 Result Component 9.1( 9:47 AM EDT) No Ken Khanna Procedures Procedure Name Priority Date/Time Associated Diagnosis Comments POCT GLYCATED HEMOGLOBIN, TOTAL Routine 03/07/2025 9:47 AM EDT Type 2 diabetes mellitus with hyperlipidemia (CMS/HCC) (CMS/HCC) POCT GLUCOSE Routine 03/07/2025 9:46 AM EDT Type 2 diabetes mellitus with [...] diabetes mellitus with hyperlipidemia (CMS/HCC) (CMS/HCC) LAB COLOGUARD COLON CANCER SCREEN Routine 11/10/2023 3:25 PM EST Screening for malignant neoplasm of colon ALBUMIN, RANDOM URINE W/CREATININE Routine 11/04/2023 8:56 AM EST Uncontrolled type 2 diabetes mellitus with hyperglycemia (CMS/HCC) from Last 3 Months or Most Recently Relevant to Health Maintenance Results * (ABNORMAL) POCT HGB A1C (03/07/2025 9:47 AM EDT) Hemoglobin A1C 9.1(A) 4.0 - 6.0 % QC Media Lot # [id number] Lot# Expiration Date Blood 03/07/2025 9:47 AM EDT us Jocelyn Galdamez ANP POINT OF CARE TEST ENTER/EDIT OR DERABLES Final Result * POCT Glucose (03/07/2025 9:46 AM EDT) [facility] Glucose Blood, POC 190 60 - 200 mg/dL QC Media Lot # [id number] Lot# Expiration Date Blood Capillary blood specimen / Unknown 03/07/2025 9:46 AM EDT us Jocelyn Galdamez ANP POINT OF CARE TEST ENTER/EDIT OR DERABLES Final Result * Hepatitis C Antibody with Reflex to HCV, RNA, Quantitative, Real-Time PCR (03/18/2024 10:44 AM EDT) [facility] Hepatitis C Antibody Nonreactive Nonreactive [facility] Comment:Antibodies to HCV no t detected; does not exclude early acuteHCV infection. Blood Venous blood specimen / Unknown 03/18/2024 10:44 AM EDT 03/18/2024 11:18 AM EDT us Jocelyn Galdamez ANP LAB BLOOD ORDERABLES Final Resul t [facility] [address] [place] [address] [phone] * HIV-1/2 Antigen and Antibodies, Fourth Generation, with Reflexes (03/18/2024 10:44 AM EDT) [facility] HIV AB/AG Nonreactive Nonreactive [facility] Comment:HIV-1 p24 Ag and/or HIV-1/HIV-2 Ab not detected.A test result that is nonreactive does not exclude thepossibility of exposure to or infection with HIV-1 and/orHIV-2. Nonreactive results in this assay for individualswith prior exposure to HIV-1 and/or HIV-2 may be due toantigen and antibody levels that are below the limit ofdetection of this assay.The [employer] HIV Ag/Ab Combo assay result andsupplemental assay results should be interpreted inconjunction with the patient's clinical presentation,history and other laboratory results. If the results areinconsistent with clinical evidence, additional testing issuggested to confirm the result. Blood Venous blood specimen / Unknown 03/18/2024 10:44 AM EDT 03/18/2024 11:18 AM EDT us Jocelyn [facility] LAB BLOOD ORDERABLES Final Resul t [facility] [address] [place] [phone] * (ABNORMAL) Lipid Panel, Standard (03/18/2024 10:44 AM EDT) Triglycerides 81 <150 mg/dL [facility] Comment:Desirable Triglyceri de: less than 150 mg/dLBorderline High Triglyceride 150-199 mg/dLHigh Triglyceride: 200-499 mg/dLVery High Triglyceride: greater than or equal to 5OO mg/dL Cholesterol 96 <200 mg/dL [facility] Comment:Desirable Cholestero l: less than 200 mg/dLBorderline High Cholesterol: 200-239 mg/dLHigh Cholesterol: greater than 239 mg/dL LDL Cholesterol Calculated 49 <100 mg/dL [facility] Comment:Desirable LDL: less than 100 mg/dLNear Optimal/Above Optimal LDL: 110- 129 mg/dLBorderline High LDL: 130-159 mg/dLHigh LDL: 160-189 mg/dLVery High LDL: greater than or equal to 190 mg/dL HDL Cholesterol 31(L) >40 mg/dL [facility] Comment:Desirable HDL: great er than 40 mg/dL Note: This HDL assay may give artificially low results in patients with liver disease. Blood Venous blood specimen / Unknown 03/18/2024 10:44 AM EDT 03/18/2024 11:23 AM EDT [facility] LAB BLOOD ORDERABLES Final Resul t [facility] [address] [place] [address] [phone] * Cologuard?? colon cancer screening (11/10/2023 3:25 PM EST) Cologuard Result Negative Negative 11/20/19 10:09 AM EST [facility] (CLIA #:[id number]) Comment: NEGATIVE TEST RESULT. A negative Cologuard result indicates a low likelihood that a colorectal cancer (CRC) or advanced adenoma (adenomatous polyps with more advanced pre-malignant features) is present. The chance that a person with a negative Cologuard test has a colorectal cancer is less than 1 in 1500 (negative predictive value >99.9%) or has an advanced adenoma is less than 5.3% (negative predictive value 94.7%). These data are based on a prospective cross-sectional study of 10,000 individuals at average risk for colorectal cancer who were screened with both Cologuard and colonoscopy. (Ngozi T. et al, N Engl J Med 2014;370(14):6941-7509) The normal value (reference range) for this assay is negative. COLOGUARD RE-SCREENING RECOMMENDATION: Periodic colorectal cancer screening is an important part of preventive healthcare for asymptomatic individuals at average risk for colorectal cancer. Following a negative Cologuard result, the [place] Cancer Society and U.S. Multi-Society Task Force screening guidelines recommend a Cologuard re-screening interval of 3 years. References: [place] Cancer Society Guideline for Colorectal Cancer Screening: https://www.cancer.org/cancer/zaqpt-wraacn-zfxrhb/cusqygaag-zyszxyglj-xfrnpcc/ac s-rec ommendations.html.; Jc AGUILAR, Ravin LUU, Donna NEWSOME, Colorectal Cancer Screening: Recommendations for Physicians and Patients from the U.S. Multi-Society Task Force on Colorectal Cancer Screening , Am J Gastroenterology 2017; 112:4967-0251. TEST DESCRIPTION: Composite algorithmic analysis of stool DNA-biomarkers with hemoglobin immunoassay. Quantitative values of individual biomarkers are not [...] with both Cologuard and colonoscopy. (Ngozi Barnett. et al, N Engl J Med 2014;370(14):0325-7306.) Cologuard may produce a false negative or false positive result (no colorectal cancer or precancerous polyp present at colonoscopy follow up). A negative Cologuard test result does not guarantee the absence of CRC or advanced adenoma (pre-cancer). The current Cologuard screening interval is every 3 years. ([place] Cancer Society and U.S. Multi-Society Task Force). Cologuard performance data in a 10,000 patient pivotal study using colonoscopy as the reference method can be accessed at the following location: www.Docebo/results. Additional description of the Cologuard test process, warnings and precautions can be found at www.Shop2[employer].com. Stool specimen (specimen) 11/10/2023 3:25 PM EST 11/12/2023 10:50 AM EST Jcoelyn [facility] MOLECULAR DIAGNOSTICS ORDERA BLES Final Result [facility] (CLIA #:[id number]) [place] [address], * Albumin, Random Urine W/Creatinine (11/04/2023 8:56 AM EST) Creatinine, Urine 86.84 mg/dL [facility] Microalbumin Urine 22.0 mg/L H [facility] Microalbum Creatinine Ratio Ur 25.3 <30 ug/mg cr [facility] Comment:Albumin/Creatinine R atio Reference Ranges: Normal: < 30 ug/mg creatinine Microalbuminuria: 30 - 300 ug/mg creatinineClinical Albuminuria: > 300 ug/mg creatinine Urine 11/04/2023 8:56 AM EST 11/04/2023 11:07 AM EST us Jocelyn [facility] URINE ORDERABLES Final Resul t [facility] [address] [place] [phone] [phone] from Last 3 Months or Most Recently Relevant to Health Maintenance Insurance [employer] C3 Care Teams Core Shaper Relationship Specialty Start Date End Date Jocelyn Galdamez ANP [address] [place] [address] PCP - General Family Medicine 05/27/23 Regan Morin, Liz [address] [place] [address] Pharmacist Internal Medicine 09/14/24 [facility] 12/05/24
--- OUTSIDE RECORDS SUMMARY | 2025-05-17 07:34 | XMS_ITS | Clinical Summary ---
Author Organization [facility] Address 175 [place] [address] Phone Care Team Providers Care Customs Officer Name Role Phone Jocelyn Galdamez NP Primary Care Provider [phone] Allergies No known active allergies Medications ammonium [...] Applicator topically daily. - Apply externally Active ammonium lactate (AmLactin) 12 % lotion Apply topically if needed for dry skin. 400 g 03/14/20 26 Active Encounters Date Type Department Care Team Description 03/14/2025 2:00 PM EDT Office Visit Orthopedic Surgery [facility] [address] [phone] Billy Barroso DPM Dermatophytosis of nail (Primary Dx); Pain in toe of left foot; Pain in toe of right foot; Type II diabetes mellitus with peripheral circulatory disorder ([facility] V24, [facility] V28); Diabetic mononeuropathy simplex ([facility] V24, [facility] V28); Corns and callosities; Metatarsalgia of both feet; Tinea pedis of both feet from Last 3 Months Social History Tobacco Use Types Packs/Day Years [...] - Inhaled Oxygen Concentration - - Weight 127 kg (280 lb) 02/08/2025 9:26 AM EDT Height 180.3 cm (5' 11 ) 02/08/2025 9:26 AM EDT Body Mass Index 39.05 02/08/2025 9:26 AM EDT Plan of Treatment Upcoming Encounters Date Type Department Care Team (Late st Contact Info) Description 05/17/2025 1:15 PM EDT Office Visit Orthopedic Surgery [facility] [address] [phone] Billy Barroso DPM [address] [address] Health Maintenance Due Date Last Done Comments Diabetes: Annual GFR (Glomerular Filtration Rate) 1976 Diabetes: Annual Foot Exam 1986 Diabetes: Annual Retina Eye Exam 1986 Social Influencers of Health Screening 05/02/2024 COVID-19 Vaccine (1 - 2023-2 5 season) 2024 Depression Screening 10/12/2024 Diabetes: Annual Urine Albumin-Creatinine Ratio (uACR) 02/08/2025 Hypertension/CHF/CAD Annual BMP Blood Test 02/08/2025 Influenza Vaccine (#1) 2025 , 07/06/2023 Diabetes: Blood Sugar Contro l Test (HGBA1C) 09/07/2025 03/07/2025, 11/21/2024 Colorectal Cancer Screening: FIT-DNA (Cologuard) 11/10/2026 11/10/2023 Cholesterol Screening (Lipid Panel) 03/18/2029 03/18/2024 DTaP,Tdap,and Td Vaccines (3 - Td or Tdap) 01/06/2035 01/06/2025, 07/30/2023 HIV Screening Completed 03/18/2024 Hepatitis C Screening Completed 03/18/2024 Pneumococcal Vaccine: Pediatrics (0 to 5 Years) and At-Risk Patients (6 to 49 Years) Completed 08/11/2024 Hepatitis B Vaccines Completed 01/17/2025, 11/21/2024 HIB Vaccines Aged Out No longer eligi [...] to complete this topic RSV Immunization Patients Under 20 months Aged Out No longer eligible b ased on patient's age to complete this topic Varicella Vaccines Aged Out No longer eligible based on patient's age to complete this topic Insurance MEDICAID - [place] Care Teams Customs Officer Relationship Specialty Start Date End Date Jocelyn Galdamez NP [address] [place] [phone] PCP - General 11/19/23
--- OUTSIDE RECORDS SUMMARY | 2025-05-17 07:34 | XMS_ITS | Clinical Summary ---
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 Not on wan e 10/14/2024 Are you concerned about learning? Not on file 10/14/2024 No 10/14/2024 No 10/14/2024 Digital Access Answer Date Recorded No 10/14/2024 No 10/14/2024 Reliable internet access at home? Not on file 10/14/2024 Device with a working camera? Not on file Intimate Partner Violence Answer Date R ecorded Are you denied basic needs s uch as food, clothing, or medical care? No 10/14/2024 In the past 12 months have y ou been in a relationship with a person who hurts, threatens, or tries to control you? No 10/14/2024 Are you denied basic needs s uch as food, clothing, or medical care? No 10/14/2024 In the past 12 months have y ou been in a relationship with a person who hurts, threatens, or tries to control you? No 10/14/2024 Sex and Gender Information Value Date Recorded Sex Assigned at Male 10/14/2024 2:25 PM EST Legal Sex Male 1:40 PM EST Gender Identity Male 10/14/2024 2:25 PM EST Sexual Orientation Don't know 10/14/2024 3: 34 PM EST Last Filed Vital Signs Vital Sign Reading Time Taken Comments Blood Pressure 161/92 10/14/2024 4:42 PM EST RN Notified Pulse 54 10/14/2024 4:42 PM EST RN No tified Temperature 36.5 C (97.7 F) 10/14/2024 4:42 PM EST Respiratory Rate 20 10/14/2024 4:42 PM EST Oxygen Saturation 98% 10/14/2024 4:42 PM EST Inhaled Oxygen Concentration - - Weight 123.4 kg (272 lb) 10/14/2024 2:24 PM EST Height 180.3 cm (5' 11 ) 10/14/2024 2:24 PM EST Body Mass Index 37.94 10/14/2024 2:24 PM EST Plan of Treatment Health Maintenance Due Date Last Done Comments DEPRESSION SCREENING 1988 SMOKING Hx and SMOKELESS TOB ACCO SCREENING 1989 HEPATITIS C SCREENING 1994 HIV ONE-TIME SCREENING (18-6 5 YEARS) 1994 COLOGUARD 2021 COLONOSCOPY 2021 COLORECTAL CANCER SCREENING 2021 FIT TEST 2021 FOBT 2021 SIGMOIDOSCOPY 2021 VIRTUAL COLONOSCOPY 2021 COVID-19 VACCINE ( - 2023-2 5 season) 2024 SCREENING FOR DIABETES 08/04/2027 08/04/2024 LIPID PANEL 03/18/2029 03/18/2024 Adult Td,Tdap Booster 07/30/2033 07/30/2023 HEPATITIS A VACCINES Aged Out No long er eligible based on patient's age to complete this topic HIB VACCINES Aged Out No longer eligi ble based on patient's age to complete this topic MENINGOCOCCAL VACCINES (ACWY) Aged Out No longer eligible based on patient's age to complete this topic MENINGOCOCCAL VACCINES (B) Aged Out N o longer eligible based on patient's age to complete this topic PNEUMOCOCCAL VACCINES (0-49 years) Aged Out No longer eligible based on patient's age to complete this topic Medical Devices Not on file Insurance C[place] [id number] [place] [id number] C3 ACO C3 ACO ACO Care Teams 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 It is not the complete legal health record.[facility]
[2025-05-17 08:33] LABS: Hemoglobin A1C 202.7744 umol/L; Total Hemoglobin (HGBA1C) 3515.1849 umol/L
[2025-05-17 09:09] LABS: PSA,Total (Free>4and<10) 1.06 ng/mL (0.00-4.00)
[2025-05-22 15:38] LABS: Testosterone, Free 63.5 pg/mL (35.0-155.0)
== END 2025-05-17 07:32 | disposition home or self-care (01) ==
LOC: HO.LAB 07:31
PROVIDERS: Visit Provider Nurse Practitioner Family
DX: E11.69 Type 2 diabetes mellitus with other specified complication (principal); N52.1 Erectile dysfunction due to diseases classified elsewhere
CPT/HCPCS: 36415; 83036; 84153; 84402; 84403

== ENCOUNTER 2025-07-05 13:13 | Outpatient (AMB) | payer MEDICAID, SELFPAY ==
--- NOTE | 2025-07-05 13:17 | MHC.OFFVIS ---
Intake Visit Reasons: 3m/labs Intake Note: Patient is present for 3M/LBS Urology Medication:TADALAFIL Antibiotic Allergy:NONE Blood Thinner:ASPIRIN Parts Chaser Required: No Allergies No Known Allergies Allergy (Verified 07/05/25 14:34) Medication List - Last Reconciled 07/05/25 by RENUKA Chávez- acetaminophen 500 mg PO QID PRN albuterol sulfate 90 mcg/actuation 2 puffs inhalation Q4-6H PRN alogliptin (Nesina) 25 mg PO DAILY aspirin 81 mg PO DAILY atorvastatin 80 mg PO QAM carvedilol 25 mg PO chlorthalidone 25 mg PO QAM dulaglutide (Trulicity) mg subcut QWEEK fluticasone furoate-vilanterol 200-25 mcg/dose (Breo Ellipta) 1 inh inhalation DAILY gabapentin 300 mg PO TID 30 days hydroxyzine HCl 25 mg PO TID PRN insulin lispro subcut isosorbide mononitrate ER 60 mg PO DAILY lisinopril 40 mg PO DAILY omeprazole 40 mg PO DAILY phenytoin sodium extended 100 mg PO BID semaglutide (Ozempic) 1 mg subcut QWEEK tadalafil (Cialis) 5 mg PO DAILY 90 days HPI Comments Details: Tre is a 49-year-old English-speaking male patient of Dr. Galdamez. He has a past medical history of seizure disorder, depression, cannabis use, anxiety, GERD, stroke, COPD, hyperlipidemia, hypertension, type 2 diabetes, and obesity. He presents to the office today for follow-up. Of note, patient was seen approximately 5 months ago as a new patient for ED at which time he was started on low-dose Cialis and labs were ordered for further assessment evaluation. These results were reviewed and communicated with the patient today. PSA: 06/05 1.1 Testosterone: 06/05 286 A1c: 12/05 9.4, 04/04 9.1, 06/05 7.4 In discussion with the patient today he reports feeling low-dose Cialis has been helpful as he has been experiencing morning erections. We did discuss borderline low testosterone in relation to ED as well as type 2 diabetes. We also discussed the importance of continuing to manage diabetes for improvement in urological health as well as overall health and well-being. He currently denies any bothersome urinary issues. He denies urinary urgency, urinary frequency, incontinence, nocturia, hematuria, dysuria, foul smelling urine, changes to urinary stream, flank pain, fever, and or chills. He is happy with his current voiding parameters. When asked he denies any previous trauma. We discussed at length potential causes of erectile dysfunction as well as further treatment options and risks and benefits of these treatment options. We also discussed importance of lifestyle modifications to assist with erectile dysfunction as well as overall health and well-being. In office urinalysis results reviewed with the patient today. We also discussed recreational drug use in relation to erectile dysfunction as well as overall health and well-being. He discusses having recently started Mounjaro and has intentionally lost 5 lb. He otherwise offers no other issues or concerns at this time. [facility] Medical History Seizure disorder Moderate episode of recurrent major depressive disorder Cannabis use disorder Generalized anxiety disorder GERD (gastroesophageal reflux disease) Stroke COPD (chronic obstructive pulmonary disease) Hyperlipidemia, unspecified Essential hypertension Type 2 diabetes mellitus with unspecified complications Morbid obesity Surgical History No pertinent past surgical history Family History Mother No problems noted. Paternal Grandfather Heart problem Father No problems noted. Social History Alcohol intake: former Patient Tobacco Use Status: Former Tobacco user Substance Use Type: Marijuana Current occupational status: unemployed Current occupation: right hand dominant Review of Systems Const Reports no additional complaints Eyes Reports no additional complaints ENT Reports no additional complaints Card Reports as per HPI Resp Reports no additional complaints GI Reports no additional complaints Reports as per HPI Musc Reports no additional complaints Neuro Reports as per HPI Psych Reports as per HPI Endo Reports as per HPI Vahid/Lymph Reports no additional complaints Aller/Immun Reports no additional complaints Physical Exam Const General: cooperative, healthy appearing, comfortable, no acute distress, well developed, alert and awake Nutritional Appearance: overweight Orientation/consciousness: patient oriented x3 Limitations: language barrier HEENT Head: Yes normal to inspection, Yes normocephalic and Yes atraumatic Ears: hearing grossly normal bilaterally Eyes General: appearance normal, both eyes and all related structures Neck Neck: Yes normal visual inspection and Yes trachea midline Chest Chest palpation & inspection: normal inspection of the chest Resp Effort & Inspection: normal respiratory effort and able to speak in complete sentences Cardio Rate: regular rate GI Inspection: Yes normal to inspection General: Yes no CVA tenderness Back/Spine/Pelvis Back: no CVA tenderness Skin General skin exam: no rashes or lesions noted Neuro General: patient oriented x3 Extrem General: Yes normal to inspection Psych Appearance: grossly normal and well kempt Mental Status: mental status grossly normal Speech and movement: Normal speech and movement present and Clear speech present Affect: normal affect Attitude: cooperative Thought process: Normal thought process present Thought content: Normal thought content present Insight: Fair insight present (Psych) Judgement: Fair judgement present (Psych) Results AMB Urinalysis, Automated UA Leukoctes 0 Tracey/uL Last Edit by Merced Garcia CCM on 07/05/25 13:33 UA Nitrite Negative Last Edit by Merced Garcia [facility] on 07/05/25 13:33 UA Urobilinogen 0.2 mg/dL Last Edit by Merced Garcia [facility] on 07/05/25 13:33 UA Protein 30 mg/dL Last Edit by Merced Garcia [facility] on 07/05/25 13:33 UA pH 6.0 Last Edit by Merced Garcia [facility] on 07/05/25 13:33 UA Blood 0 Sincere/uL Last Edit by Merced Garcia [facility] on 07/05/25 13:33 UA Specific [place] 1.025 Last Edit by Merced Garcia CCM on 07/05/25 13:33 UA Ketone Negative Last Edit by Merced Garcia [facility] on 07/05/25 13:33 UA Bilirubin 0 mg/dL Last Edit by Merced Garcia [facility] on 07/05/25 13:33 UA Glucose 0 mg/dL Last Edit by Merced Garcia [facility] on 07/05/25 13:33 Results Reviewed Results Reviewed: Laboratory Last Values Urine pH (Auto) 6.0 07/05/25 13:21 Specific [place] (Auto) 1.025 07/05/25 13:21 Urine Protein (Auto) 30 mg/dL 07/05/25 13:21 Glucose (UA)(Auto) 0 mg/dL 07/05/25 13:21 Urine Ketones (Auto) Negative 07/05/25 13:21 Urine Blood (Auto) 0 Sincere/uL 07/05/25 13:21 Urine Nitrite (Auto) Negative 07/05/25 13:21 Urine Bilirubin (Auto) 0 mg/dL 07/05/25 13:21 Urine Urobilinogen (Auto) 0.2 mg/dL 07/05/25 13:21 Leukocyte Esterase (Auto) 0 Tracey/uL 07/05/25 13:21 Assessment & Plan Assessment & Plan (1) Hypogonadism in male: Code(s): E29.1 - Testicular hypofunction Category: Medical (2) Erectile dysfunction associated with type 2 diabetes mellitus: Code(s): E11.69 - Type 2 diabetes mellitus with other specified complication; N52.1 - Erectile dysfunction due to diseases classified elsewhere Category: Medical Plan In office urinalysis results with the patient today; as noted above. Recent testosterone, PSA, and A1c results reviewed with the patient today; as noted above. We did discuss further interventions of borderline low testosterone as well as ED; we discussed risks and benefits of these interventions. All questions were answered. Will continue with low-dose Cialis at this time. He denies any bothersome urinary issues or concerns. He reports be happy with current voiding parameters. We did discussed the importance of lifestyle modifications to assist with ED as well as overall health and well-being. We discussed importance of management and diabetes for improvement in urological health as well as overall health and well-being. Will obtain testosterone, LH, prolactin, estradiol, SHBG and free testosterone for further assessment evaluation. Follow-up in 3 months with labs to be completed prior; or sooner with any issues, concerns, and or questions. Orders: Orders Lutenizing Hormone 3 Months E29.1 - Testicular hypofunction Prolactin 3 Months E29.1 - Testicular hypofunction Estrad Free (Tot Ultra + Free) 3 Months E29.1 - Testicular hypofunction Follicle Stimulating Hormone 3 Months E29.1 - Testicular hypofunction AMB Urinalysis Automated Today Z13.9 - Encounter for screening, unspecified Testosterone, Total 3 Months E29.1 - Testicular hypofunction Sex Hormone Binding Globulin 3 Months E29.1 - Testicular hypofunction Medications: Refilled tadalafil (Cialis) [id number] [facility] [id number] Member [id number] 5 mg PO DAILY 90 tabs 3RF 90 days acetaminophen 500 mg PO QID PRN 20 tabs 0RF fever or pain Patient Instructions: The patient had an opportunity to ask questions regarding the treatment plan. All questions were answered. Physical exam, labs, and imaging were discussed and reviewed in detail. As well as risks, benefits, and discussion of treatment choices. No major barriers to understanding were identified. The patient expressed understanding and agreement with the above treatment plan. The patient was made aware they should contact our office by phone for worsening of their current condition, the appearance of new symptoms, or with any questions or concerns. Compliance is encouraged with any medications and follow up testing that is ordered. It is a privilege to be allowed the opportunity to participate in? your urological care.? Again, if you have any questions or concerns If you have any questions or concerns please do not hesitate to contact me. The office is [phone]. This note is constructed using voice recognition software. While every effort has been made to ensure accuracy solar project coordination specialist errors may have been included. Yours sincerely, ALEJO Chávez Coding Level of Care Code Est Pt Level 3 (34496) Diagnoses Hypogonadism in male E29.1 Erectile dysfunction associated with type 2 diabetes mellitus E11.69; N52.1
--- OUTSIDE RECORDS SUMMARY | 2025-07-05 14:45 | XMS_ITS | Encounter Summary ---
Author Organization [facility] Address [address] [place] [address] Care Team Providers Care Network Mgr Name Role Phone Jocelyn Galdamez PARALEGAL Primary Care Provider [phone] Reason for Visit * Reason Comments DM Foot Care Encounter Details Date Type Department Care Team (Late Contact Info) Description 07/05/2025 2:45 PM EDT Office Visit Orthopedic Surgery [facility] [address] [phone] Billy Barroso DPM [address] [phone] Social History Tobacco Use Types Packs/Day Years Used Date Smoking Tobacco: Never Assessed Sex and Gender Information Value Date Recorded Sex Assigned at Not on file Legal Sex Male 11:01 AM EDT Gender Identity Not on file Sexual Orientation Not on file documented as of this encounter Plan of Treatment Upcoming Encounters Date Type Department Care Team (Late Contact Info) Description 08/09/2025 3:45 PM EDT Office Visit Orthopedic [facility] [address] [phone] Billy Barroso DPM [address] [phone] documented as of this encounter Visit Diagnoses Not on filedocumented in this encounter Care Teams Network Mgr Relationship Specialty Start Date End Date Jocelyn Galdamez NP [address] [facility] [address] [phone] PCP - General 11/19/23 documented as of this encounter
--- OUTSIDE RECORDS SUMMARY | 2025-07-05 15:36 | XMS_ITS | Clinical Summary ---
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 Name Role Phone Jocelyn Galdamez MARIEL Primary Care Provider [phone] Allergies No known active allergies Medications No [...] FOBT 2021 SIGMOIDOSCOPY 2021 VIRTUAL COLONOSCOPY 2021 INFLUENZA VACCINE (#1) 2025 COVID-19 VACCINE ( - 2023-2 5 season) 2025 SCREENING FOR DIABETES 08/04/2027 08/04/2024 LIPID PANEL [...] on file Insurance C3 ACO C[place] [address] [place] [address] C3 ACO C3 ACO [place] [address] [place] [address] C3 ACO Care Teams Bench Boring Machine Operator Relationship Specialty Start Date End Date Jocelyn Galdamez ANP [address] [place] [address] PCP - General Nurse Practitioner 10/14/24 Additional Source Comments The information contained in this document represents components of the legal health record. It is not the complete legal health record.[facility]
--- OUTSIDE RECORDS SUMMARY | 2025-07-05 15:36 | XMS_ITS | Encounter Summary ---
Author Organization [employer] Address [address] [address] [facility] [address] [place] [address] Care Team Providers Care Nursing Associate Name Role Phone Jocelyn Galdamez Primary Care Provider [phone] Regan Morin PharmD Unavailable [phone] Javier Alfredo RN Unavailable [phone] Encounter Details Date Type Department Care Team (Late st Contact Info) Description 11/26/2023 Orders Only [facility] [address] [place], [place] [phone] Jocelyn Galdamez ANP [address] [place], [place] [phone] Social History Tobacco Use Types Packs/Day Years [...] Care Team (Late st Contact Info) Description 08/08/2025 2:00 PM EDT Office Visit [facility] [address] [place] [phone] Jocelyn Galdamez ANP [address] [place] [address] 09/29/2025 10:00 AM EST Medication Management [facility] [address] [place] [address] Regan Morin, PharmD [address] [place] [phone] documented as of this encounter Goals Goal Patient Goal Type Associated Problems Recent Progress Patient-Stated? Author Blood Pressure < 140/90 Blood Pressure 138/68(2024 10:15 AM EDT) No Ken Khanna Hemoglobin A1c < 7 Result Component 7.4( 10:37 AM EDT) No Ken Khanna documented as of this encounter Visit Diagnoses Not on filedocumented in this encounter Additional Health Concerns Assessment Noted Time PHQ-9 Depression Total Score: 17 023 11:03 AM EDT documented as of this encounter Care Teams Nursing Associate Relationship Specialty Start Date End Date Jocelyn Galdamez ANP [address] [place] [address] PCP - General Family Medicine 05/27/23 Regan Morin, KayleenD [address] [place] [address] Pharmacist Internal Medicine 09/14/24 Javier Alfredo, J LUIS [address] [place] [address] Registered Nurse Family Medicine 06/19/25 [facility] 12/05/24 documented as of this encounter
--- OUTSIDE RECORDS SUMMARY | 2025-07-05 15:36 | XMS_ITS | Clinical Summary ---
Author Organization [employer] Address [address] [place] [address] Care Team Providers Care Application Chemist Name Role Phone Jocelyn Galdamez Primary Care Provider [phone] Regan Morin PharmD Unavailable [phone] Javier Alfredo RN Unavailable [phone] Allergies Active Allergy Reactions Criticality Noted Date Comments Gabapentin Nausea Only Low 05/09/2025 Medications * This document contains information received [...] Blood Pressure kitIndications:H ypertension associated with diabetes ([facility]) 1 kit in the morning. 1 kit 023 Active ammonium lactate (Lac-Hydrin) 12 % lotion Apply 1 Application. topically Once per day. To soles of feet 024 Active glucose blood (FreeStyle Precision Marbin Test) test stripIndications :Type 2 diabetes mellitus with hyperlipidemia ([facility]) ([facility]) Use to test blood sugar 3 times daily as needed 100 each 11 024 2024 Active tiotropium (Spiriva Respimat) 2.5 MCG/ACT inhalerIndicatio ns:Chronic obstructive pulmonary disease, unspecified COPD type ([facility]) Inhale 2 puffs Once per day. 1 each 025 2025 Active Alcohol Swabs (Alcohol Prep) 70 % pads USE DIRECTED TO TEST BLOOD SUGAR BEFORE MEALS AND AT BEDTIME 100 each Active metFORMIN XR (Glucophage-XR) 500 MG 24 hr tabletIndication s:Type 2 diabetes mellitus with hyperlipidemia (CMS/HCC) ([facility]) Take 1 tablet (500 mg) by mouth 2 times daily. Do not crush, chew, or split. 180 tablet 3 Active TRUEplus Lancets 33G miscIndications: Type 2 diabetes mellitus with hyperlipidemia (CMS/HCC) ([facility]) TEST BLOOD SUGAR THREE TIMES DAILY 100 each Active empagliflozin (Jardiance) 25 MGIndications:Ty pe 2 diabetes mellitus with hyperlipidemia (CMS/HCC) ([facility]) Take 1 tablet (25 mg) by mouth Once per day. 30 tablet 025 2025 Active aspirin (Aspirin Low Dose) 81 MG EC tabletIndication s:Type 2 diabetes mellitus with hyperlipidemia (CMS/HCC) ([facility]),Histor y of CVA (cerebrovascular accident) Take 1 tablet (81 mg) by mouth in the morning. 90 tablet 3 025 Active atorvastatin (Lipitor) 80 MG tabletIndication s:Type 2 diabetes mellitus with hyperlipidemia (CMS/HCC) ([facility]),Histor y of CVA (cerebrovascular accident) Take 1 tablet (80 mg) by mouth in the morning. 90 tablet 3 025 Active carvedilol (Coreg) 25 MG tabletIndication s:Type 2 diabetes mellitus with hyperlipidemia (CMS/HCC) ([facility]) Take 1 tablet (25 mg) by mouth with breakfast and with evening meal. 180 tablet 1 Active pen needle 31G x 6 mm miscIndications: Type 2 diabetes mellitus with hyperlipidemia (CMS/HCC) ([facility]) Use as instructed with insulin 120 each 12 025 2025 Active Ventolin HFA 108 (90 Base) MCG/ACT inhaler INHALE 2 PUFFS EVERY 6 HOURS NEEDED FOR WHEEZING 18 g 1 Active Mometasone Furoate (Asmanex HFA) 100 MCG/ACT aerosolIndicatio ns:Moderate persistent asthma without complication INHALE 2 PUFFS BY MOUTH TWICE DAILY RINSE MOUTH AFTER USING. 13 g 2 Active QUEtiapine (SEROquel) 50 MG tablet TAKE 1 TABLET BY MOUTH THREE TIMES DAILY 90 tablet 1 Active insulin lispro (HumaLOG) 100 UNIT/ML injection INJECT SUBCUTANEOUSLY THREE TIMES DAILY BEFORE MEALS, BLOOD SUGAR 150-199 = 4 UNITS, 200-249 = 6 UNITS, 250-299 = 8 UNITS, 300-349 = 10 UNITS, 350-399 = 12 UNITS, > 400 = 14 UNITS 15 mL 3 025 Active Lantus SoloStar 100 UNIT/ML penIndications:T ype 2 diabetes mellitus with hyperlipidemia (CMS/HCC) ([facility]) INJECT 55 UNITS SUBCUTANEOUSLY EVERY DAY AT BEDTIME 15 mL 3 Active Continuous Glucose Sensor (FreeStyle Karen 3 Plus Sensor) miscIndications: Type 2 diabetes mellitus with hyperlipidemia (CMS/HCC) ([facility]) APPLY 1 SENSOR TOPICALLY EVERY 15 DAYS. USE DIRECTED TO TEST BLOOD SUGAR 2 each 5 Active chlorthalidone (Hygroton) 25 MG tabletIndication s:Hypertensive urgency TAKE 1 TABLET BY MOUTH EVERY MORNING 90 tablet 3 Active isosorbide mononitrate ER (Imdur) 60 MG 24 hr tablet TAKE 1 TABLET BY MOUTH EVERY MORNING DO NOT BREAK, CRUSH, DISSOLVE OR CHEW 90 tablet 3 Active lisinopril 40 MG tablet TAKE 1 TABLET BY MOUTH EVERY MORNING 90 tablet 3 Active omeprazole (PriLOSEC) [address] capsule TAKE 1 CAPSULE BY MOUTH EVERY MORNING 90 capsule 3 Active phenytoin ER (Dilantin) 100 MG capsule Take 1 capsule (100 mg) by mouth 2 times daily. 180 capsule 3 Active famotidine (Pepcid) 20 MG tabletIndication s:Nausea TAKE 1 TABLET BY MOUTH TWICE DAILY NEEDED FOR ACID REFLUX 180 tablet Active oxyCODONE-acetam inophen (Percocet) 7.5-325 MG tablet Take 1 tablet by mouth if needed in the morning, at noon, and at bedtime. Active tadalafil (Cialis) 5 MG tablet Take 5 mg by mouth in the morning. Active Tirzepatide (Mounjaro) 5 MG/0.5ML solution auto-injectorInd ications:Type 2 diabetes mellitus with hyperlipidemia (CMS/HCC) ([facility]/HCC) Inject 5 mg under the skin 1 (one) time per week. 2 mL 5 Active Continuous Glucose Foot Cutter (FreeStyle Karen 3 [place]) deviceIndication s:Type 2 diabetes mellitus with hyperlipidemia (CMS/HCC) ([facility]) 1 Device Use as directed. Scan sensor in the morning and before each meal. 1 each Active isosorbide mononitrate ER (Imdur) 60 MG 24 hr tablet Take 1 tablet (60 mg) by mouth Once per day. Do not crush or chew. 90 tablet 3 024 2024 Discontinued omeprazole (PriLOSEC) [address] capsule TAKE 1 CAPSULE BY MOUTH EVERY MORNING 90 capsule 3 024 2024 Discontinued lisinopril 40 MG tablet TAKE 1 TABLET BY MOUTH EVERY MORNING 90 tablet 3 024 2024 Discontinued chlorthalidone (Hygroton) 25 MG tabletIndication s:Hypertensive urgency TAKE 1 TABLET BY MOUTH EVERY MORNING 90 tablet 3 024 2024 Discontinued phenytoin ER (Dilantin) 100 MG capsule TAKE 1 CAPSULE BY MOUTH TWICE DAILY IN THE MORNING AND IN THE EVENING 180 capsule 3 024 2024 Discontinued(R eorder (will not trigger notification to Pharmacy)) traMADol (Ultram) 50 MG tablet Take 1 tablet by mouth if needed in the morning, at noon, in the evening, and at bedtime. 024 2024 Discontinued(M ed list cleanup (will not trigger notification to Pharmacy)) Continuous Glucose Foot Cutter (FreeStyle Karen 3 [place]) deviceIndication s:Type 2 diabetes mellitus with hyperlipidemia (CMS/HCC) ([facility]) 1 Device Use as directed. Scan sensor in the morning and before each meal. 1 each 025 2024 Discontinued(R eorder (will not trigger notification to Pharmacy)) Continuous Glucose Sensor (FreeStyle Karen 3 Plus Sensor) miscIndications: Type 2 diabetes mellitus with hyperlipidemia (CMS/HCC) ([facility]) Apply 1 Device topically every 15 days. 2 each 5 025 2024 Discontinued pregabalin (Lyrica) 50 MG capsule 025 2024 Discontinued(M ed list cleanup (will not trigger notification to Pharmacy)) Semaglutide,0.25 or 0.5MG/DOS, (Ozempic, 0.25 or 0.5 MG/DOSE,) 2 MG/3ML solution pen-injectorIndi cations:Type 2 diabetes mellitus with hyperlipidemia (CMS/HCC) ([facility]) Inject 0.5 mg under the skin 1 (one) time per week. 2 mL 5 025 2024 Discontinued(I neffective) Lantus SoloStar 100 UNIT/ML penIndications:T ype 2 diabetes mellitus with hyperlipidemia ([facility]/HCC) ([facility]) INJECT 55 UNITS SUBCUTANEOUSLY AT BEDTIME 15 mL 3 025 2024 Discontinued famotidine (Pepcid) 20 MG tabletIndication s:Nausea TAKE 1 TABLET BY MOUTH TWICE DAILY NEEDED FOR ACID REFLUX 180 tablet 025 2024 Discontinued(R eorder (will not trigger notification to Pharmacy)) Tirzepatide (Mounjaro) 2.5 MG/0.5ML solution auto-injectorInd ications:Hyperte nsion associated with diabetes ([facility]),Type 2 diabetes mellitus with hyperlipidemia ([facility]/HCC) ([facility]) Inject 2.5 mg under the skin 1 (one) time per week. 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 Therapy, referral will be submitted. Medication Management, referral will be submitted Use of coping skills provided as recommended. Encounters Date Type Department Care Team Description 07/03/2025 Telephone [facility] [address] [place] [phone] Jocelyn Galdamez ANP Prior Authorization 06/29/2025 Orders Only [facility] [address] [place] [id number] Diaz Mandujano MD Type 2 diabetes mellitus with hyperlipidemia (CMS/HCC) (CMS/[facility]) (Primary Dx) 06/29/2025 Telephone [facility] [address] [place] [phone] Jocelyn Galdamez ANP 06/28/2025 Travel 06/28/2025 Abstract [facility] [address] [place] [phone] Regan Morin, PharmD 06/27/2025 Refill [facility] [address] [place] [address] [phone] Jocelyn Galdamez ANP Nausea 06/19/2025 Patient Outreach [address] [address] Jocelyn Galdamez ANP Care Coordination (C3CM/W CARLIE Aguiar #3 sdoh f/u_closed) 06/18/2025 Refill [facility] [address] [place] [phone] Jocelyn Galdamez ANP Hypertensive urgency 06/17/2025 Refill [facility] [address] [place] [phone] Regan Morin, Liz Type 2 diabetes mellitus with hyperlipidemia (CMS/HCC) ([facility]/HCC) 06/14/2025 Orders Only [facility] [address] [place] [phone] Jocelyn Galdamez ANP Hypertension associated with diabetes (CMS/HCC) (Primary Dx); Type 2 diabetes mellitus with hyperlipidemia (CMS/HCC) (CMS/HCC) 06/13/2025 Refill [facility] [address] [place] [address] Jocelyn Gadlamez ANP Type 2 diabetes mellitus with hyperlipidemia (CMS/HCC) ([facility]/HCC) 06/06/2025 Patient Outreach [facility] [address] [place] [address] Jocelyn Galdamez ANP 06/06/2025 Patient Outreach [facility] [address] [place] [address] Jocelyn Galdamez ANP 06/06/2025 Patient Outreach [facility] [address] [place] [phone] Jocelyn Galdamez ANP Care Coordination ([facility] CARLIE Aguiar #2 sdoh f/u call_lvm ) 06/06/2025 Telephone [facility] [address] [place] [address] Jocelyn Galdamez ANP Prior Authorization 06/02/2025 Patient Outreach [facility] [address] [place] [phone] Jocelyn Galdamez ANP Care Management (C3- Follow Up Call/LVM (Covering for MAX Sawyer)) 05/22/2025 Refill [facility] [address] [place] [address] Jocelyn Galdamez ANP 05/20/2025 Refill [facility] [address] [place] [address] Jocelyn Galdamez ANP 05/12/2025 Patient Outreach [facility] [address] [place] [address] Jocelyn Galdamez ANP Care Management (C3- F/U Call (coverage for Digna)) 04/26/2025 Patient Outreach [facility] [address] [place] [address] Jocelyn Galdamez ANP Care Coordination (C3/W Eduardo Aguiar f/u call ) 04/26/2025 Patient Outreach [facility] [address], [place] [phone] Jocelyn Galdamez ANP Care Coordination (C3CM f/u call) 04/19/2025 Refill [facility] [address] [place] [address] Macey, Wendy, MARKETING ANALYTICS ANALYST Moderate persistent asthma without complication 04/12/2025 Patient Outreach [facility] [address], [place] [phone] Jocelyn Galdamez ANP Care Coordination (C3 f/u call- [facility]) from Last 3 Months Immunizations Immunization Administration [...] Sign Reading Time Taken Comments Blood Pressure 138/68 06/28/2025 10:15 AM EDT Pulse 74 06/28/2025 10:15 AM EDT Temperature 36.7 C (98 F) 03/27/2025 [...] Description 08/08/2025 2:00 PM EDT Office Visit [facility] [address] [place] [address] Jocelyn Galdamez, ANP [address] [place] [address] 09/29/2025 10:00 AM EST Medication Management [facility] [address] [place] [address] Regan Morin, PharmD [address] [place] [address] Health Maintenance Due Date Last Done Comments CT Colonography 1976 Colonoscopy 1976 FIT 1976 Sigmoidoscopy 1976 Family Planning (PISQ) 1991 Diabetes: Urine Protein Screening 11/04/2024 11/04/2023, 05/26/2023 FOBT 11/10/2024 11/10/2023 Lipid Panel 03/18/2025 03/18/2024, 05/26/2023 COVID-19 Vaccine ( season) 2025 Influenza Vaccine (#1) 2025 08/11/2024, 2022 Diabetes: Foot Exam 08/11/2025 08/11/2024, 08/11/2024, 08/11/2024, Additional history exists Diabetes: Hemoglobin A1C 09/27/2025 025, 03/07/2025, 11/21/2024, Additional history exists Eye Exam 09/29/2025 09/29/2024, 09/11, 09/29/2024, Additional history exists Disability Screening 12/28/2025 12/28/2024 Alcohol/Substance Use Screening 01/25/2026 01/25/2025 Depression Screening 01/25/2026 01/25/2025, 01/26/20 25 SDOH Screening 02/07/2026 02/07/2025 Tobacco Screening 03/07/2026 [...] 7.4( 10:37 AM EDT) No Ken Khanna Procedures Procedure Name Priority Date/Time Associated Diagnosis Comments POCT GLYCATED HEMOGLOBIN, TOTAL Routine 06/28/2025 10:37 AM EDT Type 2 diabetes mellitus with [...] to Health Maintenance Results * (ABNORMAL) POCT Hgb A1c (06/28/2025 10:37 AM EDT) Hemoglobin A1C 7.4(A) 4.0 - 5.7 % QC Media Lot # [id number] Lot# Expiration Date ,992,086 Blood 06/28/2025 10:3 7 AM EDT us Jocelyn FLOYD POINT OF CARE TEST ENTER/EDIT OR DERABLES Final Result * Hepatitis C Antibody with Reflex to HCV, RNA, Quantitative, Real-Time PCR (03/18/2024 10:44 AM EDT) Hepatitis C Antibody Nonreactive Nonreactive [facility] Comment:Antibodies to HCV no t detected; does not exclude early acuteHCV infection. Blood Venous blood specimen / Unknown 03/18/2024 10:44 AM EDT 03/18/2024 11:18 AM EDT us Jocelyn FLOYD LAB BLOOD ORDERABLES Final Resul t [facility] [address] [place] [address] [phone] * HIV-1/2 Antigen and Antibodies, Fourth Generation, with Reflexes (03/18/2024 10:44 AM EDT) HIV AB/AG Nonreactive Nonreactive [facility] Comment:HIV-1 p24 Ag and/or HIV-1/HIV-2 Ab not detected.A test result that is nonreactive does not exclude thepossibility of exposure to or infection with HIV-1 and/orHIV-2. Nonreactive results in this assay for individualswith prior exposure to HIV-1 and/or HIV-2 may be due toantigen and antibody levels that are below the limit ofdetection of this assay.The iPixCel HIV Ag/Ab Combo assay result andsupplemental assay results should be interpreted inconjunction with the patient's clinical presentation,history and other laboratory results. If the results areinconsistent with clinical evidence, additional testing issuggested to confirm the result. Blood Venous blood specimen / Unknown 03/18/2024 10:44 AM EDT 03/18/2024 11:18 AM EDT Jocelyn Galdamez [facility] BLOOD ORDERABLES Final Resul t [facility] [address] [place] [address] [phone] * (ABNORMAL) Lipid Panel, Standard (03/18/2024 10:44 AM EDT) Triglycerides 81 <150 mg/dL [facility] Comment:Desirable Triglyceri de: less than 150 mg/dLBorderline High Triglyceride 150-199 mg/dLHigh Triglyceride: 200-499 mg/dLVery High Triglyceride: greater than or equal to 5OO mg/dL Cholesterol 96 <200 mg/dL [facility] Comment:Desirable Cholestero l: less than 200 mg/dLBorderline High Cholesterol: 200-239 mg/dLHigh Cholesterol: greater than 239 mg/dL LDL Cholesterol Calculated 49 <100 mg/dL [facility] Comment:Desirable LDL: less than 100 mg/dLNear Optimal/Above Optimal LDL: 110- 129 mg/dLBorderline High LDL: 130-159 mg/dLHigh LDL: 160-189 mg/dLVery High LDL: greater than or equal to 190 mg/dL HDL Cholesterol 31(L) >40 mg/dL [facility] Comment:Desirable HDL: great er than 40 mg/dL Note: This HDL assay may give artificially low results in patients with liver disease. Blood Venous blood specimen / Unknown 03/18/2024 10:44 AM EDT 03/18/2024 11:23 AM EDT [facility] LAB BLOOD ORDERABLES Final Resul t [facility] [address] [place] [phone] * Cologuard?? colon cancer screening (11/10/2023 3:25 PM EST) Cologuard Result Negative Negative 11/20/19 10:09 AM EST [employer] (CLIA #:[id number]) Comment: NEGATIVE TEST RESULT. A negative Cologuard [...] screened with both Cologuard and colonoscopy. (Ngozi Shaw et al, N Engl J Med 2014;370(14):1425-8749) The normal value (reference range) for this assay is negative. COLOGUARD RE-SCREENING RECOMMENDATION: Periodic colorectal cancer screening is an important part of preventive healthcare for asymptomatic individuals at average risk for colorectal cancer. Following a negative Cologuard result, the [place] [employer] and U.S. Multi-Society Task Force screening guidelines recommend a Cologuard re-screening interval of 3 years. References: [place] [employer] Guideline for Colorectal Cancer Screening: https://www.cancer.org/cancer/ybaxj-txrqjn-vekwiz/zvyaxfppv-ncyayqqpw-yersczh/ac s-rec ommendations.html.; Jc DK, Ravin LUU, Donna NEWSOME, Colorectal Cancer Screening: Recommendations for Physicians and Patients from the U.S. Multi-Society Task Force on Colorectal Cancer Screening , Am J Gastroenterology 2017; 112:7862-5146. TEST DESCRIPTION: Composite algorithmic analysis of stool [...] (Ngozi Urena al, N Engl J Med 2014;370(14):8192-2504.) Cologuard may produce a false negative or false positive result (no colorectal cancer or precancerous polyp present at colonoscopy follow up). A negative Cologuard test result does not guarantee the absence of CRC or advanced adenoma (pre-cancer). The current Cologuard screening interval is every 3 years. ([place] [employer] and U.S. Multi-Society Task Force). Cologuard performance data in a 10,000 patient pivotal study using colonoscopy as the reference method can be accessed at the following location: www.Shortlist/results. Additional description of the Cologuard test process, warnings and precautions can be found at www.cologuard.com. Stool specimen (specimen) 11/10/2023 3:25 PM EST 11/12/2023 10:50 AM EST Jocelyn Galdamez [facility] MOLECULAR DIAGNOSTICS ORDERA BLES Final Result Performing Organization Address [facility] Co de Phone Number [employer] (CLIA #:[id number]) [place] [address] [address], [place] [phone] * Albumin, Random Urine W/Creatinine (11/04/2023 8:56 AM EST) Creatinine, Urine 86.84 mg/dL [facility] Microalbumin Urine 22.0 mg/L [facility] Microalbum Creatinine Ratio Ur 25.3 <30 ug/mg cr [facility] Comment:Albumin/Creatinine R atio Reference Ranges: Normal: < 30 ug/mg creatinine Microalbuminuria: 30 - 300 ug/mg creatinineClinical Albuminuria: > 300 ug/mg creatinine Urine 11/04/2023 8:56 AM EST 11/04/2023 11:07 AM EST Jocelyn Galdamez ANP LAB URINE ORDERABLES Final Resul t Performing Organization Address [facility] Co de Phone Number [facility] [address] [place] [address] [phone] from Last 3 Months or Most Recently Relevant to Health [place] [address] [facility] C3 Care Teams Application Chemist Relationship Specialty Start Date End Date Jocelyn Galdamez ANP [address] [place] [address] PCP - General Family Medicine 05/27/23 Regan Morin, KayleenD [address] [place] [address] Pharmacist Internal Medicine 09/14/24 Javier Alfredo, J LUIS [address] [place] [phone] Registered Nurse Family Medicine 06/19/25 [employer] 12/05/24
--- OUTSIDE RECORDS SUMMARY | 2025-07-05 15:36 | XMS_ITS ---
Author Name [facility] Organization Unknown History of Medication Use Medication Directions Dispensed Refills Start Date End Date Stat oxyCODONE-acetaminop hen (PERCOCET) 7.5-325 mg tablet Take 1 (one) tablet by mouth 3 (three) times a day as needed. 06/21/2025 active pregabalin (LYRICA) 100 MG capsule Tablet once a day for 15 days then off 06/21/2025 active tiZANidine (ZANAFLEX) 4 MG tablet Take 1 (one) tablet (4 mg total) by mouth 2 (two) times a day as needed. 06/21/2025 active traMADoL (ULTRAM) 50 mg tablet Takes 2 tabs three times daily as needed. 06/07/2025 active traMADoL (ULTRAM) 50 mg tablet Take 1 (one) tablet (50 mg total) by mouth 3 (three) times a day. 06/05/2025 aborted traMADoL (ULTRAM) 50 mg tablet Take 2 (two) tablets (100 mg total) by mouth 3 (three) times a day as needed. 03/10/2025 aborted pregabalin (LYRICA) 100 MG capsule Take 1 (one) capsule (100 mg total) by mouth 2 (two) times a day. 03/10/2025 active tiZANidine (ZANAFLEX) 2 MG tablet Take 1 (one) tablet to 2 (two) tablets (2-4 mg total) by mouth at bedtime as needed. 12/06/2024 active gabapentin (NEURONTIN) 300 MG capsule Take 1 (one) capsule (300 mg total) by mouth 3 (three) times a day. IN THE MORNING, EVENING, AND BEDTIME 11/07/2024 active albuterol (VENTOLIN HFA) 90 mcg/actuation HFA inhaler Inhale 2 (two) puffs by mouth every 6 (six) hours as needed. active alcohol swabs (ALCOHOL PREP PADS) BEFORE MEALS AND AT BEDTIME active ammonium lactate (LAC-HYDRIN) 12 % lotion Apply topically once daily. APPLY TOPICALLY TO SUNS OF THE FEET active aspirin 81 MG enteric coated tablet Take 1 (one) tablet (81 mg total) by mouth every morning. active atorvastatin (LIPITOR) 80 MG tablet Take 1 (one) tablet (80 mg total) by mouth every morning. active blood sugar diagnostic (FREESTYLE PRECISION ELY STRIPS) Strip 3 (three) times a day as needed. active carvediloL (COREG) 25 MG tablet Take 1 (one) tablet (25 mg total) by mouth 2 (two) times a day. IN THE MORNING AND IN THE EVENING WITH MEALS active cephalexin (KEFLEX) 500 MG capsule Take 1 tablet by mouth every 8 (eight) hours. active chlorthalidone (HYGROTEN) 25 MG tablet Take 1 (one) tablet (25 mg total) by mouth every morning. active empagliflozin (JARDIANCE) 10 mg tablet Take 1 (one) tablet (10 mg total) by mouth every morning. active empagliflozin (JARDIANCE) 25 mg tablet Take 1 (one) tablet (25 mg total) by mouth every morning. active empagliflozin (JARDIANCE) 25 mg tablet Take 1 (one) tablet (25 mg total) by mouth every morning. active famotidine 20 MG tablet Take 1 (one) tablet (20 mg total) by mouth 2 (two) times a day as needed (GASTRIC ACIDITY). active insulin glargine (LANTUS SOLOSTAR U-100 INSULIN) 100 unit/mL (3 mL) pen Inject 55 (fifty five) Units under the skin at bedtime. active insulin lispro (HUMALOG KWIKPEN) 100 unit/mL pen INJECT SUBCUTANEOUSLY THREE TIMES DAILY BEFORE MEALS, BLOOD SUGAR 150-199 = 4 UNITS, 200-249 = 6 UNITS, 250-299 = 8 UNITS, 300-349 = 10 UNITS, 350-399 = 12 UNITS, > 400 = 14 UNITS active isosorbide mononitrate (IMDUR) 60 MG extended release tablet Take 1 (one) tablet (60 mg total) by mouth every morning. DO NOT BREAK, CRUSH, DISSOLVE OR CHEW active lisinopriL (PRINIVIL) 40 MG tablet Take 1 (one) tablet (40 mg total) by mouth every morning. active metFORMIN (GLUCOPHAGE-XR) 500 MG 24 hr tablet Take 1 (one) tablet (500 mg total) by mouth once daily. IN THE MORNING AND IN THE EVENING DO NOT BREAK, CRUSH, DISSOLVE OR CHEW active metFORMIN (GLUCOPHAGE) 1000 MG tablet Take 1 (one) tablet (1,000 mg total) by mouth 2 (two) times a day. IN THE MORNING AND IN THE EVENING active mometasone (ASMANEX HFA) 100 mcg/actuation inhaler Inhale 2 (two) puffs (200 mcg total) by mouth 2 (two) times a day. RINSE MOUTH AFTER USING active omeprazole (PRILOSEC) 40 MG delayed release capsule Take 1 (one) capsule (40 mg total) by mouth every morning. active phenytoin (DILANTIN) 100 MG extended release capsule Take 1 (one) capsule (100 mg total) by mouth 2 (two) times a day. IN THE MORNING AND IN THE EVENING active pregabalin (LYRICA) 50 MG capsule Take 1 (one) capsule (50 mg total) by mouth. active pregabalin (LYRICA) 75 MG capsule Take 1 (one) capsule (75 mg total) by mouth 2 (two) times a day. active pregabalin (LYRICA) 75 MG capsule Take 1 (one) capsule (75 mg total) by mouth 2 (two) times a day. active QUEtiapine (SEROQUEL) 50 MG tablet Take 1 (one) tablet (50 mg total) by mouth 3 (three) times a day. active semaglutide (OZEMPIC) 1 mg/dose (4 mg/3 mL) pen injector Inject 1 (one) mg under the skin every 7 days. IN THE ABDOMEN, THIGHS OR UPPER ARM. ROTATE INJECTION SITES. active semaglutide (WEGOVY) 2.4 mg/0.75 mL pen injector Inject under the skin. active tadalafiL (CIALIS) 5 MG tablet Take 1 (one) tablet (5 mg total) by mouth once daily. active terbinafine HCL (LAMISIL) 250 mg tablet Take 1 (one) tablet (250 mg total) by mouth once daily. active tiotropium bromide 2.5 mcg/actuation (SPIRIVA RESPIMAT) 2.5 mcg/actuation inhaler Inhale 2 (two) puffs (5 mcg total) by mouth once daily. active tiotropium-olodatero L (STIOLTO RESPIMAT) 2.5-2.5 mcg/actuation inhaler Inhale 2 (two) puffs by mouth once daily. active Allergies Allergen Reaction Severity Comment Documented Date Source Statu s GABAPENTIN NAUSEA ONLY gabapentin 05/09/2025 [facility] active Problems Problem Status Onset Date Problem Type Date of Resolution Source History of claustrophobia active EncounterDiagnosisAct [facility] Intervertebral disc disorders with radiculopathy, lumbar region active EncounterDiagnosisAct RI_[facility] Degeneration of intervertebral disc of lumbar region with discogenic back pain and lower extremity pain active EncounterDiagnosisAct [facility] Facet arthropathy, lumbar active EncounterDiagnosisAct RI_[facility] Morbid obesity with BMI of 40.0-44.9, adult ([facility]) active EncounterDiagnosisAct RI_ [facility] Encounters Encounter Type Encounter Reason Primary Diagnosis Location Date Ambulatory [facility] Ambulatory [facility] 07/2025 Care Team Organization Name Specialty Phone Email Start Date End Da te [facility] 07/03/2025
--- OUTSIDE RECORDS SUMMARY | 2025-07-05 15:36 | XMS_ITS | Encounter Summary ---
Author Organization [employer] Address [address] [place] [address] Care Team Providers Care Recreational Counselor Name Role Phone Jocelyn Galdamez Primary Care Provider [phone] Regan Morin PharmD Unavailable [phone] Javier Alfredo RN Unavailable [phone] Reason for Visit * Reason Comments Med Refill Encounter Details Date Type Department Care Team (Late st Contact Info) Description 12/21/2023 Refill [facility] [address] [place], [place] [phone] Jocelyn Galdamez ANP 230 [place], [place] [phone] Type 2 diabetes mellitus with hyperlipidemia ([facility]/HCC) Social History Tobacco Use Types Packs/Day [...] Description 08/08/2025 2:00 PM EDT Office Visit [address] [address] Jocelyn Galdamez ANP [address] [place] [address] 09/29/2025 10:00 AM EST Medication Management [address] [address] Regan Morin, PharmD [address] [place] [address] documented as of this encounter Goals Goal [...] documented as of this encounter Care Teams Recreational Counselor Relationship Specialty Start Date End Date Jocelyn Galdamez ANP [address] [place] [address] PCP - General Family Medicine 05/27/23 Regan Morin, KayleenD [address] [place] [address] Pharmacist Internal Medicine 09/14/24 Javier Alfredo, J LUIS [address] [place] [address] Registered Nurse Family Medicine 06/19/25 [facility] 12/05/24 documented as of this encounter
--- OUTSIDE RECORDS SUMMARY | 2025-07-05 15:36 | XMS_ITS ---
Author Organization [employer] Address [address] [facility] [address]t [place] [address] Care Team Providers Care Grease Machine Worker Name Role Phone Jocelyn Galdamez Primary Care Provider [phone] Regan Morin PharmD Unavailable [phone] Javier Alfredo RN Unavailable [phone] CM Complex Status:Enrolled (Active) Start date:01/05/2025 Enrollment date:01/25/2025 Enrollment reason:ADT Feed Overview ED- Pt went to [facility] ED on 01/04/25 and [facility]. Case Team Name Relationship Phone Javier Alfredo RN(Responsible Staff) [facility] [phone] Continued Care and Services Coordination
--- OUTSIDE RECORDS SUMMARY | 2025-07-05 15:36 | XMS_ITS | Encounter Summary ---
Author Organization [employer] Address [address] 7[address] [place] [address] Care Team Providers Care Beading Sawyer Name Role Phone Jocelyn Galdamez Primary Care Provider [phone] Regan Morin PharmD Unavailable [phone] Javier Alfredo RN Unavailable [phone] Encounter Details Date Type Department Care Team (Late st Contact Info) Description 03/02/2025 Orders Only [facility] [address] [place] [address] Jocelyn Galdamez ANP 230 [place], [place] [phone] Type 2 diabetes mellitus with hyperlipidemia (CMS/HCC) (CMS/HCC) (Primary Dx); History of CVA (cerebrovascular accident) Social History Tobacco Use Types Packs/Day Years [...] Description 08/08/2025 2:00 PM EDT Office Visit [facility] [address] [place] [address] Jocelyn Galdamez, ANP [address] [place] [address] 09/29/2025 10:00 AM EST Medication Management [facility] [address] [place] [address] Regan Morin, PharmD [address] [place] [address] documented as of this encounter Goals Goal Patient Goal Type Associated Problems Recent Progress Patient-Stated? Author Blood Pressure < 140/90 Blood Pressure 138/68(2024 10:15 AM EDT) No Ken Khanna Hemoglobin A1c < 7 Result Component 7.4(09/17/202 5 10:37 AM EDT) No Ken Khanna documented as of this encounter Visit Diagnoses Diagnosis Type 2 diabetes mellitus with hyperlipidemia (CMS/HCC) (CMS/HCC)- Primary History of CVA (cerebrovascular accident) Transient ischemic attack (TIA), and cerebral infarction without residual deficits documented in this encounter Additional Health Concerns Assessment Noted Time PHQ-9 Depression Total Score: 7 01/26/20 25 1:37 PM EDT documented as of this encounter Care Teams Beading Sawyer Relationship Specialty Start Date End Date Jocelyn Galdamez ANP [address] [place] [address] PCP - General Family Medicine 05/27/23 Regan Morin, KayleenD [address] [place] [address] Pharmacist Internal Medicine 09/14/24 Javier Alfredo, J LUIS [address] [place] [address] Registered Nurse Family Medicine 06/19/25 [facility] 12/05/24 documented as of this encounter
--- OUTSIDE RECORDS SUMMARY | 2025-07-05 15:36 | XMS_ITS | Clinical Summary ---
Author Organization [address] [facility] Address 175 [place] [address] Phone Care Team Providers Care Furniture Finisher Name Role Phone Jocelyn Galdamez NP Primary Care Provider [phone] Allergies Active Allergy Reactions Criticality Noted Date Comments Gabapentin Nausea Only Low 05/09/2025 gabapentin Medications ammonium lactate (LAC-HYDRIN) 12 % lotion [...] Encounters Date Type Department Care Team Description 07/05/2025 2:45 PM EDT Office Visit [facility] [place] [address] [phone] Billy Barroso DPM 05/17/2025 1:15 PM EDT Office Visit [facility] [place] [address] [phone] Billy Barroso DPM Acquired hammer toe of right foot (Primary Dx); Dermatophytosis of nail; Pain in toe of left foot; Pain in toe of right foot; Type II diabetes mellitus with peripheral circulatory disorder ([facility] V24, [facility] V28); Diabetic mononeuropathy simplex ([facility] V24, [facility] V28); Tinea pedis of both feet; Metatarsalgia of both feet; Corns and callosities; Hammer toe of left foot from Last 3 Months Social History Tobacco [...] Care Team (Late st Contact Info) Description 08/09/2025 3:45 PM EDT Office Visit [facility] [place] [address] [phone] Billy Barroso DPM [address] [phone] Health Maintenance Due Date Last Done Comments Diabetes: Annual GFR (Glomerular Filtration Rate) 1976 Diabetes: Annual Foot Exam 1986 Diabetes: Annual Retina Eye Exam 1986 Social Influencers of Health Screening 05/02/2024 Depression Screening 10/12/2024 Diabetes: Annual Urine Albumin-Creatinine Ratio (uACR) 02/08/2025 Hypertension/CHF/CAD Annual BMP Blood Test 02/08/2025 COVID-19 Vaccine ( - 2023-2 5 season) 2025 Influenza Vaccine (#1) 2025 , 07/06/2023 Diabetes: Blood Sugar Contro l Test (HGBA1C) 12/26/2025 06/28/2025, 03/07/2025, 11/21/2024 Colorectal Cancer Screening: FIT-DNA (Cologuard) 11/10/2026 11/10/2023 Cholesterol Screening (Lipid Panel) 03/18/2029 03/18/2024 DTaP,Tdap,and Td Vaccines (3 - Td or Tdap) 01/06/2035 01/06/2025, 07/30/2023 RSV Immunization Adult Patients (1 - 1-dose 75+ series) 2051 HIV Screening Completed 03/18/2024 Hepatitis C Screening [...] topic Insurance MEDICAID - [place] Care Teams Furniture Finisher Relationship Specialty Start Date End Date Jocelyn Galdamez NP [address] [phone] PCP - General 11/19/23
--- OUTSIDE RECORDS SUMMARY | 2025-07-05 15:36 | XMS_ITS | Encounter Summary ---
Author Organization [employer] Address [address] [place] [address] Care Team Providers Care Director Of Nurses Registry Name Role Phone Jocelyn Galdamez Primary Care Provider [phone] Regan Morin PharmD Unavailable [phone] Javier Alfredo RN Unavailable [phone] Reason for Visit * Reason Onset Date Comments Prior Authorization 07/03/2025 Encounter Details Date Type Department Care Team (Late st Contact Info) Description 07/03/2025 Telephone [facility] [address] [place], [place] [phone] Jocelyn Galdamez ANP [address] [place], [place] [phone] Prior Authorization Social History Tobacco Use Types Packs/Day Years [...] with others, in a hotel, in a correction, living outside on the street, on a [...] encounter Miscellaneous Notes * Telephone Encounter - Luna Hazel - 07/03/2025 1:04 PM EDT Derrick Builder called [facility] pharmacy and was advised PA not needed for Mounjaro 5mg (dose increase). Too early to fill. documented in this encounter Plan of Treatment Upcoming Encounters Date Type Department Care Team (Late st Contact Info) Description 08/08/2025 2:00 PM EDT Office Visit [facility] [address] [place] [phone] Jocelyn Galdamez ANP [address] [place], [place] [phone] 09/29/2025 10:00 AM EST Medication Management [facility] [address] [place] [phone] Regan Morin, PharmD [address] [place] [address] documented as of this encounter Goals Goal [...] documented as of this encounter Care Teams Director Of Nurses Registry Relationship Specialty Start Date End Date Jocelyn Galdamez ANP [address] [place] [address] PCP - General Family Medicine 05/27/23 Regan Morin, KayleenD [address] [place] [phone] Pharmacist Internal Medicine 09/14/24 Javier Alfredo, J LUIS [address] [place] [address] Registered Nurse Family Medicine 06/19/25 [facility] 12/05/24 documented as of this encounter
--- OUTSIDE RECORDS SUMMARY | 2025-07-05 15:36 | XMS_ITS | Encounter Summary ---
Author Organization [employer] Address [address] [place] [address] Care Team Providers Care Building Mechanic Name Role Phone Jocelyn Galdamez Primary Care Provider [phone] Regan Morin PharmD Unavailable [phone] Javier Alfredo RN Unavailable [phone] Encounter Details Date Type Department Care Team (Late st Contact Info) Description 06/29/2025 Telephone [facility] 230 [place], [place] [phone] Jocelyn Galdamez ANP [address] [place], [place] [phone] Social History Tobacco Use Types Packs/Day Years [...] Description 08/08/2025 2:00 PM EDT Office Visit [facility] [address] [place] [phone] Jocelyn Galdamez, ANP [address] [place] [address] 09/29/2025 10:00 AM EST Medication Management [facility] [address] [place] [address] Regan Morin, PharmD [address] [place] [address] documented as of this encounter Goals Goal [...] documented as of this encounter Care Teams Building Mechanic Relationship Specialty Start Date End Date Jocelyn Galdamez ANP [address] [place] [address] PCP - General Family Medicine 05/27/23 Regan Morin, KayleenD [address] [place] [address] Pharmacist Internal Medicine 09/14/24 Javier Alfredo, J LUIS [address] [place] [address] Registered Nurse Family Medicine 06/19/25 [facility] 12/05/24 documented as of this encounter
== END 2025-07-05 14:03 | disposition home or self-care (01) ==
LOC: HO.HUSH 13:14
PROVIDERS: PCP Nurse Practitioner Primary Care; Visit Provider Nurse Practitioner Family
DX: E29.1 Testicular hypofunction (principal); E11.69 Type 2 diabetes mellitus with other specified complication; N52.1 Erectile dysfunction due to diseases classified elsewhere; Z13.9 Encounter for screening, unspecified
CPT/HCPCS: 99213

== ENCOUNTER → 2025-07-05 13:13 | Outpatient (BNVA) | payer MEDICAID, SELFPAY | PROVIDERS: PCP Nurse Practitioner Primary Care; Visit Provider Nurse Practitioner Family | DX: E29.1 Testicular hypofunction (principal); E11.69 Type 2 diabetes mellitus with other specified complication; N52.1 Erectile dysfunction due to diseases classified elsewhere | CPT/HCPCS: 81003; 99212 ==

== ENCOUNTER 2025-09-23 08:17 | Outpatient (REF) | payer MEDICAID, SELFPAY ==
--- OUTSIDE RECORDS SUMMARY | 2025-09-23 08:20 | XMS_ITS | Clinical Summary ---
Author Organization [facility] Address [address] [place] [address] Phone Care Team Providers Care Drafter Civil Name Role Phone Jocelyn Galdamez NP Primary Care Provider [phone] Allergies No known active allergies Medications No [...] 2021 INFLUENZA VACCINE (#1) 2025 COVID-19 VACCINE (2024-2 6 season) 2025 SCREENING FOR DIABETES 08/04/2027 08/04/2024 [...] on file Insurance [employer] [place] [address] [place] [address] [employer] [place] [place] [address] [place] [address] C[employer] Care Teams Drafter Civil Relationship Specialty Start Date End Date Jocelyn Galdamez NP [address] [place] [address] PCP - General Nurse Practitioner 10/14/24 Additional Source Comments The information contained in this document represents components of the legal health record. It is not the complete legal health record.[facility]
[2025-09-23 11:09] LABS: Alanine Aminotransferase 14 U/L (0-40); Albumin Level 4.3 g/dL (3.5-5.0); Alkaline Phosphatase 71 U/L (39-117); Anion Gap 14 (12-20); Aspartate Amino Transferase 22 U/L (5-37); Blood Urea Nitrogen 23 mg/dL (9-16); Calcium 9.1 mg/dL (8.4-10.2); Carbon Dioxide 24 mmol/L (22-29); Chloride 106 mmol/L (96-108); Cholesterol 109 mg/dL (<200); Estimated Glomerular Filt Rate 47; HDL Cholesterol 33 mg/dL (>40); Potassium 4.0 mmol/L (3.3-5.1); Sodium 140 mmol/L (135-145); Total Protein 7.3 g/dL (6.5-8.0); Triglycerides 96 mg/dL (<150)
[2025-09-23 11:14] LABS: HIV Num 1 0.07 S/CO (0.00-0.99); ~HepC Num1 0.13 S/CO (0.00-0.79); ~Hepatitis C Antibody Nonreactive (Nonreactive)
[2025-09-23 11:45] LABS: Vitamin B12 358 pg/mL (200-900)
[2025-09-23 11:49] LABS: Microalbum/Creatinine Ratio Ur 48.6 ug/mg cr (<30)
== END 2025-09-23 08:18 | disposition home or self-care (01) ==
LOC: HO.LAB 08:17
PROVIDERS: Absent Provider Nurse Practitioner Primary Care; PCP Nurse Practitioner Primary Care; Visit Provider Nurse Practitioner Family
DX: E11.69 Type 2 diabetes mellitus with other specified complication (principal); E78.5 Hyperlipidemia, unspecified; Z11.3 Encounter for screening for infections with a predominantly sexual mode of transmission; Z11.59 Encounter for screening for other viral diseases; Z11.4 Encounter for screening for human immunodeficiency virus [HIV]
CPT/HCPCS: 36415; 80053; 80061; 82043; 82570; 82607; 82670; 82681; 83001; 83002; 84146; 84270; 84403; 86592; 86803; 87389

== ENCOUNTER 2025-10-02 08:29 | Outpatient (AMB) | payer MEDICAID, SELFPAY ==
--- NOTE | 2025-10-02 08:37 | MHC.OFFVIS ---
Intake Visit Reasons: 3M/Labs/UA Intake Note: Patient is present for 3M/LBS Urology Medication:TADALAFIL Antibiotic Allergy:NONE Blood Thinner:ASPIRIN Labs done : 09/23/25 Total Testosterone 353, LH: 5.5, SBH:20 Estradiol : Pending Foil Spooler Required: No Foil Spooler Services: Foil Spooler Present Foil Spooler Name: Chris [id number] Accompanied by: Self / Same As Patient Allergies No Known Allergies Allergy (Verified 10/02/25 11:01) Medication List - Last Reconciled 10/02/25 by RENUKA Chávez-ROSE MARY acetaminophen 500 mg PO QID PRN albuterol sulfate 90 mcg/actuation 2 puffs inhalation Q4-6H PRN alogliptin (Nesina) 25 mg PO DAILY aspirin 81 mg PO DAILY atorvastatin 80 mg PO QAM carvedilol 25 mg PO chlorthalidone 25 mg PO QAM dulaglutide (Trulicity) mg subcut QWEEK fluticasone furoate-vilanterol 200-25 mcg/dose (Breo Ellipta) 1 inh inhalation DAILY gabapentin 300 mg PO TID 30 days hydroxyzine HCl 25 mg PO TID PRN insulin lispro subcut isosorbide mononitrate ER 60 mg PO DAILY lisinopril 40 mg PO DAILY omeprazole 40 mg PO DAILY phenytoin sodium extended 100 mg PO BID semaglutide (Ozempic) 1 mg subcut QWEEK tadalafil (Cialis) 5 mg PO DAILY 90 days HPI Comments Details: Tre is a 50-year-old Kazakh-speaking male patient of Dr. Galdamez. He has a past medical history of seizure disorder, depression, cannabis use, anxiety, GERD, stroke, COPD, hyperlipidemia, hypertension, type 2 diabetes, and obesity. He presents to the office today for follow-up. In discussion with the patient today he reports to be doing and feeling well. He reports compliance with low-dose Cialis as prescribed. He discusses feeling this has been significantly helpful since initiation. He describes having experienced episodes of morning erections and has been able to maintain an obtain erections with his partner. Most recent labs were reviewed with the patient today as noted and trended below: PSA: 06/05 1.1 Testosterone: 06/05 286, 10/05 353 Free testosterone: 06/05 63.5 SHB/25 20 A1c: 12/05 9.4, 04/04 9.1, 06/05 7.4 Estradiol: 10/05 pending FSH: 10/05 5.0 LH: 10/05 5.5 Prolactin: 10/05 10.3 We discussed increase in testosterone level with low-dose Cialis. We did discussed potential causes of previous urological issues he had been experiencing. He denies any bothersome urinary issues. We also discussed the importance of continuing to manage diabetes for improvement in urological health as well as overall health and well-being. He currently denies any bothersome urinary issues. He denies urinary urgency, urinary frequency, incontinence, nocturia, hematuria, dysuria, foul smelling urine, changes to urinary stream, flank pain, fever, and or chills. He is happy with his current voiding parameters. When asked he denies any previous trauma. We discussed importance of lifestyle modifications to assist with erectile dysfunction as well as overall health and well-being. In office urinalysis results reviewed with the patient today. We also discussed recreational drug use in relation to erectile dysfunction as well as overall health and well-being. He otherwise offers no other issues or concerns at this time. [facility] Medical History Seizure disorder Moderate episode of recurrent major depressive disorder Cannabis use disorder Generalized anxiety disorder GERD (gastroesophageal reflux disease) Stroke COPD (chronic obstructive pulmonary disease) Hyperlipidemia, unspecified Essential hypertension Type 2 diabetes mellitus with unspecified complications Morbid obesity Surgical History No pertinent past surgical history Family History Mother No problems noted. Paternal Grandfather Heart problem Father No problems noted. Social History Alcohol intake: former Patient Tobacco Use Status: Former Tobacco user Substance Use Type: Marijuana Current occupational status: unemployed Current occupation: right hand dominant Review of Systems Const Reports no additional complaints Eyes Reports no additional complaints ENT Reports no additional complaints Card Reports as per HPI Resp Reports no additional complaints GI Reports no additional complaints Reports as per HPI Musc Reports no additional complaints Neuro Reports as per HPI Psych Reports as per HPI Endo Reports as per HPI Vahid/Lymph Reports no additional complaints Aller/Immun Reports no additional complaints Physical Exam Const General: cooperative, healthy appearing, comfortable, no acute distress, well developed, alert and awake Nutritional Appearance: overweight Orientation/consciousness: patient oriented x3 Limitations: language barrier HEENT Head: Yes normal to inspection, Yes normocephalic and Yes atraumatic Ears: hearing grossly normal bilaterally Eyes General: appearance normal, both eyes and all related structures Neck Neck: Yes normal visual inspection and Yes trachea midline Chest Chest palpation & inspection: normal inspection of the chest Resp Effort & Inspection: normal respiratory effort and able to speak in complete sentences Cardio Rate: regular rate GI Inspection: Yes normal to inspection General: Yes no CVA tenderness Back/Spine/Pelvis Back: no CVA tenderness Skin General skin exam: no rashes or lesions noted Neuro General: patient oriented x3 Extrem General: Yes normal to inspection Psych Appearance: grossly normal and well kempt Mental Status: mental status grossly normal Speech and movement: Normal speech and movement present and Clear speech present Affect: normal affect Attitude: cooperative Thought process: Normal thought process present Thought content: Normal thought content present Insight: Fair insight present (Psych) Judgement: Fair judgement present (Psych) Results AMB Urinalysis, Automated UA Leukoctes 0 Tracey/uL Last Edit by Dunia Ponce [facility] on 10/02/25 08:49 UA Nitrite Negative Last Edit by Dunia Ponce [facility] on 10/02/25 08:49 UA Urobilinogen 0.2 mg/dL Last Edit by Dunia Ponce [facility] on 10/02/25 08:49 UA Protein 0 mg/dL Last Edit by Dunia Ponce [facility] on 10/02/25 08:49 UA pH 6.0 Last Edit by Dunia Ponce [facility] on 10/02/25 08:49 UA Blood 0 Sincere/uL Last Edit by Dunia Ponce [facility] on 10/02/25 08:49 UA Specific [place] 1.015 Last Edit by Dunia Ponce [facility] on 10/02/25 08:49 UA Ketone Negative Last Edit by Dunia Ponce [facility] on 10/02/25 08:49 UA Bilirubin 0 mg/dL Last Edit by Dunia Ponce [facility] on 10/02/25 08:49 UA Glucose 1000 mg/dL Last Edit by SIRIA Martinez on 10/02/25 08:49 Results Reviewed Results Reviewed: Laboratory Last Values Urine pH (Auto) 6.0 10/02/25 08:40 Specific [place] (Auto) 1.015 10/02/25 08:40 Urine Protein (Auto) 0 mg/dL 10/02/25 08:40 Glucose (UA)(Auto) 1000 mg/dL 10/02/25 08:40 Urine Ketones (Auto) Negative 10/02/25 08:40 Urine Blood (Auto) 0 Sincere/uL 10/02/25 08:40 Urine Nitrite (Auto) Negative 10/02/25 08:40 Urine Bilirubin (Auto) 0 mg/dL 10/02/25 08:40 Urine Urobilinogen (Auto) 0.2 mg/dL 10/02/25 08:40 Leukocyte Esterase (Auto) 0 Tracey/uL 10/02/25 08:40 Assessment & Plan Assessment & Plan (1) Erectile dysfunction associated with type 2 diabetes mellitus: Code(s): .69 - Type 2 diabetes mellitus with other specified complication; N52.1 - Erectile dysfunction due to diseases classified elsewhere Category: Medical Plan In office urinalysis results with the patient today; as noted above. Most recent labs (urological labs) reviewed with the patient today as noted and trended below. Continue low-dose Cialis as discussed and prescribed. He currently denies any bothersome urinary issues or concerns. He reports be happy with current voiding parameters. We did review further treatment options and risks and benefits of these treatment options however patient is happy with current management therefore will continue. All questions were answered. We discussed lifestyle modifications. Will obtain PSA and testosterone in 6 months. Follow-up in 6 months with labs; or sooner with any issues, concerns, and or questions. Orders: Orders AMB Urinalysis Automated Today N13.8 - Other obstructive and reflux uropathy, N40.1 - Benign prostatic hyperplasia with lower urinary tract symptoms Testosterone, Free/Total 6 Months E11.69 - Type 2 diabetes mellitus with other specified complication, N52.1 - Erectile dysfunction due to diseases classified elsewhere Prostate Specific Antigen 6 Months E11.69 - Type 2 diabetes mellitus with other specified complication, N52.1 - Erectile dysfunction due to diseases classified elsewhere Medications: Refilled tadalafil (Cialis) [id number] [facility] [id number] Member [id number] 5 mg PO DAILY 90 tabs 3RF 90 days Patient Instructions: The patient had an opportunity to ask questions regarding the treatment plan. All questions were answered. Physical exam, labs, and imaging were discussed and reviewed in detail. As well as risks, benefits, and discussion of treatment choices. No major barriers to understanding were identified. The patient expressed understanding and agreement with the above treatment plan. The patient was made aware they should contact our office by phone for worsening of their current condition, the appearance of new symptoms, or with any questions or concerns. Compliance is encouraged with any medications and follow up testing that is ordered. It is a privilege to be allowed the opportunity to participate in? your urological care.? Again, if you have any questions or concerns If you have any questions or concerns please do not hesitate to contact me. The office is [phone]. This note is constructed using voice recognition software. While every effort has been made to ensure accuracy sales development associate errors may have been included. Yours sincerely, ALEJO Chávez Coding Level of Care Code Est Pt Level 3 (83334) Add On Problem Visit Only Diagnoses Erectile dysfunction associated with type 2 diabetes mellitus E11.69; N52.1
--- OUTSIDE RECORDS SUMMARY | 2025-10-02 08:44 | XMS_ITS | Clinical Summary ---
Author Organization [facility] Address [address] [place] [address] Phone Care Team Providers Care Manufacturing Engineering Technologist Name Role Phone Jocelyn Galdamez NP Primary Care Provider [phone] Allergies No known active allergies Medications No [...] on file Insurance C3 ACO [place] [address] [address] [place] [address] C[employer] [place] [place] [address] [place] [address] C3 ACO Care Teams Manufacturing Engineering Technologist Relationship Specialty Start Date End Date Jocelyn Galdamez NP [address] [place] [id number] PCP - General Nurse Practitioner 10/14/24 Additional Source Comments The information contained in this document represents components of the legal health record. It is not the complete legal health record.[facility]
--- OUTSIDE RECORDS SUMMARY | 2025-10-02 08:44 | XMS_ITS | Encounter Summary ---
Author Organization [facility] Address [address] [place] [address] Care Team Providers Care Cloth Examiner Machine Name Role Phone Jocelyn Galdamez Primary Care Provider Regan Morin PharmD Unavailable [phone] Javier Alfredo RN Unavailable [phone] Javier Alfredo RN Unavailable [phone] Ligia Burns Unavailable Encounter Details Date Type Department Care Team (Late st Contact Info) Description 03/02/2025 Orders Only [facility] [address] [place], [place] [phone] Jocelyn Galdamez ANP [address] [place], [place] [phone] Type 2 diabetes mellitus with hyperlipidemia (CMS/HCC) [...] Care Team (Late st Contact Info) Description 11/23/2025 11:00 AM EST Office Visit [facility] [address] [place] [address] Jocelyn Galdamez ANP [address] [place] [address] documented as of this encounter Goals Goal Patient Goal Type Associated Problems Recent Progress Patient-Stated? Author Blood Pressure < 140/90 Blood Pressure 130/80(2024 8:53 AM EST) No Ken Khanna Hemoglobin A1c < 7 Result Component 7.4( 10:37 AM EDT) No Ken Khanna documented as of this encounter Visit Diagnoses Diagnosis Type 2 diabetes mellitus with hyperlipidemia (HCC)- Primary History of CVA (cerebrovascular accident) Transient ischemic attack (TIA), and cerebral infarction without residual deficits documented in this encounter Additional Health Concerns Assessment Noted Time PHQ-9 Depression Total Score: 7 01/26/20 25 1:37 PM EDT documented as of this encounter Care Teams Cloth Examiner Machine Relationship Specialty Start Date End Date Jocelyn Galdamez ANP [address] [place] [address] PCP - General Family Medicine 05/27/23 Regan Morin, KayleenD [address] [place] [address] Pharmacist Internal Medicine 09/14/24 Javier Alfredo, J LUIS [address] [place] [address] Registered Nurse Family Medicine 06/19/25 07/07/25 Javier Alfredo, J LUIS [address] [place] [address] Registered Nurse Family Medicine 08/02/25 Ligia Burns 08/02/25 [facility] 12/05/24 documented as of this encounter
--- OUTSIDE RECORDS SUMMARY | 2025-10-02 08:44 | XMS_ITS ---
Author Organization [employer] Address [address] [place] [address] Care Team Providers Care Cafeteria Counter Attendant Name Role Phone Jocelyn Galdamez Primary Care Provider [phone] Regan Morin PharmD Unavailable [phone] Javier Alfredo RN Unavailable [phone] Ligia Burns Unavailable CM Complex Status:Enrolled (Active) Start date:08/02/2025 Enrollment date:08/11/2025 Enrollment reason:ADT Feed Overview ED- Pt went to [facility] ED on 08/01/25. Case Team Name Relationship Phone Javier Alfredo RN(Responsible Staff) Registered [facility] [phone] Continued Care and Services Coordination
--- OUTSIDE RECORDS SUMMARY | 2025-10-02 08:44 | XMS_ITS | Encounter Summary ---
Author Organization [facility] Address [address] [place] [address] Care Team Providers Care Key Cutter Name Role Phone Jocelyn Galdamez Primary Care Provider [phone] Regan Morin PharmD Unavailable [phone] Javier Alfredo RN Unavailable [phone] Javier Alfredo RN Unavailable Ligia Burns Unavailable Reason for Visit * Reason Comments Med Refill Encounter Details Date Type Department Care Team (Late st Contact Info) Description 12/21/2023 Refill [facility] [address] [place], [place] [phone] Jocelyn Galdamez ANP [address] [place], [place] [phone] Type 2 diabetes mellitus with hyperlipidemia ([facility]/HCC) Social History Tobacco Use Types Packs/Day Years [...] Description 11/23/2025 11:00 AM EST Office Visit [facility] [address] [place] [id number] Jocelyn Galdamez ANP [address] [place] [address] documented as of this encounter Goals Goal Patient Goal Type Associated Problems Recent Progress Patient-Stated? Author Blood Pressure < 140/90 Blood Pressure 130/80(2024 8:53 AM EST) No Ken Khanna Hemoglobin A1c < 7 Result Component 7.4( 10:37 AM EDT) No Ken Khanna documented as of this encounter Visit Diagnoses Diagnosis Type 2 diabetes mellitus with hyperlipidemia (HCC) documented in this encounter Additional Health Concerns Assessment Noted Time PHQ-9 Depression Total Score: 17 023 11:03 AM EDT documented as of this encounter Care Teams Key Cutter Relationship Specialty Start Date End Date Jocelyn Galdamez ANP [address] [place] [id number] PCP - General Family Medicine 05/27/23 Regan Morin, KayleenD [address] [place] [id number] Pharmacist Internal Medicine 09/14/24 Javier Alfredo, RN [address] [place] [address] Registered Nurse Family Medicine 06/19/25 07/07/25 Javier Alfredo RN [address] [place] [id number] Registered Nurse Family Medicine 08/02/25 Ligia Burns 08/02/25 [facility] 12/05/24 documented as of this encounter
--- OUTSIDE RECORDS SUMMARY | 2025-10-02 08:44 | XMS_ITS | Encounter Summary ---
Author Organization [employer] Address [address] [facility] [address] [place] [address] Care Team Providers Care Telephone Station Repairer Name Role Phone Jocelyn Galdamez Primary Care Provider [phone] Regan Morin PharmD Unavailable [phone] Javier Alfredo RN Unavailable [phone] Ligia Burns Unavailable Reason for Visit * Reason Comments Care Management C3CM- Initial assess ment/enrollment Encounter Details Date Type Department Care Team (Late st Contact Info) Description 08/11/2025 Patient Outreach [facility] [address] [place] [address] Jocelyn Galdamez ANP [address] [place] [address] Care Management (C3CM- Initial assessment/enrollmen t) Social History Tobacco Use Types Packs/Day Years Used Date Smoking Tobacco: Former Cigarettes 0 03/1990 - 03/2023 Passive Smoke Exposure: Never Smokeless Tobacco: Never Alcohol Use Standard Drinks/Week Comments Not Currently 0 (1 standard drink = 0.6 oz pur e alcohol) Depression Answer Date Recorded Patient Health Questionnaire-9 Score 16 09/12/2025 Patient Health Questionnaire-9 Score 16 09/12/2025 Last PHQ-9: Questionnaire Data Not on file 1 11/13/2024 Housing Stability Answer Date Recorded What is your housing situation today? I do not have housing (Staying with others, in a hotel, in a jail, living outside on the street, on a [...] things needed for daily living? No 08/01/2024 Intimate Partner Violence Answer Date R ecorded Within the last year, have y ou been afraid of your partner or ex-partner? 2 08/11/2025 Within the last year, have y ou been humiliated or emotionally abused in other ways by your partner or ex-partner? 2 Within the last year, have y ou been kicked, hit, slapped, or otherwise physically hurt by your partner or ex-partner? 2 08/11/2025 Within the last year, have y ou been raped or forced to have any kind of sexual activity by your partner or ex-partner? 2 08/11/2025 Utilities Answer Date Recorded In the past 12 months, has t he electric, gas, oil or water company threatened to shut off services in your home? No 08/01/2024 Depression Answer Date Recorded Patient Health Questionnaire-2 Score 6 09/12/2025 Internet Access Answer Date Recorded Internet Access Q1 Yes 08/01/2024 Internet Access Q2 Not on file 08/01/2024 Sex and Gender Information Value Date Recorded Sex Assigned at Male 05/07/2023 10:01 AM EDT Legal Sex Male 4:05 PM EDT Gender Identity Male 05/07/2023 10:01 AM EDT Sexual Orientation Don't know 05/07/2023 10 :01 AM EDT documented as of this encounter Functional Status * Over the past 2 weeks, how often have you been bothered by any of the following problems? Question Answer Date of Assessment Author Patient Health Questionnaire-2 Score 1 07/14 1:16 PM EDT Javier Alfredo, J LUIS * Little interest or pleasure in doing things Answer Date of Assessment Author Several days 08/11/2025 1:16 PM EDT Javier Alfredo RN * Feeling down, depressed, or hopeless Answer Date of Assessment Author Not at all 08/11/2025 1:16 PM EDT Javier Alfredo RN * Trouble falling or staying asleep, or sleeping too much Answer Date of Assessment Author More than half the days 08/11/2025 1:16 PM EDT Javier Monge RN * Feeling tired or having little energy Answer Date of Assessment Author Several days 08/11/2025 1:16 PM EDT Javier Alfredo RN * Poor appetite or overeating Answer Date of Assessment Author Not at all 08/11/2025 1:16 PM EDT Javier Alfredo RN * Feeling bad about yourself - or that you are a failure or have let yourself or your family down Answer Date of Assessment Author Not at all 08/11/2025 1:16 PM JUANCHOT Javier Alfredo RN * Trouble concentrating on things, such as reading the newspaper or watching television Answer Date of Assessment Author Not at all 08/11/2025 1:16 PM EDT Javier Alfredo RN * Moving or speaking so slowly that other people could have noticed? Or the opposite - being so fidgety or restless that you have been moving around a lot more than usual. Answer Date of Assessment Author Not at all 08/11/2025 1:16 PM EDT Javier Alfredo RN * Thoughts that you would be better off or hurting yourself in some way Answer Date of Assessment Author Not at all 08/11/2025 1:16 PM EDT Javier Alfredo RN * Patient Health Questionnaire-9 Score Answer Date of Assessment Author 4 08/11/2025 1:16 PM EDT Javier Alfredo RN * How difficult have these problems made it for you to do your work, take care of things at home, or get along with other people? Answer Date of Assessment Author Not difficult at all 08/11/2025 1:16 PM EDT Javier Ashley RN * Over the last 2 weeks, how often have you been bothered by any of the following problems? Question Answer Date of Assessment Author Feeling nervous, anxious, or on edge 1 07/14 1:18 PM EDT Javier Alfredo RN Not being able to stop or co ntrol worrying 0 08/11/2025 1:18 PM EDT Javier Alfredo R N Worrying too much about diff erent things 1 08/11/2025 1:18 PM EDT Javier Alfredo R N Trouble relaxing 0 08/11/2025 1:18 PM EDT Javier Monge RN Being so restless that it is hard to sit still 1 08/11/2025 1:18 PM EDT Javier Alfredo R N Becoming easily annoyed or irritable 0 07/14 1:18 PM EDT Javier Alfredo RN Feeling afraid as if somethi ng awful might happen 0 08/11/2025 1:18 PM EDT Javier Alfredo R N ROBERTO-7 Total Score 3 08/11/2025 1:18 PM EDT Javier Alfredo RN * Suicidal Ideation Question Answer Date of Assessment Author 1. Wish to be (Lifetime) No 08/11/2025 1:44 PM EDT Javier Alfredo RN 2. Non-Specific Active Suici david Thoughts (Lifetime) No 08/11/2025 1:44 PM EDT Javier Alfredo R N documented as of this encounter Progress Notes * Javier Alfredo RN - 08/11/2025 12:58 PM EDT Javier Alfredo RN placed outbound call to patient for agreed upon time for initial assessment forenrollment into Adult Care Management Program. Patient's name, , and address were verified. Tre York is a Faroese speaking 50 year old male with PMH of T2DM, hypertension, ROBERTO, GERD, seizure disorder, history of CVA, mild depression. Pt reports that he sees the following specialists: pain management, urology, and podiatry. Pt denies any hearing, vision, or dental concerns. Pt reports that he uses his prescribed glasses to read. Pt reports last vision test was at the beginning of this year. Pt reported that he went to [facility] earlier this week due to a bump on his hand. Ptreports they did an xray but was not given results. Pt reports that they gave him an elastic bandage to use. Pt states pain is the same. Pt reports that he is couch surfing at a friend's home and expressed interest in applying for low income housing. CHW and pt scheduled an in-person meeting on 08/15/25 at 10 AM at [facility] to complete housing application. Pt denies food insecurities. Pt has transportation for medical appointments. Pt reported no utility issues. Pt reports that he has wifi access. Ptreports having the following DME: BP monitor, blood sugar monitor, and a cane. Pt reports that he follows a regular diet. Pt reports that he stopped drinking soda and smoking cigarettes. Pt reports that for exercise he sometimes exercise. Pt denies taking any vitamins or supplements. Pt denies any weight concerns. Pt reports that he monitors his BP once daily and his blood sugar TID. Pt reports pain in his leg, soles of his foot, and his back. Pt reports that he takes pain medication prescribedby his pain management provider. Pt reports that he doesn't have a therapist or psychiatrist but isinterested in receiving BH services. Pt reports that he likes to watch movies, youtube and paint when. Pt reports that he feels emotionally and physically safe at home. Pt denies drinking or any illegal drug, but does smoke marijuana. Pt denies needing assistance with ADL's. Pt denies receiving VNAor WAITER/WAITRESS BAR services. Pt reports medication compliance and denies any side effects. Pt reports having his medication organized in medbox from the pharmacy. Pt reported no concerns at this time. Pt reportsthat his goal is to receive low income housing. Care management program explained and contact information given. Patient verbalizes understanding, and able to repeat back to teletypewriter operator. A follow up call will be placed within 10 days, patient agrees with plan. * Javier Alfredo RN - 08/11/2025 12:58 PM EDT MAX Alfredo RN, provided notification to PCP MARIEL Arauz of patient's enrollment into Complex Care Program. documented in this encounter Plan of Treatment Upcoming Encounters Date Type Department Care Team (Late st Contact Info) Description 11/23/2025 11:00 AM EST Office Visit [facility] [address] [place] [address] Jocelyn Galdamez ANP [address] [place] [address] documented as of this encounter Goals Goal Patient Goal Type Associated Problems Recent Progress Patient-Stated? Author Blood Pressure < 140/90 Blood Pressure 130/80(2024 8:53 AM EST) No Ken Khanna Hemoglobin A1c < 7 Result Component 7.4( 10:37 AM EDT) No Ken Khanna Help patients manage their type 2 diabetes Care Plan Help patients manage their type 2 diabetes No Janelle Mo MA Weekly blood pressure task Care Plan Weekly blood pressure task No Janelle Mo MA Help patients manage their type 2 diabetes Care Plan Help patients manage their type 2 diabetes No Janelle Mo MA Patient has chronic kidney disease Care Plan Patient has chronic kidney disease No Janelle Mo MA Weekly blood pressure task Care Plan Weekly blood pressure task No Janelle Mo MA Patient has chronic kidney disease Care Plan Patient has chronic kidney disease No Janelle Mo MA Weekly blood pressure task Care Plan Weekly blood pressure task No Jocelyn Galdamez ANP Weekly blood pressure task Care Plan Weekly blood pressure task No Jocelyn Galdamez ANP Patient has chronic kidney disease Care Plan Patient has chronic kidney disease No Jocelyn Galdamez ANP Patient has chronic kidney disease Care Plan Patient has chronic kidney disease No Jocelyn Galdamez ANP Patient has diabetic eye disease Care Plan Patient has diabetic eye disease No Jocelyn Galdamez ANP Patient has diabetic eye disease Care Plan Patient has diabetic eye disease No Jocelyn Galdamez ANP Weekly blood pressure task Care Plan Weekly blood pressure task No Judy Burns Weekly blood pressure task Care Plan Weekly blood pressure task No Judy Burns Patient has diabetic eye disease Care Plan Patient has diabetic eye disease No Judy Burns Patient has diabetic eye disease Care Plan Patient has diabetic eye disease No Judy Burns Patient has chronic kidney disease Care Plan Patient has chronic kidney disease No Judy Burns Patient has chronic kidney disease Care Plan Patient has chronic kidney disease No Judy Burns Weekly blood pressure task Care Plan Weekly blood pressure task No Ligia Burns Weekly blood pressure task Care Plan Weekly blood pressure task No Ligia Burns Patient has diabetic eye disease Care Plan Patient has diabetic eye disease No Ligia Burns Patient has diabetic eye disease Care Plan Patient has diabetic eye disease No Ligia Burns Patient has chronic kidney disease Care Plan Patient has chronic kidney disease No Ligia Burns Patient has chronic kidney disease Care Plan Patient has chronic kidney disease No Ligia Burns Weekly blood pressure task Care Plan Weekly blood pressure task No Ligia Burns Weekly blood pressure task Care Plan Weekly blood pressure task No Ligia Burns Patient has diabetic eye disease Care Plan Patient has diabetic eye disease No Ligia Burns Patient has diabetic eye disease Care Plan Patient has diabetic eye disease No Ligia Burns Patient has chronic kidney disease Care Plan Patient has chronic kidney disease No Ligia Burns Patient has chronic kidney disease Care Plan Patient has chronic kidney disease No Ligia Burns Weekly blood pressure task Care Plan Weekly blood pressure task No Janelle Mo MA Weekly blood pressure task Care Plan Weekly blood pressure task No Janelle Mo MA Patient has diabetic eye disease Care Plan Patient has diabetic eye disease No Janelle Mo MA Patient has diabetic eye disease Care Plan Patient has diabetic eye disease No Janelle Mo MA Patient has chronic kidney disease Care Plan Patient has chronic kidney disease No Janelle Mo MA Patient has chronic kidney disease Care Plan Patient has chronic kidney disease No Janelle oM MA Weekly blood pressure task Care Plan Weekly blood pressure task No Javier Alfredo RN Weekly blood pressure task Care Plan Weekly blood pressure task No Javier Alfredo RN Patient has diabetic eye disease Care Plan Patient has diabetic eye disease No Javier Alfredo RN Patient has diabetic eye disease Care Plan Patient has diabetic eye disease No Javier Alfredo, J LUIS Patient has chronic kidney disease Care Plan Patient has chronic kidney disease No Javier Alfredo, J LUIS Patient has chronic kidney disease Care Plan Patient has chronic kidney disease No Javier Alfredo, J LUIS Weekly blood pressure task Care Plan Weekly blood pressure task No Ligia Burns Weekly blood pressure task Care Plan Weekly blood pressure task No Ligia Burns Patient has diabetic eye disease Care Plan Patient has diabetic eye disease No Ligia Burns Patient has diabetic eye disease Care Plan Patient has diabetic eye disease No Ligia Burns Patient has chronic kidney disease Care Plan Patient has chronic kidney disease No Ligia Burns Patient has chronic kidney disease Care Plan Patient has chronic kidney disease No Ligia Burns Weekly blood pressure task Care Plan Weekly blood pressure task No Caceres, Zorylee Weekly blood pressure task Care Plan Weekly blood pressure task No Caceres, Zorylee Patient has diabetic eye disease Care Plan Patient has diabetic eye disease No Caceres, Zorylee Patient has diabetic eye disease Care Plan Patient has diabetic eye disease No Caceres, Zorylee Patient has chronic kidney disease Care Plan Patient has chronic kidney disease No Caceres, Zorylee Patient has chronic kidney disease Care Plan Patient has chronic kidney disease No Caceres, Zorylee Weekly blood pressure task Care Plan Weekly blood pressure task No Stone, Kristin, ACCOUNTANT CONTROLLER Weekly blood pressure task Care Plan Weekly blood pressure task No Stone, Kristin, ACCOUNTANT CONTROLLER Patient has diabetic eye disease Care Plan Patient has diabetic eye disease No Stone, Kristin, ACCOUNTANT CONTROLLER Patient has diabetic eye disease Care Plan Patient has diabetic eye disease No Stone, Kristin, ACCOUNTANT CONTROLLER Patient has chronic kidney disease Care Plan Patient has chronic kidney disease No Stone, Kristin, ACCOUNTANT CONTROLLER Patient has chronic kidney disease Care Plan Patient has chronic kidney disease No Stone, Kristin, ACCOUNTANT CONTROLLER Weekly blood pressure task Care Plan Weekly blood pressure task No Jocelyn Galdamez ANP Weekly blood pressure task Care Plan Weekly blood pressure task No Jocelyn Galdamez ANP Patient has diabetic eye disease Care Plan Patient has diabetic eye disease No Jocelyn Galdamez ANP Patient has diabetic eye disease Care Plan Patient has diabetic eye disease No Jocelyn Galdamez ANP Patient has chronic kidney disease Care Plan Patient has chronic kidney disease No Jocelyn Galdamez ANP Patient has chronic kidney disease Care Plan Patient has chronic kidney disease No Jocelyn Galdamez ANP Weekly blood pressure task Care Plan Weekly blood pressure task No Jocelyn Galdamez ANP Weekly blood pressure task Care Plan Weekly blood pressure task No Jocelyn Galdamez ANP Patient has diabetic eye disease Care Plan Patient has diabetic eye disease No Jocelyn Galdamez ANP Patient has diabetic eye disease Care Plan Patient has diabetic eye disease No Jocelyn Galdamez ANP Patient has chronic kidney disease Care Plan Patient has chronic kidney disease No Jocelyn Galdamez ANP Patient has chronic kidney disease Care Plan Patient has chronic kidney disease No Galdamez, Jocelyn, MARIEL documented as of this encounter Visit Diagnoses Not on filedocumented in this encounter Additional Health Concerns Active Problems Noted Date Diagnosed Date Help patients manage their type 2 diabetes 08/24 Weekly blood pressure task 08/24/2025 Help patients manage their type 2 diabetes 08/24 Patient has chronic kidney disease 08/24/2025 Weekly blood pressure task 08/24/2025 Patient has chronic kidney disease 08/24/2025 Weekly blood pressure task 08/25/2025 Weekly blood pressure task 08/25/2025 Patient has chronic kidney disease 08/25/2025 Patient has chronic kidney disease 08/25/2025 Patient has diabetic eye disease 08/25/2025 Patient has diabetic eye disease 08/25/2025 Weekly blood pressure task 08/30/2025 Weekly blood pressure task 08/30/2025 Patient has diabetic eye disease 08/30/2025 Patient has diabetic eye disease 08/30/2025 Patient has chronic kidney disease 08/30/2025 Patient has chronic kidney disease 08/30/2025 Weekly blood pressure task 08/30/2025 Weekly blood pressure task 08/30/2025 Patient has diabetic eye disease 08/30/2025 Patient has diabetic eye disease 08/30/2025 Patient has chronic kidney disease 08/30/2025 Patient has chronic kidney disease 08/30/2025 Weekly blood pressure task 09/01/2025 Weekly blood pressure task 09/01/2025 Patient has diabetic eye disease 09/01/2025 Patient has diabetic eye disease 09/01/2025 Patient has chronic kidney disease 09/01/2025 Patient has chronic kidney disease 09/01/2025 Weekly blood pressure task 09/04/2025 Weekly blood pressure task 09/04/2025 Patient has diabetic eye disease 09/04/2025 Patient has diabetic eye disease 09/04/2025 Patient has chronic kidney disease 09/04/2025 Patient has chronic kidney disease 09/04/2025 Weekly blood pressure task 09/05/2025 Weekly blood pressure task 09/05/2025 Patient has diabetic eye disease 09/05/2025 Patient has diabetic eye disease 09/05/2025 Patient has chronic kidney disease 09/05/2025 Patient has chronic kidney disease 09/05/2025 Weekly blood pressure task 09/11/2025 Weekly blood pressure task 09/11/2025 Patient has diabetic eye disease 09/11/2025 Patient has diabetic eye disease 09/11/2025 Patient has chronic kidney disease 09/11/2025 Patient has chronic kidney disease 09/11/2025 Weekly blood pressure task 09/12/2025 Weekly blood pressure task 09/12/2025 Patient has diabetic eye disease 09/12/2025 Patient has diabetic eye disease 09/12/2025 Patient has chronic kidney disease 09/12/2025 Patient has chronic kidney disease 09/12/2025 Weekly blood pressure task 09/18/2025 Weekly blood pressure task 09/18/2025 Patient has diabetic eye disease 09/18/2025 Patient has diabetic eye disease 09/18/2025 Patient has chronic kidney disease 09/18/2025 Patient has chronic kidney disease 09/18/2025 Weekly blood pressure task 09/25/2025 Weekly blood pressure task 09/25/2025 Patient has diabetic eye disease 09/25/2025 Patient has diabetic eye disease 09/25/2025 Patient has chronic kidney disease 09/25/2025 Patient has chronic kidney disease 09/25/2025 Weekly blood pressure task 09/25/2025 Weekly blood pressure task 09/25/2025 Patient has diabetic eye disease 09/25/2025 Patient has diabetic eye disease 09/25/2025 Patient has chronic kidney disease 09/25/2025 Patient has chronic kidney disease 09/25/2025 Assessment Noted Time PHQ-9 Depression Total Score: 4 08/11/20 25 1:16 PM EDT documented as of this encounter Care Teams Telephone Station Repairer Relationship Specialty Start Date End Date Jocelyn Galdamez ANP [address] [place] [address] PCP - General Family Medicine 05/27/23 Regan Morin, iLz [address] [place] [address] Pharmacist Internal Medicine 09/14/24 Javier Alfredo, RN [address] [place] [id number] Registered Nurse Family Medicine 08/02/25 Ligia Burns 08/02/25 [facility] 12/05/24 documented as of this encounter
--- OUTSIDE RECORDS SUMMARY | 2025-10-02 08:44 | XMS_ITS | Encounter Summary ---
Author Organization [employer] Address [address] [facility] [address] [place] [address] Care Team Providers Care Or Nurse Manager Name Role Phone Jocelyn Galdamez Primary Care Provider [phone] Regan Morin PharmD Unavailable [phone] Javier Alfredo RN Unavailable [phone] Ligia Burns Unavailable Encounter Details Date Type Department Care Team (Late st Contact Info) Description 09/25/2025 Results Follow-Up [facility] [address] [place], [place] [id number] Jocelyn Galdamez ANP [address] [place] [address] Lipid Panel, Standard, Albumin, Random Urine W/Creatinine Social History Tobacco Use Types Packs/Day Years [...] the past 12 months, has t he [employer], gas, oil or water [employer] threatened to shut off services in your [...] as of this encounter Miscellaneous Notes * Result Encounter Note - MARIEL Arauz - 09/25/2025 1:35 PM EST Will review in other lab orders same DOS documented in this encounter Plan of Treatment Upcoming Encounters Date Type Department Care Team (Late st Contact Info) Description 11/23/2025 11:00 AM EST Office Visit [facility] [address] [place] [address] Jocelyn Galdamez ANP [address] [place] [address] documented as of this encounter Goals Goal Patient Goal Type Associated Problems Recent Progress Patient-Stated? Author Blood Pressure < 140/90 Blood Pressure 130/80(2024 8:53 AM EST) Ken Clancy Hemoglobin A1c < 7 Result Component 7.4( [...] Patient has chronic kidney disease No Ligia Bunrs Weekly blood pressure task Care Plan Weekly [...] disease No Javier Alfredo RN Patient has chronic kidney disease Care Plan Patient has chronic kidney disease No Javier Alfredo RN Patient has chronic kidney disease Care Plan Patient has chronic kidney disease No Javier Alfredo RN Weekly blood pressure [...] Care Plan Weekly blood pressure task No Duyen Caceresleeugene Weekly blood pressure task Care Plan Weekly [...] Weekly blood pressure task No Stone, Kristin, POLISHER APPRENTICE Weekly blood pressure task Care Plan Weekly blood pressure task No Stone, Kristin, POLISHER APPRENTICE Patient has diabetic eye disease Care Plan Patient has diabetic eye disease No Stone, Kristin, POLISHER APPRENTICE Patient has diabetic eye disease Care Plan Patient has diabetic eye disease No Stone, Kristin, POLISHER APPRENTICE Patient has chronic kidney disease Care Plan Patient has chronic kidney disease No Stone, Kristin, POLISHER APPRENTICE Patient has chronic kidney disease Care Plan Patient has chronic kidney disease No Stone, Kristin, POLISHER APPRENTICE Weekly blood pressure task Care Plan Weekly [...] chronic kidney disease No Jocelyn Galdamez ANP documented as of this encounter Visit Diagnoses [...] Assessment Noted Time PHQ-9 Depression Total Score: 16 025 12:30 PM EST documented as of this encounter Care Teams Or Nurse Manager Relationship Specialty Start Date End Date Jocelyn Galdamez ANP [address] [place] [address] PCP - General Family Medicine 05/27/23 Regan Morin, Liz [address] [place] [address] Pharmacist Internal Medicine 09/14/24 Javier Alfredo, J LUIS [address] [place] [id number] Registered Nurse Family Medicine 08/02/25 Ligia Burns 08/02/25 [facility] 12/05/24 documented as of this encounter
--- OUTSIDE RECORDS SUMMARY | 2025-10-02 08:44 | XMS_ITS | Clinical Summary ---
Author Organization [facility] Address [address] [place] [address] Care Team Providers Care Machine Joint Cutter Name Role Phone Jocelyn Galdamez MARIEL Primary Care Provider [phone] Regan Morin PharmD Unavailable [phone] Javier Alfredo RN Unavailable [phone] Ligia Burns Unavailable Allergies Active Allergy Reactions Criticality Noted Date [...] Blood Pressure kitIndications:H ypertension associated with diabetes ([facility]) 1 kit in the morning. 1 kit 023 Active ammonium lactate (Lac-Hydrin) 12 % lotion Apply 1 Application. topically Once per day. To soles of feet 024 Active glucose blood (FreeStyle Precision Marbin Test) test stripIndications :Type 2 diabetes mellitus with hyperlipidemia ([facility]) Use to test blood sugar 3 times daily as needed 100 each 11 09/01/20 25 12:50 PM EST 024 2024 Active tiotropium (Spiriva Respimat) 2.5 MCG/ACT inhalerIndicatio ns:Chronic obstructive pulmonary disease, unspecified COPD type (CMS/HCC) ([facility]) Inhale 2 puffs Once per day. 1 each 2025 Active Alcohol Swabs (Alcohol Prep) 70 % pads USE DIRECTED TO TEST BLOOD SUGAR BEFORE MEALS AND AT BEDTIME 100 each 09/20/20 3:34 PM EST Active metFORMIN XR (Glucophage-XR) 500 MG 24 hr tabletIndication s:Type 2 diabetes mellitus with hyperlipidemia (HCC) Take 1 tablet (500 mg) by mouth 2 times daily. Do not crush, chew, or split. 180 tablet 3 09/01/20 12:50 PM EST Active TRUEplus Lancets 33G miscIndications: Type 2 diabetes mellitus with hyperlipidemia (HCC) TEST BLOOD SUGAR THREE TIMES DAILY 100 each 09/01/20 25 12:50 PM EST Active empagliflozin (Jardiance) 25 MGIndications:Ty pe 2 diabetes mellitus with hyperlipidemia (HCC) Take 1 tablet (25 mg) by mouth Once per day. 30 tablet 09/01/20 12:50 PM EST 025 2025 Active aspirin (Aspirin Low Dose) 81 MG EC tabletIndication s:Type 2 diabetes mellitus with hyperlipidemia (HCC),History of CVA (cerebrovascular accident) Take 1 tablet (81 mg) by mouth in the morning. 90 tablet 3 09/01/20 12:50 PM EST Active atorvastatin (Lipitor) 80 MG tabletIndication s:Type 2 diabetes mellitus with hyperlipidemia (HCC),History of CVA (cerebrovascular accident) Take 1 tablet (80 mg) by mouth in the morning. 90 tablet 3 09/01/20 12:50 PM EST 025 Active pen needle 31G x 6 mm miscIndications: Type 2 diabetes mellitus with hyperlipidemia (HCC) Use as instructed with insulin 120 each 09/20/20 25 3:34 PM EST 025 2025 Active Lantus SoloStar 100 UNIT/ML penIndications:T ype 2 diabetes mellitus with hyperlipidemia (HCC) INJECT 55 UNITS SUBCUTANEOUSLY EVERY DAY AT BEDTIME 15 mL 3 Active Continuous Glucose Sensor (FreeStyle Karen 3 Plus Sensor) miscIndications: Type 2 diabetes mellitus with hyperlipidemia (HCC) APPLY 1 SENSOR TOPICALLY EVERY 15 DAYS. USE DIRECTED TO TEST BLOOD SUGAR 2 each 5 09/01/20 25 12:50 PM EST 025 Active chlorthalidone (Hygroton) 25 MG tabletIndication s:Hypertensive urgency TAKE 1 TABLET BY MOUTH EVERY MORNING 90 tablet 3 025 Active isosorbide mononitrate ER (Imdur) 60 MG 24 hr tablet TAKE 1 TABLET BY MOUTH EVERY MORNING DO NOT BREAK, CRUSH, DISSOLVE OR CHEW 90 tablet 3 Active lisinopril 40 MG tablet TAKE 1 TABLET BY MOUTH EVERY MORNING 90 tablet 3 025 Active omeprazole (PriLOSEC) [address] capsule TAKE 1 CAPSULE BY MOUTH EVERY MORNING 90 capsule 3 Active phenytoin ER (Dilantin) 100 MG capsule Take 1 capsule (100 mg) by mouth 2 times daily. 180 capsule 3 025 Active famotidine (Pepcid) 20 MG tabletIndication s:Nausea TAKE 1 TABLET BY MOUTH TWICE DAILY NEEDED FOR ACID REFLUX 180 tablet 025 Active oxyCODONE-acetam inophen (Percocet) 7.5-325 MG tablet Take 1 tablet by mouth if needed in the morning, at noon, and at bedtime. Active tadalafil (Cialis) 5 MG tablet Take 5 mg by mouth in the morning. Active Continuous Glucose Rental Management Trainee (FreeStyle Karen 3 [place]) deviceIndication s:Type 2 diabetes mellitus with hyperlipidemia (HCC) 1 Device Use as directed. Scan sensor in the morning and before each meal. 1 each 025 Active carvedilol (Coreg) 25 MG tabletIndication s:Type 2 diabetes mellitus with hyperlipidemia (HCC) TAKE 1 TABLET BY MOUTH TWICE DAILY IN THE MORNING AND IN THE EVENING WITH MEALS 180 tablet 1 09/01/20 25 12:50 PM EST 025 Active Tirzepatide (Mounjaro) 7.5 MG/0.5ML solution auto-injectorInd ications:Hyperte nsion associated with diabetes (HCC),Type 2 diabetes mellitus with hyperlipidemia (HCC) Inject 7.5 mg under the skin 1 (one) time per week. 2 mL 2 025 Active Ventolin HFA 108 (90 Base) MCG/ACT inhaler INHALE 2 PUFFS BY MOUTH EVERY 6 HOURS NEEDED FOR WHEEZING OR SHORTNESS OF BREATH 18 g 1 09/20/20 25 3:34 PM EST 025 Active Asmanex HFA 100 MCG/ACT aerosolIndicatio ns:Moderate persistent asthma without complication INHALE 2 PUFFS BY MOUTH TWICE DAILY RINSE MOUTH AFTER USING. 13 g 2 025 Active insulin lispro (HumaLOG) 100 UNIT/ML injection INJECT SUBCUTANEOUSLY THREE TIMES DAILY BEFORE MEALS, BLOOD SUGAR 150-199 = 4 UNITS, 200-249 = 6 UNITS, 250-299 = 8 UNITS, 300-349 = 10 UNITS, 350-399 = 12 UNITS, > 400 = 14 UNITS 15 mL 3 09/20/20 25 3:34 PM EST 025 Active Ventolin HFA 108 (90 Base) MCG/ACT inhaler INHALE 2 PUFFS EVERY 6 HOURS NEEDED FOR WHEEZING 18 g 1 09/01/20 25 12:50 PM EST 025 2024 Discontinued Mometasone Furoate (Asmanex HFA) 100 MCG/ACT aerosolIndicatio ns:Moderate persistent asthma without complication INHALE 2 PUFFS BY MOUTH TWICE DAILY RINSE MOUTH AFTER USING. 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 08/25/2025 Obstructive sleep apnea syndrome 08/25/2025 Cigarette nicotine dependence in remission 08/25 Screen for colon cancer 06/06/2024 Overview (06/06/2024): Negative cologuard 11/10/2023 Right arm pain 05/05/2024 Assessment & Plan (05/05/2024 8:54 PM EDT): Likely rupture of biceps tendon from history and exam -referred today for US soft tissue of right arm -referred today to ortho STAT -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 -tylenol prn -advised to use sling -Alarm signs and symptoms discussed History of CVA (cerebrovascular accident) 2023 Seizure disorder (CMS/HCC) 10/02/2023 Gastroesophageal reflux disease without esophagi tis 07/07/2023 Type 2 diabetes mellitus with hyperlipidemia Overview (08/11/2024): See dx below Lispro U100 [...] anxiety disorder) 06/25/2023 Cannabis use disorder 06/25/2023 Moderate episode of recurren t major depressive disorder (CMS/HCC) 06/25/2023 Assessment & Plan (02/22/2025 2:44 PM EDT): >>ASSESSMENT AND PLAN FOR MODERATE EPISODE OF RECURRENT MAJOR DEPRESSIVE DISORDER (CMS/HCC) WRITTEN ON 06/25/2023 1:49 PM BY ANURADHA CACERES Assessment: Patient with anhedonia, depressed, insomnia, fatigue, [...] to seek treatment PLAN: Follow up with [facility]: Not recommended for follow-up Patient goal is to improve mental health and functionality Behavioral Recommendations Ind. Therapy, referral will be submitted. Medication Management, referral will be submitted Use of coping skills provided as recommended. Encounters * This document contains information received from the source organization and may not represent a complete record from that organization. Date Type Department Care Team Description 09/25/2025 Results Follow-Up [facility] [address] [place] [phone] Jocelyn Galdamez ANP POCT Glucose, Comprehensive Metabolic Panel, Vitamin B12, Additional followed-up results: 3 09/25/2025 Results Follow-Up [facility] [address] [place] [phone] Jocelyn Galdamez ANP Lipid Panel, Standard, Albumin, Random Urine W/Creatinine 09/23/2025 Orders Only [facility] [address] [place] [phone] Jocelyn Galdamez ANP 09/18/2025 Refill [facility] [address] [place] [address] Jocelyn Galdamez ANP 09/16/2025 Refill [facility] [address] [place] [phone] Nisa Bullock MD Moderate persistent asthma without complication 09/11/2025 Patient Outreach [address] [address] Jocelyn Galdamez ANP Care Coordination (C3CM/CHW Ligia Burns, no show to meet Chw) 09/11/2025 Refill [facility] [address] [place] [address] Jocelyn Galdamez ANP 09/04/[address] [address] Joceyln Galdamez ANP november09/01/2025 Patient Outreach [address] [address] Jocelyn Galdamez ANP SDOH Concerns (C3CM/CHW Ligia Burns, low income application) 08/25/2025 9:00 AM EST Office Visit [address] [address] Jocelyn Galdamez ANP Hypertension associated with diabetes (HCC) (Primary Dx); Type 2 diabetes mellitus with hyperlipidemia (HCC); Obstructive sleep apnea syndrome; 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 associated with type 2 diabetes mellitus (HCC); Cigarette nicotine dependence in remission; Mass of soft tissue of wrist; Routine screening for STI (sexually transmitted infection); Seizure disorder (CMS/HCC) (HCC); ROBERTO (generalized anxiety disorder) 08/25/2025 Travel 08/24/[address] [address] Jocelyn Galdamez ANP chart prep 08/21/[address] [address] Jocelyn Galdamez ANP Type 2 diabetes mellitus with hyperlipidemia (HCC) 08/17/2025 Plan of Care Documentation [address] [address] 08/17/2025 Plan of Care Documentation [address] [address] 08/11/2025 Patient Outreach [address] [address] Jocelyn Galdamez ANP Care Coordination (C3/BEN Burns, [facility] assement completed ) 08/11/2025 Patient Outreach [facility] [address] [place] [phone] Jocelyn Galdamez ANP Care Management (C3CM- Initial assessment/enrollment) 08/10/2025 Patient Outreach [address] [address] Jocelyn Galdamez ANP Care Coordination (C3CM/BEN Burns, initial assessment scheduled ) 08/07/2025 Patient Outreach [address] [address] Jocelyn Galdamez ANP Care Coordination (C3/BEN Burns, outreach #2_lvm ) 08/07/[address] [address] Jocelyn Galdamez ANP chart prep 08/03/2025 Patient Outreach [address] [address] Jocelyn Galdamez ANP Care Coordination (C3CM/BEN Burns, Chart review, initial outreach_lvm ) 08/02/2025 Patient Outreach [facility] [address] [address] Jocelyn Galdamez ANP Care Coordination (C3CM- chart review) 08/02/2025 Patient Outreach [address] [address] Jocelyn Galdamez ANP 07/19/[address] [address] Jocelyn Galdamez ANP 07/07/2025 Patient Outreach [facility] [address] [place] [phone] Jocelyn Galdamez ANP Care Management (C3CM- F/U call) 07/03/[address] [address] Jocelyn Galdamez ANP Prior Authorization from Last 3 Months Immunizations Immunization Administration [...] with others, in a hotel, in a half-way, living outside on the street, on a [...] the past 12 months, has t he [employer], gas, oil or water [employer] threatened to shut off services in your [...] Sign Reading Time Taken Comments Blood Pressure 130/80 08/25/2025 8:53 AM EST Pulse 76 08/25/2025 8:53 AM EST Temperature 36.2 C (97.2 F) 08/25/2025 8:53 AM EST Respiratory Rate 14 08/25/2025 8:53 AM EST Oxygen Saturation 98% 08/25/2025 8:53 AM EST Inhaled Oxygen Concentration - - Weight 122 kg (269 lb) 08/25/2025 8:53 AM EST Height 180.3 cm (5' 11 ) 08/25/2025 8:53 AM EST Body Mass Index 37.52 08/25/2025 8:53 AM EST Plan of Treatment Upcoming Encounters Date Type Department Care Team (Late st Contact Info) Description 11/23/2025 11:00 AM EST Office Visit [facility] [address] [place] [address] Jocelyn Galdamez ANP [address] [place] [address] Health Maintenance Due Date Last Done Comments CT Colonography 1976 Colonoscopy 1976 FIT 1976 Sigmoidoscopy 1976 Family Planning (PISQ) 1991 FOBT 11/10/2024 11/10/2023 COVID-19 Vaccine ( season) 2025 Influenza Vaccine (#1) 2025 08/11/2024, 2022 Diabetes: Foot Exam 08/11/2025 08/11/2024, 08/11/2024, 08/11/2024, Additional history exists Diabetes: Hemoglobin A1C 09/27/2025 025, 03/07/2025, 11/21/2024, Additional history exists Eye Exam 09/29/2025 09/29/2024, 09/11, 09/29/2024, Additional history exists Depression Monitoring 03/13/2026 09/12/2025, 025 Zoster Vaccines (1 of 2) 2026 SDOH Screening 08/11/2026 08/11/2025 Alcohol/Substance Use Screening 08/25/2026 08/25/2025 Disability Screening 08/25/2026 08/25/2025 Tobacco Screening 08/25/2026 08/25/2025 Diabetes: Urine Protein Screening 09/23/2026 09/23/2025, 11/04/2023, 11/04/2023, Additional history exists Lipid Panel 09/23/2026 09/23/2025, 06/0 04/2024, 05/26/2023 Colorectal Cancer Screening 11/10/2026 FIT DNA/Cologuard 11/10/2026 11/10/2023 DTaP/Tdap/Td Vaccines (3 - Td or Tdap) 01/06/2035 01/06/2025, 07/30/2023 RSV Patients and Patients Aged 60 years or older (1 - 1-dose 75+ series) 2051 Pneumococcal Vaccine: Pediatrics (0 to 5 Years) and At-Risk Patients (6 to 49) Years Completed 08/11/2024 Hepatitis B Vaccines Completed 01/17/2025, 11/21/19 HIV Screening Completed 09/23/2025, 06/0 04/2024, 05/26/2023 Hepatitis C Screening Completed 09/23/2025 , 03/18/2024, 05/26/2023 HIB Vaccines Aged Out No longer eligi [...] Care Plan Weekly blood pressure task No Grant Judy Patient has diabetic eye disease Care Plan [...] Care Plan Weekly blood pressure task No Benjamin Burnslissy Patient has diabetic eye disease Care Plan Patient has diabetic eye disease No Benjamin Burnslissy Patient has diabetic eye disease Care Plan Patient has diabetic eye disease No eBnjamin Burnslissy Patient has chronic kidney disease Care Plan Patient has chronic kidney disease No Benjamin Burnslissy Patient has chronic kidney disease Care Plan [...] has diabetic eye disease No Javier Alfredo, RN Patient has diabetic eye disease Care [...] Care Plan Weekly blood pressure task No Caceres Zorylee Weekly blood pressure task Care Plan Weekly blood pressure task No Caceres Zorylee Patient has diabetic eye disease Care Plan Patient has diabetic eye disease No Caceres, Zorylee Patient has diabetic eye disease Care Plan Patient has diabetic eye disease No Caceres, Zorylee Patient has chronic kidney disease Care Plan Patient has chronic kidney disease No Caceres Zorylee Patient has chronic kidney disease Care Plan Patient has chronic kidney disease No Caceres Zorylee Weekly blood pressure task Care Plan Weekly blood pressure task No StoneRoderickga, PHYSICIAN OFFICE SPECIALIST Weekly blood pressure task Care Plan Weekly blood pressure task No StoneRoderickga, PHYSICIAN OFFICE SPECIALIST Patient has diabetic eye disease Care Plan Patient has diabetic eye disease No Stone Kristin, PHYSICIAN OFFICE SPECIALIST Patient has diabetic eye disease Care Plan Patient has diabetic eye disease No StoneRoderickga, PHYSICIAN OFFICE SPECIALIST Patient has chronic kidney disease Care Plan Patient has chronic kidney disease No StoneRoderickga, PHYSICIAN OFFICE SPECIALIST Patient has chronic kidney disease Care Plan Patient has chronic kidney disease No Stone, Kristin, PHYSICIAN OFFICE SPECIALIST Weekly blood pressure task Care Plan Weekly [...] Care Plan Weekly blood pressure task No Regan Morin PharmD Weekly blood pressure task Care Plan Weekly blood pressure task No Regan Morin PharmD Patient has diabetic eye disease Care Plan Patient has diabetic eye disease No Regan Morin PharmD Patient has diabetic eye disease Care Plan Patient has diabetic eye disease No Regan Morin PharmD Patient has chronic kidney disease Care Plan Patient has chronic kidney disease No Regan Morin PharmChristopher Patient has chronic kidney disease Care Plan Patient has chronic kidney disease No Regan Morin PharmD Procedures Procedure Name Priority Date/Time Associated Diagnosis Comments TESTOSTERONE, TOTAL, MS Routine 09/23/2025 8:55 AM EST PROLACTIN Routine 09/23/2025 8:55 AM EST LH Routine 09/23/2025 8:55 AM EST FSH Routine 09/23/2025 8:55 AM EST SEX HORMONE BINDING GLOBULIN Routine 09/23/2025 8:55 AM EST LIPID PANEL, STANDARD Routine 09/23/2025 8:55 AM EST RPR (MONITOR) W/REFL TITER Routine 09/23/2025 8:55 AM EST Routine screening for STI (sexually transmitted infection) HEPATITIS C AB W/REFL TO HCV RNA, QN, PCR Routine 09/23/2025 8:55 AM EST Routine screening for STI (sexually transmitted infection) HIV 1/2 ANTIGEN/ANTIBODY, FOURTH GENERATION W/RFL Routine 09/23/2025 8:55 AM EST Routine screening for STI (sexually transmitted infection) VITAMIN B12 Routine 09/23/2025 8:55 AM EST Type 2 diabetes mellitus with hyperlipidemia (HCC) COMPREHENSIVE METABOLIC PANEL Routine 09/23/2025 8:55 AM EST Type 2 diabetes mellitus with hyperlipidemia (HCC) ALBUMIN, RANDOM URINE W/CREATININE Routine 09/23/2025 8:49 AM EST POCT GLUCOSE Routine 08/25/2025 8:55 AM EST Type 2 diabetes mellitus with hyperlipidemia (HCC) POCT GLYCATED HEMOGLOBIN, TOTAL Routine 06/28/2025 10:37 AM EDT Type 2 diabetes mellitus with hyperlipidemia (CMS/HCC) (CMS/HCC) LAB COLOGUARD COLON CANCER SCREEN Routine 11/10/2023 3:25 PM EST Screening for malignant neoplasm of colon from Last 3 Months or Most Recently Relevant to Health Maintenance Results * Hepatitis C Antibody with Reflex to HCV, RNA, Quantitative, Real-Time PCR (09/23/2025 8:55 AM EST) Hepatitis C Antibody Nonreactive Nonreactive [facility] Comment:Antibodies to HCV no t detected; does not exclude early acuteHCV infection. Blood Venous blood specimen / Unknown 09/23/2025 8:55 AM EST 09/23/2025 8:55 AM EST Jocelyn Galdamez [facility] BLOOD ORDERABLES Final Resul t [facility] [address] [place] [phone] * RPR (Monitor) with Reflex to??Titer (09/23/2025 8:55 AM EST) RPR (Monitor) w/Refl Titer NON-REACTI VE NON-REACT SEGUNDO [facility] Comment:THIS TEST WAS PERFOR MED AT:[facility] [place] [phone] LEVY MD Rapid Plasma Reagin Ab Titer TNP [facility] Blood Venous blood specimen / Unknown 09/23/2025 8:55 AM EST 09/23/2025 8:55 AM EST Jocelyn Galdamez [facility] BLOOD ORDERABLES Final Resul t Performing Organization Address [facility] Co de Phone Number [facility] [address] [place] [phone] * HIV-1/2 Antigen and Antibodies, Fourth Generation, with Reflexes (09/23/2025 8:55 AM EST) HIV AB/AG Nonreactive Nonreactive [facility] Comment:HIV-1 p24 Ag and/or HIV-1/HIV-2 Ab not detected.A test result that is nonreactive does not exclude thepossibility of exposure to or infection with HIV-1 and/orHIV-2. Nonreactive results in this assay for individualswith prior exposure to HIV-1 and/or HIV-2 may be due toantigen and antibody levels that are below the limit ofdetection of this assay.The [employer] Interpreting HIV Ag/Ab Combo assay result andsupplemental assay results should be interpreted inconjunction with the patient's clinical presentation,history and other laboratory results. If the results areinconsistent with clinical evidence, additional testing issuggested to confirm the result. Blood Venous blood specimen / Unknown 09/23/2025 8:55 AM EST 09/23/2025 8:55 AM EST us Jocelyn Galdamez [facility] BLOOD ORDERABLES Final Resul t Performing Organization Address City/[facility] Co de Phone Number [facility] [address] [place] [phone] * Vitamin B12 (09/23/2025 8:55 AM EST) Vitamin B12 358 200 - 900 pg/mL [facility] Comment:NORMAL 200-900 PG/ML INDETERMINATE 160-199 PG/ML DEFICIENT < 160 PG/ML Blood Venous blood specimen / Unknown 09/23/2025 8:55 AM EST 09/23/2025 8:55 AM EST Jocelyn Galdamez ANP LAB BLOOD ORDERABLES Final Resul t Performing Organization Address [facility] Co de Phone Number [facility] [address] [place] [address] [phone] * (ABNORMAL) Lipid Panel, Standard (09/23/2025 8:55 AM EST) Triglycerides 96 <150 mg/dL [facility] Comment:Desirable Triglyceri de: less than 150 mg/dLBorderline High Triglyceride 150-199 mg/dLHigh Triglyceride: 200-499 mg/dLVery High Triglyceride: greater than or equal to 5OO mg/dL Cholesterol 109 <200 mg/dL [facility] Comment:Desirable Cholestero l: less than 200 mg/dLBorderline High Cholesterol: 200-239 mg/dLHigh Cholesterol: greater than 239 mg/dL LDL Cholesterol Calculated 57 <100 mg/dL [facility] Comment:Desirable LDL: less than 100 mg/dLNear Optimal/Above Optimal LDL: 110- 129 mg/dLBorderline High LDL: 130-159 mg/dLHigh LDL: 160-189 mg/dLVery High LDL: greater than or equal to 190 mg/dL HDL Cholesterol 33(L) >40 mg/dL [facility] Comment:Desirable HDL: great er than 40 mg/dL Note: This HDL assay may give artificially low results in patients with liver disease. 09/23/2025 8:55 AM EST 09/23/2025 8:55 AM EST Jocelyn Galdamez ANP LAB BLOOD ORDERABLES Final Resul t Performing Organization Address [facility]/ZIP Co de Phone Number [facility] [address] [place] [phone] [phone] * (ABNORMAL) Comprehensive Metabolic Panel (09/23/2025 8:55 AM EST) Sodium 140 135 - 145 mmol/L [facility] Potassium 4.0 3.3 - 5.1 mmol/L [facility] Chloride 106 96 - 108 mmol/L [facility] Carbon Dioxide 24 22 - 29 mmol/L [facility] Anion Gap 14 12 - 20 [facility] Urea Nitrogen (BUN) 23(H) 9 - 16 mg/dL [facility] Creatinine, Serum 1.58(H) 0.5 - 1.4 mg/dL [facility] Estimated Glomerular Filt Rate 47 [facility] Comment:Chronic Kidney Disea se: Estimated GFR < 60 mL/min/1.22b1Gywttr Kidney Disease: Estimated GFR < 15 mL/min/1.73m2 Glucose 147(H) 60 - 115 mg/dL [facility] Calcium 9.1 8.4 - 10.2 mg/dL [facility] Bilirubin, Total 0.4 0.0 - 1.0 mg/dL [facility] Aspartate Amino Transferase 22 5 - 37 U/L [facility] Alanine Aminotransferase 14 0 - 40 U/L [facility] Total Protein 7.3 6.5 - 8.0 g/dL [facility] Albumin Level 4.3 3.5 - 5.0 g/dL [facility] Alkaline Phosphatase 71 39 - 117 U/L [facility] Blood Venous blood specimen / Unknown 09/23/2025 8:55 AM EST 09/23/2025 8:55 AM EST Jocelyn Galdamez [facility] BLOOD ORDERABLES Final Resul t [facility] [address] [place] [phone] * (ABNORMAL) Albumin, Random Urine W/Creatinine (09/23/2025 8:49 AM EST) Creatinine, Urine 123.34 mg/dL [facility] Microalbumin Urine 60.0 mg/L [facility] Microalbum Creatinine Ratio Ur 48.6(H) <30 ug/mg cr [facility] Comment:Albumin/Creatinine R atio Reference Ranges: Normal: < 30 ug/mg creatinine Microalbuminuria: 30 - 300 ug/mg creatinineClinical Albuminuria: > 300 ug/mg creatinine 09/23/2025 8:49 AM EST 09/23/2025 10:15 AM EST us Jocelyn Galdamez ANP LAB URINE ORDERABLES Final Resul t [facility] [address] [place] [address] [phone] * POCT Glucose (08/25/2025 8:55 AM EST) Pathologist [facility] Glucose Blood, POC 192 60 - 200 mg/dL QC Media Lot # [id number] Lot# Expiration Date [id number] Blood Capillary blood specimen / Unknown 08/25/2025 8:55 AM EST us Jocelyn Galdamez ANP POINT OF CARE TEST ENTER/EDIT OR DERABLES Final Result * (ABNORMAL) POCT Hgb A1c (06/28/2025 10:37 AM EDT) Pathologist [facility] Hemoglobin A1C 7.4(A) 4.0 - 5.7 % QC Media Lot # [id number] Lot# Expiration Date [id number] Blood 06/28/2025 10:3 7 AM EDT us Jocelyn Galdamez ANP POINT OF CARE TEST ENTER/EDIT OR DERABLES Final Result * Cologuard?? colon cancer screening (11/10/2023 3:25 PM EST) Cologuard Result Negative Negative 11/20/19 10:09 AM EST [facility] (CLIA #:[id number]) Comment: NEGATIVE TEST RESULT. A negative Cologuard [...] (Ngozi Urena al, N Engl J Med 2014;370(14):1705-6106) The normal value (reference range) for this assay is negative. COLOGUARD RE-SCREENING RECOMMENDATION: Periodic colorectal cancer screening is an important part of preventive healthcare for asymptomatic individuals at average risk for colorectal cancer. Following a negative Cologuard result, the [place] [employer] and U.S. Multi-Society Task Force screening guidelines recommend a Cologuard re-screening interval of 3 years. References: [place] [employer] Guideline for Colorectal Cancer Screening: https://www.cancer.org/cancer/qzmnz-ylmnfj-grlxuv/kzslpjyyi-cwtboljdy-ntioird/ac s-rec ommendations.html.; Jc AGUILAR, Ravin LUU, Donna CampbellK, Colorectal Cancer Screening: Recommendations for Physicians and Patients from the U.S. Multi-Society Task Force on Colorectal Cancer Screening , Am J Gastroenterology 2017; 112:3991-2993. TEST DESCRIPTION: Composite algorithmic analysis of stool [...] screened with both Cologuard and colonoscopy. (Ngozi Good, N Engl J Med 2014;370(14):0043-9959.) Cologuard may produce a false negative or false positive result (no colorectal cancer or precancerous polyp present at colonoscopy follow up). A negative Cologuard test result does not guarantee the absence of CRC or advanced adenoma (pre-cancer). The current Cologuard screening interval is every 3 years. ([place] [employer] and U.S. Multi-Society Task Force). Cologuard performance data in a 10,000 patient pivotal study using colonoscopy as the reference method can be accessed at the following location: www.[employer]/results. Additional description of the Cologuard test process, warnings and precautions can be found at www.cologuard.com. Stool specimen (specimen) 11/10/2023 3:25 PM EST 11/12/2023 10:50 AM EST [facility] MOLECULAR DIAGNOSTICS ORDERA BLES Final Result [facility] (CLIA #:[id number]) [place] [address] [place] [address], from Last 3 Months or Most Recently Relevant to Health Maintenance Additional Health Concerns Active Problems Noted Date [...] kidney disease 09/25/2025 Weekly blood pressure task 09/29/2025 Weekly blood pressure task 09/29/2025 Patient has diabetic eye disease 09/29/2025 Patient has diabetic eye disease 09/29/2025 Patient has chronic kidney disease 09/29/2025 Patient has chronic kidney disease 09/29/[address] [place] [address] [place] [address] C3 Care Teams Machine Joint Cutter Relationship Specialty Start Date End Date Jocelyn Galdamez ANP [address] [place] [address] PCP - General Family Medicine 05/27/23 Regan Morin, KayleenD [address] [place] [address] Pharmacist Internal Medicine 09/14/24 Javier Alfredo, J LUIS [address] [place] [id number] Registered Nurse Family Medicine 08/02/25 Ligia Burns 08/02/25 [facility] 12/05/24
--- OUTSIDE RECORDS SUMMARY | 2025-10-02 08:44 | XMS_ITS ---
Author Organization [employer] Address [address] [place] [address] [address] [place] [address] Care Team Providers Care Supervisor Liquid Yeast Name Role Phone Jocelyn Galdamez Primary Care Provider [phone] Regan Morin PharmD Unavailable [phone] Javier Alfredo RN Unavailable [phone] Ligia Burns Unavailable [facility] Status:Enrolled (Active) Start date:08/02/2025 Enrollment date:08/02/2025 Enrollment reason:ADT Feed Overview ED- Pt went to [facility] ED on 08/01/25. Case Team Name Relationship Phone Ligia Burns(Responsible Staff) [phone] Continued Care and Services Coordination
--- OUTSIDE RECORDS SUMMARY | 2025-10-02 08:44 | XMS_ITS | Encounter Summary ---
Author Organization [facility] Address [address] [place] [address] Care Team Providers Care Operations Research Group Manager Name Role Phone Jocelyn Galdamez Primary Care Provider [phone] Regan Morin PharmD Unavailable [phone] Javier Alfredo RN Unavailable [phone] Javier Alfredo RN Unavailable [phone] Ligia Burns Unavailable Encounter Details Date Type Department Care Team (Late st Contact Info) Description 11/26/2023 Orders Only [facility] MEDICINE [address] [place], [place] [phone] Jocelyn Galdamez ANP [address] [place], [place] [phone] Social History Tobacco Use Types Packs/Day Years [...] Description 11/23/2025 11:00 AM EST Office Visit [facility] MEDICINE [address] [place] [phone] Jocelyn Galdamez ANP [address] [place] [phone] documented as of this encounter Goals Goal [...] documented as of this encounter Care Teams Operations Research Group Manager Relationship Specialty Start Date End Date Jocelyn Galdamez ANP [address] [place] [id number] PCP - General Family Medicine 05/27/23 Regan Morin, KayleenD [address] [place] [address] Pharmacist Internal Medicine 09/14/24 Javier Alfredo, RN [address] [place] [address] Registered Nurse Family Medicine 06/19/25 07/07/25 Javier Alfredo RN [address] [place] [address] Registered Nurse Family Medicine 08/02/25 Ligia Burns 08/02/25 [facility] 12/05/24 documented as of this encounter
== END 2025-10-02 09:14 | disposition home or self-care (01) ==
LOC: HO.HUSH 08:30
PROVIDERS: PCP Nurse Practitioner Primary Care; Visit Provider Nurse Practitioner Family
DX: E11.69 Type 2 diabetes mellitus with other specified complication (principal); N52.1 Erectile dysfunction due to diseases classified elsewhere; N40.1 Benign prostatic hyperplasia with lower urinary tract symptoms; N13.8 Other obstructive and reflux uropathy
CPT/HCPCS: 99213

== ENCOUNTER → 2025-10-02 08:29 | Outpatient (BNVA) | payer MEDICAID, SELFPAY | PROVIDERS: PCP Nurse Practitioner Primary Care; Visit Provider Nurse Practitioner Family | DX: E11.69 Type 2 diabetes mellitus with other specified complication (principal); N52.1 Erectile dysfunction due to diseases classified elsewhere; N13.8 Other obstructive and reflux uropathy; N40.1 Benign prostatic hyperplasia with lower urinary tract symptoms; Z79.899 Other long term (current) drug therapy; Z79.4 Long term (current) use of insulin; Z79.85 Long-term (current) use of injectable non-insulin antidiabetic drugs | CPT/HCPCS: 81003; 99212 ==